=== PATIENT | female | born 1935 | race Caucasian/White ===

== ENCOUNTER → 2017-01-29 | Outpatient (CLI) | payer MEDICARE, OTHER ==
[2016-07-15 11:06] VITALS: BP 132/75
[~2017-01-29] MED LIST: ASPI81TA9 PO; CELE200C PO; CLOP75TA PO; FERR325T72 PO; OXYC1TAB7 PO; PANT40TA5 PO; TOLT4CAP12 PO; TRAM50TA PO; VALS1TAB27 PO; VENL75CA6 PO
--- NOTE | 2017-01-29 16:26 | RAD ---
Indication nonhealing wound. AP oblique and lateral views of the right foot were obtained. There are degenerative changes involving the foot. An acute bony finding is not apparent. There is demineralization of the distal phalanx of the third digit. Osteomyelitis at this level is not excluded. Clinical correlation as to this possibility advised. No additional bony finding is not seen IMPRESSION: Demineralization of the distal phalanx of the third digit. See above discussion
== END | disposition home or self-care (01) ==
LOC: PMGWOUND 14:18
PROVIDERS: ATTEND Emergency Medicine Undersea and Hyperbaric Medicine
DX: I70.235 Atherosclerosis of native arteries of right leg with ulceration of other part of foot (principal); I70.243 Atherosclerosis of native arteries of left leg with ulceration of ankle; E11.621 Type 2 diabetes mellitus with foot ulcer; E11.622 Type 2 diabetes mellitus with other skin ulcer; L97.311 Non-pressure chronic ulcer of right ankle limited to breakdown of skin; L97.511 Non-pressure chronic ulcer of other part of right foot limited to breakdown of skin; I10 Essential (primary) hypertension; E78.5 Hyperlipidemia, unspecified; F32.9 Major depressive disorder, single episode, unspecified; G43.909 Migraine, unspecified, not intractable, without status migrainosus; E66.9 Obesity, unspecified; Z68.30 Body mass index [BMI] 30.0-30.9, adult; M19.011 Primary osteoarthritis, right shoulder; E78.00 Pure hypercholesterolemia, unspecified; E11.51 Type 2 diabetes mellitus with diabetic peripheral angiopathy without gangrene; Z87.891 Personal history of nicotine dependence
CPT/HCPCS: 73630; 99215

== ENCOUNTER → 2017-02-06 | Outpatient (CLI) | payer MEDICARE, OTHER ==
[2016-07-15 11:06] VITALS: BP 132/75
== END | disposition home or self-care (01) ==
LOC: PMGWOUND 12:27
PROVIDERS: ATTEND Emergency Medicine Undersea and Hyperbaric Medicine
DX: I70.235 Atherosclerosis of native arteries of right leg with ulceration of other part of foot (principal); I70.233 Atherosclerosis of native arteries of right leg with ulceration of ankle; L97.514 Non-pressure chronic ulcer of other part of right foot with necrosis of bone; L97.312 Non-pressure chronic ulcer of right ankle with fat layer exposed; I10 Essential (primary) hypertension; E78.5 Hyperlipidemia, unspecified; Z87.891 Personal history of nicotine dependence
CPT/HCPCS: 93922

== ENCOUNTER → 2017-04-03 | Outpatient (CLI) | payer MEDICARE, OTHER ==
--- NOTE | 2017-02-16 02:51 | CONS ---
DATE OF CONSULTATION: THE PATIENT'S ROOM: 410. REQUESTING PHYSICIAN: Nguyễn Palencia M.D. REASON FOR CONSULTATION: Leukocytosis and right ankle wound. HISTORY OF PRESENT ILLNESS: The patient is a very pleasant 81-year-old female who she states about 2 months ago scraped her right ankle on the outside aspect on one of her motorized wheelchair. Over the past couple of months, she has been having complications with ongoing wound, but states that she has been evaluated by the wound center. She underwent an aortogram on 06/16/2016 and it was found that she had a right leg graft that had clotted off and she has been admitted to the hospital. She now needs to undergo bypass grafting of this. Her right wound appears to have some infection, hence I have been consulted. Currently, the patient is lying in bed. She is fairly comfortable. She believes she is on antibiotic, but she cannot remember what it was prior to coming to the hospital. She [facility] She has been having increased pain in her right leg. No fevers or chills or sweats. No shortness of air, chest pain, nausea, vomiting, diarrhea. No constipation. No dysuria, frequency or urgency. PAST MEDICAL HISTORY: Positive for hypertension, hyperlipidemia, peripheral arterial disease, depression, carotid disease, right foot drop, small abdominal aortic aneurysm, overactive bladder, lumbar spinal stenosis, obesity. PAST SURGICAL HISTORY: Positive for right carotid endarterectomy. She has had upper GI gastric angiodysplasias treated with endoclips, has had left superficial femoral artery angioplasty, carpal tunnel release, tonsillectomy, bilateral total hip arthroplasties, angioplasty of the stomach. REVIEW OF SYSTEMS: Otherwise negative except for what is mentioned above. ALLERGIES: Listed as PENICILLIN, however, she has tolerated amoxicillin. The PENICILLIN CAUSED her on to swell after a miscarriage. ALSO LISTED IS AMLODIPINE, IODINE, OLANZAPINE, ZYPREXA, VIOXX. SOCIAL HISTORY: She is . Her is currently with her. No tobacco, no alcohol. She quit tobacco over 20 years ago. FAMILY HISTORY: Noncontributory. CURRENT MEDICATIONS: Include Lipitor, Plavix, Pepcid, Dilaudid, NovoLog insulin. Other meds are available and have been reviewed in the chart. She did receive a dose of Solu-Medrol on the 02/14/2017. PHYSICAL EXAMINATION: VITAL SIGNS: Afebrile. Temperature is 97.9, pulse 77, respirations 18, blood pressure 140/67, satting 90% on room air. CONSTITUTIONAL: She is very pleasant. She is cooperative. She is in no acute distress. She appears comfortable. HEENT: Pupils are status post cataract surgery. Oral cavity, pharynx is clear. She has upper dentures. NECK: Supple. Good range of motion, no JVD. LUNGS: Clear to auscultation bilaterally. HEART: S1, S2. ABDOMEN: Obese, soft, nontender, nondistended, positive bowel sounds. EXTREMITIES: Without clubbing, cyanosis; however, right lower extremity has a chronic appearing ulceration on the lateral aspect of the malleolus. There is some thickened. There is also a tenia onychomycosis associated with it with some decreasing pulses. SKIN: Has a mild erythema associated with it. There is no itching. There is no excessive warmth. NEUROLOGIC: She is nonfocal, pleasant. PSYCHIATRIC: Affect is appropriate and pleasant. LABORATORY VALUES: White count of 14.9, hemoglobin 13.4, platelets are 250 with 84 segs, 3 bands. Sed rate was 5. Creatinine 0.8, glucose 145. Normal liver function study tests. Chest x-ray without acute abnormality. Ankle x-ray ulceration on the lateral malleolus. No convincing evidence of osteomyelitis. Atypical appearance of the medial malleolus. IMPRESSION: 1. Rash, likely from contrast even with the aortogram. 2. Leukocytosis. She did receive Solu-Medrol x1 on the 5th. 3. PENICILLIN ALLERGY, has tolerated oxacillin. 4. Right lateral ankle ulceration and cellulitis and yeast. 5. Occluded right lower extremity arteriograph. RECOMMENDATIONS: For now, we will dose vancomycin, Zosyn and fluconazole. We will follow up on labs and cultures, await surgery. I did discuss with Dr. Palencia as well as Dr. Terry and a questionable finding on the x-ray. This was discussed with . Thank you for allowing me to see and participate in the patient's care. If you have any questions, please do not hesitate to contact me. TAMIKO FREDERICK MD DR: MARYANA/chuy JOB#: [id number] / [id number]
[2017-02-20 11:30] VITALS: BP 124/59
[~2017-04-03] MED LIST changes: +ATOR10TA60 PO; +B12; +DOXY100C2 PO; +HEPARIN SODIUM 5,000 UNIT in IV RINGERS,LACTATED 500ML 500 ML IRR ONE; +MULT-650 PO; +SURGICEL FIBRILLAR 1X2 EACH. ONE; +VITB
== END | disposition home or self-care (01) ==
LOC: PMGWOUND 10:45
PROVIDERS: ATTEND Emergency Medicine Undersea and Hyperbaric Medicine
DX: I70.235 Atherosclerosis of native arteries of right leg with ulceration of other part of foot (principal); L97.514 Non-pressure chronic ulcer of other part of right foot with necrosis of bone; I70.233 Atherosclerosis of native arteries of right leg with ulceration of ankle; L97.314 Non-pressure chronic ulcer of right ankle with necrosis of bone; I10 Essential (primary) hypertension; E78.5 Hyperlipidemia, unspecified; M19.90 Unspecified osteoarthritis, unspecified site; Z87.891 Personal history of nicotine dependence
CPT/HCPCS: 11042; 97597; 97598; J7120

== ENCOUNTER → 2017-04-12 | Outpatient (CLI) | payer MEDICARE, OTHER ==
[2017-02-20 11:30] VITALS: BP 124/59
[~2017-04-12] MED LIST changes: -HEPARIN SODIUM 5,000 UNIT in IV RINGERS,LACTATED 500ML 500 ML IRR ONE; -SURGICEL FIBRILLAR 1X2 EACH. ONE
== END | disposition home or self-care (01) ==
LOC: PMGWOUND 10:44
PROVIDERS: ATTEND Emergency Medicine Undersea and Hyperbaric Medicine
DX: I70.233 Atherosclerosis of native arteries of right leg with ulceration of ankle (principal); L97.314 Non-pressure chronic ulcer of right ankle with necrosis of bone; I10 Essential (primary) hypertension; E78.5 Hyperlipidemia, unspecified; M19.90 Unspecified osteoarthritis, unspecified site; F32.9 Major depressive disorder, single episode, unspecified; E66.9 Obesity, unspecified; Z87.891 Personal history of nicotine dependence
CPT/HCPCS: 87071; 87075; 87205; 97597; 97598

== ENCOUNTER → 2017-04-19 | Outpatient (CLI) | payer MEDICARE, OTHER ==
[2017-02-20 11:30] VITALS: BP 124/59
[~2017-04-19] MED LIST changes: +ASPI-612 PO; -ASPI81TA9 PO
== END | disposition home or self-care (01) ==
LOC: PMGWOUND 12:53
PROVIDERS: ATTEND Emergency Medicine Undersea and Hyperbaric Medicine
DX: I70.243 Atherosclerosis of native arteries of left leg with ulceration of ankle (principal); L97.314 Non-pressure chronic ulcer of right ankle with necrosis of bone; I10 Essential (primary) hypertension; E78.5 Hyperlipidemia, unspecified; F32.9 Major depressive disorder, single episode, unspecified; E66.9 Obesity, unspecified; Z68.29 Body mass index [BMI] 29.0-29.9, adult; M19.90 Unspecified osteoarthritis, unspecified site; Z87.891 Personal history of nicotine dependence
CPT/HCPCS: 97597; 97598

== ENCOUNTER → 2017-04-20 | Outpatient (CLI) | payer MEDICARE, OTHER ==
[2017-02-20 11:30] VITALS: BP 124/59
--- NOTE | 2017-04-20 17:24 | KCIC ---
MR of the right foot HISTORY: Nonhealing wound of the right foot. The specific location of the wound is not indicated, and the patient is unable to provide accurate history. TECHNIQUE: Routine multiplanar sequences are obtained. FINDINGS: Mild soft tissue and muscle edema throughout the foot without area of localized predominance. No organized fluid collection or abscess. No evidence of aggressive bone destruction or osteomyelitis. No evidence of acute fracture. There is some heterogeneous marrow signal within the distal shaft of the first metatarsal. This does demonstrate some central fatty content. This may represent an area of osteonecrosis. Primary osteoarthritis is identified about the visualized foot. No evidence of acute Lisfranc ligament disruption. No evidence of tarsometatarsal joint malalignment. Mild fluid around the visualized peroneal tendons. There appears to be a longitudinal split tear of the peroneus brevis tendon at and just distal to the lateral malleolus. Mild fluid at the posterior tibial and flexor tendons. Mild thickening of the plantar aponeurosis, at and just beyond the origin over a length of about 4.5 cm. This could represent scarring from chronic plantar fasciitis. Plantar fibroma is also possible. This demonstrates mildly increased internal signal. Small subchondral cysts are identified particularly at the tarsometatarsal joints, appear degenerative. No evidence of a large joint effusion IMPRESSION: 1. Mild generalized soft tissue edema, compatible with cellulitis/myositis. No evidence of drainable abscess or acute osteomyelitis. 2. Bone lesion within the distal first metatarsal. This may represent an area of osteonecrosis. Enchondroma could also be considered. No overtly aggressive features are suggested. X-ray correlation could be helpful. 3. Thickening within the plantar aponeurosis with mildly hyperintense signal. Consider scarring from chronic plantar fasciitis or plantar fibroma. 4. Generalized primary osteoarthritis. 5. Limited visualization of the peroneus brevis tendon at the hindfoot does suggest a longitudinal split tear. Electronically signed by: Nguyễn Rhodes MD (04/20/2017 5:21 PM)
== END | disposition home or self-care (01) ==
LOC: KCIC MRI 16:12
PROVIDERS: ATTEND Emergency Medicine Undersea and Hyperbaric Medicine
DX: S91.301A Unspecified open wound, right foot, initial encounter (principal); M15.0 Primary generalized (osteo)arthritis; X58.XXXA Exposure to other specified factors, initial encounter; Y93.89 Activity, other specified; Y92.89 Other specified places as the place of occurrence of the external cause; Y99.8 Other external cause status
CPT/HCPCS: 73718

== ENCOUNTER → 2017-04-26 | Outpatient (CLI) | payer MEDICARE, OTHER ==
[2017-02-20 11:30] VITALS: BP 124/59
== END | disposition home or self-care (01) ==
LOC: PMGWOUND 12:48
PROVIDERS: ATTEND Emergency Medicine Undersea and Hyperbaric Medicine
DX: I70.233 Atherosclerosis of native arteries of right leg with ulceration of ankle (principal); L97.313 Non-pressure chronic ulcer of right ankle with necrosis of muscle; I10 Essential (primary) hypertension; E78.5 Hyperlipidemia, unspecified; F32.9 Major depressive disorder, single episode, unspecified; E66.9 Obesity, unspecified; Z68.29 Body mass index [BMI] 29.0-29.9, adult; M15.0 Primary generalized (osteo)arthritis; Z87.891 Personal history of nicotine dependence
CPT/HCPCS: 97597

== ENCOUNTER → 2017-05-08 | Outpatient (CLI) | payer MEDICARE, OTHER ==
[2017-02-20 11:30] VITALS: BP 124/59
== END | disposition home or self-care (01) ==
LOC: PMGWOUND 13:15
PROVIDERS: ATTEND Emergency Medicine Undersea and Hyperbaric Medicine
DX: I70.233 Atherosclerosis of native arteries of right leg with ulceration of ankle (principal); L97.313 Non-pressure chronic ulcer of right ankle with necrosis of muscle; I70.235 Atherosclerosis of native arteries of right leg with ulceration of other part of foot; L97.413 Non-pressure chronic ulcer of right heel and midfoot with necrosis of muscle; I10 Essential (primary) hypertension; E78.5 Hyperlipidemia, unspecified; F32.9 Major depressive disorder, single episode, unspecified; E66.9 Obesity, unspecified; Z68.29 Body mass index [BMI] 29.0-29.9, adult; M15.0 Primary generalized (osteo)arthritis; Z87.891 Personal history of nicotine dependence
CPT/HCPCS: 99214

== ENCOUNTER → 2017-05-17 | Outpatient (CLI) | payer MEDICARE, OTHER ==
[2017-02-20 11:30] VITALS: BP 124/59
== END | disposition home or self-care (01) ==
LOC: PMGWOUND 13:30
PROVIDERS: ATTEND Emergency Medicine Undersea and Hyperbaric Medicine
DX: I70.243 Atherosclerosis of native arteries of left leg with ulceration of ankle (principal); L97.313 Non-pressure chronic ulcer of right ankle with necrosis of muscle; I70.235 Atherosclerosis of native arteries of right leg with ulceration of other part of foot; L97.413 Non-pressure chronic ulcer of right heel and midfoot with necrosis of muscle; I10 Essential (primary) hypertension; E78.5 Hyperlipidemia, unspecified; I73.9 Peripheral vascular disease, unspecified; F32.9 Major depressive disorder, single episode, unspecified; M19.90 Unspecified osteoarthritis, unspecified site; E66.9 Obesity, unspecified; Z68.29 Body mass index [BMI] 29.0-29.9, adult; Z87.891 Personal history of nicotine dependence
CPT/HCPCS: 15275; 97597; Q4132

== ENCOUNTER → 2017-05-22 | Outpatient (CLI) | payer MEDICARE, OTHER ==
[2017-02-20 11:30] VITALS: BP 124/59
== END | disposition home or self-care (01) ==
LOC: PMGWOUND 13:20
PROVIDERS: ATTEND Emergency Medicine Undersea and Hyperbaric Medicine
DX: I70.233 Atherosclerosis of native arteries of right leg with ulceration of ankle (principal); L97.313 Non-pressure chronic ulcer of right ankle with necrosis of muscle; I70.235 Atherosclerosis of native arteries of right leg with ulceration of other part of foot; L97.413 Non-pressure chronic ulcer of right heel and midfoot with necrosis of muscle; I10 Essential (primary) hypertension; E78.5 Hyperlipidemia, unspecified; I73.9 Peripheral vascular disease, unspecified; M19.90 Unspecified osteoarthritis, unspecified site; F32.9 Major depressive disorder, single episode, unspecified; E66.9 Obesity, unspecified; Z68.29 Body mass index [BMI] 29.0-29.9, adult; Z87.891 Personal history of nicotine dependence
CPT/HCPCS: 97597

== ENCOUNTER → 2017-05-29 | Outpatient (CLI) | payer MEDICARE, OTHER ==
[2017-02-20 11:30] VITALS: BP 124/59
== END | disposition home or self-care (01) ==
LOC: PMGWOUND 12:53
PROVIDERS: ATTEND Emergency Medicine Undersea and Hyperbaric Medicine
DX: I70.235 Atherosclerosis of native arteries of right leg with ulceration of other part of foot (principal); L97.313 Non-pressure chronic ulcer of right ankle with necrosis of muscle; L97.413 Non-pressure chronic ulcer of right heel and midfoot with necrosis of muscle; I10 Essential (primary) hypertension; E78.5 Hyperlipidemia, unspecified; I73.9 Peripheral vascular disease, unspecified; E66.9 Obesity, unspecified; Z68.29 Body mass index [BMI] 29.0-29.9, adult; F32.9 Major depressive disorder, single episode, unspecified; M19.90 Unspecified osteoarthritis, unspecified site; Z87.891 Personal history of nicotine dependence
CPT/HCPCS: 15275; 97597; Q4132

== ENCOUNTER → 2017-06-05 | Outpatient (CLI) | payer MEDICARE, OTHER ==
[2017-02-20 11:30] VITALS: BP 124/59
== END | disposition home or self-care (01) ==
LOC: PMGWOUND 14:04
PROVIDERS: ATTEND Emergency Medicine Undersea and Hyperbaric Medicine
DX: I70.233 Atherosclerosis of native arteries of right leg with ulceration of ankle (principal); L97.313 Non-pressure chronic ulcer of right ankle with necrosis of muscle; I70.235 Atherosclerosis of native arteries of right leg with ulceration of other part of foot; L97.413 Non-pressure chronic ulcer of right heel and midfoot with necrosis of muscle; I10 Essential (primary) hypertension; E78.5 Hyperlipidemia, unspecified; F32.9 Major depressive disorder, single episode, unspecified; E66.9 Obesity, unspecified; M15.0 Primary generalized (osteo)arthritis; Z68.29 Body mass index [BMI] 29.0-29.9, adult; Z87.891 Personal history of nicotine dependence
CPT/HCPCS: 99214

== ENCOUNTER → 2017-06-12 | Outpatient (CLI) | payer MEDICARE, OTHER ==
[2017-02-20 11:30] VITALS: BP 124/59
== END | disposition home or self-care (01) ==
LOC: PMGWOUND 13:14
PROVIDERS: ATTEND Emergency Medicine Undersea and Hyperbaric Medicine
DX: I70.233 Atherosclerosis of native arteries of right leg with ulceration of ankle (principal); L97.313 Non-pressure chronic ulcer of right ankle with necrosis of muscle; I10 Essential (primary) hypertension; E78.5 Hyperlipidemia, unspecified; F32.9 Major depressive disorder, single episode, unspecified; E66.9 Obesity, unspecified; Z68.29 Body mass index [BMI] 29.0-29.9, adult; M15.0 Primary generalized (osteo)arthritis; Z87.891 Personal history of nicotine dependence
CPT/HCPCS: 15275; Q4133

== ENCOUNTER → 2017-06-19 | Outpatient (CLI) | payer MEDICARE, OTHER ==
[2017-02-20 11:30] VITALS: BP 124/59
== END | disposition home or self-care (01) ==
LOC: PMGWOUND 13:37
PROVIDERS: ATTEND Emergency Medicine Undersea and Hyperbaric Medicine
DX: I70.233 Atherosclerosis of native arteries of right leg with ulceration of ankle (principal); L97.313 Non-pressure chronic ulcer of right ankle with necrosis of muscle; I10 Essential (primary) hypertension; E78.5 Hyperlipidemia, unspecified; F32.9 Major depressive disorder, single episode, unspecified; M15.0 Primary generalized (osteo)arthritis; E66.9 Obesity, unspecified; Z68.29 Body mass index [BMI] 29.0-29.9, adult; Z87.891 Personal history of nicotine dependence
CPT/HCPCS: 97597

== ENCOUNTER → 2017-06-26 | Outpatient (CLI) | payer MEDICARE, OTHER ==
[2017-02-20 11:30] VITALS: BP 124/59
== END | disposition home or self-care (01) ==
LOC: PMGWOUND 13:38
PROVIDERS: ATTEND Emergency Medicine Undersea and Hyperbaric Medicine
DX: I70.235 Atherosclerosis of native arteries of right leg with ulceration of other part of foot (principal); I70.243 Atherosclerosis of native arteries of left leg with ulceration of ankle; L97.413 Non-pressure chronic ulcer of right heel and midfoot with necrosis of muscle; I10 Essential (primary) hypertension; E78.5 Hyperlipidemia, unspecified; I73.9 Peripheral vascular disease, unspecified; F32.9 Major depressive disorder, single episode, unspecified; M19.90 Unspecified osteoarthritis, unspecified site; E66.9 Obesity, unspecified; Z68.29 Body mass index [BMI] 29.0-29.9, adult; Z87.891 Personal history of nicotine dependence
CPT/HCPCS: 15275; Q4101

== ENCOUNTER → 2017-07-03 | Outpatient (CLI) | payer MEDICARE, OTHER ==
[2017-02-20 11:30] VITALS: BP 124/59
== END | disposition home or self-care (01) ==
LOC: PMGWOUND 10:54
PROVIDERS: ATTEND Emergency Medicine Undersea and Hyperbaric Medicine
DX: I70.235 Atherosclerosis of native arteries of right leg with ulceration of other part of foot (principal); L97.413 Non-pressure chronic ulcer of right heel and midfoot with necrosis of muscle; I70.243 Atherosclerosis of native arteries of left leg with ulceration of ankle; L97.311 Non-pressure chronic ulcer of right ankle limited to breakdown of skin; E78.5 Hyperlipidemia, unspecified; I10 Essential (primary) hypertension; I73.9 Peripheral vascular disease, unspecified; F32.9 Major depressive disorder, single episode, unspecified; M19.90 Unspecified osteoarthritis, unspecified site; Z87.891 Personal history of nicotine dependence; Z72.89 Other problems related to lifestyle
CPT/HCPCS: 15275; Q4101

== ENCOUNTER → 2017-07-04 | Outpatient (CLI) | payer MEDICARE, OTHER ==
[2017-02-20 11:30] VITALS: BP 124/59
--- NOTE | 2017-07-04 16:12 | RAD ---
CT head without IV contrast Indication: Frequent falls, headaches, hypertension Technique: CT head without IV contrast Comparison: None Findings: No pathologic extra-axial or intra-axial fluid collection. Mild diffuse cerebral atrophy with ex vacuo dilation of the ventricles. No midline shift. No acute intracranial bleed. The basal cisterns are within normal limits. No calvarial lesions. The paranasal sinuses and mastoid air cells are clear. Orbits within normal limits. Impression: No acute intracranial findings on this noncontrast study. PQRS Compliance Statement: One or more of the following individualized dose reduction techniques were utilized for this examination: 1. Automated exposure control 2. Adjustment of the mA and/or kV according to patient size 3. Use of iterative reconstruction technique
== END | disposition home or self-care (01) ==
LOC: CT 12:55
PROVIDERS: ATTEND Internal Medicine
DX: I10 Essential (primary) hypertension (principal); R51 Headache; R29.6 Repeated falls
CPT/HCPCS: 70450

== ENCOUNTER → 2017-07-10 | Outpatient (CLI) | payer MEDICARE, OTHER ==
[2017-02-20 11:30] VITALS: BP 124/59
== END | disposition home or self-care (01) ==
LOC: PMGWOUND 12:43
PROVIDERS: ATTEND Emergency Medicine Undersea and Hyperbaric Medicine
DX: I70.235 Atherosclerosis of native arteries of right leg with ulceration of other part of foot (principal); L97.311 Non-pressure chronic ulcer of right ankle limited to breakdown of skin; I70.243 Atherosclerosis of native arteries of left leg with ulceration of ankle; L97.321 Non-pressure chronic ulcer of left ankle limited to breakdown of skin; L97.413 Non-pressure chronic ulcer of right heel and midfoot with necrosis of muscle; I10 Essential (primary) hypertension; E78.5 Hyperlipidemia, unspecified; I73.9 Peripheral vascular disease, unspecified; E66.9 Obesity, unspecified; Z68.29 Body mass index [BMI] 29.0-29.9, adult; F32.9 Major depressive disorder, single episode, unspecified; M19.90 Unspecified osteoarthritis, unspecified site; Z87.891 Personal history of nicotine dependence
CPT/HCPCS: 15275; Q4101

== ENCOUNTER → 2017-07-17 | Outpatient (CLI) | payer MEDICARE, OTHER ==
[2017-02-20 11:30] VITALS: BP 124/59
== END | disposition home or self-care (01) ==
LOC: PMGWOUND 13:20
PROVIDERS: ATTEND Emergency Medicine Undersea and Hyperbaric Medicine
DX: I70.235 Atherosclerosis of native arteries of right leg with ulceration of other part of foot (principal); L97.311 Non-pressure chronic ulcer of right ankle limited to breakdown of skin; I70.243 Atherosclerosis of native arteries of left leg with ulceration of ankle; L97.413 Non-pressure chronic ulcer of right heel and midfoot with necrosis of muscle; I10 Essential (primary) hypertension; E78.5 Hyperlipidemia, unspecified; I73.9 Peripheral vascular disease, unspecified; Z87.891 Personal history of nicotine dependence; F32.9 Major depressive disorder, single episode, unspecified; E66.9 Obesity, unspecified; Z68.29 Body mass index [BMI] 29.0-29.9, adult; M19.90 Unspecified osteoarthritis, unspecified site; Z72.89 Other problems related to lifestyle
CPT/HCPCS: 97597

== ENCOUNTER → 2017-07-30 | Outpatient (CLI) | payer MEDICARE, OTHER ==
[~2017-07-30] VITALS: Ht 170.2 cm; Wt 78.9 kg
[~2017-07-30] MED LIST changes: +CONTRAST GIVEN MC PRN; +EPINEPHrine SYRINGE 1 MG/10 ML SYRINGE ONE; +HYDR-963 PO; +HYDR25TA9 PO; +IODIXANOL 320 MG/ML 100 ML VIAL. IART ONE; +IODIXANOL 320 MG/ML 100 ML VIAL. ONE; +IODIXANOL 320MG/ML 50ML VIAL. ONE; +IV NORMAL SALINE 1000ML BAG 1,000 ML IV SCH; +LIDOCAINE 1% / SOD BICARB 8.4% 20 ML VIAL. IJ ONE; +LIDOCAINE 2% PF Vial for OR 5 ML VIAL. ONE; +LOSA100T2 PO; +MIDAZOLAM HCL/PF 2 MG/2 ML VIAL. ONE; +PROPOFOL 60 ML IV ONE; +fentaNYL PF VIAL 100 MCG/2 ML VIAL ONE
[2017-07-30 08:20] LABS: BASO % 0 % (0-3); EOS % 0 % (0-3); HEMATOCRIT 41.8 % (36.0-47.0); HEMOGLOBIN 13.9 g/dL (12.0-15.5); LYMPH # 0.6 x10^3/uL (1.0-4.8); LYMPH % 8 % (24-48); MEAN CORPUSCULAR HEMOGLOBIN 31 pg (25-35); MEAN CORPUSCULAR HGB CONC 33 g/dL (31-37); MEAN CORPUSCULAR VOLUME 93 fL (79-100); MONO % 3 % (0-9); NEUT % 88 % (31-73); PLATELET COUNT 238 x10^3/uL (140-400); RED BLOOD COUNT 4.51 x10^6/uL (3.50-5.40); RED CELL DISTRIBUTION WIDTH 15.4 % (11.5-14.5); WHITE BLOOD COUNT 7.2 x10^3/uL (4.0-11.0)
[2017-07-30 08:33] LABS: CALCIUM 9.3 mg/dL (8.5-10.1); CREATININE 1.1 mg/dL (0.6-1.0); GFR 47.6; POTASSIUM 3.9 mmol/L (3.5-5.1)
[2017-07-30 08:50] VITALS: BP 132/75
--- NOTE | 2017-07-30 10:52 | PDOC ---
VASCULAR BRIEF OPERATIVE NOTE Date: Jul 30, 2017 Pre-Op Diagnosis Nonhealing right leg ulcers, focal stenosis right leg distal bypass graft Post-Op Diagnosis Widely patent right femoral to peroneal artery bypass graft. No focal stenosis identified Procedure Performed Right leg arteriogram with runoff Surgeon Juliano Anesthesia Type: MAC, Local Blood Loss None RUDY DONOHUE MD Jul 30, 2017 10:52
--- NOTE | 2017-07-30 12:10 | OP ---
DATE OF SURGERY: 07/30/2017 CATHETERIZATION LABORATORY PROCEDURE REPORT PREOPERATIVE DIAGNOSIS: Ischemic ulcers, right leg, with a suspected failing cadaveric vein bypass graft. POSTOPERATIVE DIAGNOSIS: Widely patent cadaveric vein bypass graft. PROCEDURE PERFORMED: Right leg arteriogram with runoff. A 5-Tuvaluan Mynx closure device, left groin. INDICATIONS: This is an 81-year-old female who had been seen and treated through [facility] with ischemic ulcerations of her right leg. Dr. Terry has performed a right kpyonlc-ur-vummcptu artery cadaveric vein bypass graft. Additionally, the patient's wound is improved and one of the two significant wounds healed completely. She is still left with some slowly healing right leg wounds. A followup duplex examination of the vein bypass graft showed significant flow acceleration at the distal anastomosis and recommendation was for arteriographic evaluation and consideration of percutaneous intervention for what was suspected to be a focal stenosis at the distal anastomosis. FINDINGS: The patient has a widely patent common femoral artery and profunda femoris artery on the right. The vein bypass graft was widely patent at its origin and throughout its course to the lower leg. There was anastomosis of the cadaveric vein graft to the peroneal artery and about the mid calf. This bypass graft anastomosis is widely patent. There are collateral vessels from the peroneal artery eventually visualizing some blood flow into the forefoot. No intervention was performed as there was no focal stenosis visualized on arteriogram. Once the diagnostic study had been completed, an oblique view of the sheath entry site on the left leg was obtained that was appropriate for a closure device and a 5-Tuvaluan Mynx closure device was deployed with excellent hemostasis. DESCRIPTION OF PROCEDURE: After informed consent had been obtained, the patient was brought to the laborer aquatic life. She was prepped and draped in a sterile fashion. She was monitored throughout the course of the operative procedure by [facility]. The area over the groins were prepped and draped in a sterile fashion. Xylocaine 1% was utilized to anesthetize tissue over the common femoral artery on the left. The common femoral artery was then accessed with a micropuncture needle and 0.014 guidewire was advanced. A 4-Tuvaluan transition sheath was placed in the inner cannula and 0.014 wire was removed and replaced with an 0.035 catheter. A 5-Tuvaluan sheath was then passed and then using a glide catheter and a UTILICASEson guidewire, the catheter was advanced up to the aortic bifurcation. It actually never extended up into the aorta, but rather just turned over into the contralateral iliac system. This was felt to be fortuitous and the catheter and wire were advanced. The wire was replacement with an Advantage Guidewire and then using the glide catheter and guidewire, the catheter was advanced into the common femoral artery. The wire was removed and selective arteriography visualizing the right leg was obtained. A 5 mL of contrast were utilized for the common femoral artery injection. Once the common femoral bifurcation and bypass graft origins had been delineated, the wire and catheter were manipulated into the bypass conduit for better visualization of this outflow vessel. A 5 mL of contrast was injected initially in the lower leg and 8 mL of contrast with magnification arteriography was obtained to more clearly delineate the vascular anatomy. There was no significant stenosis. Once distal arteriography had been obtained, the catheter and wires were removed. An oblique view of the sheath entry site with 5 mL of contrast injection was obtained. It was appropriate for closure device and the 5-Tuvaluan Mynx closure device was deployed successfully in the left groin with excellent hemostasis. The patient moved from the operating room to recovery in satisfactory stable condition. A 57 mL of contrast was utilized. The patient tolerated the procedure well. RUDY DONOHUE MD DR: TEODORO/chuy JOB#: [id number] / [id number]
[2017-07-30 12:34] VITALS: BP 151/69
[2017-07-30 14:37] LABS: PLT ESTIMATE ADEQUATE (ADEQUATE)
== END | disposition home or self-care (01) ==
LOC: INTRAD 07:27
DX: L97.819 Non-pressure chronic ulcer of other part of right lower leg with unspecified severity (principal); I73.9 Peripheral vascular disease, unspecified; E78.00 Pure hypercholesterolemia, unspecified; I10 Essential (primary) hypertension; F17.200 Nicotine dependence, unspecified, uncomplicated; Z90.710 Acquired absence of both cervix and uterus; Z96.643 Presence of artificial hip joint, bilateral; Z86.69 Personal history of other diseases of the nervous system and sense organs; Z87.39 Personal history of other diseases of the musculoskeletal system and connective tissue; Z88.6 Allergy status to analgesic agent; Z88.0 Allergy status to penicillin; Z88.8 Allergy status to other drugs, medicaments and biological substances
CPT/HCPCS: 36246; 36415; 75710; 80048; 85025; 85610; C1713; C1760; C1769; C1892; C1894; G0269; J1644; J2250; J2704; J3010; Q9966; 85007; J0171; J2001

== ENCOUNTER → 2017-07-31 | Outpatient (CLI) | payer MEDICARE, OTHER ==
[2017-07-30 12:34] VITALS: BP 151/69
[~2017-07-31] MED LIST changes: -CONTRAST GIVEN MC PRN; -EPINEPHrine SYRINGE 1 MG/10 ML SYRINGE ONE; -IODIXANOL 320 MG/ML 100 ML VIAL. IART ONE; -IODIXANOL 320 MG/ML 100 ML VIAL. ONE; -IODIXANOL 320MG/ML 50ML VIAL. ONE; -IV NORMAL SALINE 1000ML BAG 1,000 ML IV SCH; -LIDOCAINE 1% / SOD BICARB 8.4% 20 ML VIAL. IJ ONE; -LIDOCAINE 2% PF Vial for OR 5 ML VIAL. ONE; -MIDAZOLAM HCL/PF 2 MG/2 ML VIAL. ONE; -PROPOFOL 60 ML IV ONE; -fentaNYL PF VIAL 100 MCG/2 ML VIAL ONE
== END | disposition home or self-care (01) ==
LOC: PMGWOUND 13:29
PROVIDERS: ATTEND Emergency Medicine Undersea and Hyperbaric Medicine
DX: I70.235 Atherosclerosis of native arteries of right leg with ulceration of other part of foot (principal); L97.311 Non-pressure chronic ulcer of right ankle limited to breakdown of skin; L23.3 Allergic contact dermatitis due to drugs in contact with skin; E78.5 Hyperlipidemia, unspecified; I10 Essential (primary) hypertension; Z87.891 Personal history of nicotine dependence
CPT/HCPCS: 99214

== ENCOUNTER → 2017-08-07 | Outpatient (CLI) | payer MEDICARE, OTHER ==
[2017-07-30 12:34] VITALS: BP 151/69
== END | disposition home or self-care (01) ==
LOC: PMGWOUND 13:26
PROVIDERS: ATTEND Emergency Medicine Undersea and Hyperbaric Medicine
DX: I70.233 Atherosclerosis of native arteries of right leg with ulceration of ankle (principal); L97.311 Non-pressure chronic ulcer of right ankle limited to breakdown of skin; L23.3 Allergic contact dermatitis due to drugs in contact with skin; I10 Essential (primary) hypertension; E78.5 Hyperlipidemia, unspecified; F32.9 Major depressive disorder, single episode, unspecified; E66.9 Obesity, unspecified; M19.90 Unspecified osteoarthritis, unspecified site; Z90.710 Acquired absence of both cervix and uterus; Z68.29 Body mass index [BMI] 29.0-29.9, adult; Z87.891 Personal history of nicotine dependence; Z72.89 Other problems related to lifestyle
CPT/HCPCS: 97597

== ENCOUNTER → 2017-08-14 | Outpatient (CLI) | payer MEDICARE, OTHER ==
[2017-07-30 12:34] VITALS: BP 151/69
== END | disposition home or self-care (01) ==
LOC: PMGWOUND 12:17
PROVIDERS: ATTEND Emergency Medicine Undersea and Hyperbaric Medicine
DX: I70.233 Atherosclerosis of native arteries of right leg with ulceration of ankle (principal); L97.311 Non-pressure chronic ulcer of right ankle limited to breakdown of skin; I10 Essential (primary) hypertension; E78.5 Hyperlipidemia, unspecified; F32.9 Major depressive disorder, single episode, unspecified; E66.9 Obesity, unspecified; M15.0 Primary generalized (osteo)arthritis; Z68.29 Body mass index [BMI] 29.0-29.9, adult; Z87.891 Personal history of nicotine dependence; Z90.710 Acquired absence of both cervix and uterus; Z72.89 Other problems related to lifestyle
CPT/HCPCS: 99214

== ENCOUNTER → 2017-09-04 | Outpatient (CLI) | payer MEDICARE, OTHER ==
[2017-07-30 12:34] VITALS: BP 151/69
== END | disposition home or self-care (01) ==
LOC: PMGWOUND 13:30
PROVIDERS: ATTEND Emergency Medicine Undersea and Hyperbaric Medicine
DX: I70.233 Atherosclerosis of native arteries of right leg with ulceration of ankle (principal); L97.311 Non-pressure chronic ulcer of right ankle limited to breakdown of skin; L23.3 Allergic contact dermatitis due to drugs in contact with skin; I25.10 Atherosclerotic heart disease of native coronary artery without angina pectoris; I10 Essential (primary) hypertension; E78.5 Hyperlipidemia, unspecified; F32.9 Major depressive disorder, single episode, unspecified; E66.9 Obesity, unspecified; M15.0 Primary generalized (osteo)arthritis; Z87.891 Personal history of nicotine dependence; Z96.643 Presence of artificial hip joint, bilateral; Z72.89 Other problems related to lifestyle; Z68.29 Body mass index [BMI] 29.0-29.9, adult; Z90.710 Acquired absence of both cervix and uterus
CPT/HCPCS: 15271; Q4101; 15275

== ENCOUNTER → 2017-09-11 | Outpatient (CLI) | payer MEDICARE, OTHER ==
[2017-07-30 12:34] VITALS: BP 151/69
== END | disposition home or self-care (01) ==
LOC: PMGWOUND 12:53
PROVIDERS: ATTEND Emergency Medicine Undersea and Hyperbaric Medicine
DX: I70.235 Atherosclerosis of native arteries of right leg with ulceration of other part of foot (principal); I70.243 Atherosclerosis of native arteries of left leg with ulceration of ankle; L97.413 Non-pressure chronic ulcer of right heel and midfoot with necrosis of muscle; L23.3 Allergic contact dermatitis due to drugs in contact with skin; E78.5 Hyperlipidemia, unspecified; I10 Essential (primary) hypertension; I73.9 Peripheral vascular disease, unspecified; Z87.891 Personal history of nicotine dependence; I25.10 Atherosclerotic heart disease of native coronary artery without angina pectoris; F32.9 Major depressive disorder, single episode, unspecified; E66.9 Obesity, unspecified; Z68.29 Body mass index [BMI] 29.0-29.9, adult; Z72.89 Other problems related to lifestyle; M19.90 Unspecified osteoarthritis, unspecified site
CPT/HCPCS: 99214

== ENCOUNTER → 2017-09-26 | Outpatient (CLI) | payer MEDICARE, OTHER ==
[2017-07-30 12:34] VITALS: BP 151/69
== END | disposition home or self-care (01) ==
LOC: PMGWOUND 10:48
PROVIDERS: ATTEND Preventive Medicine Undersea and Hyperbaric Medicine
DX: I70.235 Atherosclerosis of native arteries of right leg with ulceration of other part of foot (principal); L97.311 Non-pressure chronic ulcer of right ankle limited to breakdown of skin; L23.3 Allergic contact dermatitis due to drugs in contact with skin; I10 Essential (primary) hypertension; E78.5 Hyperlipidemia, unspecified; F32.9 Major depressive disorder, single episode, unspecified; E66.9 Obesity, unspecified; M15.0 Primary generalized (osteo)arthritis; Z68.29 Body mass index [BMI] 29.0-29.9, adult; Z87.891 Personal history of nicotine dependence; Z96.643 Presence of artificial hip joint, bilateral; Z90.710 Acquired absence of both cervix and uterus; Z72.89 Other problems related to lifestyle
CPT/HCPCS: 97597

== ENCOUNTER → 2017-10-03 | Outpatient (CLI) | payer MEDICARE, OTHER ==
[2017-07-30 12:34] VITALS: BP 151/69
== END | disposition home or self-care (01) ==
LOC: PMGWOUND 09:50
PROVIDERS: ATTEND Preventive Medicine Undersea and Hyperbaric Medicine
DX: I70.233 Atherosclerosis of native arteries of right leg with ulceration of ankle (principal); L97.311 Non-pressure chronic ulcer of right ankle limited to breakdown of skin; L23.3 Allergic contact dermatitis due to drugs in contact with skin; I10 Essential (primary) hypertension; E78.5 Hyperlipidemia, unspecified; F32.9 Major depressive disorder, single episode, unspecified; E66.9 Obesity, unspecified; M15.0 Primary generalized (osteo)arthritis; Z68.29 Body mass index [BMI] 29.0-29.9, adult; Z87.891 Personal history of nicotine dependence; Z90.710 Acquired absence of both cervix and uterus; Z96.643 Presence of artificial hip joint, bilateral; Z72.89 Other problems related to lifestyle
CPT/HCPCS: 97597

== ENCOUNTER 2017-10-13 16:21 | Emergency (ER) | payer MEDICARE, OTHER ==
[~2017-10-13] VITALS: Ht 167.6 cm; Wt 78.9 kg
[2017-10-13 16:30] VITALS: BP 126/86
--- NOTE | 2017-10-13 16:43 | PHYS DOC ---
Past Medical History Past Medical History: High Cholesterol, Hypertension Past Surgical History: Other Additional Past Surgical Histo: back surgery,BILAT HIP REPLACEMENT Alcohol Use: None Drug Use: None Adult General Chief Complaint Chief Complaint: HAND PROBLEM HPI HPI Patient is a 81 year old presents to the emergency department with complaints of left hand pain . Patient states that last night she fell striking her hand on the floor and hitting her hand with her head. She states that the incident occurred approximately 14 hours prior to arrival. She is here seeking evaluation of the laceration she sustained to the hand. She has no other complaints. Review of Systems Review of Systems Constitutional: Denies fever or chills [] Eyes: Denies change in visual acuity, redness, or eye pain [] HENT: Denies nasal congestion or sore throat [] Respiratory: Denies cough or shortness of breath [] Cardiovascular: No additional information not addressed in HPI [] GI: Denies abdominal pain, nausea, vomiting, bloody stools or diarrhea [] : Denies dysuria or hematuria [] Musculoskeletal: Hand pain Integument: skin tear Neurologic: Denies headache, focal weakness or sensory changes [] Endocrine: Denies polyuria or polydipsia [] All other systems were reviewed and found to be within normal limits, except as documented in this note. Current Medications Current Medications Current Medications Medications (Trade) Dose Ordered Sig/Milan Start Time Stop Time Status Last Admin Dose Admin Diphtheria/ Tetanus/Acell Pertussis (Boostrix) 0.5 ml ONCE ONCE 10/13/17 16:45 10/13/17 16:46 DC 10/13/17 17:28 0.5 ML Lidocaine/ Prilocaine (Emla) 1 amanda 1X ONCE 10/13/17 17:15 10/13/17 17:16 DC 10/13/17 17:01 1 AMANDA Allergies Allergies Allergies Coded Allergies Type Severity Reaction Last Updated Verified spironolactone Allergy Severe FLUID POURED OUT OF ALL ORIFICES 02/14/17 Yes Penicillins Allergy Intermediate 02/14/17 Yes amlodipine Allergy Intermediate 02/14/17 Yes iodine Allergy Intermediate Rash 02/14/17 Yes olanzapine Allergy Intermediate 02/14/17 Yes rofecoxib Allergy Intermediate 02/14/17 Yes I S O L A T I O N *CONTACT* Allergy Unknown 04/17/17 Yes Physical Exam Physical Exam Constitutional: Well developed, well nourished, no acute distress, non-toxic appearance. [] Neck: Normal range of motion, no midline tenderness, supple, no stridor. [] Cardiovascular:Heart rate regular rhythm, no murmur [] Lungs & Thorax: atraumatic, Bilateral breath sounds clear to auscultation [] Skin: Left hand with a irregular border 6 cm superficial skin tear. Back: No tenderness, no CVA tenderness. [] Extremities: Left hand dorsal aspect with swelling and ecchymosis across the dorsum of the hand extending to the DIP of the second through fifth finger. She has no bony tenderness on exam. Neurovascular intact distally. Neurologic: Alert and oriented X 3, normal motor function, normal sensory function, no focal deficits noted. [] Psychologic: Affect normal, judgement normal, mood normal. [] Current Patient Data Vital Signs Vital Signs Date Time Temp Pulse Resp B/P (MAP) Pulse Ox O2 Delivery O2 Flow Rate FiO2 10/13/17 16:30 97.7 86 18 98 Room Air 97.7 EKG EKG [] Radiology/Procedures Radiology/Procedures [] Course & Med Decision Making Course & Med Decision Making Pertinent Labs and Imaging studies reviewed. (See chart for details) []Procedure note: An anesthetized with Emla cream. Cleansed with normal saline. The skin tear was approximated with Steri-Strips. Tegaderm dressing applied. Patient tolerated well. Tetanus immunization updated. Dragon Disclaimer Dragon Disclaimer This electronic medical record was generated, in whole or in part, using a voice recognition dictation system. Departure Departure Impression: Primary Impression: Skin tear Disposition: 01 HOME, SELF-CARE Condition: STABLE Referrals: CINDI SOUSA MD (PCP) Patient Instructions: Contusion, Skin Tear Care DENVER RAM APRN Oct 13, 2017 16:43
[2017-10-13] MEDS ORDERED: DIPHTH,PERTUSS(ACELL),TET TOX 0.5 ML DISP.SYRIN. VAX IM ONE (16:45)
[2017-10-13] MEDS ORDERED: LIDOCAINE/PRILOCAINE TOPICAL CREAM 5GM TUBE. TP ONE (17:15)
--- NOTE | 2017-10-14 08:46 | RAD ---
HAND LEFT 3V Clinical Indication: Laceration over metacarpals from fall. Comparison: None. Technique: Frontal, oblique and lateral views of the left hand are obtained. Findings: Diffuse demineralization is present. No displaced fracture or dislocation is seen. Prominent degenerative changes are present throughout the wrist and hand, most prominent involving the carpometacarpal joint, carpal bones, and carpometacarpal joints. Degenerative changes also seen involving the interphalangeal joints.. Laceration seen along the dorsum of the hand at the level of the metacarpals. IMPRESSION: No acute osseous injury seen.
== END 2017-10-13 17:40 | disposition home or self-care (01) ==
LOC: ER 16:21
DX: S61.412A Laceration without foreign body of left hand, initial encounter (principal); E78.00 Pure hypercholesterolemia, unspecified; I10 Essential (primary) hypertension; Z88.0 Allergy status to penicillin; Z96.643 Presence of artificial hip joint, bilateral; Z91.041 Radiographic dye allergy status; Z88.8 Allergy status to other drugs, medicaments and biological substances; W01.198A Fall on same level from slipping, tripping and stumbling with subsequent striking against other object, initial encounter; Y93.89 Activity, other specified; Y92.89 Other specified places as the place of occurrence of the external cause; Y99.8 Other external cause status
CPT/HCPCS: 73130; 90471; 90715; 99284-25

== ENCOUNTER → 2017-10-17 | Outpatient (CLI) | payer MEDICARE, OTHER ==
[2017-10-13 16:30] VITALS: BP 126/86
== END | disposition home or self-care (01) ==
LOC: PMGWOUND 11:00
PROVIDERS: ATTEND Preventive Medicine Undersea and Hyperbaric Medicine
DX: S61.412A Laceration without foreign body of left hand, initial encounter (principal); I70.235 Atherosclerosis of native arteries of right leg with ulceration of other part of foot; I70.243 Atherosclerosis of native arteries of left leg with ulceration of ankle; L97.413 Non-pressure chronic ulcer of right heel and midfoot with necrosis of muscle; L97.311 Non-pressure chronic ulcer of right ankle limited to breakdown of skin; L23.3 Allergic contact dermatitis due to drugs in contact with skin; I10 Essential (primary) hypertension; E78.5 Hyperlipidemia, unspecified; I73.9 Peripheral vascular disease, unspecified; F32.9 Major depressive disorder, single episode, unspecified; E66.9 Obesity, unspecified; Z68.29 Body mass index [BMI] 29.0-29.9, adult; M19.91 Primary osteoarthritis, unspecified site; I25.10 Atherosclerotic heart disease of native coronary artery without angina pectoris; Z72.89 Other problems related to lifestyle; Z87.891 Personal history of nicotine dependence; Z90.710 Acquired absence of both cervix and uterus; X58.XXXA Exposure to other specified factors, initial encounter; Y93.89 Activity, other specified; Y92.89 Other specified places as the place of occurrence of the external cause; Y99.8 Other external cause status
CPT/HCPCS: 97597

== ENCOUNTER → 2017-10-24 | Outpatient (CLI) | payer MEDICARE, OTHER ==
[2017-10-13 16:30] VITALS: BP 126/86
== END | disposition home or self-care (01) ==
LOC: PMGWOUND 11:15
PROVIDERS: ATTEND Preventive Medicine Undersea and Hyperbaric Medicine
DX: I70.235 Atherosclerosis of native arteries of right leg with ulceration of other part of foot (principal); L97.311 Non-pressure chronic ulcer of right ankle limited to breakdown of skin; I70.233 Atherosclerosis of native arteries of right leg with ulceration of ankle; L97.413 Non-pressure chronic ulcer of right heel and midfoot with necrosis of muscle; I10 Essential (primary) hypertension; I25.10 Atherosclerotic heart disease of native coronary artery without angina pectoris; F32.9 Major depressive disorder, single episode, unspecified; E78.00 Pure hypercholesterolemia, unspecified; M15.0 Primary generalized (osteo)arthritis; E66.9 Obesity, unspecified; Z68.29 Body mass index [BMI] 29.0-29.9, adult; Z87.891 Personal history of nicotine dependence; Z96.643 Presence of artificial hip joint, bilateral; Z90.710 Acquired absence of both cervix and uterus; Z72.89 Other problems related to lifestyle; Z88.0 Allergy status to penicillin
CPT/HCPCS: 97597

== ENCOUNTER → 2017-11-01 | Outpatient (CLI) | payer MEDICARE, OTHER ==
[2017-10-13 16:30] VITALS: BP 126/86
== END | disposition home or self-care (01) ==
LOC: PMGWOUND 12:34
PROVIDERS: ATTEND Emergency Medicine Undersea and Hyperbaric Medicine
DX: I70.233 Atherosclerosis of native arteries of right leg with ulceration of ankle (principal); L97.311 Non-pressure chronic ulcer of right ankle limited to breakdown of skin; I70.235 Atherosclerosis of native arteries of right leg with ulceration of other part of foot; L97.413 Non-pressure chronic ulcer of right heel and midfoot with necrosis of muscle; I10 Essential (primary) hypertension; I25.10 Atherosclerotic heart disease of native coronary artery without angina pectoris; F32.9 Major depressive disorder, single episode, unspecified; E78.00 Pure hypercholesterolemia, unspecified; M15.0 Primary generalized (osteo)arthritis; E66.9 Obesity, unspecified; Z68.29 Body mass index [BMI] 29.0-29.9, adult; Z87.81 Personal history of (healed) traumatic fracture; Z96.643 Presence of artificial hip joint, bilateral; Z90.710 Acquired absence of both cervix and uterus; Z72.89 Other problems related to lifestyle
CPT/HCPCS: 99214

== ENCOUNTER → 2017-11-06 | Outpatient (CLI) | payer MEDICARE, OTHER ==
[2017-10-13 16:30] VITALS: BP 126/86
--- NOTE | 2017-11-06 16:16 | RAD ---
DUPLEX SONOGRAPHY OF THE ARTERIAL SYSTEM OF THE RIGHT LOWER EXTREMITY Clinical indications: history of arterial disease of the right leg and previous bypass surgery. Right foot pain. Nonhealing right foot wound. Comparison: 07/10/2016 arterial Doppler study. Findings: Duplex sonography of the peripheral arterial system of the right lower extremity including briceno scale evaluation and color flow evaluation and spectral waveform analysis was performed.Triphasic waveform is seen within the right common femoral artery and profunda femoral artery. There is occlusion of the pala mid and distal superficial femoral artery with reconstitution of the right popliteal artery. Collateral vessels are seen around the pala superficial femoral artery. A femoral posterior tibial arterial graft is occluded. This is new since the previous study.There is another vessel with arterial flow seen extending off the lateral side of the distal right common femoral artery. This is followed into the deep thigh and cannot be seen below the mid thigh level. This may represent a collateral vessel or could represent a venous bypass graft if there is a history of such. If this is a graft, the distal anastomosis cannot be visualized. Peak systolic flow velocities are as follows: Right leg: common femoral artery- 138 cm/sec, profunda femoral artery -242 cm/sec, proximal superficial femoral artery -326cm/sec, mid superficial femoral artery -0 cm/sec, distal superficial femoral artery- 0 cm/sec, popliteal artery -56 cm/sec, proximal posterior tibial artery- 11 cm/sec, distal posterior tibial artery- 0 cm/sec, peroneal artery- 26 cm/sec, anterior tibial artery- 36 cm/sec, dorsalis pedis artery -0 cm/sec. 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 Collateral vessels are apparent. The previously seen femoral posterior tibial artery bypass graft is occluded which is a new finding since July 10, 2016 study. There is another vessel with arterial flow seen extending off the lateral side of the distal right common femoral artery. This may represent a collateral vessel or could represent a venous bypass graft if there is a history of such. It is patent down to the mid thigh level. It cannot be visualized below the mid thigh level. Therefore, if this is a graft, the distal anastomosis cannot be visualized. ANKLE BRACHIAL INDEX STUDY: Clinical indications: Same. Ankle/brachial indices were performed on both sides. Right side: Arm: The systolic blood pressure is 172 mmHg Ankle: Noncompressible. Therefore, the ankle brachial index cannot be obtained. Left side: Arm: The systolic blood pressure is 164 mmHg Ankle: The systolic blood pressure is 44 mmHg Therefore, the ankle brachial index on the left side is 0.26. Impression: Severe decrease in the FREDI on the left side. FREDI on the right side could not be obtained..
== END | disposition home or self-care (01) ==
LOC: US 13:35
PROVIDERS: ATTEND Emergency Medicine Undersea and Hyperbaric Medicine
DX: S91.301D Unspecified open wound, right foot, subsequent encounter (principal); I70.298 Other atherosclerosis of native arteries of extremities, other extremity; X58.XXXD Exposure to other specified factors, subsequent encounter
CPT/HCPCS: 93922; 93926

== ENCOUNTER → 2017-11-08 | Outpatient (CLI) | payer MEDICARE, OTHER | END | disposition home or self-care (01) | LOC: PMGWOUND 13:00 | DX: I70.233 Atherosclerosis of native arteries of right leg with ulceration of ankle (principal); L97.311 Non-pressure chronic ulcer of right ankle limited to breakdown of skin; I70.235 Atherosclerosis of native arteries of right leg with ulceration of other part of foot; L97.413 Non-pressure chronic ulcer of right heel and midfoot with necrosis of muscle; I10 Essential (primary) hypertension; I25.10 Atherosclerotic heart disease of native coronary artery without angina pectoris; F32.9 Major depressive disorder, single episode, unspecified; E78.00 Pure hypercholesterolemia, unspecified; M15.0 Primary generalized (osteo)arthritis; E66.9 Obesity, unspecified; Z68.29 Body mass index [BMI] 29.0-29.9, adult; Z87.81 Personal history of (healed) traumatic fracture; Z96.643 Presence of artificial hip joint, bilateral; Z90.710 Acquired absence of both cervix and uterus; Z72.89 Other problems related to lifestyle | CPT/HCPCS: 97597 ==

== ENCOUNTER → 2017-11-15 | Outpatient (CLI) | payer MEDICARE, OTHER | END | disposition home or self-care (01) | LOC: PMGWOUND 12:54 | DX: I70.233 Atherosclerosis of native arteries of right leg with ulceration of ankle (principal); L97.311 Non-pressure chronic ulcer of right ankle limited to breakdown of skin; I70.235 Atherosclerosis of native arteries of right leg with ulceration of other part of foot; L97.413 Non-pressure chronic ulcer of right heel and midfoot with necrosis of muscle; I10 Essential (primary) hypertension; I25.10 Atherosclerotic heart disease of native coronary artery without angina pectoris; F32.9 Major depressive disorder, single episode, unspecified; E78.00 Pure hypercholesterolemia, unspecified; M15.0 Primary generalized (osteo)arthritis; E66.9 Obesity, unspecified; Z68.29 Body mass index [BMI] 29.0-29.9, adult; Z96.643 Presence of artificial hip joint, bilateral; Z90.710 Acquired absence of both cervix and uterus; Z72.89 Other problems related to lifestyle; Z87.891 Personal history of nicotine dependence | CPT/HCPCS: 97597 ==

== ENCOUNTER → 2017-11-29 | Outpatient (CLI) | payer MEDICARE, OTHER | END | disposition home or self-care (01) | LOC: PMGWOUND 11:55 | DX: I70.233 Atherosclerosis of native arteries of right leg with ulceration of ankle (principal); L97.313 Non-pressure chronic ulcer of right ankle with necrosis of muscle; I70.235 Atherosclerosis of native arteries of right leg with ulceration of other part of foot; L97.413 Non-pressure chronic ulcer of right heel and midfoot with necrosis of muscle; I10 Essential (primary) hypertension; I25.10 Atherosclerotic heart disease of native coronary artery without angina pectoris; F32.9 Major depressive disorder, single episode, unspecified; E78.00 Pure hypercholesterolemia, unspecified; M15.0 Primary generalized (osteo)arthritis; E66.9 Obesity, unspecified; Z68.29 Body mass index [BMI] 29.0-29.9, adult; Z96.643 Presence of artificial hip joint, bilateral; Z90.710 Acquired absence of both cervix and uterus; Z72.89 Other problems related to lifestyle; Z87.891 Personal history of nicotine dependence | CPT/HCPCS: 97597; 97598 ==

== ENCOUNTER → 2017-12-13 | Outpatient (CLI) | payer MEDICARE, OTHER | END | disposition home or self-care (01) | LOC: PMGWOUND 12:08 | DX: I70.233 Atherosclerosis of native arteries of right leg with ulceration of ankle (principal); L97.313 Non-pressure chronic ulcer of right ankle with necrosis of muscle; I70.235 Atherosclerosis of native arteries of right leg with ulceration of other part of foot; L97.413 Non-pressure chronic ulcer of right heel and midfoot with necrosis of muscle; I10 Essential (primary) hypertension; I25.10 Atherosclerotic heart disease of native coronary artery without angina pectoris; F32.9 Major depressive disorder, single episode, unspecified; E78.00 Pure hypercholesterolemia, unspecified; M15.0 Primary generalized (osteo)arthritis; E66.9 Obesity, unspecified; Z68.29 Body mass index [BMI] 29.0-29.9, adult; Z96.643 Presence of artificial hip joint, bilateral; Z90.710 Acquired absence of both cervix and uterus; Z72.89 Other problems related to lifestyle; Z87.891 Personal history of nicotine dependence | CPT/HCPCS: 99213 ==

== ENCOUNTER → 2017-12-26 | Outpatient (CLI) | payer MEDICARE, OTHER | END | disposition home or self-care (01) | LOC: PMGWOUND 11:15 | DX: I70.233 Atherosclerosis of native arteries of right leg with ulceration of ankle (principal); L97.314 Non-pressure chronic ulcer of right ankle with necrosis of bone; I70.235 Atherosclerosis of native arteries of right leg with ulceration of other part of foot; L97.413 Non-pressure chronic ulcer of right heel and midfoot with necrosis of muscle; I10 Essential (primary) hypertension; I25.10 Atherosclerotic heart disease of native coronary artery without angina pectoris; F32.9 Major depressive disorder, single episode, unspecified; E78.00 Pure hypercholesterolemia, unspecified; M15.0 Primary generalized (osteo)arthritis; E66.9 Obesity, unspecified; Z68.29 Body mass index [BMI] 29.0-29.9, adult; Z96.643 Presence of artificial hip joint, bilateral; Z90.710 Acquired absence of both cervix and uterus; Z72.89 Other problems related to lifestyle; Z87.891 Personal history of nicotine dependence | CPT/HCPCS: 97597 ==

== ENCOUNTER → 2018-01-02 | Outpatient (CLI) | payer MEDICARE, OTHER | END | disposition home or self-care (01) | LOC: PMGWOUND 11:21 | DX: I70.233 Atherosclerosis of native arteries of right leg with ulceration of ankle (principal); L97.314 Non-pressure chronic ulcer of right ankle with necrosis of bone; I70.235 Atherosclerosis of native arteries of right leg with ulceration of other part of foot; L97.413 Non-pressure chronic ulcer of right heel and midfoot with necrosis of muscle; I10 Essential (primary) hypertension; I25.10 Atherosclerotic heart disease of native coronary artery without angina pectoris; F32.9 Major depressive disorder, single episode, unspecified; E78.00 Pure hypercholesterolemia, unspecified; M15.0 Primary generalized (osteo)arthritis; E66.9 Obesity, unspecified; Z68.29 Body mass index [BMI] 29.0-29.9, adult; Z96.643 Presence of artificial hip joint, bilateral; Z90.710 Acquired absence of both cervix and uterus; Z72.89 Other problems related to lifestyle; Z87.891 Personal history of nicotine dependence | CPT/HCPCS: 97597; 97598 ==

== ENCOUNTER → 2018-01-09 | Outpatient (CLI) | payer MEDICARE, OTHER | END | disposition home or self-care (01) | LOC: PMGWOUND 11:15 | DX: I70.233 Atherosclerosis of native arteries of right leg with ulceration of ankle (principal); L97.314 Non-pressure chronic ulcer of right ankle with necrosis of bone; I70.235 Atherosclerosis of native arteries of right leg with ulceration of other part of foot; L97.413 Non-pressure chronic ulcer of right heel and midfoot with necrosis of muscle; I10 Essential (primary) hypertension; I25.10 Atherosclerotic heart disease of native coronary artery without angina pectoris; F32.9 Major depressive disorder, single episode, unspecified; E78.00 Pure hypercholesterolemia, unspecified; M15.0 Primary generalized (osteo)arthritis; E66.9 Obesity, unspecified; Z68.29 Body mass index [BMI] 29.0-29.9, adult; Z96.643 Presence of artificial hip joint, bilateral; Z90.710 Acquired absence of both cervix and uterus; Z72.89 Other problems related to lifestyle; Z87.891 Personal history of nicotine dependence | CPT/HCPCS: 99214 ==

== ENCOUNTER → 2018-01-23 | Outpatient (CLI) | payer MEDICARE, OTHER | END | disposition home or self-care (01) | LOC: PMGWOUND 11:25 | DX: I70.233 Atherosclerosis of native arteries of right leg with ulceration of ankle (principal); L97.314 Non-pressure chronic ulcer of right ankle with necrosis of bone; I70.235 Atherosclerosis of native arteries of right leg with ulceration of other part of foot; L97.413 Non-pressure chronic ulcer of right heel and midfoot with necrosis of muscle; I10 Essential (primary) hypertension; I25.10 Atherosclerotic heart disease of native coronary artery without angina pectoris; F32.9 Major depressive disorder, single episode, unspecified; E78.00 Pure hypercholesterolemia, unspecified; M15.0 Primary generalized (osteo)arthritis; E66.9 Obesity, unspecified; Z68.29 Body mass index [BMI] 29.0-29.9, adult; Z96.643 Presence of artificial hip joint, bilateral; Z90.710 Acquired absence of both cervix and uterus; Z72.89 Other problems related to lifestyle; Z87.891 Personal history of nicotine dependence | CPT/HCPCS: 97597 ==

== ENCOUNTER → 2018-02-06 | Outpatient (CLI) | payer MEDICARE, OTHER | END | disposition home or self-care (01) | LOC: PMGWOUND 11:11 | DX: I70.233 Atherosclerosis of native arteries of right leg with ulceration of ankle (principal); L97.314 Non-pressure chronic ulcer of right ankle with necrosis of bone; I70.235 Atherosclerosis of native arteries of right leg with ulceration of other part of foot; L97.413 Non-pressure chronic ulcer of right heel and midfoot with necrosis of muscle; I10 Essential (primary) hypertension; I25.10 Atherosclerotic heart disease of native coronary artery without angina pectoris; F32.9 Major depressive disorder, single episode, unspecified; E78.00 Pure hypercholesterolemia, unspecified; M15.0 Primary generalized (osteo)arthritis; E66.9 Obesity, unspecified; Z68.29 Body mass index [BMI] 29.0-29.9, adult; Z96.643 Presence of artificial hip joint, bilateral; Z90.710 Acquired absence of both cervix and uterus; Z87.891 Personal history of nicotine dependence | CPT/HCPCS: 97597 ==

== ENCOUNTER → 2018-02-21 | Outpatient (CLI) | payer MEDICARE, OTHER ==
[2018-02-21 08:50] LABS: ADD MAN DIFF? NO
[2018-02-21 09:05] LABS: BASO % 1 % (0-3); EOS # 0.1 x10^3/uL (0.0-0.7); EOS % 1 % (0-3); HEMATOCRIT 37.7 % (36.0-47.0); HEMOGLOBIN 12.7 g/dL (12.0-15.5); LYMPH # 1.1 x10^3/uL (1.0-4.8); LYMPH % 13 % (24-48); MEAN CORPUSCULAR HEMOGLOBIN 32 pg (25-35); MEAN CORPUSCULAR HGB CONC 34 g/dL (31-37); MEAN CORPUSCULAR VOLUME 93 fL (79-100); MONO # 0.7 x10^3/uL (0.0-1.1); MONO % 8 % (0-9); NEUT # 6.3 x10^3uL (1.8-7.7); NEUT % 77 % (31-73); PLATELET COUNT 342 x10^3/uL (140-400); RED BLOOD COUNT 4.04 x10^6/uL (3.50-5.40); RED CELL DISTRIBUTION WIDTH 15.7 % (11.5-14.5); WHITE BLOOD COUNT 8.2 x10^3/uL (4.0-11.0)
[2018-02-21 09:17] LABS: ANION GAP 8 (6-14); BLOOD UREA NITROGEN 15 mg/dL (7-20); CALCIUM 9.2 mg/dL (8.5-10.1); CARBON DIOXIDE 29 mmol/L (21-32); CHLORIDE 101 mmol/L (98-107); GLUCOSE 138 mg/dL (70-99); POTASSIUM 4.6 mmol/L (3.5-5.1); SODIUM 138 mmol/L (136-145)
== END | disposition home or self-care (01) ==
LOC: PMGWOUND 07:54
DX: I70.233 Atherosclerosis of native arteries of right leg with ulceration of ankle (principal); L97.314 Non-pressure chronic ulcer of right ankle with necrosis of bone; I70.235 Atherosclerosis of native arteries of right leg with ulceration of other part of foot; L97.413 Non-pressure chronic ulcer of right heel and midfoot with necrosis of muscle; I10 Essential (primary) hypertension; I25.10 Atherosclerotic heart disease of native coronary artery without angina pectoris; F32.9 Major depressive disorder, single episode, unspecified; E78.00 Pure hypercholesterolemia, unspecified; M15.0 Primary generalized (osteo)arthritis; E66.9 Obesity, unspecified; Z68.29 Body mass index [BMI] 29.0-29.9, adult; Z96.643 Presence of artificial hip joint, bilateral; Z90.710 Acquired absence of both cervix and uterus; Z87.891 Personal history of nicotine dependence
CPT/HCPCS: 36415; 80048; 85025; 97597; 97598

== ENCOUNTER → 2018-03-06 | Outpatient (CLI) | payer MEDICARE, OTHER | END | disposition home or self-care (01) | LOC: PMGWOUND 11:33 | DX: I70.233 Atherosclerosis of native arteries of right leg with ulceration of ankle (principal); L97.212 Non-pressure chronic ulcer of right calf with fat layer exposed; I70.235 Atherosclerosis of native arteries of right leg with ulceration of other part of foot; L97.413 Non-pressure chronic ulcer of right heel and midfoot with necrosis of muscle; I10 Essential (primary) hypertension; I25.10 Atherosclerotic heart disease of native coronary artery without angina pectoris; F32.9 Major depressive disorder, single episode, unspecified; E78.00 Pure hypercholesterolemia, unspecified; M15.0 Primary generalized (osteo)arthritis; E66.9 Obesity, unspecified; Z68.29 Body mass index [BMI] 29.0-29.9, adult; Z96.643 Presence of artificial hip joint, bilateral; Z90.710 Acquired absence of both cervix and uterus; Z87.891 Personal history of nicotine dependence | CPT/HCPCS: 11042; 11045; 97605 ==

== ENCOUNTER → 2018-03-20 | Outpatient (CLI) | payer MEDICARE, OTHER | END | disposition home or self-care (01) | LOC: PMGWOUND 11:45 | DX: I70.233 Atherosclerosis of native arteries of right leg with ulceration of ankle (principal); L97.311 Non-pressure chronic ulcer of right ankle limited to breakdown of skin; I70.235 Atherosclerosis of native arteries of right leg with ulceration of other part of foot; L97.413 Non-pressure chronic ulcer of right heel and midfoot with necrosis of muscle; I10 Essential (primary) hypertension; I25.10 Atherosclerotic heart disease of native coronary artery without angina pectoris; F32.9 Major depressive disorder, single episode, unspecified; E78.00 Pure hypercholesterolemia, unspecified; M15.0 Primary generalized (osteo)arthritis; E66.9 Obesity, unspecified; Z68.29 Body mass index [BMI] 29.0-29.9, adult; Z96.643 Presence of artificial hip joint, bilateral; Z90.710 Acquired absence of both cervix and uterus; Z87.891 Personal history of nicotine dependence | CPT/HCPCS: 11042; 11045; 97597; 97598; 97605 ==

== ENCOUNTER → 2018-03-27 | Outpatient (CLI) | payer MEDICARE, OTHER | END | disposition home or self-care (01) | LOC: PMGWOUND 11:11 | DX: I70.233 Atherosclerosis of native arteries of right leg with ulceration of ankle (principal); L97.312 Non-pressure chronic ulcer of right ankle with fat layer exposed; M21.10 Varus deformity, not elsewhere classified, unspecified site; E78.00 Pure hypercholesterolemia, unspecified; I10 Essential (primary) hypertension; E66.9 Obesity, unspecified; I25.10 Atherosclerotic heart disease of native coronary artery without angina pectoris; M15.0 Primary generalized (osteo)arthritis; F32.9 Major depressive disorder, single episode, unspecified; Z87.891 Personal history of nicotine dependence; Z96.643 Presence of artificial hip joint, bilateral; Z90.710 Acquired absence of both cervix and uterus; Z68.29 Body mass index [BMI] 29.0-29.9, adult | CPT/HCPCS: 11042; 97605 ==

== ENCOUNTER 2019-01-13 14:41 | Inpatient (IN) | payer MEDICARE, OTHER ==
[2019-01-13] VITALS (9 sets, daily range): BP systolic 81–147; BP diastolic 51–83
[~2019-01-13] VITALS: Ht 165.1 cm; Wt 75.8 kg
[~2019-01-13 14:41] MED LIST changes: +CLOB15CR TP; +HYDR-2145 PO; +HYDR-3135 PO; -HYDR-963 PO; -HYDR25TA9 PO; +MAGN400T3 PO; +SULF1TAB23 PO
[2019-01-13] MEDS ORDERED: PANTOPRAZOLE IV PUSH 40 MG VIAL. IVP ONE (14:45)
[2019-01-13] MEDS ORDERED: IV NORMAL SALINE 1000ML BAG 1,000 ML IV ONE ×2 (14:45→16:00)
[2019-01-13 15:11] LABS: BASO % 0 % (0-3); EOS % 0 % (0-3); HEMATOCRIT 27.7 % (36.0-47.0); HEMOGLOBIN 8.9 g/dL (12.0-15.5); LYMPH # 1.1 x10^3/uL (1.0-4.8); LYMPH % 5 % (24-48); MEAN CORPUSCULAR HEMOGLOBIN 30 pg (25-35); MEAN CORPUSCULAR HGB CONC 32 g/dL (31-37); MEAN CORPUSCULAR VOLUME 93 fL (79-100); MONO # 1.7 x10^3/uL (0.0-1.1); MONO % 7 % (0-9); NEUT # 21.4 x10^3uL (1.8-7.7); NEUT % 88 % (31-73); PLATELET COUNT 282 x10^3/uL (140-400); RED CELL DISTRIBUTION WIDTH 14.2 % (11.5-14.5); WHITE BLOOD COUNT 24.3 x10^3/uL (4.0-11.0)
[2019-01-13 15:20] LABS: PROTHROMBIN TIME PATIENT 15.9 SEC (11.7-14.0)
[2019-01-13 15:21] LABS: BILIRUBIN,URINE MODERATE (NEG); COLOR,URINE AMBER; NITRITE,URINE NEGATIVE (NEG); PROTEIN,URINE 30 mg/dL (NEG-TRACE)
[2019-01-13 15:32] LABS: CALCIUM 8.6 mg/dL (8.5-10.1); CREATININE 2.6 mg/dL (0.6-1.0); GFR 17.5; POTASSIUM 5.2 mmol/L (3.5-5.1)
[2019-01-13 15:38] LABS: CLARITY,URINE HAZY
[2019-01-13 15:40] LABS: ALBUMIN 2.7 g/dL (3.4-5.0); ALBUMIN/GLOBULIN RATIO 0.9 (1.0-1.7); TOTAL BILIRUBIN 0.5 mg/dL (0.2-1.0); TOTAL PROTEIN 5.8 g/dL (6.4-8.2)
[2019-01-13 15:42] LABS: AMORPHOUS SEDIMENT,UR PRESENT /HPF; HYALINE CASTS, URINE FEW /HPF
--- NOTE | 2019-01-13 15:42 | EKG ---
[facility] [address] [place] [id number] Test Date: 2019-01-13 Test Time: 14:46:19 Pat Name: ZACH GALVAN Department: Room: Gender: F Loss Prevention Agent: : [id number] Requested By: FORD ZAMORA Order Number: [id number] Reading MD: Mahin Cheatham MD Measurements Intervals Golva Rate: 91 P: MN: QRS: 28 QRSD: 74 T: 33 QT: 354 QTc: 437 Interpretive Statements SR NON-SPECIFIC ST/T CHANGES Electronically Signed On 01-14-2019 7:05:15 [employer]ITY SUPPORT WORKER by Mahin Cheatham MD
[2019-01-13 15:43] LABS: BACTERIA,URINE FEW /HPF (0-FEW); RBC,URINE 0 /HPF (0-2); WBC,URINE 0 /HPF (0-4)
[2019-01-13] MEDS ORDERED: cefTRIAXone IV Push 1 GM VIAL. IVP ONE (16:00)
--- NOTE | 2019-01-13 16:07 | RAD ---
EXAM: Chest, single view. HISTORY: Leukocytosis. COMPARISON: 04/12/2018 FINDINGS: A frontal view of the chest is obtained. There is mild diffuse increased interstitial opacity with superimposed left lower lobe atelectasis or infiltrate. There may be a trace left pleural effusion. IMPRESSION: Diffuse increased interstitial opacity suggesting interstitial infiltrate. This is superimposed on left lower lobe atelectasis or infiltrate and possible trace left pleural effusion. Electronically signed by: Lissette Salazar MD (01/13/2019 4:04 PM) [place] [id number]
[2019-01-13 16:15] LABS: % BANDS 10 % (0-9); % LYMPHS 1 % (24-48); % MONOS 5 % (0-10); % SEGS 84 % (35-66); PLT ESTIMATE ADEQUATE (ADEQUATE)
[2019-01-13 16:16] LABS: TOXIC GRANULATION SLIGHT
--- NOTE | 2019-01-13 16:18 | PDOC2 ---
GI CONSULT Reason For Consult: Hematemesis, hematochezia/melena HPI: HPI: Called by ER physician. 83 y/o female brought to ER by EMS. She is alone in her ER room and [id number] but is able to provide some meaningful history. Yesterday she suddenly felt feverish, had a headache, and had vomiting and diarrhea. Reports emesis and stools were bloody - "red, black, and brown." Her touched her abdomen and it was very sore. On Plavix, denies ASA and NSAIDs. Thinks she saw Dr. Palencia and had labs about 1 month ago. Denies use of PPIs or any acid-reducers. Was on iron at one point but "I got better so he stopped it." H/o GI bleeding - Dr. Sanderson saw her in 06/2016. EGD showed normal esophagus and duodenum, pyloric deformity, and old blood in proximal stomach and adherent clot in posterior lesser curve in upper body - injected and clipped. Also has h /o duodenal ulcer and diverticulosis according to past documentation. Had a colonoscopy at some point. Prior to yesterday denies n/v, abd pain, diarrhea, constipation, and bleeding. No reflux/heartburn, dysphagia, or weight loss. No bleeding reported by EMS or ER staff. Some hypotension in ER, getting fluids. WBC 24, Hgb 8.9, INR 1.3, BUN 50, Cr 2.6, K 5.2, BNP 1268. Hgb stable compared to 04/2018 (when here for leg surgery) Received IV PPI. 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), duodenal ulcer, diverticulosis, cholelithiasis bilateral hip replacement, laminectomy, cervical surgery, left superficial femoral artery angioplasty, CTR, tonsillectomy, RLE bypass, right ankle debridement, right AKA and evacuation of hematoma FH: Family History: No pertinent hx Social History: Smoke: Quit ALCOHOL: none Drugs: None ROS: GEN: +fever HEENT: Denies blurred vision, sore throat CV: Denies chest pain RESP: Denies shortness of air, cough GI: Per HPI : Denies hematuria, dysuria ENDO: Denies weight changes NEURO: Denies confusion, dizziness MSK: +weakness SKIN: Denies jaundice, pruritus Vitals: Vitals: Vital Signs Date Time Temp Pulse Resp B/P (MAP) Pulse Ox O2 Delivery O2 Flow Rate FiO2 01/13/19 14:49 97.9 90 18 87/53 (64) 97 Room Air 97.9 Labs: Labs: Laboratory Tests Test 01/13/19 14:50 01/13/19 15:12 White Blood Count 24.3 x10^3/uL (4.0-11.0) Red Blood Count 3.00 x10^6/uL (3.50-5.40) Hemoglobin 8.9 g/dL (12.0-15.5) Hematocrit 27.7 % (36.0-47.0) Mean Corpuscular Volume 93 fL (79-100) Mean Corpuscular Hemoglobin 30 pg (25-35) Mean Corpuscular Hemoglobin Concent 32 g/dL (31-37) Red Cell Distribution Width 14.2 % (11.5-14.5) Platelet Count 282 x10^3/uL (140-400) Neutrophils (%) (Auto) 88 % (31-73) Lymphocytes (%) (Auto) 5 % (24-48) Monocytes (%) (Auto) 7 % (0-9) Eosinophils (%) (Auto) 0 % (0-3) Basophils (%) (Auto) 0 % (0-3) Neutrophils # (Auto) 21.4 x10^3uL (1.8-7.7) Lymphocytes # (Auto) 1.1 x10^3/uL (1.0-4.8) Monocytes # (Auto) 1.7 x10^3/uL (0.0-1.1) Eosinophils # (Auto) 0.0 x10^3/uL (0.0-0.7) Basophils # (Auto) 0.0 x10^3/uL (0.0-0.2) Prothrombin Time 15.9 SEC (11.7-14.0) Prothromb Time International Ratio 1.3 (0.8-1.1) Activated Partial Thromboplast Time 32 SEC (24-38) Sodium Level 135 mmol/L (136-145) Potassium Level 5.2 mmol/L (3.5-5.1) Chloride Level 97 mmol/L (98-107) Carbon Dioxide Level 27 mmol/L (21-32) Anion Gap 11 (6-14) Blood Urea Nitrogen 50 mg/dL (7-20) Creatinine 2.6 mg/dL (0.6-1.0) Estimated GFR (Cockcroft-Gault) 17.5 BUN/Creatinine Ratio 19 (6-20) Glucose Level 191 mg/dL (70-99) Calcium Level 8.6 mg/dL (8.5-10.1) Total Bilirubin 0.5 mg/dL (0.2-1.0) Aspartate Amino Transf (AST/SGOT) 29 U/L (15-37) Alanine Aminotransferase (ALT/SGPT) 21 U/L (14-59) Alkaline Phosphatase 86 U/L (46-116) Troponin I Quantitative 0.018 ng/mL (0.000-0.055) MC-Kvh-B-Type Natriuretic Peptide 1268 pg/mL (0-449) Total Protein 5.8 g/dL (6.4-8.2) Albumin 2.7 g/dL (3.4-5.0) Albumin/Globulin Ratio 0.9 (1.0-1.7) Urine Collection Type U cath Urine Color Dariela Urine Clarity Hazy Urine pH 5.0 Urine Specific Tarzan 1.020 Urine Protein 30 mg/dL (NEG-TRACE) Urine Glucose (UA) Negative mg/dL (NEG) Urine Ketones (Stick) Negative mg/dL (NEG) Urine Blood Negative (NEG) Urine Nitrite Negative (NEG) Urine Bilirubin Moderate (NEG) Urine Urobilinogen Dipstick 1.0 mg/dL (0.2 mg/dL) Urine Leukocyte Esterase Trace (NEG) Urine RBC 0 /HPF (0-2) Urine WBC 0 /HPF (0-4) Urine Amorphous Sediment Present /HPF Urine Bacteria Few /HPF (0-FEW) Urine Hyaline Casts Few /HPF Urine Mucus Slight /LPF Allergies: Coded Allergies: spironolactone (Verified Allergy, Severe, FLUID POURED OUT OF ALL ORIFICES , 02/14/17) Penicillins (Verified Allergy, Intermediate, 04/13/18) Tolerates cephalasporins amlodipine (Verified Allergy, Intermediate, 02/14/17) muscle cramps iodine (Verified Allergy, Intermediate, Rash, 02/14/17) swelling olanzapine (Verified Allergy, Intermediate, 02/14/17) rofecoxib (Verified Allergy, Intermediate, 02/14/17) I S O L A T I O N *CONTACT* (Verified Allergy, Unknown, 04/17/17) VRE Medications: Current Medications Medications (Trade) Dose Ordered Sig/Milan Route PRN Reason Start Time Stop Time Status Last Admin Dose Admin Sodium Chloride 1,000 ml @ 1,000 mls/hr 1X ONCE IV 01/13/19 14:45 01/13/19 15:44 DC 01/13/19 15:08 Pantoprazole Sodium (PROTONIX VIAL for IV PUSH) 80 mg 1X ONCE IVP 01/13/19 14:45 01/13/19 14:50 DC 01/13/19 15:08 Imaging: Imaging: CXR 01/13/19 pending PE: GEN: NAD HEENT: Atraumatic, PERRL - [place] LUNGS: diminished anteriorly HEART: RRR ABD: quiet, S/ND/NT EXTREMITY: right AKA SKIN: pale NEURO/PSYCH: A & O 3 A/P: A/P: Hematemesis, hematochezia/melena H/o GI bleeding - 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 Continue PPI. ?give platelets ?EGD/timing - will review w/ Dr. Sanderson. JG VASQUEZ Jan 13, 2019 16:18
[2019-01-13 16:28] LABS: BASE EXCESS ABG -4 mmol/L (-3-3); HCO3 ABG 20 mmol/L (21-28); PCO2 ABG 33 mmHg (35-46); PO2 ABG 82 mmHg (65-108); SAT O2 ABG 94 % (92-99)
[2019-01-13] MEDS ORDERED: METOCLOPRAMIDE HCL 10 MG/2 ML VIAL. IV ONE (16:30)
[2019-01-13 16:32] LABS: FIO2 ABG 32
--- NOTE | 2019-01-13 16:37 | PHYS DOC ---
Past Medical History Past Medical History: High Cholesterol, Hypertension Past Surgical History: Other Additional Past Surgical Histo: back surgery,BILAT HIP REPLACEMENT, RIGHT AKA Alcohol Use: None Drug Use: None Adult General Chief Complaint Chief Complaint: GI bleeding HPI HPI Patient is a 83 year old female who brought in by EMS because of rectal bleeding. Patient complaining of multiple episodes of bloody stools since last night. Patient complaining of subjective fever and not feeling good since yesterday and states she had multiple episodes of red blood and brown and black stools since last night but cannot tell how many episodes of bowel movement she had. Patient complaining of nausea and generalized weakness without chest pain, abdominal pain. Patient had history of previous GI bleed with blood transfusion. Patient is hard of hearing and history is limited. EMS reported that patient had 1 episode of hematemesis on the way to the hospital. Review of Systems Review of Systems Constitutional: Reports generalized weakness Eyes: Denies change in visual acuity, redness, or eye pain [] HENT: Denies nasal congestion or sore throat [] Respiratory: Denies cough or shortness of breath [] Cardiovascular: No additional information not addressed in HPI [] GI: Denies abdominal pain, reports nausea, vomiting,bloody stools and diarrhea [ ] : Denies dysuria or hematuria [] Musculoskeletal: Denies back pain or joint pain [] Integument: Denies rash or skin lesions [] Neurologic: Denies headache, focal weakness or sensory changes [] Endocrine: Denies polyuria or polydipsia [] All other systems were reviewed and found to be within normal limits, except as documented in this note. Current Medications Current Medications Current Medications Medications (Trade) Dose Ordered Sig/Milan Start Time Stop Time Status Last Admin Dose Admin Ceftriaxone Sodium (Rocephin) 1 gm 1X ONCE 01/13/19 16:00 01/13/19 16:01 DC Metoclopramide HCl (Reglan Vial) 10 mg 1X ONCE 01/13/19 16:30 01/13/19 16:31 DC Pantoprazole Sodium (PROTONIX VIAL for IV PUSH) 80 mg 1X ONCE 01/13/19 14:45 01/13/19 14:50 DC 01/13/19 15:08 80 MG Pantoprazole Sodium 80 mg/ Sodium Chloride 100 ml @ 10 mls/hr Q10H 01/13/19 16:30 Sodium Chloride 1,000 ml @ 150 mls/hr [id number] 01/13/19 17:04 01/14/19 17:03 Allergies Allergies Allergies Coded Allergies Type Severity Reaction Last Updated Verified spironolactone Allergy Severe FLUID POURED OUT OF ALL ORIFICES 02/14/17 Yes Penicillins Allergy Intermediate 04/13/18 Yes amlodipine Allergy Intermediate 02/14/17 Yes iodine Allergy Intermediate Rash 02/14/17 Yes olanzapine Allergy Intermediate 02/14/17 Yes rofecoxib Allergy Intermediate 02/14/17 Yes I S O L A T I O N *CONTACT* Allergy Unknown 04/17/17 Yes Physical Exam Physical Exam Constitutional: Well developed, well nourished, moderate distress, non-toxic appearance, afebrile, pale.] HENT: Normocephalic, atraumatic, oropharynx dry, no oral exudates, nose normal. [] Eyes: PERRLA, EOMI, conjunctiva normal, no discharge. [] Neck: Normal range of motion, no tenderness, supple, no stridor. [] Cardiovascular:Heart rate regular rhythm, no murmur [] Lungs & Thorax: Bilateral breath sounds clear to auscultation [] Abdomen: Bowel sounds normal, soft, no tenderness, no masses, no pulsatile masses. [] Skin: Warm, dry, no erythema, no rash. [] Back: No tenderness, no CVA tenderness. [] Extremities: Right above knee amputation,, no cyanosis, no clubbing. Neurologic: Alert and oriented X 3, normal motor function, normal sensory function, no focal deficits noted. [] Current Patient Data Vital Signs Vital Signs Date Time Temp Pulse Resp B/P (MAP) Pulse Ox O2 Delivery O2 Flow Rate FiO2 01/13/19 14:49 97.9 90 18 87/53 (64) 97 Room Air 97.9 Lab Values Laboratory Tests Test 01/13/19 14:50 01/13/19 15:12 01/13/19 16:15 White Blood Count 24.3 x10^3/uL (4.0-11.0) H Red Blood Count 3.00 x10^6/uL (3.50-5.40) L Hemoglobin 8.9 g/dL (12.0-15.5) L Hematocrit 27.7 % (36.0-47.0) L Mean Corpuscular Volume 93 fL (79-100) Mean Corpuscular Hemoglobin 30 pg (25-35) Mean Corpuscular Hemoglobin Concent 32 g/dL (31-37) Red Cell Distribution Width 14.2 % (11.5-14.5) Platelet Count 282 x10^3/uL (140-400) Neutrophils (%) (Auto) 88 % (31-73) H Lymphocytes (%) (Auto) 5 % (24-48) L Monocytes (%) (Auto) 7 % (0-9) Eosinophils (%) (Auto) 0 % (0-3) Basophils (%) (Auto) 0 % (0-3) Neutrophils # (Auto) 21.4 x10^3uL (1.8-7.7) H Lymphocytes # (Auto) 1.1 x10^3/uL (1.0-4.8) Monocytes # (Auto) 1.7 x10^3/uL (0.0-1.1) H Eosinophils # (Auto) 0.0 x10^3/uL (0.0-0.7) Basophils # (Auto) 0.0 x10^3/uL (0.0-0.2) Segmented Neutrophils % 84 % (35-66) H Band Neutrophils % 10 % (0-9) H Lymphocytes % 1 % (24-48) L Monocytes % 5 % (0-10) Toxic Granulation Slight Platelet Estimate Adequate (ADEQUATE) Large Platelets Present Prothrombin Time 15.9 SEC (11.7-14.0) H Prothrombin Time INR 1.3 (0.8-1.1) H PTT 32 SEC (24-38) Sodium Level 135 mmol/L (136-145) L Potassium Level 5.2 mmol/L (3.5-5.1) H Chloride Level 97 mmol/L (98-107) L Carbon Dioxide Level 27 mmol/L (21-32) Anion Gap 11 (6-14) Blood Urea Nitrogen 50 mg/dL (7-20) H Creatinine 2.6 mg/dL (0.6-1.0) H Estimated GFR (Cockcroft-Gault) 17.5 BUN/Creatinine Ratio 19 (6-20) Glucose Level 191 mg/dL (70-99) H Lactic Acid Level 3.1 mmol/L (0.4-2.0) H Calcium Level 8.6 mg/dL (8.5-10.1) Total Bilirubin 0.5 mg/dL (0.2-1.0) Aspartate Amino Transferase (AST) 29 U/L (15-37) Alanine Aminotransferase (ALT) 21 U/L (14-59) Alkaline Phosphatase 86 U/L (46-116) Troponin I Quantitative 0.018 ng/mL (0.000-0.055) PO-Lcz-L-Type Natriuretic Peptide 1268 pg/mL (0-449) H Total Protein 5.8 g/dL (6.4-8.2) L Albumin 2.7 g/dL (3.4-5.0) L Albumin/Globulin Ratio 0.9 (1.0-1.7) L Urine Collection Type U cath Urine Color Dariela Urine Clarity Hazy Urine pH 5.0 Urine Specific Darragh 1.020 Urine Protein 30 mg/dL (NEG-TRACE) Urine Glucose (UA) Negative mg/dL (NEG) Urine Ketones (Stick) Negative mg/dL (NEG) Urine Blood Negative (NEG) Urine Nitrite Negative (NEG) Urine Bilirubin Moderate (NEG) Urine Urobilinogen Dipstick 1.0 mg/dL (0.2 mg/dL) Urine Leukocyte Esterase Trace (NEG) Urine RBC 0 /HPF (0-2) Urine WBC 0 /HPF (0-4) Urine Amorphous Sediment Present /HPF Urine Bacteria Few /HPF (0-FEW) Urine Hyaline Casts Few /HPF Urine Mucus Slight /LPF O2 Saturation 94 % (92-99) Arterial Blood pH 7.41 (7.35-7.45) Arterial Blood pCO2 at Patient Temp 33 mmHg (35-46) L Arterial Blood pO2 at Patient Temp 82 mmHg (65-108) Arterial Blood HCO3 20 mmol/L (21-28) L Arterial Blood Base Excess -4 mmol/L (-3-3) L FiO2 32 Laboratory Tests 01/13/19 14:50 Laboratory Tests 01/13/19 14:50 EKG EKG EKG interpreted by me. EKG at 1446 showed normal sinus rhythm at rate of 91, PVCs, no acute ST and T-wave abnormalities. Radiology/Procedures Radiology/Procedures [facility] [address] [place] [address] IMAGING REPORT Signed PATIENT: ZACH GALVAN ACCOUNT: [id number] : 1935 LOCATION: ER AGE: 83 SEX: F EXAM STATUS: REG ER ORD. PHYSICIAN: FORD ZAMORA MD REASON: leukocytosis PROCEDURE: PORTABLE CHEST 1V EXAM: Chest, single view. HISTORY: Leukocytosis. COMPARISON: 04/12/2018 FINDINGS: A frontal view of the chest is obtained. There is mild diffuse increased interstitial opacity with superimposed left lower lobe atelectasis or infiltrate. There may be a trace left pleural effusion. IMPRESSION: Diffuse increased interstitial opacity suggesting interstitial infiltrate. This is superimposed on left lower lobe atelectasis or infiltrate and possible trace left pleural effusion. Electronically signed by: Lissette Graham MD (01/13/2019 4:04 PM) [facility] DICTATED and SIGNED BY: LISSETTE GRAHAM MD DATE: 01/13/19 160 Course & Med Decision Making Course & Med Decision Making Pertinent Labs and Imaging studies reviewed. (See chart for details) Evaluation of patient in ER showed 83-year-old female patient brought in by EMS because of rectal bleeding. Patient did not have any episodes of rectal bleeding or hematemesis while she was in ER. Patient had drop of blood pressure to and treated with IV fluids with improvement of blood pressure. Patient did not have fever or tachycardia but had white count of 24,000. Patient treated with IV fluid, Rocephin, Protonix bolus and drip and 2 units of blood was cross matched. She was consulted and evaluated patient in ER. Dr. Palencia accepted admission at 1533. Dragon Disclaimer Dragon Disclaimer This electronic medical record was generated, in whole or in part, using a voice recognition dictation system. Departure Departure Impression: Primary Impression: Acute GI bleeding Additional Impressions: Sepsis Chronic anemia Anemia Renal insufficiency Hyperkalemia Hypoalbuminemia CHF (congestive heart failure) Above knee amputation of right lower extremity Disposition: ADMITTED INPATIENT (admitted at 1535) Admitting Physician: Nguyễn Palencia (accepted admission at 1533 ) Condition: GUARDED Referrals: NGUYỄN PALENCIA MD (PCP) Critical Care Time Critical care time was 70 minutes exclusive of procedures. Problem Qualifiers Additional Impressions: Sepsis Sepsis type: sepsis due to unspecified organism Qualified Codes: A41.9 - Sepsis, unspecified organism FORD ZAMORA MD Jan 13, 2019 16:37
[2019-01-13] MEDS ORDERED: ONDANSETRON PF 4 MG/2 ML VIAL. IV PRN (17:15)
[2019-01-13] MEDS ORDERED: IV NORMAL SALINE 1000ML BAG 1,000 ML IV SCH (17:15)
[2019-01-13] MEDS ORDERED: PANTOPRAZOLE SODIUM IV DRIP 80 MG in IV NORMAL SALINE 100ML 100 ML IV SCH (17:15)
[2019-01-13] MEDS ORDERED: ACETAMINOPHEN 650 MG SUPP.RECT. PR PRN (17:15)
[2019-01-13] MEDS: IV NORMAL SALINE 1000ML BAG 1,000 ML IV SCH (17:21)
[2019-01-13] MEDS: PANTOPRAZOLE SODIUM IV DRIP 80 MG in IV NORMAL SALINE 100ML 100 ML IV SCH (17:23)
[2019-01-13] MEDS ORDERED: MEROPENEM 500 MG in IV NORMAL SALINE 50ML 50 ML IV ONE (17:45)
[2019-01-13] MEDS ORDERED: MEROPENEM 500 MG in IV NORMAL SALINE 50ML 50 ML IV SCH (18:00)
--- NOTE | 2019-01-13 18:05 | HP ---
ADMIT DATE: 01/13/2019 HISTORY OF PRESENT ILLNESS: The patient is an 83-year-old white female with a history of hypertension, hyperlipidemia, peripheral arterial disease, right above-knee amputation who had a duodenal ulcer in 1989 and had an upper GI bleed in 06/2016, had a gastric angiodysplasia at that time treated with endoclip, noted the onset of diarrhea and bloody stools and also had some vomiting with brown emesis and also bloody emesis. This started last night, continued today. She sought help at the [facility] Emergency Room. She is on Plavix, but denies taking aspirin or nonsteroidal anti-inflammatory drugs. She was noted to have a leukocytosis in the Emergency Room with a white count of 24.3 and had 88 polys and 5 lymphocytes. Her INR was 1.3 with a PTT of 32. She was noted to be in acute kidney injury with a BUN of 50 and a serum creatinine 2.6, and her lactic acid level was high at 3.1. Her albumin was low at 2.7. Urinalysis showed no pyuria and her chest x-ray showed a possible left lower lobe infiltrate. The patient was quite pale in the Emergency Room where I saw her. She received 80 mg of Protonix IV in the Emergency Room and will be subsequently admitted to the Intensive Care Unit for further evaluation and treatment. She is quite hard of hearing, cannot hear on the left side and wears a hearing aid on the left side. She has had a cough and cannot tell me if can produce any sputum. Denies any dysuria. ALLERGIES AND INTOLERANCES: INCLUDE PENICILLIN, AMLODIPINE, IODINE, OLANZAPINE, ROFECOXIB, AND SPIRONOLACTONE. MEDICATIONS: Prior to admission include Tylenol 325 mg q.i.d. p.r.n., atorvastatin 10 mg every day, carvedilol 6.25 mg b.i.d., Detrol-LA 4 mg every day, Effexor XR 225 mg every day, gabapentin 100 mg t.i.d., hydralazine 25 mg t.i.d., lisinopril 40 mg every day, magnesium oxide 400 mg b.i.d., multiple vitamin once a day, Plavix 75 mg every day. PAST MEDICAL HISTORY: Significant for duodenal ulcer in 1989. She had a laminectomy in 2001, bilateral total hip arthroplasty in 2000, cryosurgery of the cervix in 1999, left superficial femoral artery angioplasty in 1996. She had a carpal tunnel release, tonsillectomy, right femoral artery to peroneal artery bypass in 2016, right above-knee amputation in 04/2018. She has had prediabetes, right carotid endarterectomy in 07/2016 and upper GI bleed in 06/2016 secondary to gastric angiodysplasia treated with an endoclip, osteomyelitis of the right ankle in the past. She has a history of hyperlipidemia, peptic ulcer disease as mentioned with a duodenal ulcer in 1989, lumbar spinal stenosis, peripheral arterial disease. She has small abdominal aortic aneurysm, overactive bladder, diverticulosis, hypertension, hyperlipidemia, obesity. She has a history of osteoarthritis. SOCIAL HISTORY: She does not drink alcohol nor does she smoke cigarettes. She is , confined to a wheelchair. FAMILY HISTORY: Not contributory. REVIEW OF SYSTEMS: GENERAL: There has been no fever or chills. She apparently felt feverish in the last 24 hours. CARDIOVASCULAR: No chest pain. PULMONARY: She has a cough. GASTROINTESTINAL: She had the vomiting and diarrhea and had hematemesis and hematochezia. GENITOURINARY: There is no dysuria. The rest of systems reviewed are negative except as stated in history of present illness. PHYSICAL EXAMINATION: VITAL SIGNS: Temperature 97.9 degrees, apical pulse is 84, blood pressure is 87/53, oxygen saturation 97%. So, when I was in the room examining her, blood pressure was 118/46 and 96/60 was the last one I saw on the monitor, and her heart rate was 83. Other vital signs were actually taken a little before at 3:00 p.m. HEENT: Eyes: Conjunctivae are extremely pale. Gaze is conjugate. She wears a hearing aid on the left side. Mouth: Tongue is midline without yeast. She wears dentures. NECK: There is no cervical lymphadenopathy or thyroid enlargement. HEART: Reveals an S1, S2. There is no S3 or murmur. LUNGS: Clear with decreased breath sounds. ABDOMEN: Bowel sounds are positive. It is obese and soft. She has some tenderness in the right lower quadrant without guarding or rebound. EXTREMITIES: Lower extremities, she has got a right above-knee amputation, stump site looks good. Left lower extremity, the left foot is warm. I could not appreciate any pulses and the color of the foot looks fine. NEUROLOGIC: She follows simple commands, able to dorsi and plantar flex the left foot and raise her left leg up in the air. No facial weakness. SKIN: No rashes. LABORATORY DATA: Her white count was 24.3 and her hemoglobin was 8.9 with a platelet count of 282,000, 88 polys and 5 lymphocytes. Arterial blood gases showed a pH of 7.41, pCO2 of 33 and pO2 of 82. Her INR is 1.3 with a PTT of 32. Sodium 135, potassium 5.2, chloride 97, total CO2 of 27, BUN 50, creatinine 2.6, blood sugar was 191. Lactic acid increased at 3.1. Liver function tests were normal. ProBNP was 1268, albumin 2.7. Urinalysis showed 0 white cells and 0 red blood cells. EKG showed normal sinus rhythm with nonspecific ST-T wave changes. She had a chest x-ray done, which showed diffuse increased interstitial infiltrate and atelectasis or infiltrate in the left lower lobe with a possible trace left pleural effusion. ASSESSMENT: 1. Acute gastrointestinal bleed. It sounds like an upper gastrointestinal bleed as she had some hematemesis and also had some hematochezia. 2. Hypotension secondary to the gastrointestinal bleed. 3. Acute blood loss anemia. 4. Acute kidney injury secondary to the gastrointestinal bleed and intravascular volume depletion. 5. Severe protein calorie malnutrition. 6. Leukocytosis. 7. Elevated lactic acid level. 8. Peripheral arterial disease. 9. History of a right above-knee amputation. 10. Hard of hearing. 11. History of a duodenal ulcer. 12. 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 PLAN: At this time is to consult Dr. Sanderson who has already seen the patient and is planning on doing an EGD tomorrow. We will admit her to the Intensive Care Unit. We will consult Dr. Cristino Glez for Infectious Disease for the leukocytosis and consult Dr. Barber for the acute kidney injury. We will start her on some IV normal saline. We will get hemoglobin and hematocrit every 6 hours and transfuse if the hemoglobin is less than 7, but we will give her 2 units of packed red blood cells now as she is hypotensive due to GI bleed and very-very pale. After that we will transfuse only if the hemoglobin is less than 7. In the past, her hemoglobin was up to 12 I noted. So, it looks like she did lose quite a bit of blood. We will consult Dr. Barber for the acute kidney injury. We will get a CAT scan of the chest to rule out pneumonia and a CAT scan of the abdomen and pelvis as she has tenderness in the right lower quadrant. These will be done without IV contrast. We will repeat a CBC and a CMP tomorrow. We will get hemoglobin every 6 hours, transfuse if hemoglobin is less than 7. We will put her on a Protonix drip and start on some IV Zyvox and IV meropenem, and discussed the case with the pharmacist who adjusted the dose of the meropenem currently at 500 mg IV q.12 hours. We will also obtain blood cultures. We will transfuse 2 units of packed red blood cells now and it was set up with the Emergency Room physician that she will take care of that order. I also wrote a task to the nurse to make sure she does get those 2 units of packed red blood cells as she is quite anemic and hypotensive. In addition, we will order SCDs for left lower extremity for deep vein thrombosis prophylaxis. Order some Zofran 4 mg IV every 6 hours p.r.n. in case she has any nausea or vomiting. CINDI SOUSA MD DR: JEWEL/chuy JOB#: [id number] / [id number]
--- NOTE | 2019-01-13 19:09 | NUR ---
Spoke with Dr. Palencia to clarify transfusion orders from ER, Hemoglobin is 8.4. Order given to hold transfusion until hemoglobin is less than 7.
[2019-01-14] VITALS (33 sets, daily range): BP systolic 91–159; BP diastolic 49–98
[2019-01-14 01:12] LABS: HEMATOCRIT 22.2 % (36.0-47.0); HEMOGLOBIN 7.2 g/dL (12.0-15.5); RED BLOOD COUNT 2.44 x10^6/uL (3.50-5.40); RED CELL DISTRIBUTION WIDTH 14.3 % (11.5-14.5); WHITE BLOOD COUNT 18.7 x10^3/uL (4.0-11.0)
[2019-01-14] MEDS: PANTOPRAZOLE SODIUM IV DRIP 80 MG in IV NORMAL SALINE 100ML 100 ML IV SCH ×2 (01:40→13:33)
[2019-01-14] MEDS: IV NORMAL SALINE 1000ML BAG 1,000 ML IV SCH ×3 (01:42→13:04)
[2019-01-14 05:53] LABS: RED BLOOD COUNT 2.19 x10^6/uL (3.50-5.40); RED CELL DISTRIBUTION WIDTH 14.3 % (11.5-14.5); WHITE BLOOD COUNT 11.2 x10^3/uL (4.0-11.0)
[2019-01-14 06:04] LABS: HEMOGLOBIN 6.6 g/dL (12.0-15.5)
[2019-01-14 06:12] LABS: ALBUMIN 2.3 g/dL (3.4-5.0); ALBUMIN/GLOBULIN RATIO 0.9 (1.0-1.7); CALCIUM 7.8 mg/dL (8.5-10.1); CREATININE 1.2 mg/dL (0.6-1.0); GFR 42.8; POTASSIUM 3.6 mmol/L (3.5-5.1); TOTAL BILIRUBIN 0.3 mg/dL (0.2-1.0)
--- NOTE | 2019-01-14 06:33 | NUR ---
Routine consult called to Dr. Lee's answering service.
--- NOTE | 2019-01-14 08:43 | PDOC ---
Infectious Disease Note Vital Signs: Vital Signs Vital Signs Date Time Temp Pulse Resp B/P (MAP) Pulse Ox O2 Delivery O2 Flow Rate FiO2 01/14/19 08:10 99.0 82 19 125/58 99.0 01/14/19 07:00 93 Room Air Medications: Inpatient Meds: Current Medications Medications (Trade) Dose Ordered Sig/[place] Start Time Stop Time Status Last Admin Dose Admin Acetaminophen (Tylenol Supp) 650 mg PRN Q6HRS PRN 01/13/19 17:15 Ceftriaxone Sodium (Rocephin) 1 gm 1X ONCE 01/13/19 16:00 01/13/19 16:01 DC 01/13/19 17:20 1 GM Linezolid/Dextrose 300 ml @ 300 mls/hr Q12HR 01/14/19 09:00 Meropenem 500 mg/ Sodium Chloride 50 ml @ 100 mls/hr Q12HR 01/14/19 09:00 Metoclopramide HCl (Reglan Vial) 10 mg 1X ONCE 01/13/19 16:30 01/13/19 16:31 DC 01/13/19 17:20 10 MG Ondansetron HCl (Zofran) 4 mg PRN Q6HRS PRN 01/13/19 17:15 Pantoprazole Sodium (PROTONIX VIAL for IV PUSH) 80 mg 1X ONCE 01/13/19 14:45 01/13/19 14:50 DC 01/13/19 15:08 80 MG Pantoprazole Sodium 80 mg/ Sodium Chloride 100 ml @ 10 mls/hr Q10H 01/13/19 17:15 01/13/19 17:36 DC Sodium Chloride 1,000 ml @ 100 mls/hr Q10H 01/13/19 17:15 Labs: Lab Laboratory Tests Test 01/13/19 14:50 01/13/19 15:12 01/13/19 16:15 01/13/19 18:10 White Blood Count 24.3 x10^3/uL (4.0-11.0) Red Blood Count 3.00 x10^6/uL (3.50-5.40) Hemoglobin 8.9 g/dL (12.0-15.5) 8.4 g/dL (12.0-15.5) Hematocrit 27.7 % (36.0-47.0) Mean Corpuscular Volume 93 fL (79-100) Mean Corpuscular Hemoglobin 30 pg (25-35) Mean Corpuscular Hemoglobin Concent 32 g/dL (31-37) Red Cell Distribution Width 14.2 % (11.5-14.5) Platelet Count 282 x10^3/uL (140-400) Neutrophils (%) (Auto) 88 % (31-73) Lymphocytes (%) (Auto) 5 % (24-48) Monocytes (%) (Auto) 7 % (0-9) Eosinophils (%) (Auto) 0 % (0-3) Basophils (%) (Auto) 0 % (0-3) Neutrophils # (Auto) 21.4 x10^3uL (1.8-7.7) Lymphocytes # (Auto) 1.1 x10^3/uL (1.0-4.8) Monocytes # (Auto) 1.7 x10^3/uL (0.0-1.1) Eosinophils # (Auto) 0.0 x10^3/uL (0.0-0.7) Basophils # (Auto) 0.0 x10^3/uL (0.0-0.2) Segmented Neutrophils % 84 % (35-66) Band Neutrophils % 10 % (0-9) Lymphocytes % 1 % (24-48) Monocytes % 5 % (0-10) Toxic Granulation Slight Platelet Estimate Adequate (ADEQUATE) Large Platelets Present Prothrombin Time 15.9 SEC (11.7-14.0) Prothromb Time International Ratio 1.3 (0.8-1.1) Activated Partial Thromboplast Time 32 SEC (24-38) Sodium Level 135 mmol/L (136-145) Potassium Level 5.2 mmol/L (3.5-5.1) Chloride Level 97 mmol/L (98-107) Carbon Dioxide Level 27 mmol/L (21-32) Anion Gap 11 (6-14) Blood Urea Nitrogen 50 mg/dL (7-20) Creatinine 2.6 mg/dL (0.6-1.0) Estimated GFR (Cockcroft-Gault) 17.5 BUN/Creatinine Ratio 19 (6-20) Glucose Level 191 mg/dL (70-99) Lactic Acid Level 3.1 mmol/L (0.4-2.0) Calcium Level 8.6 mg/dL (8.5-10.1) Total Bilirubin 0.5 mg/dL (0.2-1.0) Aspartate Amino Transf (AST/SGOT) 29 U/L (15-37) Alanine Aminotransferase (ALT/SGPT) 21 U/L (14-59) Alkaline Phosphatase 86 U/L (46-116) Troponin I Quantitative 0.018 ng/mL (0.000-0.055) LN-Rrg-[id number]-Type Natriuretic Peptide 1268 pg/mL (0-449) Total Protein 5.8 g/dL (6.4-8.2) Albumin 2.7 g/dL (3.4-5.0) Albumin/Globulin Ratio 0.9 (1.0-1.7) Urine Collection Type U cath Urine Color Dariela Urine Clarity Hazy Urine pH 5.0 Urine Specific [place] 1.020 Urine Protein 30 mg/dL (NEG-TRACE) Urine Glucose (UA) Negative mg/dL (NEG) Urine Ketones (Stick) Negative mg/dL (NEG) Urine Blood Negative (NEG) Urine Nitrite Negative (NEG) Urine Bilirubin Moderate (NEG) Urine Urobilinogen Dipstick 1.0 mg/dL (0.2 mg/dL) Urine Leukocyte Esterase Trace (NEG) Urine RBC 0 /HPF (0-2) Urine WBC 0 /HPF (0-4) Urine Amorphous Sediment Present /HPF Urine Bacteria Few /HPF (0-FEW) Urine Hyaline Casts Few /HPF Urine Mucus Slight /LPF O2 Saturation 94 % (92-99) Arterial Blood pH 7.41 (7.35-7.45) Arterial Blood pCO2 at Patient Temp 33 mmHg (35-46) Arterial Blood pO2 at Patient Temp 82 mmHg (65-108) Arterial Blood HCO3 20 mmol/L (21-28) Arterial Blood Base Excess -4 mmol/L (-3-3) FiO2 32 Test 01/13/19 20:55 01/14/19 00:35 01/14/19 05:00 01/14/19 05:45 Lactic Acid Level 1.3 mmol/L (0.4-2.0) White Blood Count 18.7 x10^3/uL (4.0-11.0) 11.2 x10^3/uL (4.0-11.0) Red Blood Count 2.44 x10^6/uL (3.50-5.40) 2.19 x10^6/uL (3.50-5.40) Hemoglobin 7.2 g/dL (12.0-15.5) 6.6 g/dL (12.0-15.5) Hematocrit 22.2 % (36.0-47.0) 20.0 % (36.0-47.0) Mean Corpuscular Volume 91 fL (79-100) 91 fL (79-100) Mean Corpuscular Hemoglobin 30 pg (25-35) 30 pg (25-35) Mean Corpuscular Hemoglobin Concent 32 g/dL (31-37) 33 g/dL (31-37) Red Cell Distribution Width 14.3 % (11.5-14.5) 14.3 % (11.5-14.5) Platelet Count 302 x10^3/uL (140-400) 233 x10^3/uL (140-400) Sodium Level 144 mmol/L (136-145) Potassium Level 3.6 mmol/L (3.5-5.1) Chloride Level 108 mmol/L (98-107) Carbon Dioxide Level 25 mmol/L (21-32) Anion Gap 11 (6-14) Blood Urea Nitrogen 41 mg/dL (7-20) Creatinine 1.2 mg/dL (0.6-1.0) Estimated GFR (Cockcroft-Gault) 42.8 BUN/Creatinine Ratio 34 (6-20) Glucose Level 128 mg/dL (70-99) Calcium Level 7.8 mg/dL (8.5-10.1) Total Bilirubin 0.3 mg/dL (0.2-1.0) Aspartate Amino Transf (AST/SGOT) 32 U/L (15-37) Alanine Aminotransferase (ALT/SGPT) 18 U/L (14-59) Alkaline Phosphatase 57 U/L (46-116) Total Protein 5.0 g/dL (6.4-8.2) Albumin 2.3 g/dL (3.4-5.0) Albumin/Globulin Ratio 0.9 (1.0-1.7) Objective: Assessment: Pt seen and examined Leucocytosis lactic acidosis acute gi bleed nausea and vomiting febrile illness pad pasha Plan: Plan of Care cont linezolid and merrem for now f/u CT Chest/abdo and pelvis awaiting egd today f/u labs and cults Thank you [id number] MAY CHAVIS MD Jan 14, 2019 08:43
[2019-01-14] MEDS ORDERED: MEROPENEM 500 MG in IV NORMAL SALINE 50ML 50 ML IV SCH (09:00)
--- NOTE | 2019-01-14 10:16 | PDOC ---
PROGRESS NOTES Subjective Subjective feels the same. alert. had a large red stool this morning. bp 114/60/ receiving 1 st of 2 units prbc this morning for a hgb 6.6. wbc lower 11.3 . lactic acid 1.3. bun 41 and creatinine 1.2 improved with iv hydration. T max 99.7 yesterday. Objective Objective Vital Signs Date Time Temp Pulse Resp B/P (MAP) Pulse Ox O2 Delivery O2 Flow Rate FiO2 01/14/19 10:07 97.9 75 18 114/60 97.9 01/14/19 09:00 100 Room Air Intake and Output 01/14/19 07:00 Intake Total 3468 ml Output Total 0 ml Balance 3468 ml Intake Oral 0 ml IV Total 3468 ml Output Urine Total 0 ml # Voids 2 # Bowel Movements 1 Physical Exam Abdomen: Normal bowel sounds, Soft, No tenderness, Other (obese) Heart: Regular rate, Normal S1, Normal S2 Extremities: No edema, Other (right AKA) General: Alert Lungs: Clear to auscultation Neuro: Normal speech Psych/Mental Status: Mood NL Skin: No rashes Assessment Assessment Problems1. Acute gastrointestinal bleed. It sounds like an upper gastrointestinal bleed as she had some hematemesis and also had some hematochezia. 2. Hypotension secondary to the gastrointestinal bleed. improved with iv fluids and transfusion prbc 3. Acute blood loss anemia. 4. Acute kidney injury secondary to the gastrointestinal bleed and intravascular volume depletion. improved with iv hydration 5. Severe protein calorie malnutrition. 6. Leukocytosis.better 7. Elevated lactic acid level. normal 01/14 8. Peripheral arterial disease. 9. History of a right above-knee amputation. 10. Hard of hearing. 11. History of a duodenal ulcer. 12. 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 Medical Problems: (1) Acute GI bleeding Status: Acute (2) Anemia Status: Acute (3) CHF (congestive heart failure) Status: Acute (4) Chronic anemia Status: Acute (5) Hyperkalemia Status: Acute (6) Hypoalbuminemia Status: Acute (7) Renal insufficiency Status: Acute (8) Sepsis Status: Acute Plan Plan of Care EGD today ct scan of abdomen and pelvis and chest continue iv fluids transfusion of 2 units prbc this morning. transfuse if hgb leses than 7 continue iv zyvox and meropenem scd for dvt prophylaxis continue iv protonix drip await blood cultures npo Comment Review of Relevant I have reviewed the following items rudy (where applicable) has been applied. Labs Laboratory Tests Test 01/13/19 14:50 01/13/19 15:12 01/13/19 16:15 01/13/19 18:10 White Blood Count 24.3 x10^3/uL (4.0-11.0) Red Blood Count 3.00 x10^6/uL (3.50-5.40) Hemoglobin 8.9 g/dL (12.0-15.5) 8.4 g/dL (12.0-15.5) Hematocrit 27.7 % (36.0-47.0) Mean Corpuscular Volume 93 fL (79-100) Mean Corpuscular Hemoglobin 30 pg (25-35) Mean Corpuscular Hemoglobin Concent 32 g/dL (31-37) Red Cell Distribution Width 14.2 % (11.5-14.5) Platelet Count 282 x10^3/uL (140-400) Neutrophils (%) (Auto) 88 % (31-73) Lymphocytes (%) (Auto) 5 % (24-48) Monocytes (%) (Auto) 7 % (0-9) Eosinophils (%) (Auto) 0 % (0-3) Basophils (%) (Auto) 0 % (0-3) Neutrophils # (Auto) 21.4 x10^3uL (1.8-7.7) Lymphocytes # (Auto) 1.1 x10^3/uL (1.0-4.8) Monocytes # (Auto) 1.7 x10^3/uL (0.0-1.1) Eosinophils # (Auto) 0.0 x10^3/uL (0.0-0.7) Basophils # (Auto) 0.0 x10^3/uL (0.0-0.2) Segmented Neutrophils % 84 % (35-66) Band Neutrophils % 10 % (0-9) Lymphocytes % 1 % (24-48) Monocytes % 5 % (0-10) Toxic Granulation Slight Platelet Estimate Adequate (ADEQUATE) Large Platelets Present Prothrombin Time 15.9 SEC (11.7-14.0) Prothromb Time International Ratio 1.3 (0.8-1.1) Activated Partial Thromboplast Time 32 SEC (24-38) Sodium Level 135 mmol/L (136-145) Potassium Level 5.2 mmol/L (3.5-5.1) Chloride Level 97 mmol/L (98-107) Carbon Dioxide Level 27 mmol/L (21-32) Anion Gap 11 (6-14) Blood Urea Nitrogen 50 mg/dL (7-20) Creatinine 2.6 mg/dL (0.6-1.0) Estimated GFR (Cockcroft-Gault) 17.5 BUN/Creatinine Ratio 19 (6-20) Glucose Level 191 mg/dL (70-99) Lactic Acid Level 3.1 mmol/L (0.4-2.0) Calcium Level 8.6 mg/dL (8.5-10.1) Total Bilirubin 0.5 mg/dL (0.2-1.0) Aspartate Amino Transf (AST/SGOT) 29 U/L (15-37) Alanine Aminotransferase (ALT/SGPT) 21 U/L (14-59) Alkaline Phosphatase 86 U/L (46-116) Troponin I Quantitative 0.018 ng/mL (0.000-0.055) BI-Xkn-Z-Type Natriuretic Peptide 1268 pg/mL (0-449) Total Protein 5.8 g/dL (6.4-8.2) Albumin 2.7 g/dL (3.4-5.0) Albumin/Globulin Ratio 0.9 (1.0-1.7) Urine Collection Type U cath Urine Color Dariela Urine Clarity Hazy Urine pH 5.0 Urine Specific [place] 1.020 Urine Protein 30 mg/dL (NEG-TRACE) Urine Glucose (UA) Negative mg/dL (NEG) Urine Ketones (Stick) Negative mg/dL (NEG) Urine Blood Negative (NEG) Urine Nitrite Negative (NEG) Urine Bilirubin Moderate (NEG) Urine Urobilinogen Dipstick 1.0 mg/dL (0.2 mg/dL) Urine Leukocyte Esterase Trace (NEG) Urine RBC 0 /HPF (0-2) Urine WBC 0 /HPF (0-4) Urine Amorphous Sediment Present /HPF Urine Bacteria Few /HPF (0-FEW) Urine Hyaline Casts Few /HPF Urine Mucus Slight /LPF O2 Saturation 94 % (92-99) Arterial Blood pH 7.41 (7.35-7.45) Arterial Blood pCO2 at Patient Temp 33 mmHg (35-46) Arterial Blood pO2 at Patient Temp 82 mmHg (65-108) Arterial Blood HCO3 20 mmol/L (21-28) Arterial Blood Base Excess -4 mmol/L (-3-3) FiO2 32 Test 01/13/19 20:55 01/14/19 00:35 01/14/19 05:00 01/14/19 05:45 Lactic Acid Level 1.3 mmol/L (0.4-2.0) White Blood Count 18.7 x10^3/uL (4.0-11.0) 11.2 x10^3/uL (4.0-11.0) Red Blood Count 2.44 x10^6/uL (3.50-5.40) 2.19 x10^6/uL (3.50-5.40) Hemoglobin 7.2 g/dL (12.0-15.5) 6.6 g/dL (12.0-15.5) Hematocrit 22.2 % (36.0-47.0) 20.0 % (36.0-47.0) Mean Corpuscular Volume 91 fL (79-100) 91 fL (79-100) Mean Corpuscular Hemoglobin 30 pg (25-35) 30 pg (25-35) Mean Corpuscular Hemoglobin Concent 32 g/dL (31-37) 33 g/dL (31-37) Red Cell Distribution Width 14.3 % (11.5-14.5) 14.3 % (11.5-14.5) Platelet Count 302 x10^3/uL (140-400) 233 x10^3/uL (140-400) Sodium Level 144 mmol/L (136-145) Potassium Level 3.6 mmol/L (3.5-5.1) Chloride Level 108 mmol/L (98-107) Carbon Dioxide Level 25 mmol/L (21-32) Anion Gap 11 (6-14) Blood Urea Nitrogen 41 mg/dL (7-20) Creatinine 1.2 mg/dL (0.6-1.0) Estimated GFR (Cockcroft-Gault) 42.8 BUN/Creatinine Ratio 34 (6-20) Glucose Level 128 mg/dL (70-99) Calcium Level 7.8 mg/dL (8.5-10.1) Total Bilirubin 0.3 mg/dL (0.2-1.0) Aspartate Amino Transf (AST/SGOT) 32 U/L (15-37) Alanine Aminotransferase (ALT/SGPT) 18 U/L (14-59) Alkaline Phosphatase 57 U/L (46-116) Total Protein 5.0 g/dL (6.4-8.2) Albumin 2.3 g/dL (3.4-5.0) Albumin/Globulin Ratio 0.9 (1.0-1.7) Laboratory Tests Test 01/13/19 14:50 01/13/19 15:12 01/13/19 16:15 01/13/19 18:10 White Blood Count 24.3 x10^3/uL (4.0-11.0) Red Blood Count 3.00 x10^6/uL (3.50-5.40) Hemoglobin 8.9 g/dL (12.0-15.5) 8.4 g/dL (12.0-15.5) Hematocrit 27.7 % (36.0-47.0) Mean Corpuscular Volume 93 fL (79-100) Mean Corpuscular Hemoglobin 30 pg (25-35) Mean Corpuscular Hemoglobin Concent 32 g/dL (31-37) Red Cell Distribution Width 14.2 % (11.5-14.5) Platelet Count 282 x10^3/uL (140-400) Neutrophils (%) (Auto) 88 % (31-73) Lymphocytes (%) (Auto) 5 % (24-48) Monocytes (%) (Auto) 7 % (0-9) Eosinophils (%) (Auto) 0 % (0-3) Basophils (%) (Auto) 0 % (0-3) Neutrophils # (Auto) 21.4 x10^3uL (1.8-7.7) Lymphocytes # (Auto) 1.1 x10^3/uL (1.0-4.8) Monocytes # (Auto) 1.7 x10^3/uL (0.0-1.1) Eosinophils # (Auto) 0.0 x10^3/uL (0.0-0.7) Basophils # (Auto) 0.0 x10^3/uL (0.0-0.2) Segmented Neutrophils % 84 % (35-66) Band Neutrophils % 10 % (0-9) Lymphocytes % 1 % (24-48) Monocytes % 5 % (0-10) Toxic Granulation Slight Platelet Estimate Adequate (ADEQUATE) Large Platelets Present Prothrombin Time 15.9 SEC (11.7-14.0) Prothromb Time International Ratio 1.3 (0.8-1.1) Activated Partial Thromboplast Time 32 SEC (24-38) Sodium Level 135 mmol/L (136-145) Potassium Level 5.2 mmol/L (3.5-5.1) Chloride Level 97 mmol/L (98-107) Carbon Dioxide Level 27 mmol/L (21-32) Anion Gap 11 (6-14) Blood Urea Nitrogen 50 mg/dL (7-20) Creatinine 2.6 mg/dL (0.6-1.0) Estimated GFR (Cockcroft-Gault) 17.5 BUN/Creatinine Ratio 19 (6-20) Glucose Level 191 mg/dL (70-99) Lactic Acid Level 3.1 mmol/L (0.4-2.0) Calcium Level 8.6 mg/dL (8.5-10.1) Total Bilirubin 0.5 mg/dL (0.2-1.0) Aspartate Amino Transf (AST/SGOT) 29 U/L (15-37) Alanine Aminotransferase (ALT/SGPT) 21 U/L (14-59) Alkaline Phosphatase 86 U/L (46-116) Troponin I Quantitative 0.018 ng/mL (0.000-0.055) GN-Yej-O-Type Natriuretic Peptide 1268 pg/mL (0-449) Total Protein 5.8 g/dL (6.4-8.2) Albumin 2.7 g/dL (3.4-5.0) Albumin/Globulin Ratio 0.9 (1.0-1.7) Urine Collection Type U cath Urine Color Dariela Urine Clarity Hazy Urine pH 5.0 Urine Specific [place] 1.020 Urine Protein 30 mg/dL (NEG-TRACE) Urine Glucose (UA) Negative mg/dL (NEG) Urine Ketones (Stick) Negative mg/dL (NEG) Urine Blood Negative (NEG) Urine Nitrite Negative (NEG) Urine Bilirubin Moderate (NEG) Urine Urobilinogen Dipstick 1.0 mg/dL (0.2 mg/dL) Urine Leukocyte Esterase Trace (NEG) Urine RBC 0 /HPF (0-2) Urine WBC 0 /HPF (0-4) Urine Amorphous Sediment Present /HPF Urine Bacteria Few /HPF (0-FEW) Urine Hyaline Casts Few /HPF Urine Mucus Slight /LPF O2 Saturation 94 % (92-99) Arterial Blood pH 7.41 (7.35-7.45) Arterial Blood pCO2 at Patient Temp 33 mmHg (35-46) Arterial Blood pO2 at Patient Temp 82 mmHg (65-108) Arterial Blood HCO3 20 mmol/L (21-28) Arterial Blood Base Excess -4 mmol/L (-3-3) FiO2 32 Test 01/13/19 20:55 01/14/19 00:35 01/14/19 05:00 01/14/19 05:45 Lactic Acid Level 1.3 mmol/L (0.4-2.0) White Blood Count 18.7 x10^3/uL (4.0-11.0) 11.2 x10^3/uL (4.0-11.0) Red Blood Count 2.44 x10^6/uL (3.50-5.40) 2.19 x10^6/uL (3.50-5.40) Hemoglobin 7.2 g/dL (12.0-15.5) 6.6 g/dL (12.0-15.5) Hematocrit 22.2 % (36.0-47.0) 20.0 % (36.0-47.0) Mean Corpuscular Volume 91 fL (79-100) 91 fL (79-100) Mean Corpuscular Hemoglobin 30 pg (25-35) 30 pg (25-35) Mean Corpuscular Hemoglobin Concent 32 g/dL (31-37) 33 g/dL (31-37) Red Cell Distribution Width 14.3 % (11.5-14.5) 14.3 % (11.5-14.5) Platelet Count 302 x10^3/uL (140-400) 233 x10^3/uL (140-400) Sodium Level 144 mmol/L (136-145) Potassium Level 3.6 mmol/L (3.5-5.1) Chloride Level 108 mmol/L (98-107) Carbon Dioxide Level 25 mmol/L (21-32) Anion Gap 11 (6-14) Blood Urea Nitrogen 41 mg/dL (7-20) Creatinine 1.2 mg/dL (0.6-1.0) Estimated GFR (Cockcroft-Gault) 42.8 BUN/Creatinine Ratio 34 (6-20) Glucose Level 128 mg/dL (70-99) Calcium Level 7.8 mg/dL (8.5-10.1) Total Bilirubin 0.3 mg/dL (0.2-1.0) Aspartate Amino Transf (AST/SGOT) 32 U/L (15-37) Alanine Aminotransferase (ALT/SGPT) 18 U/L (14-59) Alkaline Phosphatase 57 U/L (46-116) Total Protein 5.0 g/dL (6.4-8.2) Albumin 2.3 g/dL (3.4-5.0) Albumin/Globulin Ratio 0.9 (1.0-1.7) Medications Current Medications Sodium Chloride 1,000 ml @ 1,000 mls/hr 1X ONCE IV Last administered on 15:08; Start 01/13/19 at 14:45; Stop 01/13/19 at 15:44; Status DC Pantoprazole Sodium (PROTONIX VIAL for IV PUSH) 80 mg 1X ONCE IVP Last administered on 01/13/19at 15:08; Start 01/13/19 at 14:45; Stop 01/13/19 at 14:50; Status DC Sodium Chloride 1,000 ml @ 1,000 mls/hr 1X ONCE IV Last administered on at 15:50; Start 01/13/19 at 16:00; Stop 01/13/19 at 16:59; Status DC Ceftriaxone Sodium (Rocephin) 1 gm 1X ONCE IVP Last administered on 01/13/19 17:20; Start 01/13/19 at 16:00; Stop 01/13/19 at 16:01; Status DC Pantoprazole Sodium 80 mg/ Sodium Chloride 100 ml @ 10 mls/hr Q10H IV Last administered on 01/14/19at 01:40; Start 01/13/19 at 16:30 Metoclopramide HCl (Reglan Vial) 10 mg 1X ONCE IV Last administered on at 17:20; Start 01/13/19 at 16:30; Stop 01/13/19 at 16:31; Status DC Sodium Chloride 1,000 ml @ 150 mls/hr Q6H40M IV Last administered on 01/14/19at 01:42; Start 01/13/19 at 17:04; Stop 01/14/19 at 17:03 Pantoprazole Sodium 80 mg/ Sodium Chloride 100 ml @ 10 mls/hr Q10H IV ; Start 01/13/19 at 17:15; Stop 01/13/19 at 17:36; Status DC Sodium Chloride 1,000 ml @ 100 mls/hr Q10H IV ; Start 01/13/19 at 17:15 Linezolid/Dextrose 300 ml @ 300 mls/hr Q12HR IV ; Start 01/13/19 at 18:00; Stop 01/13/19 at 18:03; Status DC Meropenem 500 mg/ Sodium Chloride 50 ml @ 100 mls/hr Q12HR IV ; Start 01/13/19 at 18:00; Stop 01/13/19 at 18:03; Status DC Ondansetron HCl (Zofran) 4 mg PRN Q6HRS PRN IV NAUSEA/VOMITING; Start 01/13/19 at 17:15 Acetaminophen (Tylenol Supp) 650 mg PRN Q6HRS PRN ND HEADACHE / TEMP; Start 01/13/19 at 17:15 Linezolid/Dextrose 300 ml @ 300 mls/hr ONCE ONCE IV Last administered on at 20:23; Start 01/13/19 at 19:00; Stop 01/13/19 at 19:59; Status DC Meropenem 500 mg/ Sodium Chloride 50 ml @ 100 mls/hr ONCE ONCE IV Last administered on 01/13/19at 20:23; Start 01/13/19 at 17:45; Stop 01/13/19 at 18:14; Status DC Linezolid/Dextrose 300 ml @ 300 mls/hr Q12HR IV ; Start 01/14/19 at 09:00 Meropenem 500 mg/ Sodium Chloride 50 ml @ 100 mls/hr Q12HR IV ; Start 01/14/19 at 09:00 Active Scripts Active Pantoprazole Sodium 40 Mg Tablet.dr 40 Mg PO DAILYAC Feosol (Ferrous Sulfate) 325 Mg Tablet 325 Mg PO BIDWMEALS Reported Bactrim 400-80 Mg Tablet (Sulfamethoxazole/Trimethoprim) 1 Each Tablet 2 Tab PO BID Magnesium Oxide 400 Mg Tablet 1 Tab PO BID Clobetasol Propionate 15 Gm Cream..g. 1 Sherri TP BID Cozaar (Losartan Potassium) 100 Mg Tablet 100 Mg PO DAILY [place] 10-325 Tablet (Acetaminophen/Hydrocodone Bitart) 1 Each Tablet 1 Tab PO PRN Q6HRS PRN Hydrochlorothiazide Tablet (Hydrochlorothiazide) 25 Mg Tablet 25 Mg PO DAILY [B12] DAILY [vitB6] DAILY Doxycycline Hyclate 100 Mg Capsule 1 Cap PO BID Centrum Silver Women Tablet (Multivits-Min/Iron/FA/Lutein) 1 Each Tablet 1 Each PO Atorvastatin Calcium 10 Mg Tablet 1 Tab PO DAILY Clopidogrel (Clopidogrel Bisulfate) 75 Mg Tablet 1 Tab PO DAILY Venlafaxine Hcl Er (Venlafaxine Hcl) 75 Mg Cap.er.24h 3 Cap PO DAILY Vitals/I & O Vital Sign - Last 24 Hours 01/13/19 01/13/19 01/13/19 01/13/19 14:49 15:15 15:45 16:15 Temp 97.9 97.9 Pulse 90 84 74 72 Resp 18 18 18 18 B/P (MAP) 87/53 (64) 93/49 (64) 102/54 (70) 96/40 (58) Pulse Ox 97 96 95 96 O2 Delivery Room Air Room Air Room Air Room Air 01/13/19 01/13/19 01/13/19 01/13/19 16:45 17:15 18:00 18:16 Temp 98.1 98.1 Pulse 78 78 84 Resp 18 18 20 B/P (MAP) 118/48 (71) 96/65 (75) 147/54 (85) Pulse Ox 98 98 93 O2 Delivery Room Air Room Air Room Air 01/13/19 01/13/19 01/13/19 01/13/19 18:32 19:00 19:15 19:53 Temp 98.5 98.5 Pulse 80 92 Resp 20 16 B/P (MAP) 81/55 (64) 108/83 (91) Pulse Ox 94 96 O2 Delivery Room Air Room Air Room Air Room Air 01/13/19 01/13/19 01/13/19 01/13/19 20:00 21:00 21:53 22:00 Temp 99.7 99.7 Pulse 82 90 87 90 Resp 21 26 24 23 B/P (MAP) 122/54 (76) 124/58 (80) 124/58 133/52 (79) Pulse Ox 94 95 95 O2 Delivery Room Air Room Air Room Air 01/13/19 01/13/19 01/13/19 01/14/19 22:15 23:00 23:59 00:00 Temp 98.3 99.7 98.3 99.7 Pulse 88 94 89 Resp 18 17 11 B/P (MAP) 133/51 111/57 (75) 92/49 (63) Pulse Ox 91 93 O2 Delivery Room Air Room Air Room Air 01/14/19 01/14/19 01/14/19 01/14/19 01:00 02:00 03:00 04:00 Pulse 87 88 90 Resp 12 B/P (MAP) 112/58 (76) 115/53 (73) 129/64 (85) Pulse Ox 92 93 91 O2 Delivery Room Air Room Air Room Air Room Air 01/14/19 01/14/19 01/14/19 01/14/19 04:00 05:00 06:00 07:00 Temp 98.7 98.6 98.7 98.6 Pulse 87 86 86 83 Resp 20 17 17 B/P (MAP) 108/50 (69) 106/54 (71) 104/52 (69) 116/57 (76) Pulse Ox 92 94 95 93 O2 Delivery Room Air Room Air Room Air Room Air 01/14/19 01/14/19 01/14/19 01/14/19 07:30 07:52 08:00 08:10 Temp 98.6 99.0 98.6 99.0 Pulse 80 84 82 Resp 18 19 B/P (MAP) 116/57 116/53 (74) 125/58 Pulse Ox 93 O2 Delivery Room Air Room Air 01/14/19 01/14/19 01/14/19 09:00 09:00 10:07 Temp 97.9 97.9 Pulse 80 80 75 Resp 23 23 18 B/P (MAP) 91/55 (67) 91/55 114/60 Pulse Ox 100 O2 Delivery Room Air Intake and Output 01/13/19 01/13/19 01/14/19 15:00 23:00 07:00 Intake Total 2000 ml 1468 ml Output Total 0 ml Balance 2000 ml 1468 ml CINDI SOUSA MD Jan 14, 2019 10:16
[2019-01-14] MEDS: POTASSIUM CL 20MEQ D5-0.45NACL 1,000 ML IV SCH (11:16)
--- NOTE | 2019-01-14 11:34 | NUR ---
Pt to Outpatient for EGD via bed, monitor and nurse.
--- NOTE | 2019-01-14 12:13 | PDOC2 ---
CONSULT Date of Consult Date of Consult DATE: 01/14/19 TIME: 12:04 Reason for Consult Reason for Consult: CHARLENE Source Source: Chart review, Patient History of Present Illness Reason for Visit: Pt is an 83-year-old white female with a history of hypertension, peripheral arterial disease, right above-knee amputation who had a duodenal ulcer in 1989 and had an upper GI bleed in 06/2016, had a gastric angiodysplasia at that time treated with endoclip, noted the onset of diarrhea and bloody stools and also had some vomiting with bloody emesis. This started last night, continued today, She is on Plavix, but denies taking aspirin or NSAID's In the ED noted to have a leukocytosis 24.3 ,BUN of 50 and a serum creatinine 2.6, chest x-ray showed a possible left lower lobe infiltrate. She is quite hard of hearing Social History Quit ALCOHOL: none Drugs: None Current Problem List Problem List Problems Medical Problems: (1) Acute GI bleeding Status: Acute (2) Anemia Status: Acute (3) CHF (congestive heart failure) Status: Acute (4) Chronic anemia Status: Acute (5) Hyperkalemia Status: Acute (6) Hypoalbuminemia Status: Acute (7) Renal insufficiency Status: Acute (8) Sepsis Status: Acute Current Medications Current Medications Current Medications Sodium Chloride 1,000 ml @ 1,000 mls/hr 1X ONCE IV Last administered on at 15:08; Start 01/13/19 at 14:45; Stop 01/13/19 at 15:44; Status DC Pantoprazole Sodium (PROTONIX VIAL for IV PUSH) 80 mg 1X ONCE IVP Last administered on 01/13/19at 15:08; Start 01/13/19 at 14:45; Stop 01/13/19 at 14:50; Status DC Sodium Chloride 1,000 ml @ 1,000 mls/hr 1X ONCE IV Last administered on at 15:50; Start 01/13/19 at 16:00; Stop 01/13/19 at 16:59; Status DC Ceftriaxone Sodium (Rocephin) 1 gm 1X ONCE IVP Last administered on 01/13/19at 17:20; Start 01/13/19 at 16:00; Stop 01/13/19 at 16:01; Status DC Pantoprazole Sodium 80 mg/ Sodium Chloride 100 ml @ 10 mls/hr Q10H IV Last administered on 01/14/19at 01:40; Start 01/13/19 at 16:30 Metoclopramide HCl (Reglan Vial) 10 mg 1X ONCE IV Last administered on at 17:20; Start 01/13/19 at 16:30; Stop 01/13/19 at 16:31; Status DC Sodium Chloride 1,000 ml @ 150 mls/hr [id number] IV Last administered on 01/14/19at 01:42; Start 01/13/19 at 17:04; Stop 01/14/19 at 17:03 Pantoprazole Sodium 80 mg/ Sodium Chloride 100 ml @ 10 mls/hr Q10H IV ; Start 01/13/19 at 17:15; Stop 01/13/19 at 17:36; Status DC Sodium Chloride 1,000 ml @ 100 mls/hr Q10H IV ; Start 01/13/19 at 17:15; Stop at 10:18; Status DC Linezolid/Dextrose 300 ml @ 300 mls/hr Q12HR IV ; Start 01/13/19 at 18:00; Stop 01/13/19 at 18:03; Status DC Meropenem 500 mg/ Sodium Chloride 50 ml @ 100 mls/hr Q12HR IV ; Start 01/13/19 at 18:00; Stop 01/13/19 at 18:03; Status DC Ondansetron HCl (Zofran) 4 mg PRN Q6HRS PRN IV NAUSEA/VOMITING; Start 01/13/19 at 17:15 Acetaminophen (Tylenol Supp) 650 mg PRN Q6HRS PRN VA HEADACHE / TEMP; Start 01/13/19 at 17:15 Linezolid/Dextrose 300 ml @ 300 mls/hr ONCE ONCE IV Last administered on at 20:23; Start 01/13/19 at 19:00; Stop 01/13/19 at 19:59; Status DC Meropenem 500 mg/ Sodium Chloride 50 ml @ 100 mls/hr ONCE ONCE IV Last administered on 01/13/19at 20:23; Start 01/13/19 at 17:45; Stop 01/13/19 at 18:14; Status DC Linezolid/Dextrose 300 ml @ 300 mls/hr Q12HR IV ; Start 01/14/19 at 09:00 Meropenem 500 mg/ Sodium Chloride 50 ml @ 100 mls/hr Q12HR IV ; Start 01/14/19 at 09:00; Stop 01/14/19 at 10:18; Status DC Meropenem 500 mg/ Sodium Chloride 50 ml @ 100 mls/hr Q8HRS IV ; Start 01/14/19 at 14:00 Potassium Chloride/Dextrose/ Sod Cl 1,000 ml @ 80 mls/hr [id number] IV Last administered on 01/14/19at 11:16; Start 01/14/19 at 10:30 Active Scripts Active Pantoprazole Sodium 40 Mg Tablet.dr 40 Mg PO DAILYAC Feosol (Ferrous Sulfate) 325 Mg Tablet 325 Mg PO BIDWMEALS Reported Bactrim 400-80 Mg Tablet (Sulfamethoxazole/Trimethoprim) 1 Each Tablet 2 Tab PO BID Magnesium Oxide 400 Mg Tablet 1 Tab PO BID Clobetasol Propionate 15 Gm Cream..g. 1 Sherri TP BID Cozaar (Losartan Potassium) 100 Mg Tablet 100 Mg PO DAILY Jackson 10-325 Tablet (Acetaminophen/Hydrocodone Bitart) 1 Each Tablet 1 Tab PO PRN Q6HRS PRN Hydrochlorothiazide Tablet (Hydrochlorothiazide) 25 Mg Tablet 25 Mg PO DAILY [B12] DAILY [vitB6] DAILY Doxycycline Hyclate 100 Mg Capsule 1 Cap PO BID Centrum Silver Women Tablet (Multivits-Min/Iron/FA/Lutein) 1 Each Tablet 1 Each PO Atorvastatin Calcium 10 Mg Tablet 1 Tab PO DAILY Clopidogrel (Clopidogrel Bisulfate) 75 Mg Tablet 1 Tab PO DAILY Venlafaxine Hcl Er (Venlafaxine Hcl) 75 Mg Cap.er.24h 3 Cap PO DAILY Allergies Allergies: Coded Allergies: spironolactone (Verified Allergy, Severe, FLUID POURED OUT OF ALL ORIFICES , 02/14/17) Penicillins (Verified Allergy, Intermediate, 04/13/18) Tolerates cephalasporins amlodipine (Verified Allergy, Intermediate, 02/14/17) muscle cramps iodine (Verified Allergy, Intermediate, Rash, 02/14/17) swelling olanzapine (Verified Allergy, Intermediate, 02/14/17) rofecoxib (Verified Allergy, Intermediate, 02/14/17) ROS Review of System As per HPI Physical Exam Physical Exam Abdomen: Normal bowel sounds, Soft, No tenderness, Other (obese) Heart: Regular rate, Normal S1, Normal S2 Extremities: No edema, Other (right AKA) General: Alert Lungs: Clear to auscultation Neuro: Normal speech Psych/Mental Status: Mood NL Skin: No rashes No colon Vital Signs Vital Signs Date Time Temp Pulse Resp B/P (MAP) Pulse Ox O2 Delivery O2 Flow Rate FiO2 01/14/19 11:43 68 20 94 Room Air 01/14/19 11:00 134/66 (88) 01/14/19 10:35 97.9 97.9 Assessment & Plan CHARLENE- Pre-renal / dehydration /GI bleed Renal function improving , UA unremarkable E-Lytes and acid base stable Hyperkalemia- Mild, Resolved Acute gastrointestinal bleed- had some hematemesis and also had some hematochezia EGD today Hypotension secondary to the gastrointestinal bleed. Acute blood loss anemia- Hgb < 7 Leukocytosis/ Elevated lactic acid level Id consulted History of a duodenal ulcer/ History of an upper gastrointestinal bleed due to a gastric arteriovenous malformation requiring an endoclip in 06/2016. Labs Labs Laboratory Tests Test 01/13/19 14:50 01/13/19 15:12 01/13/19 16:15 01/13/19 18:10 White Blood Count 24.3 x10^3/uL (4.0-11.0) Red Blood Count 3.00 x10^6/uL (3.50-5.40) Hemoglobin 8.9 g/dL (12.0-15.5) 8.4 g/dL (12.0-15.5) Hematocrit 27.7 % (36.0-47.0) Mean Corpuscular Volume 93 fL (79-100) Mean Corpuscular Hemoglobin 30 pg (25-35) Mean Corpuscular Hemoglobin Concent 32 g/dL (31-37) Red Cell Distribution Width 14.2 % (11.5-14.5) Platelet Count 282 x10^3/uL (140-400) Neutrophils (%) (Auto) 88 % (31-73) Lymphocytes (%) (Auto) 5 % (24-48) Monocytes (%) (Auto) 7 % (0-9) Eosinophils (%) (Auto) 0 % (0-3) Basophils (%) (Auto) 0 % (0-3) Neutrophils # (Auto) 21.4 x10^3uL (1.8-7.7) Lymphocytes # (Auto) 1.1 x10^3/uL (1.0-4.8) Monocytes # (Auto) 1.7 x10^3/uL (0.0-1.1) Eosinophils # (Auto) 0.0 x10^3/uL (0.0-0.7) Basophils # (Auto) 0.0 x10^3/uL (0.0-0.2) Segmented Neutrophils % 84 % (35-66) Band Neutrophils % 10 % (0-9) Lymphocytes % 1 % (24-48) Monocytes % 5 % (0-10) Toxic Granulation Slight Platelet Estimate Adequate (ADEQUATE) Large Platelets Present Prothrombin Time 15.9 SEC (11.7-14.0) Prothromb Time International Ratio 1.3 (0.8-1.1) Activated Partial Thromboplast Time 32 SEC (24-38) Sodium Level 135 mmol/L (136-145) Potassium Level 5.2 mmol/L (3.5-5.1) Chloride Level 97 mmol/L (98-107) Carbon Dioxide Level 27 mmol/L (21-32) Anion Gap 11 (6-14) Blood Urea Nitrogen 50 mg/dL (7-20) Creatinine 2.6 mg/dL (0.6-1.0) Estimated GFR (Cockcroft-Gault) 17.5 BUN/Creatinine Ratio 19 (6-20) Glucose Level 191 mg/dL (70-99) Lactic Acid Level 3.1 mmol/L (0.4-2.0) Calcium Level 8.6 mg/dL (8.5-10.1) Total Bilirubin 0.5 mg/dL (0.2-1.0) Aspartate Amino Transf (AST/SGOT) 29 U/L (15-37) Alanine Aminotransferase (ALT/SGPT) 21 U/L (14-59) Alkaline Phosphatase 86 U/L (46-116) Troponin I Quantitative 0.018 ng/mL (0.000-0.055) OH-Yib-N-Type Natriuretic Peptide 1268 pg/mL (0-449) Total Protein 5.8 g/dL (6.4-8.2) Albumin 2.7 g/dL (3.4-5.0) Albumin/Globulin Ratio 0.9 (1.0-1.7) Urine Collection Type U cath Urine Color Dariela Urine Clarity Hazy Urine pH 5.0 Urine Specific [place] 1.020 Urine Protein 30 mg/dL (NEG-TRACE) Urine Glucose (UA) Negative mg/dL (NEG) Urine Ketones (Stick) Negative mg/dL (NEG) Urine Blood Negative (NEG) Urine Nitrite Negative (NEG) Urine Bilirubin Moderate (NEG) Urine Urobilinogen Dipstick 1.0 mg/dL (0.2 mg/dL) Urine Leukocyte Esterase Trace (NEG) Urine RBC 0 /HPF (0-2) Urine WBC 0 /HPF (0-4) Urine Amorphous Sediment Present /HPF Urine Bacteria Few /HPF (0-FEW) Urine Hyaline Casts Few /HPF Urine Mucus Slight /LPF O2 Saturation 94 % (92-99) Arterial Blood pH 7.41 (7.35-7.45) Arterial Blood pCO2 at Patient Temp 33 mmHg (35-46) Arterial Blood pO2 at Patient Temp 82 mmHg (65-108) Arterial Blood HCO3 20 mmol/L (21-28) Arterial Blood Base Excess -4 mmol/L (-3-3) FiO2 32 Test 01/13/19 20:55 01/14/19 00:35 01/14/19 05:00 01/14/19 05:45 Lactic Acid Level 1.3 mmol/L (0.4-2.0) White Blood Count 18.7 x10^3/uL (4.0-11.0) 11.2 x10^3/uL (4.0-11.0) Red Blood Count 2.44 x10^6/uL (3.50-5.40) 2.19 x10^6/uL (3.50-5.40) Hemoglobin 7.2 g/dL (12.0-15.5) 6.6 g/dL (12.0-15.5) Hematocrit 22.2 % (36.0-47.0) 20.0 % (36.0-47.0) Mean Corpuscular Volume 91 fL (79-100) 91 fL (79-100) Mean Corpuscular Hemoglobin 30 pg (25-35) 30 pg (25-35) Mean Corpuscular Hemoglobin Concent 32 g/dL (31-37) 33 g/dL (31-37) Red Cell Distribution Width 14.3 % (11.5-14.5) 14.3 % (11.5-14.5) Platelet Count 302 x10^3/uL (140-400) 233 x10^3/uL (140-400) Sodium Level 144 mmol/L (136-145) Potassium Level 3.6 mmol/L (3.5-5.1) Chloride Level 108 mmol/L (98-107) Carbon Dioxide Level 25 mmol/L (21-32) Anion Gap 11 (6-14) Blood Urea Nitrogen 41 mg/dL (7-20) Creatinine 1.2 mg/dL (0.6-1.0) Estimated GFR (Cockcroft-Gault) 42.8 BUN/Creatinine Ratio 34 (6-20) Glucose Level 128 mg/dL (70-99) Calcium Level 7.8 mg/dL (8.5-10.1) Total Bilirubin 0.3 mg/dL (0.2-1.0) Aspartate Amino Transf (AST/SGOT) 32 U/L (15-37) Alanine Aminotransferase (ALT/SGPT) 18 U/L (14-59) Alkaline Phosphatase 57 U/L (46-116) Total Protein 5.0 g/dL (6.4-8.2) Albumin 2.3 g/dL (3.4-5.0) Albumin/Globulin Ratio 0.9 (1.0-1.7) Laboratory Tests Test 01/13/19 14:50 01/13/19 15:12 01/13/19 16:15 01/13/19 18:10 White Blood Count 24.3 x10^3/uL (4.0-11.0) Red Blood Count 3.00 x10^6/uL (3.50-5.40) Hemoglobin 8.9 g/dL (12.0-15.5) 8.4 g/dL (12.0-15.5) Hematocrit 27.7 % (36.0-47.0) Mean Corpuscular Volume 93 fL (79-100) Mean Corpuscular Hemoglobin 30 pg (25-35) Mean Corpuscular Hemoglobin Concent 32 g/dL (31-37) Red Cell Distribution Width 14.2 % (11.5-14.5) Platelet Count 282 x10^3/uL (140-400) Neutrophils (%) (Auto) 88 % (31-73) Lymphocytes (%) (Auto) 5 % (24-48) Monocytes (%) (Auto) 7 % (0-9) Eosinophils (%) (Auto) 0 % (0-3) Basophils (%) (Auto) 0 % (0-3) Neutrophils # (Auto) 21.4 x10^3uL (1.8-7.7) Lymphocytes # (Auto) 1.1 x10^3/uL (1.0-4.8) Monocytes # (Auto) 1.7 x10^3/uL (0.0-1.1) Eosinophils # (Auto) 0.0 x10^3/uL (0.0-0.7) Basophils # (Auto) 0.0 x10^3/uL (0.0-0.2) Segmented Neutrophils % 84 % (35-66) Band Neutrophils % 10 % (0-9) Lymphocytes % 1 % (24-48) Monocytes % 5 % (0-10) Toxic Granulation Slight Platelet Estimate Adequate (ADEQUATE) Large Platelets Present Prothrombin Time 15.9 SEC (11.7-14.0) Prothromb Time International Ratio 1.3 (0.8-1.1) Activated Partial Thromboplast Time 32 SEC (24-38) Sodium Level 135 mmol/L (136-145) Potassium Level 5.2 mmol/L (3.5-5.1) Chloride Level 97 mmol/L (98-107) Carbon Dioxide Level 27 mmol/L (21-32) Anion Gap 11 (6-14) Blood Urea Nitrogen 50 mg/dL (7-20) Creatinine 2.6 mg/dL (0.6-1.0) Estimated GFR (Cockcroft-Gault) 17.5 BUN/Creatinine Ratio 19 (6-20) Glucose Level 191 mg/dL (70-99) Lactic Acid Level 3.1 mmol/L (0.4-2.0) Calcium Level 8.6 mg/dL (8.5-10.1) Total Bilirubin 0.5 mg/dL (0.2-1.0) Aspartate Amino Transf (AST/SGOT) 29 U/L (15-37) Alanine Aminotransferase (ALT/SGPT) 21 U/L (14-59) Alkaline Phosphatase 86 U/L (46-116) Troponin I Quantitative 0.018 ng/mL (0.000-0.055) RS-Qqo-L-Type Natriuretic Peptide 1268 pg/mL (0-449) Total Protein 5.8 g/dL (6.4-8.2) Albumin 2.7 g/dL (3.4-5.0) Albumin/Globulin Ratio 0.9 (1.0-1.7) Urine Collection Type U cath Urine Color Dariela Urine Clarity Hazy Urine pH 5.0 Urine Specific [place] 1.020 Urine Protein 30 mg/dL (NEG-TRACE) Urine Glucose (UA) Negative mg/dL (NEG) Urine Ketones (Stick) Negative mg/dL (NEG) Urine Blood Negative (NEG) Urine Nitrite Negative (NEG) Urine Bilirubin Moderate (NEG) Urine Urobilinogen Dipstick 1.0 mg/dL (0.2 mg/dL) Urine Leukocyte Esterase Trace (NEG) Urine RBC 0 /HPF (0-2) Urine WBC 0 /HPF (0-4) Urine Amorphous Sediment Present /HPF Urine Bacteria Few /HPF (0-FEW) Urine Hyaline Casts Few /HPF Urine Mucus Slight /LPF O2 Saturation 94 % (92-99) Arterial Blood pH 7.41 (7.35-7.45) Arterial Blood pCO2 at Patient Temp 33 mmHg (35-46) Arterial Blood pO2 at Patient Temp 82 mmHg (65-108) Arterial Blood HCO3 20 mmol/L (21-28) Arterial Blood Base Excess -4 mmol/L (-3-3) FiO2 32 Test 01/13/19 20:55 01/14/19 00:35 01/14/19 05:00 01/14/19 05:45 Lactic Acid Level 1.3 mmol/L (0.4-2.0) White Blood Count 18.7 x10^3/uL (4.0-11.0) 11.2 x10^3/uL (4.0-11.0) Red Blood Count 2.44 x10^6/uL (3.50-5.40) 2.19 x10^6/uL (3.50-5.40) Hemoglobin 7.2 g/dL (12.0-15.5) 6.6 g/dL (12.0-15.5) Hematocrit 22.2 % (36.0-47.0) 20.0 % (36.0-47.0) Mean Corpuscular Volume 91 fL (79-100) 91 fL (79-100) Mean Corpuscular Hemoglobin 30 pg (25-35) 30 pg (25-35) Mean Corpuscular Hemoglobin Concent 32 g/dL (31-37) 33 g/dL (31-37) Red Cell Distribution Width 14.3 % (11.5-14.5) 14.3 % (11.5-14.5) Platelet Count 302 x10^3/uL (140-400) 233 x10^3/uL (140-400) Sodium Level 144 mmol/L (136-145) Potassium Level 3.6 mmol/L (3.5-5.1) Chloride Level 108 mmol/L (98-107) Carbon Dioxide Level 25 mmol/L (21-32) Anion Gap 11 (6-14) Blood Urea Nitrogen 41 mg/dL (7-20) Creatinine 1.2 mg/dL (0.6-1.0) Estimated GFR (Cockcroft-Gault) 42.8 BUN/Creatinine Ratio 34 (6-20) Glucose Level 128 mg/dL (70-99) Calcium Level 7.8 mg/dL (8.5-10.1) Total Bilirubin 0.3 mg/dL (0.2-1.0) Aspartate Amino Transf (AST/SGOT) 32 U/L (15-37) Alanine Aminotransferase (ALT/SGPT) 18 U/L (14-59) Alkaline Phosphatase 57 U/L (46-116) Total Protein 5.0 g/dL (6.4-8.2) Albumin 2.3 g/dL (3.4-5.0) Albumin/Globulin Ratio 0.9 (1.0-1.7) Review All relevant outside records, renal labs, imaging studies, telemetry/EKG's were reviewed. Images Images CxR-- IMPRESSION: Diffuse increased interstitial opacity suggesting interstitial infiltrate. This is superimposed on left lower lobe atelectasis or infiltrate and possible trace left pleural effusion. ERIC ROCK MD Jan 14, 2019 12:13
[2019-01-14] MEDS ORDERED: PROPOFOL 20 ML IV ONE (12:22)
--- NOTE | 2019-01-14 12:23 | PDOC4 ---
PROCEDURE Procedure EGD/biopsies Indication: recent GIB, clinically UGI Meds: per anesthesia Findings: E--Normal G--4-5mm ulcer anterior wall, fundus with rim nodularity and some hematin; no clot, active bleed. Biopsied x 2. 8-10mm ulcer anterior wall, body with large area of nodularity surrounding and on rim, concerning for malignancy. No hematin staining, etc. Biopsies of rim. D--Normal to second portion. Bhakti. well. IMP: Gastric ulcers, one at least concerning for malignancy, but no active bleeding or signs of high risk to re-bleed. REC: Continue PPI gtt. Await path. Clears OK; if tolerates, po PPI and advance diet. Out of ICU OK with me later today. Thanks. CINDI MARTINEZ MD Jan 14, 2019 12:23
--- NOTE | 2019-01-14 13:49 | NUR ---
SS following for discharge planning. SS reviewed pt chart. Pt is from home with spouse and is currently on room air. No discharge needs noted at this time. SS will continue to follow for pending discharge needs.
[2019-01-14] MEDS ORDERED: HEPARIN for NUC MED 500 UNIT/5 ML DISP.SYRIN. IV ONE (15:00)
[2019-01-14] MEDS: MEROPENEM 500 MG in IV NORMAL SALINE 50ML 50 ML IV SCH ×2 (16:57→22:14)
--- NOTE | 2019-01-14 17:19 | RAD ---
Examination: GI BLEED History: gi bleed. bloody stools x 2 days. Comparison/Correlation: None Findings: 27 mCi technetium 99m was utilized with UltraTag for purposes of GI bleed examination. Imaging was performed up to 53 minutes. Distribution of radiotracer is normal with no abnormal accumulation to suggest GI bleed. Impression: No GI bleed. Electronically signed by: Venkatesh Gilbert MD (01/14/2019 5:15 PM) [id number]
[2019-01-14] MEDS: LACTOBACILLUS RHAMNOSUS GG 1 CAPSULE. PO SCH (20:49)
[2019-01-14] MEDS: ACETAMINOPHEN 325 MG TABLET. PO PRN (23:06)
[2019-01-15] VITALS (15 sets, daily range): BP systolic 105–158; BP diastolic 45–86
--- NOTE | 2019-01-15 00:34 | CONS ---
DATE OF CONSULTATION: 01/14/2019 REFERRING PHYSICIAN: Dr. Palencia. REASON FOR CONSULTATION: Leukocytosis. HISTORY OF PRESENT ILLNESS: An 83-year-old female who was brought in by EMS because of rectal bleeding. The patient had abdominal pain, subjective fevers, did not feel well prior to admission and had multiple episodes of bloody stool. The patient also has nausea, vomiting, generalized weakness. The patient is hard of hearing. History is limited, obtained from medical chart and staff. The patient's white count was elevated at 24,000, hemoglobin was 8.9, but dropped to 6.6. Currently, she is on blood transfusion. Also, had CHARLENE. Chest x-ray revealed left lower lobe atelectasis versus infiltrate. UA was negative. The patient was started on empiric meropenem and linezolid. CT of the abdomen, pelvis, and chest is pending at this time. The patient has undergone AVM clipping in 06/2016. GI is planning for EGD. ID consult has been requested for antibiotic management. This morning, the patient states continues to have abdominal pain, some nausea, no vomiting. She has some cough, unable to bring up any sputum. Denies any chest pain. Fever pattern has improved. PAST MEDICAL HISTORY: Duodenal ulcer in 1989, laminectomy, total hip arthroplasty bilaterally, cryosurgery of cervix, left superficial femoral artery angioplasty, right AKA, carpal tunnel release, tonsillectomy, right femoral artery to peroneal artery bypass in 2016, prediabetes, right carotid endarterectomy, upper GI bleed, gastric angiodysplasia treated with endoclip in 06/2016, osteomyelitis of the right ankle in the past, history of hyperlipidemia, peptic ulcer disease, lumbar spinal stenosis, small abdominal aortic aneurysm, overactive bladder, diverticulosis, hypertension, hyperlipidemia, obesity, osteoarthritis, hard of hearing. SOCIAL HISTORY: Does not drink alcohol. No smoking. . Confined to wheelchair. FAMILY HISTORY: Nothing contributory. ALLERGIES: PENICILLIN, BUT TOLERATES CEPHALOSPORINS, AMLODIPINE, IODINE, OLANZAPINE, ROFECOXIB, AND SPIRONOLACTONE. CURRENT MEDICATION: Linezolid, meropenem. Other medications reviewed in medication list. REVIEW OF SYSTEMS: Limited. [place] feverish. No chest pain. Some cough, nausea, vomiting, bloody stool, hematemesis. No dysuria. No rash. PHYSICAL EXAMINATION: VITAL SIGNS: Temperature 99.7, current temperature 99, pulse 82, respiratory rate 19, blood pressure 125/58, oxygen saturation 92% on room air. GENERAL: Tired-looking female, lying in bed comfortably, in no acute distress. HEENT: Oral mucosa pale, atraumatic. Pupils equal. No conjunctival petechia, no icterus. LUNGS: Decreased breath sounds bilaterally in the base. HEART: S1, S2, no murmurs. ABDOMEN: Bowel sounds present, obese, soft, mild tenderness diffuse. No guarding, no rigidity. EXTREMITIES: Right AKA looks okay. Left lower extremity warm and dry. NEUROLOGIC: Follow simple commands. DERMATOLOGIC: Warm, dry, no generalized rash. LABORATORY DATA: WBC 11.2, hemoglobin 6.6, hematocrit 20, platelets 233. Sodium 144, potassium 3.6, chloride 108, bicarbonate 25, BUN 41, creatinine 1.2, glucose 128. Lactate 3.1, repeat is 1.3. ProBNP 1268. Protein 5, albumin 2.3. LFTs within normal limits. UA shows trace leukocyte esterase, wbc's 0. Micro: None. IMAGING: Chest x-ray: Left lower lobe atelectasis versus infiltrate. CT abdomen and pelvis, chest pending at this time. IMPRESSION: 1. Leukocytosis. 2. Lactic acidosis. 3. Gastrointestinal bleed. 4. Acute blood loss anemia. 5. Hypertension secondary gastrointestinal bleed. 6. Acute kidney injury, multifactorial. 7. Severe protein-calorie malnutrition. 8. Peripheral arterial disease, status post right above-knee amputation. 9. Hard of hearing. 10. History of duodenal ulcer and AVM requiring endoclip in 06/2016. 11. High proBNP. 12. History of penicillin allergy, but has tolerated cephalosporins. RECOMMENDATIONS: 1. Continue empiric linezolid and meropenem at this time. 2. We will deescalate soon. 3. Follow up labs in a.m. and cultures. 4. Followup CT chest, abdomen and pelvis report. 5. Continue supportive care. 6. GI plans for EGD noted Discussed with RN. Thank you, Dr. Palencia, for consulting Infectious Disease to participate in this patient's care. If you have any questions, do not hesitate to contact me. MAY CHAVIS MD DR: ELIANA/chuy JOB#: [id number] / [id number] SHALA
[2019-01-15] MEDS: PANTOPRAZOLE SODIUM IV DRIP 80 MG in IV NORMAL SALINE 100ML 100 ML IV SCH ×2 (03:19→08:30)
[2019-01-15 04:28] LABS: BASO % 1 % (0-3); EOS # 0.1 x10^3/uL (0.0-0.7); EOS % 1 % (0-3); HEMATOCRIT 25.4 % (36.0-47.0); HEMOGLOBIN 8.4 g/dL (12.0-15.5); LYMPH # 0.8 x10^3/uL (1.0-4.8); LYMPH % 11 % (24-48); MEAN CORPUSCULAR HEMOGLOBIN 29 pg (25-35); MEAN CORPUSCULAR HGB CONC 33 g/dL (31-37); MEAN CORPUSCULAR VOLUME 89 fL (79-100); MONO # 0.7 x10^3/uL (0.0-1.1); MONO % 9 % (0-9); NEUT % 79 % (31-73); PLATELET COUNT 193 x10^3/uL (140-400); RED BLOOD COUNT 2.88 x10^6/uL (3.50-5.40); RED CELL DISTRIBUTION WIDTH 16.5 % (11.5-14.5); WHITE BLOOD COUNT 7.6 x10^3/uL (4.0-11.0)
[2019-01-15] MEDS: POTASSIUM CL 20MEQ D5-0.45NACL 1,000 ML IV SCH ×2 (04:44→12:13)
[2019-01-15 05:17] LABS: CREATININE 0.8 mg/dL (0.6-1.0); GFR 68.3; MAGNESIUM 1.7 mg/dL (1.8-2.4); POTASSIUM 3.6 mmol/L (3.5-5.1)
[2019-01-15] MEDS: MEROPENEM 500 MG in IV NORMAL SALINE 50ML 50 ML IV SCH ×3 (05:47→21:06)
--- NOTE | 2019-01-15 08:25 | RAD ---
CT of the chest, abdomen and pelvis without contrast, 01/14/2019: HISTORY: Hypotension, GI tract bleeding, leukocytosis Noncontrast scans were obtained in this patient with known renal insufficiency. Comparison is made to a CT abdomen and pelvis study from 07/10/2016. There is moderate calcific plaquing of the thoracic aorta and its branches, without evidence of aneurysm. Extensive coronary artery calcifications are present. No mediastinal adenopathy is seen. Mild atelectasis/infiltrate has developed posteriorly in the left base. There are additional mild scattered groundglass and interstitial opacities in both lungs. No significant pleural fluid is evident. The unopacified liver is unremarkable. Multiple dense gallstones are again noted in the gallbladder. There is no pericholecystic edema. The pancreatic head and body are unremarkable. There is a new small density in the splenic hilar region which cannot be from the tip of the pancreatic tail. A bowel loop extending into this region on these noncontrast scans is less likely. The spleen has increased in size since the previous study, currently measuring 12 cm in craniocaudad extent. The kidneys show no evidence of obstruction. A moderate sized cyst is again noted arising from the lower pole of the right kidney. There is unchanged low-density left adrenal enlargement probably due to a benign adenoma. There is moderate calcific plaquing of the abdominal aorta and its branches. There is a mild unchanged bulging in the anterior aspect of the infrarenal abdominal aorta aorta measures 3 cm in AP dimension at this level. Artifacts arising from bilateral hip prostheses degrade image quality in the lower pelvis. No abdominal or pelvic adenopathy is seen. The bowel loops are not dilated. No free air or significant free fluid is evident in the abdomen or pelvis. There is a small fat-containing umbilical hernia. No bowel herniation is evident. There has been a previous lower lumbar laminectomy and spinal fusion with instrumentation. There is moderate chronic spondylolisthesis at L5-S1. Extensive multilevel degenerative changes are present in the spine. IMPRESSION: 1. Mild left basilar atelectasis/infiltrate. 2. Mild patchy groundglass and interstitial opacities in both lungs may be inflammatory. A component of scarring cannot be excluded. 3. Extensive calcific plaquing of the aorta and its branches including the coronary arteries. 4. Cholelithiasis. 5. Stable small infrarenal abdominal aortic aneurysm. 6. The spleen has increased in size with a new small density evident at the splenic hilum, inseparable from the tip of the pancreatic tail. A pancreatic mass cannot be excluded. CT follow-up to include GI tract opacification is suggested. PQRS Compliance Statement: One or more of the following individualized dose reduction techniques were utilized for this examination: 1. Automated exposure control 2. Adjustment of the mA and/or kV according to patient size 3. Use of iterative reconstruction technique Electronically signed by: Pro Shaw MD (01/15/2019 8:21 AM) [facility]
--- NOTE | 2019-01-15 08:32 | PDOC ---
Infectious Disease Note Subjective: Subjective Pt had one bm with dark blood last night some abdominal pain still feels tired some nausea ROS: ROS limited but otherwise neg Vital Signs: Vital Signs Vital Signs Date Time Temp Pulse Resp B/P (MAP) Pulse Ox O2 Delivery O2 Flow Rate FiO2 01/15/19 08:00 Nasal Cannula 2.0 01/15/19 07:00 97.8 61 16 156/74 (101) 99 97.8 Physical Exam: PHYSICAL EXAM GENERAL: Tired-looking female, lying in bed comfortably, in no acute distress. HEENT: Oral mucosa pale, atraumatic. Pupils equal. No conjunctival petechia, no icterus. LUNGS: Decreased breath sounds bilaterally in the base. HEART: S1, S2, no murmurs. ABDOMEN: Bowel sounds present, obese, soft, mild tenderness diffuse. No guarding, no rigidity. EXTREMITIES: Right AKA looks okay. Left lower extremity warm and dry. NEUROLOGIC: Follow simple commands. DERMATOLOGIC: Warm, dry, no generalized rash. Medications: Inpatient Meds: Current Medications Medications (Trade) Dose Ordered Sig/[place] Start Time Stop Time Status Last Admin Dose Admin Acetaminophen (Tylenol Supp) 650 mg PRN Q6HRS PRN 01/13/19 17:15 Acetaminophen (Tylenol) 650 mg PRN Q6HRS PRN 01/14/19 23:00 01/14/19 23:06 650 MG Ceftriaxone Sodium (Rocephin) 1 gm 1X ONCE 01/13/19 16:00 01/13/19 16:01 DC 01/13/19 17:20 1 GM Heparin Sodium (Porcine) (HEPARIN for NUC MED) 100 unit 1X ONCE 01/14/19 15:00 01/14/19 15:01 DC Lactobacillus Rhamnosus (Culturelle) 1 cap BID 01/14/19 21:00 01/14/19 20:49 1 CAP Linezolid/Dextrose 300 ml @ 300 mls/hr Q12HR 01/14/19 09:00 01/14/19 20:49 300 MLS/HR Meropenem 500 mg/ Sodium Chloride 50 ml @ 100 mls/hr Q8HRS 01/14/19 14:00 01/15/19 05:47 100 MLS/HR Metoclopramide HCl (Reglan Vial) 10 mg 1X ONCE 01/13/19 16:30 01/13/19 16:31 DC 01/13/19 17:20 10 MG Ondansetron HCl (Zofran) 4 mg PRN Q6HRS PRN 01/13/19 17:15 Pantoprazole Sodium (PROTONIX VIAL for IV PUSH) 80 mg 1X ONCE 01/13/19 14:45 01/13/19 14:50 DC 01/13/19 15:08 80 MG Pantoprazole Sodium 80 mg/ Sodium Chloride 100 ml @ 10 mls/hr Q10H 01/13/19 17:15 01/13/19 17:36 DC Potassium Chloride/Dextrose/ Sod Cl 1,000 ml @ 80 mls/hr [id number] 01/14/19 10:30 01/15/19 04:44 80 MLS/HR Propofol 20 ml @ As Directed STK-MED ONCE 01/14/19 12:22 01/14/19 12:23 DC Sodium Chloride 1,000 ml @ 100 mls/hr Q10H 01/13/19 17:15 01/14/19 10:18 DC Labs: Lab Laboratory Tests Test 01/15/19 03:35 01/15/19 03:50 White Blood Count 7.6 x10^3/uL (4.0-11.0) Red Blood Count 2.88 x10^6/uL (3.50-5.40) Hemoglobin 8.4 g/dL (12.0-15.5) Hematocrit 25.4 % (36.0-47.0) Mean Corpuscular Volume 89 fL (79-100) Mean Corpuscular Hemoglobin 29 pg (25-35) Mean Corpuscular Hemoglobin Concent 33 g/dL (31-37) Red Cell Distribution Width 16.5 % (11.5-14.5) Platelet Count 193 x10^3/uL (140-400) Neutrophils (%) (Auto) 79 % (31-73) Lymphocytes (%) (Auto) 11 % (24-48) Monocytes (%) (Auto) 9 % (0-9) Eosinophils (%) (Auto) 1 % (0-3) Basophils (%) (Auto) 1 % (0-3) Neutrophils # (Auto) 6.0 x10^3uL (1.8-7.7) Lymphocytes # (Auto) 0.8 x10^3/uL (1.0-4.8) Monocytes # (Auto) 0.7 x10^3/uL (0.0-1.1) Eosinophils # (Auto) 0.1 x10^3/uL (0.0-0.7) Basophils # (Auto) 0.0 x10^3/uL (0.0-0.2) Sodium Level 143 mmol/L (136-145) Potassium Level 3.6 mmol/L (3.5-5.1) Chloride Level 108 mmol/L (98-107) Carbon Dioxide Level 27 mmol/L (21-32) Anion Gap 8 (6-14) Blood Urea Nitrogen 18 mg/dL (7-20) Creatinine 0.8 mg/dL (0.6-1.0) Estimated GFR (Cockcroft-Gault) 68.3 Glucose Level 125 mg/dL (70-99) Calcium Level 8.0 mg/dL (8.5-10.1) Magnesium Level 1.7 mg/dL (1.8-2.4) Micro BC neg CT C/A/P IMPRESSION: 1. Mild left basilar atelectasis/infiltrate. 2. Mild patchy groundglass and interstitial opacities in both lungs may be inflammatory. A component of scarring cannot be excluded. 3. Extensive calcific plaquing of the aorta and its branches including the coronary arteries. 4. Cholelithiasis. 5. Stable small infrarenal abdominal aortic aneurysm. 6. The spleen has increased in size with a new small density evident at the splenic hilum, inseparable from the tip of the pancreatic tail. A pancreatic mass cannot be excluded. CT follow-up to include GI tract opacification is suggested. Objective: Assessment: 1. Leukocytosis.likely reactive,resolving 2. Lactic acidosis. 3. Gastrointestinal bleed. NM scan neg for gi bleed, ? pancreatic mass on CT Abdomen 4. Acute blood loss anemia.s/p PRBCs 5. Hypertension secondary gastrointestinal bleed. 6. Acute kidney injury, multifactorial. 7. Severe protein-calorie malnutrition. 8. Peripheral arterial disease, status post right above-knee amputation. 9. Hard of hearing. 10. History of duodenal ulcer and AVM requiring endoclip in 06/2016. 11. High proBNP. 12. History of penicillin allergy, but has tolerated cephalosporins. 13. Bilateral GGO on CT likely inflammatory vs mild chf Plan: Plan of Care DC linezolid cont meropenem Follow up labs in a.m. and cultures. Continue supportive care. Discussed with KYRIE. MAY CHAVIS MD Jan 15, 2019 08:31
--- NOTE | 2019-01-15 09:38 | PDOC ---
Subjective: Subjective: Says she thinks she's doing okay. Denies bleeding. Objective: Objective: RN received report of dark stool overnight, wants to know if can transfer out of ICU. Vital Signs: Vital Signs Date Time Temp Pulse Resp B/P (MAP) Pulse Ox O2 Delivery O2 Flow Rate FiO2 01/15/19 09:00 60 18 141/60 (87) 98 Nasal Cannula 2.0 01/15/19 07:00 97.8 97.8 Labs: Laboratory Tests Test 01/15/19 03:35 01/15/19 03:50 White Blood Count 7.6 x10^3/uL Red Blood Count 2.88 x10^6/uL Hemoglobin 8.4 g/dL Hematocrit 25.4 % Mean Corpuscular Volume 89 fL Mean Corpuscular Hemoglobin 29 pg Mean Corpuscular Hemoglobin Concent 33 g/dL Red Cell Distribution Width 16.5 % Platelet Count 193 x10^3/uL Neutrophils (%) (Auto) 79 % Lymphocytes (%) (Auto) 11 % Monocytes (%) (Auto) 9 % Eosinophils (%) (Auto) 1 % Basophils (%) (Auto) 1 % Neutrophils # (Auto) 6.0 x10^3uL Lymphocytes # (Auto) 0.8 x10^3/uL Monocytes # (Auto) 0.7 x10^3/uL Eosinophils # (Auto) 0.1 x10^3/uL Basophils # (Auto) 0.0 x10^3/uL Sodium Level 143 mmol/L Potassium Level 3.6 mmol/L Chloride Level 108 mmol/L Carbon Dioxide Level 27 mmol/L Anion Gap 8 Blood Urea Nitrogen 18 mg/dL Creatinine 0.8 mg/dL Estimated GFR (Cockcroft-Gault) 68.3 Glucose Level 125 mg/dL Calcium Level 8.0 mg/dL Magnesium Level 1.7 mg/dL BLOOD CULTURE Preliminary NO GROWTH AFTER 1 DAY Imaging: GI Bleed Scan Impression: No GI bleed. C/A/P CT IMPRESSION: 1. Mild left basilar atelectasis/infiltrate. 2. Mild patchy groundglass and interstitial opacities in both lungs may be inflammatory. A component of scarring cannot be excluded. 3. Extensive calcific plaquing of the aorta and its branches including the coronary arteries. 4. Cholelithiasis. 5. Stable small infrarenal abdominal aortic aneurysm. 6. The spleen has increased in size with a new small density evident at the splenic hilum, inseparable from the tip of the pancreatic tail. A pancreatic mass cannot be excluded. CT follow-up to include GI tract opacification is suggested. EGD E--Normal G--4-5mm ulcer anterior wall, fundus with rim nodularity and some hematin; no clot, active bleed. Biopsied x 2. 8-10mm ulcer anterior wall, body with large area of nodularity surrounding and on rim, concerning for malignancy. No hematin staining, etc. Biopsies of rim. D--Normal to second portion. IMP: Gastric ulcers, one at least concerning for malignancy, but no active bleeding or signs of high risk to re-bleed. PE: GEN: NAD, was asleep LUNGS: room air HEART: RRR ABD: NABS, S/ND/NT NEURO/PSYCH: A & O 3 A/P: Hematochezia/melena - ?still passing old blood Anemia - stable s/p transfusions Gastric ulcers as above - biopsies pending -- CT results available after I saw - will review w/ Dr. Sanderson. Will review diet and PPI as well. JG VASQUEZ Jan 15, 2019 09:38
--- NOTE | 2019-01-15 10:46 | PDOC ---
PROGRESS NOTES Subjective Subjective EGD showed 2 gastric ulcers path pending. no active bleeding at time of egd. had a dark stool today. hgb stable. no new complaints. lab reviewed. Objective Objective Vital Signs Date Time Temp Pulse Resp B/P (MAP) Pulse Ox O2 Delivery O2 Flow Rate FiO2 01/15/19 10:00 59 26 150/71 (97) 100 Nasal Cannula 2.0 01/15/19 07:00 97.8 97.8 Intake and Output 01/15/19 07:00 Intake Total 3908 ml Output Total 1 ml Balance 3907 ml Intake Oral 680 ml IV Total 1898 ml Blood Product 575 ml Blood Product IV Normal Saline Flush 755 ml Output Urine Total 1 ml # Voids 3 # Bowel Movements 5 Physical Exam Abdomen: Soft Heart: Regular rate, Normal S1, Normal S2 Extremities: No edema, Other (right AKA) General: Alert HEENT: Atraumatic Lungs: Clear to auscultation Neuro: Normal speech Psych/Mental Status: Mood NL Skin: No rashes Assessment Assessment Problems1. Acute gastrointestinal bleed resolved. 2 gastric ulcers by EGD 2. Hypotension secondary due gi bleed resolved 3. Acute blood loss anemia. 4. Acute kidney injury resolved secondary to the gastrointestinal bleed and intravascular volume depletion 5. Severe protein calorie malnutrition. 6. Leukocytosis.better 7. Elevated lactic acid level. normal 01/14 8. Peripheral arterial disease. 9. History of a right above-knee amputation. 10. Hard of hearing. 11. History of a duodenal ulcer. 12. 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 Medical Problems: (1) Acute GI bleeding Status: Acute (2) Anemia Status: Acute (3) CHF (congestive heart failure) Status: Acute (4) Chronic anemia Status: Acute (5) Hyperkalemia Status: Acute (6) Hypoalbuminemia Status: Acute (7) Renal insufficiency Status: Acute (8) Sepsis Status: Acute Plan Plan of Care start clear liquids decrease iv fluids transfer to medical floor continue PPI await gastric biopsies PT lab tomorrow continue iv meropenem. off zyvox per ID start ferrous sulfate Comment Review of Relevant I have reviewed the following items rudy (where applicable) has been applied. Labs Laboratory Tests Test 01/13/19 14:50 01/13/19 15:12 01/13/19 16:15 01/13/19 18:00 White Blood Count 24.3 x10^3/uL (4.0-11.0) Red Blood Count 3.00 x10^6/uL (3.50-5.40) Hemoglobin 8.9 g/dL (12.0-15.5) Hematocrit 27.7 % (36.0-47.0) Mean Corpuscular Volume 93 fL (79-100) Mean Corpuscular Hemoglobin 30 pg (25-35) Mean Corpuscular Hemoglobin Concent 32 g/dL (31-37) Red Cell Distribution Width 14.2 % (11.5-14.5) Platelet Count 282 x10^3/uL (140-400) Neutrophils (%) (Auto) 88 % (31-73) Lymphocytes (%) (Auto) 5 % (24-48) Monocytes (%) (Auto) 7 % (0-9) Eosinophils (%) (Auto) 0 % (0-3) Basophils (%) (Auto) 0 % (0-3) Neutrophils # (Auto) 21.4 x10^3uL (1.8-7.7) Lymphocytes # (Auto) 1.1 x10^3/uL (1.0-4.8) Monocytes # (Auto) 1.7 x10^3/uL (0.0-1.1) Eosinophils # (Auto) 0.0 x10^3/uL (0.0-0.7) Basophils # (Auto) 0.0 x10^3/uL (0.0-0.2) Segmented Neutrophils % 84 % (35-66) Band Neutrophils % 10 % (0-9) Lymphocytes % 1 % (24-48) Monocytes % 5 % (0-10) Toxic Granulation Slight Platelet Estimate Adequate (ADEQUATE) Large Platelets Present Prothrombin Time 15.9 SEC (11.7-14.0) Prothromb Time International Ratio 1.3 (0.8-1.1) Activated Partial Thromboplast Time 32 SEC (24-38) Sodium Level 135 mmol/L (136-145) Potassium Level 5.2 mmol/L (3.5-5.1) Chloride Level 97 mmol/L (98-107) Carbon Dioxide Level 27 mmol/L (21-32) Anion Gap 11 (6-14) Blood Urea Nitrogen 50 mg/dL (7-20) Creatinine 2.6 mg/dL (0.6-1.0) Estimated GFR (Cockcroft-Gault) 17.5 BUN/Creatinine Ratio 19 (6-20) Glucose Level 191 mg/dL (70-99) Lactic Acid Level 3.1 mmol/L (0.4-2.0) Calcium Level 8.6 mg/dL (8.5-10.1) Total Bilirubin 0.5 mg/dL (0.2-1.0) Aspartate Amino Transf (AST/SGOT) 29 U/L (15-37) Alanine Aminotransferase (ALT/SGPT) 21 U/L (14-59) Alkaline Phosphatase 86 U/L (46-116) Troponin I Quantitative 0.018 ng/mL (0.000-0.055) RE-Plv-W-Type Natriuretic Peptide 1268 pg/mL (0-449) Total Protein 5.8 g/dL (6.4-8.2) Albumin 2.7 g/dL (3.4-5.0) Albumin/Globulin Ratio 0.9 (1.0-1.7) Urine Collection Type U cath Urine Color Dariela Urine Clarity Hazy Urine pH 5.0 Urine Specific West 1.020 Urine Protein 30 mg/dL (NEG-TRACE) Urine Glucose (UA) Negative mg/dL (NEG) Urine Ketones (Stick) Negative mg/dL (NEG) Urine Blood Negative (NEG) Urine Nitrite Negative (NEG) Urine Bilirubin Moderate (NEG) Urine Urobilinogen Dipstick 1.0 mg/dL (0.2 mg/dL) Urine Leukocyte Esterase Trace (NEG) Urine RBC 0 /HPF (0-2) Urine WBC 0 /HPF (0-4) Urine Amorphous Sediment Present /HPF Urine Bacteria Few /HPF (0-FEW) Urine Hyaline Casts Few /HPF Urine Mucus Slight /LPF O2 Saturation 94 % (92-99) Arterial Blood pH 7.41 (7.35-7.45) Arterial Blood pCO2 at Patient Temp 33 mmHg (35-46) Arterial Blood pO2 at Patient Temp 82 mmHg (65-108) Arterial Blood HCO3 20 mmol/L (21-28) Arterial Blood Base Excess -4 mmol/L (-3-3) FiO2 32 Nasal Screen MRSA (PCR) Negative (Negative) Test 01/13/19 18:10 01/13/19 20:55 01/14/19 00:35 01/14/19 05:00 Hemoglobin 8.4 g/dL (12.0-15.5) 7.2 g/dL (12.0-15.5) Lactic Acid Level 1.3 mmol/L (0.4-2.0) White Blood Count 18.7 x10^3/uL (4.0-11.0) Red Blood Count 2.44 x10^6/uL (3.50-5.40) Hematocrit 22.2 % (36.0-47.0) Mean Corpuscular Volume 91 fL (79-100) Mean Corpuscular Hemoglobin 30 pg (25-35) Mean Corpuscular Hemoglobin Concent 32 g/dL (31-37) Red Cell Distribution Width 14.3 % (11.5-14.5) Platelet Count 302 x10^3/uL (140-400) Sodium Level 144 mmol/L (136-145) Potassium Level 3.6 mmol/L (3.5-5.1) Chloride Level 108 mmol/L (98-107) Carbon Dioxide Level 25 mmol/L (21-32) Anion Gap 11 (6-14) Blood Urea Nitrogen 41 mg/dL (7-20) Creatinine 1.2 mg/dL (0.6-1.0) Estimated GFR (Cockcroft-Gault) 42.8 BUN/Creatinine Ratio 34 (6-20) Glucose Level 128 mg/dL (70-99) Calcium Level 7.8 mg/dL (8.5-10.1) Total Bilirubin 0.3 mg/dL (0.2-1.0) Aspartate Amino Transf (AST/SGOT) 32 U/L (15-37) Alanine Aminotransferase (ALT/SGPT) 18 U/L (14-59) Alkaline Phosphatase 57 U/L (46-116) Total Protein 5.0 g/dL (6.4-8.2) Albumin 2.3 g/dL (3.4-5.0) Albumin/Globulin Ratio 0.9 (1.0-1.7) Test 01/14/19 05:45 01/15/19 03:35 01/15/19 03:50 White Blood Count 11.2 x10^3/uL (4.0-11.0) 7.6 x10^3/uL (4.0-11.0) Red Blood Count 2.19 x10^6/uL (3.50-5.40) 2.88 x10^6/uL (3.50-5.40) Hemoglobin 6.6 g/dL (12.0-15.5) 8.4 g/dL (12.0-15.5) Hematocrit 20.0 % (36.0-47.0) 25.4 % (36.0-47.0) Mean Corpuscular Volume 91 fL (79-100) 89 fL (79-100) Mean Corpuscular Hemoglobin 30 pg (25-35) 29 pg (25-35) Mean Corpuscular Hemoglobin Concent 33 g/dL (31-37) 33 g/dL (31-37) Red Cell Distribution Width 14.3 % (11.5-14.5) 16.5 % (11.5-14.5) Platelet Count 233 x10^3/uL (140-400) 193 x10^3/uL (140-400) Neutrophils (%) (Auto) 79 % (31-73) Lymphocytes (%) (Auto) 11 % (24-48) Monocytes (%) (Auto) 9 % (0-9) Eosinophils (%) (Auto) 1 % (0-3) Basophils (%) (Auto) 1 % (0-3) Neutrophils # (Auto) 6.0 x10^3uL (1.8-7.7) Lymphocytes # (Auto) 0.8 x10^3/uL (1.0-4.8) Monocytes # (Auto) 0.7 x10^3/uL (0.0-1.1) Eosinophils # (Auto) 0.1 x10^3/uL (0.0-0.7) Basophils # (Auto) 0.0 x10^3/uL (0.0-0.2) Sodium Level 143 mmol/L (136-145) Potassium Level 3.6 mmol/L (3.5-5.1) Chloride Level 108 mmol/L (98-107) Carbon Dioxide Level 27 mmol/L (21-32) Anion Gap 8 (6-14) Blood Urea Nitrogen 18 mg/dL (7-20) Creatinine 0.8 mg/dL (0.6-1.0) Estimated GFR (Cockcroft-Gault) 68.3 Glucose Level 125 mg/dL (70-99) Calcium Level 8.0 mg/dL (8.5-10.1) Magnesium Level 1.7 mg/dL (1.8-2.4) Laboratory Tests Test 01/15/19 03:35 01/15/19 03:50 White Blood Count 7.6 x10^3/uL (4.0-11.0) Red Blood Count 2.88 x10^6/uL (3.50-5.40) Hemoglobin 8.4 g/dL (12.0-15.5) Hematocrit 25.4 % (36.0-47.0) Mean Corpuscular Volume 89 fL (79-100) Mean Corpuscular Hemoglobin 29 pg (25-35) Mean Corpuscular Hemoglobin Concent 33 g/dL (31-37) Red Cell Distribution Width 16.5 % (11.5-14.5) Platelet Count 193 x10^3/uL (140-400) Neutrophils (%) (Auto) 79 % (31-73) Lymphocytes (%) (Auto) 11 % (24-48) Monocytes (%) (Auto) 9 % (0-9) Eosinophils (%) (Auto) 1 % (0-3) Basophils (%) (Auto) 1 % (0-3) Neutrophils # (Auto) 6.0 x10^3uL (1.8-7.7) Lymphocytes # (Auto) 0.8 x10^3/uL (1.0-4.8) Monocytes # (Auto) 0.7 x10^3/uL (0.0-1.1) Eosinophils # (Auto) 0.1 x10^3/uL (0.0-0.7) Basophils # (Auto) 0.0 x10^3/uL (0.0-0.2) Sodium Level 143 mmol/L (136-145) Potassium Level 3.6 mmol/L (3.5-5.1) Chloride Level 108 mmol/L (98-107) Carbon Dioxide Level 27 mmol/L (21-32) Anion Gap 8 (6-14) Blood Urea Nitrogen 18 mg/dL (7-20) Creatinine 0.8 mg/dL (0.6-1.0) Estimated GFR (Cockcroft-Gault) 68.3 Glucose Level 125 mg/dL (70-99) Calcium Level 8.0 mg/dL (8.5-10.1) Magnesium Level 1.7 mg/dL (1.8-2.4) Microbiology 01/13/19 Blood Culture - Preliminary, Resulted NO GROWTH AFTER 1 DAY 01/13/19 Urine Culture - Final, Complete 01/13/19 Urine Culture Result 1 (ABNER) - Final, Complete Medications Current Medications Sodium Chloride 1,000 ml @ 1,000 mls/hr 1X ONCE IV Last administered on at 15:08; Start 01/13/19 at 14:45; Stop 01/13/19 at 15:44; Status DC Pantoprazole Sodium (PROTONIX VIAL for IV PUSH) 80 mg 1X ONCE IVP Last administered on 01/13/19at 15:08; Start 01/13/19 at 14:45; Stop 01/13/19 at 14:50; Status DC Sodium Chloride 1,000 ml @ 1,000 mls/hr 1X ONCE IV Last administered on at 15:50; Start 01/13/19 at 16:00; Stop 01/13/19 at 16:59; Status DC Ceftriaxone Sodium (Rocephin) 1 gm 1X ONCE IVP Last administered on 01/13/19at 17:20; Start 01/13/19 at 16:00; Stop 01/13/19 at 16:01; Status DC Pantoprazole Sodium 80 mg/ Sodium Chloride 100 ml @ 10 mls/hr Q10H IV Last administered on 01/15/19at 03:19; Start 01/13/19 at 16:30 Metoclopramide HCl (Reglan Vial) 10 mg 1X ONCE IV Last administered on at 17:20; Start 01/13/19 at 16:30; Stop 01/13/19 at 16:31; Status DC Sodium Chloride 1,000 ml @ 150 mls/hr Q6H40M IV Last administered on 01/14/19at 01:42; Start 01/13/19 at 17:04; Stop 01/14/19 at 17:03; Status DC Pantoprazole Sodium 80 mg/ Sodium Chloride 100 ml @ 10 mls/hr Q10H IV ; Start 01/13/19 at 17:15; Stop 01/13/19 at 17:36; Status DC Sodium Chloride 1,000 ml @ 100 mls/hr Q10H IV ; Start 01/13/19 at 17:15; Stop at 10:18; Status DC Linezolid/Dextrose 300 ml @ 300 mls/hr Q12HR IV ; Start 01/13/19 at 18:00; Stop 01/13/19 at 18:03; Status DC Meropenem 500 mg/ Sodium Chloride 50 ml @ 100 mls/hr Q12HR IV ; Start 01/13/19 at 18:00; Stop 01/13/19 at 18:03; Status DC Ondansetron HCl (Zofran) 4 mg PRN Q6HRS PRN IV NAUSEA/VOMITING; Start 01/13/19 at 17:15 Acetaminophen (Tylenol Supp) 650 mg PRN Q6HRS PRN VA HEADACHE / TEMP; Start 01/13/19 at 17:15 Linezolid/Dextrose 300 ml @ 300 mls/hr ONCE ONCE IV Last administered on at 20:23; Start 01/13/19 at 19:00; Stop 01/13/19 at 19:59; Status DC Meropenem 500 mg/ Sodium Chloride 50 ml @ 100 mls/hr ONCE ONCE IV Last administered on 01/13/19at 20:23; Start 01/13/19 at 17:45; Stop 01/13/19 at 18:14; Status DC Linezolid/Dextrose 300 ml @ 300 mls/hr Q12HR IV Last administered on 01/15/19at 08:46; Start 01/14/19 at 09:00; Stop 01/15/19 at 10:29; Status DC Meropenem 500 mg/ Sodium Chloride 50 ml @ 100 mls/hr Q12HR IV ; Start 01/14/19 at 09:00; Stop 01/14/19 at 10:18; Status DC Meropenem 500 mg/ Sodium Chloride 50 ml @ 100 mls/hr Q8HRS IV Last administered on 01/15/19at 05:47; Start 01/14/19 at 14:00 Potassium Chloride/Dextrose/ Sod Cl 1,000 ml @ 80 mls/hr [id number] IV Last administered on 01/15/19at 04:44; Start 01/14/19 at 10:30 Propofol 20 ml @ As Directed STK-MED ONCE IV ; Start 01/14/19 at 12:22; Stop 01/14 at 12:23; Status DC Lactobacillus Rhamnosus (Culturelle) 1 cap BID PO Last administered on at 20:49; Start 01/14/19 at 21:00 Heparin Sodium (Porcine) (HEPARIN for NUC MED) 100 unit 1X ONCE IV ; Start 01/14 at 15:00; Stop 01/14/19 at 15:01; Status DC Acetaminophen (Tylenol) 650 mg PRN Q6HRS PRN PO MILD PAIN / TEMP Last administered on 01/14/19at 23:06; Start 01/14/19 at 23:00 Active Scripts Active Pantoprazole Sodium 40 Mg Tablet.dr 40 Mg PO DAILYAC Feosol (Ferrous Sulfate) 325 Mg Tablet 325 Mg PO BIDWMEALS Reported Bactrim 400-80 Mg Tablet (Sulfamethoxazole/Trimethoprim) 1 Each Tablet 2 Tab PO BID Magnesium Oxide 400 Mg Tablet 1 Tab PO BID Clobetasol Propionate 15 Gm Cream..g. 1 Sherri TP BID Cozaar (Losartan Potassium) 100 Mg Tablet 100 Mg PO DAILY [place] 10-325 Tablet (Acetaminophen/Hydrocodone Bitart) 1 Each Tablet 1 Tab PO PRN Q6HRS PRN Hydrochlorothiazide Tablet (Hydrochlorothiazide) 25 Mg Tablet 25 Mg PO DAILY [B12] DAILY [vitB6] DAILY Doxycycline Hyclate 100 Mg Capsule 1 Cap PO BID Centrum Silver Women Tablet (Multivits-Min/Iron/FA/Lutein) 1 Each Tablet 1 Each PO Atorvastatin Calcium 10 Mg Tablet 1 Tab PO DAILY Clopidogrel (Clopidogrel Bisulfate) 75 Mg Tablet 1 Tab PO DAILY Venlafaxine Hcl Er (Venlafaxine Hcl) 75 Mg Cap.er.24h 3 Cap PO DAILY Vitals/I & O Vital Sign - Last 24 Hours 01/14/19 01/14/19 01/14/19 01/14/19 11:00 11:43 12:00 12:12 Temp 98.0 98.0 Pulse 70 68 74 Resp 32 20 20 B/P (MAP) 134/66 (88) 138/72 Pulse Ox 95 94 O2 Delivery Room Air Room Air Room Air 01/14/19 01/14/19 01/14/19 3/5/19 12:16 12:25 12:32 12:45 Temp 98.0 98.1 98.1 98.2 98.0 98.1 98.1 98.2 Pulse 76 78 79 66 Resp 20 20 20 16 B/P (MAP) 104/50 119/78 149/77 138/65 (89) Pulse Ox 100 100 99 97 O2 Delivery Nasal Cannula Nasal Cannula Room Air Room Air O2 Flow Rate 3 01/14/19 01/14/19 01/14/19 01/14/19 13:00 13:15 13:30 14:00 Pulse 66 68 66 68 Resp 23 19 19 23 B/P (MAP) 140/59 (86) 155/69 (97) 155/70 (98) 155/68 (97) Pulse Ox 98 96 98 96 O2 Delivery Room Air Room Air Room Air Room Air 01/14/19 01/14/19 01/14/19 01/14/19 14:30 15:00 16:00 16:00 Pulse 66 68 68 Resp 22 19 20 B/P (MAP) 102/66 (78) 159/76 (103) 126/59 (81) Pulse Ox 96 95 96 O2 Delivery Room Air Room Air Room Air Room Air 01/14/19 01/14/19 01/14/19 01/14/19 17:00 18:00 19:00 20:00 Temp 98.2 98.2 Pulse 68 71 74 66 Resp 15 30 24 22 B/P (MAP) 154/79 (104) 150/67 (94) 147/98 (114) 141/73 (95) Pulse Ox 98 96 98 97 O2 Delivery Room Air Room Air Room Air Room Air 01/14/19 01/14/19 01/14/19 01/14/19 20:00 21:00 22:00 23:00 Pulse 64 65 64 Resp 19 14 19 B/P (MAP) 138/54 (82) 138/64 (88) 118/57 (77) Pulse Ox 96 98 97 O2 Delivery Room Air Room Air Room Air Room Air 01/14/19 01/15/19 01/15/19 01/15/19 23:59 00:00 01:00 02:00 Temp 98.4 98.4 Pulse 63 63 62 Resp 20 18 19 B/P (MAP) 114/51 (72) 122/45 (70) 105/61 (76) Pulse Ox 94 95 97 O2 Delivery Room Air Room Air Room Air Room Air 01/15/19 01/15/19 01/15/19 01/15/19 03:00 04:00 04:00 05:00 Temp 98.1 98.1 Pulse 63 59 62 Resp 25 19 16 B/P (MAP) 158/80 (106) 123/61 (81) 122/86 (98) Pulse Ox 99 99 99 O2 Delivery Nasal Cannula Nasal Cannula Nasal Cannula Nasal Cannula O2 Flow Rate 2.0 2.0 2.0 2.0 01/15/19 01/15/19 01/15/19 01/15/19 06:00 07:00 08:00 08:00 Temp 97.8 97.8 Pulse 56 61 65 Resp 19 16 16 B/P (MAP) 145/69 (94) 156/74 (101) 118/59 (78) Pulse Ox 99 99 95 O2 Delivery Nasal Cannula Nasal Cannula Nasal Cannula Nasal Cannula O2 Flow Rate 2.0 2.0 2.0 2.0 01/15/19 01/15/19 09:00 10:00 Pulse 60 59 Resp 18 26 B/P (MAP) 141/60 (87) 150/71 (97) Pulse Ox 98 100 O2 Delivery Nasal Cannula Nasal Cannula O2 Flow Rate 2.0 2.0 Intake and Output 01/14/19 01/14/19 01/15/19 15:00 23:00 07:00 Intake Total 755 ml 2058 ml 1095 ml Output Total 1 ml Balance 754 ml 2058 ml 1095 ml CINDI SOUSA MD Jan 15, 2019 10:46
--- NOTE | 2019-01-15 10:55 | PDOC ---
SUBJECTIVE ROS Very hard of hearing As per RN, doing much better OBJECTIVE Vital Signs Vital Signs Date Time Temp Pulse Resp B/P (MAP) Pulse Ox O2 Delivery O2 Flow Rate FiO2 01/15/19 10:00 59 26 150/71 (97) 100 Nasal Cannula 2.0 01/15/19 07:00 97.8 97.8 I & 0 Intake and Output 01/15/19 07:00 Intake Total 3908 ml Output Total 1 ml Balance 3907 ml Intake Oral 680 ml IV Total 1898 ml Blood Product 575 ml Blood Product IV Normal Saline Flush 755 ml Output Urine Total 1 ml # Voids 3 # Bowel Movements 5 PHYSICAL EXAM Physical Exam Abdomen: Normal bowel sounds, Soft, No tenderness, Other (obese) Heart: Regular rate, Normal S1, Normal S2 Extremities: No edema, Other (right AKA) General: Alert Lungs: Clear to auscultation Neuro: Normal speech Psych/Mental Status: Mood NL Skin: No rashes No colon DIAGNOSIS/ASSESSMENT Assessment & Plan CHARLENE- Pre-renal / dehydration /GI bleed Renal function at baseline E-Lytes and acid base stable Hyperkalemia- Mild, Resolved Acute gastrointestinal bleed- had some hematemesis and also had some hematochezia S/P EGD - gastric Ulcers +, Bx pending Hypotension secondary to the gastrointestinal bleed. 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 Will sign off, chris RN COMMENT/RELEVANT DATA Meds Current Medications Medications (Trade) Dose Ordered Sig/Milan Start Time Stop Time Status Last Admin Dose Admin Acetaminophen (Tylenol Supp) 650 mg PRN Q6HRS PRN 01/13/19 17:15 Acetaminophen (Tylenol) 650 mg PRN Q6HRS PRN 01/14/19 23:00 01/14/19 23:06 650 MG Ceftriaxone Sodium (Rocephin) 1 gm 1X ONCE 01/13/19 16:00 01/13/19 16:01 DC 01/13/19 17:20 1 GM Heparin Sodium (Porcine) (HEPARIN for NUC MED) 100 unit 1X ONCE 01/14/19 15:00 01/14/19 15:01 DC Lactobacillus Rhamnosus (Culturelle) 1 cap BID 01/14/19 21:00 01/14/19 20:49 1 CAP Linezolid/Dextrose 300 ml @ 300 mls/hr Q12HR 01/14/19 09:00 01/15/19 10:29 DC 01/15/19 08:46 300 MLS/HR Meropenem 500 mg/ Sodium Chloride 50 ml @ 100 mls/hr Q8HRS 01/14/19 14:00 01/15/19 05:47 100 MLS/HR Metoclopramide HCl (Reglan Vial) 10 mg 1X ONCE 01/13/19 16:30 01/13/19 16:31 DC 01/13/19 17:20 10 MG Ondansetron HCl (Zofran) 4 mg PRN Q6HRS PRN 01/13/19 17:15 Pantoprazole Sodium (PROTONIX VIAL for IV PUSH) 80 mg 1X ONCE 01/13/19 14:45 01/13/19 14:50 DC 01/13/19 15:08 80 MG Pantoprazole Sodium 80 mg/ Sodium Chloride 100 ml @ 10 mls/hr Q10H 01/13/19 17:15 01/13/19 17:36 DC Potassium Chloride/Dextrose/ Sod Cl 1,000 ml @ 40 mls/hr Q24H 01/14/19 10:30 01/15/19 04:44 80 MLS/HR Propofol 20 ml @ As Directed STK-MED ONCE 01/14/19 12:22 01/14/19 12:23 DC Sodium Chloride 1,000 ml @ 100 mls/hr Q10H 01/13/19 17:15 01/14/19 10:18 DC Lab Laboratory Tests Test 01/15/19 03:35 01/15/19 03:50 White Blood Count 7.6 x10^3/uL (4.0-11.0) Red Blood Count 2.88 x10^6/uL (3.50-5.40) Hemoglobin 8.4 g/dL (12.0-15.5) Hematocrit 25.4 % (36.0-47.0) Mean Corpuscular Volume 89 fL (79-100) Mean Corpuscular Hemoglobin 29 pg (25-35) Mean Corpuscular Hemoglobin Concent 33 g/dL (31-37) Red Cell Distribution Width 16.5 % (11.5-14.5) Platelet Count 193 x10^3/uL (140-400) Neutrophils (%) (Auto) 79 % (31-73) Lymphocytes (%) (Auto) 11 % (24-48) Monocytes (%) (Auto) 9 % (0-9) Eosinophils (%) (Auto) 1 % (0-3) Basophils (%) (Auto) 1 % (0-3) Neutrophils # (Auto) 6.0 x10^3uL (1.8-7.7) Lymphocytes # (Auto) 0.8 x10^3/uL (1.0-4.8) Monocytes # (Auto) 0.7 x10^3/uL (0.0-1.1) Eosinophils # (Auto) 0.1 x10^3/uL (0.0-0.7) Basophils # (Auto) 0.0 x10^3/uL (0.0-0.2) Sodium Level 143 mmol/L (136-145) Potassium Level 3.6 mmol/L (3.5-5.1) Chloride Level 108 mmol/L (98-107) Carbon Dioxide Level 27 mmol/L (21-32) Anion Gap 8 (6-14) Blood Urea Nitrogen 18 mg/dL (7-20) Creatinine 0.8 mg/dL (0.6-1.0) Estimated GFR (Cockcroft-Gault) 68.3 Glucose Level 125 mg/dL (70-99) Calcium Level 8.0 mg/dL (8.5-10.1) Magnesium Level 1.7 mg/dL (1.8-2.4) Results All relevant outside records, renal labs, imaging studies, telemetry/EKG's were reviewed. ERIC ROCK MD Jan 15, 2019 10:55
[2019-01-15] MEDS ORDERED: ACETAMINOPHEN 325 MG TABLET. PO PRN (11:00)
[2019-01-15] MEDS: FERROUS SULFATE 325 MG TABLET. PO SCH ×2 (11:30→20:53)
[2019-01-15] MEDS: LACTOBACILLUS RHAMNOSUS GG 1 CAPSULE. PO SCH ×2 (12:06→20:50)
[2019-01-16 03:07] VITALS: BP 162/72
[2019-01-16] MEDS: MEROPENEM 500 MG in IV NORMAL SALINE 50ML 50 ML IV SCH ×3 (06:05→22:44)
[2019-01-16] MEDS: POTASSIUM CL 20MEQ D5-0.45NACL 1,000 ML IV SCH (06:05)
[2019-01-16 07:21] VITALS: BP 179/73
[2019-01-16] MEDS: PANTOPRAZOLE 40 MG TABLET.DR. PO SCH (08:37)
[2019-01-16] MEDS: FERROUS SULFATE 325 MG TABLET. PO SCH ×3 (08:37→21:00)
[2019-01-16] MEDS: LACTOBACILLUS RHAMNOSUS GG 1 CAPSULE. PO SCH ×2 (08:37→21:52)
[2019-01-16 08:38] LABS: BASO % 1 % (0-3); EOS # 0.1 x10^3/uL (0.0-0.7); EOS % 1 % (0-3); HEMOGLOBIN 8.5 g/dL (12.0-15.5); LYMPH # 0.7 x10^3/uL (1.0-4.8); LYMPH % 14 % (24-48); MEAN CORPUSCULAR HEMOGLOBIN 29 pg (25-35); MEAN CORPUSCULAR HGB CONC 33 g/dL (31-37); MEAN CORPUSCULAR VOLUME 89 fL (79-100); MONO # 0.6 x10^3/uL (0.0-1.1); MONO % 11 % (0-9); NEUT # 3.8 x10^3uL (1.8-7.7); NEUT % 73 % (31-73); PLATELET COUNT 199 x10^3/uL (140-400); RED BLOOD COUNT 2.92 x10^6/uL (3.50-5.40); RED CELL DISTRIBUTION WIDTH 15.9 % (11.5-14.5); WHITE BLOOD COUNT 5.3 x10^3/uL (4.0-11.0)
--- NOTE | 2019-01-16 08:41 | NUR ---
SW following pt. PT recommends home health. SW will arrange HH upon dc if ordered by Physician.
[2019-01-16 08:54] LABS: CALCIUM 8.2 mg/dL (8.5-10.1); CREATININE 0.7 mg/dL (0.6-1.0); GFR 79.7; POTASSIUM 3.5 mmol/L (3.5-5.1)
--- NOTE | 2019-01-16 09:37 | PDOC ---
Infectious Disease Note Subjective: Subjective Pt does not verbalize much arousable had one bm with dark blood last night had low grade temp 100*f ROS: ROS Negative except for above. Vital Signs: Vital Signs Vital Signs Date Time Temp Pulse Resp B/P (MAP) Pulse Ox O2 Delivery O2 Flow Rate FiO2 01/16/19 07:21 98.7 66 16 179/73 (108) 94 Room Air 98.7 01/15/19 10:00 2.0 Physical Exam: PHYSICAL EXAM GENERAL: Tired-looking female, lying in bed comfortably, in no acute distress. HEENT: Oral mucosa pale, atraumatic. Pupils equal. No conjunctival petechia, no icterus. LUNGS: Decreased breath sounds bilaterally in the base. HEART: S1, S2, no murmurs. ABDOMEN: Bowel sounds present, obese, soft, mild tenderness diffuse. No guarding, no rigidity. EXTREMITIES: Right AKA looks okay. Left lower extremity warm and dry. NEUROLOGIC: Follow simple commands. DERMATOLOGIC: Warm, dry, no generalized rash. Medications: Inpatient Meds: Current Medications Medications (Trade) Dose Ordered Sig/Milan Start Time Stop Time Status Last Admin Dose Admin Acetaminophen (Tylenol Supp) 650 mg PRN Q6HRS PRN 01/13/19 17:15 01/15/19 10:50 DC Acetaminophen (Tylenol) 650 mg PRN Q6HRS PRN 01/15/19 11:00 01/15/19 11:00 DC Ceftriaxone Sodium (Rocephin) 1 gm 1X ONCE 01/13/19 16:00 01/13/19 16:01 DC 01/13/19 17:20 1 GM Ferrous Sulfate (Feosol) 325 mg BID 01/15/19 11:30 Heparin Sodium (Porcine) (HEPARIN for NUC MED) 100 unit 1X ONCE 01/14/19 15:00 01/14/19 15:01 DC Lactobacillus Rhamnosus (Culturelle) 1 cap BID 01/14/19 21:00 01/16/19 08:37 1 CAP Linezolid/Dextrose 300 ml @ 300 mls/hr Q12HR 01/14/19 09:00 01/15/19 10:29 DC 01/15/19 08:46 300 MLS/HR Meropenem 500 mg/ Sodium Chloride 50 ml @ 100 mls/hr Q8HRS 01/14/19 14:00 3/7/19 06:05 100 MLS/HR Metoclopramide HCl (Reglan Vial) 10 mg 1X ONCE 01/13/19 16:30 01/13/19 16:31 DC 01/13/19 17:20 10 MG Ondansetron HCl (Zofran) 4 mg PRN Q6HRS PRN 01/13/19 17:15 01/15/19 21:06 4 MG Pantoprazole Sodium (PROTONIX VIAL for IV PUSH) 80 mg 1X ONCE 01/13/19 14:45 01/13/19 14:50 DC 01/13/19 15:08 80 MG Pantoprazole Sodium (Protonix) 40 mg DAILYAC 01/16/19 07:30 01/16/19 08:37 40 MG Pantoprazole Sodium 80 mg/ Sodium Chloride 100 ml @ 10 mls/hr Q10H 01/13/19 17:15 01/13/19 17:36 DC Potassium Chloride/Dextrose/ Sod Cl 1,000 ml @ 40 mls/hr Q24H 01/14/19 10:30 01/16/19 06:05 40 MLS/HR Propofol 20 ml @ As Directed STK-MED ONCE 01/14/19 12:22 01/14/19 12:23 DC Sodium Chloride 1,000 ml @ 100 mls/hr Q10H 01/13/19 17:15 01/14/19 10:18 DC Labs: Lab Laboratory Tests Test 01/16/19 07:20 White Blood Count 5.3 x10^3/uL (4.0-11.0) Red Blood Count 2.92 x10^6/uL (3.50-5.40) Hemoglobin 8.5 g/dL (12.0-15.5) Hematocrit 26.0 % (36.0-47.0) Mean Corpuscular Volume 89 fL (79-100) Mean Corpuscular Hemoglobin 29 pg (25-35) Mean Corpuscular Hemoglobin Concent 33 g/dL (31-37) Red Cell Distribution Width 15.9 % (11.5-14.5) Platelet Count 199 x10^3/uL (140-400) Neutrophils (%) (Auto) 73 % (31-73) Lymphocytes (%) (Auto) 14 % (24-48) Monocytes (%) (Auto) 11 % (0-9) Eosinophils (%) (Auto) 1 % (0-3) Basophils (%) (Auto) 1 % (0-3) Neutrophils # (Auto) 3.8 x10^3uL (1.8-7.7) Lymphocytes # (Auto) 0.7 x10^3/uL (1.0-4.8) Monocytes # (Auto) 0.6 x10^3/uL (0.0-1.1) Eosinophils # (Auto) 0.1 x10^3/uL (0.0-0.7) Basophils # (Auto) 0.0 x10^3/uL (0.0-0.2) Sodium Level 144 mmol/L (136-145) Potassium Level 3.5 mmol/L (3.5-5.1) Chloride Level 108 mmol/L (98-107) Carbon Dioxide Level 27 mmol/L (21-32) Anion Gap 9 (6-14) Blood Urea Nitrogen 6 mg/dL (7-20) Creatinine 0.7 mg/dL (0.6-1.0) Estimated GFR (Cockcroft-Gault) 79.7 Glucose Level 112 mg/dL (70-99) Calcium Level 8.2 mg/dL (8.5-10.1) Micro BC neg CT C/A/P IMPRESSION: 1. Mild left basilar atelectasis/infiltrate. 2. Mild patchy groundglass and interstitial opacities in both lungs may be inflammatory. A component of scarring cannot be excluded. 3. Extensive calcific plaquing of the aorta and its branches including the coronary arteries. 4. Cholelithiasis. 5. Stable small infrarenal abdominal aortic aneurysm. 6. The spleen has increased in size with a new small density evident at the splenic hilum, inseparable from the tip of the pancreatic tail. A pancreatic mass cannot be excluded. CT follow-up to include GI tract opacification is suggested. Objective: Assessment: 1. Leukocytosis.likely reactive,resolving 2. Lactic acidosis. 3. Gastrointestinal bleed. NM scan neg for gi bleed, ? pancreatic mass on CT Abdomen 4. Acute blood loss anemia.s/p PRBCs 5. Hypertension secondary gastrointestinal bleed. 6. Acute kidney injury, multifactorial. 7. Severe protein-calorie malnutrition. 8. Peripheral arterial disease, status post right above-knee amputation. 9. Hard of hearing. 10. History of duodenal ulcer and AVM requiring endoclip in 06/2016. 11. High proBNP. 12. History of penicillin allergy, but has tolerated cephalosporins. 13. Bilateral GGO on CT likely inflammatory vs mild chf Plan: Plan of Care cont meropenem monitor fever trend, could have been from prbc Follow up labs in a.m. and cultures. Continue supportive care. Discussed with RN. MAY CHAVIS MD Jan 16, 2019 09:37
[2019-01-16 11:00] VITALS: BP 155/69
--- NOTE | 2019-01-16 11:27 | PDOC ---
Subjective: Subjective: Feeling okay. Her fito itches. Doesn't know about bleeding. Doing okay with jebrisao, would like "a little" more to eat. Objective: Objective: Per RN - received report of "dark" stool. Looks like refused iron. Vital Signs: Vital Signs Date Time Temp Pulse Resp B/P (MAP) Pulse Ox O2 Delivery O2 Flow Rate FiO2 01/16/19 08:00 Room Air 2.0 01/16/19 07:21 98.7 66 16 179/73 (108) 94 98.7 Labs: Laboratory Tests Test 01/16/19 07:20 White Blood Count 5.3 x10^3/uL Red Blood Count 2.92 x10^6/uL Hemoglobin 8.5 g/dL Hematocrit 26.0 % Mean Corpuscular Volume 89 fL Mean Corpuscular Hemoglobin 29 pg Mean Corpuscular Hemoglobin Concent 33 g/dL Red Cell Distribution Width 15.9 % Platelet Count 199 x10^3/uL Neutrophils (%) (Auto) 73 % Lymphocytes (%) (Auto) 14 % Monocytes (%) (Auto) 11 % Eosinophils (%) (Auto) 1 % Basophils (%) (Auto) 1 % Neutrophils # (Auto) 3.8 x10^3uL Lymphocytes # (Auto) 0.7 x10^3/uL Monocytes # (Auto) 0.6 x10^3/uL Eosinophils # (Auto) 0.1 x10^3/uL Basophils # (Auto) 0.0 x10^3/uL Sodium Level 144 mmol/L Potassium Level 3.5 mmol/L Chloride Level 108 mmol/L Carbon Dioxide Level 27 mmol/L Anion Gap 9 Blood Urea Nitrogen 6 mg/dL Creatinine 0.7 mg/dL Estimated GFR (Cockcroft-Gault) 79.7 Glucose Level 112 mg/dL Calcium Level 8.2 mg/dL BLOOD CULTURE Preliminary NO GROWTH AFTER 2 DAYS PE: GEN: NAD LUNGS: CTAB HEART: RRR ABD: S/ND/NT NEURO/PSYCH: A & O 3 A/P: Hematochezia/melena - resolving Anemia - stable Gastric ulcers - biopsies pending -- Continue PO PPI. Try full liquids. JG VASQUEZ Jan 16, 2019 11:27
--- NOTE | 2019-01-16 12:44 | PDOC ---
PROGRESS NOTES Subjective Subjective no further GI bleeding. hgb stable. does not like oral iron but discussed importance of it. bp high. will start carvedilol. blood cultures neg so far. low grade fever yesterday. afebrile now Objective Objective Vital Signs Date Time Temp Pulse Resp B/P (MAP) Pulse Ox O2 Delivery O2 Flow Rate FiO2 01/16/19 11:00 98.9 62 14 155/69 (97) 94 Room Air 98.9 01/16/19 08:00 2.0 Intake and Output 01/16/19 07:00 Intake Total 320 ml Output Total 550 ml Balance -230 ml Intake Oral 320 ml Output Urine Total 550 ml # Voids 3 # Bowel Movements 1 Physical Exam Abdomen: Soft Heart: Regular rate, Normal S1, Normal S2 Extremities: No edema, Other (right AKA) General: Alert HEENT: Atraumatic Lungs: Other (few rhonchi) Neuro: Normal speech Psych/Mental Status: Mental status NL Skin: No rashes Assessment Assessment Problems1. Acute gastrointestinal bleed resolved. 2 gastric ulcers by EGD 2. Hypertension. bp high 3. Acute blood loss anemia. 4. Acute kidney injury resolved secondary to the gastrointestinal bleed and intravascular volume depletion 5. Severe protein calorie malnutrition. 6. Leukocytosis.better 7. Elevated lactic acid level. normal 01/14 8. Peripheral arterial disease. 9. History of a right above-knee amputation. 10. Hard of hearing. 11. History of a duodenal ulcer. 12. 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 Medical Problems: (1) Acute GI bleeding Status: Acute (2) Anemia Status: Acute (3) CHF (congestive heart failure) Status: Acute (4) Chronic anemia Status: Acute (5) Hyperkalemia Status: Acute (6) Hypoalbuminemia Status: Acute (7) Renal insufficiency Status: Acute (8) Sepsis Status: Acute Plan Plan of Care full liquids continue iv fluids iv meropenem labs tomorrow continue oral iron resume carvedilol resume magnesium oxide resume effexor at a lower dose Comment Review of Relevant I have reviewed the following items rudy (where applicable) has been applied. Labs Laboratory Tests Test 01/15/19 03:35 01/15/19 03:50 01/16/19 07:20 White Blood Count 7.6 x10^3/uL (4.0-11.0) 5.3 x10^3/uL (4.0-11.0) Red Blood Count 2.88 x10^6/uL (3.50-5.40) 2.92 x10^6/uL (3.50-5.40) Hemoglobin 8.4 g/dL (12.0-15.5) 8.5 g/dL (12.0-15.5) Hematocrit 25.4 % (36.0-47.0) 26.0 % (36.0-47.0) Mean Corpuscular Volume 89 fL (79-100) 89 fL (79-100) Mean Corpuscular Hemoglobin 29 pg (25-35) 29 pg (25-35) Mean Corpuscular Hemoglobin Concent 33 g/dL (31-37) 33 g/dL (31-37) Red Cell Distribution Width 16.5 % (11.5-14.5) 15.9 % (11.5-14.5) Platelet Count 193 x10^3/uL (140-400) 199 x10^3/uL (140-400) Neutrophils (%) (Auto) 79 % (31-73) 73 % (31-73) Lymphocytes (%) (Auto) 11 % (24-48) 14 % (24-48) Monocytes (%) (Auto) 9 % (0-9) 11 % (0-9) Eosinophils (%) (Auto) 1 % (0-3) 1 % (0-3) Basophils (%) (Auto) 1 % (0-3) 1 % (0-3) Neutrophils # (Auto) 6.0 x10^3uL (1.8-7.7) 3.8 x10^3uL (1.8-7.7) Lymphocytes # (Auto) 0.8 x10^3/uL (1.0-4.8) 0.7 x10^3/uL (1.0-4.8) Monocytes # (Auto) 0.7 x10^3/uL (0.0-1.1) 0.6 x10^3/uL (0.0-1.1) Eosinophils # (Auto) 0.1 x10^3/uL (0.0-0.7) 0.1 x10^3/uL (0.0-0.7) Basophils # (Auto) 0.0 x10^3/uL (0.0-0.2) 0.0 x10^3/uL (0.0-0.2) Sodium Level 143 mmol/L (136-145) 144 mmol/L (136-145) Potassium Level 3.6 mmol/L (3.5-5.1) 3.5 mmol/L (3.5-5.1) Chloride Level 108 mmol/L (98-107) 108 mmol/L (98-107) Carbon Dioxide Level 27 mmol/L (21-32) 27 mmol/L (21-32) Anion Gap 8 (6-14) 9 (6-14) Blood Urea Nitrogen 18 mg/dL (7-20) 6 mg/dL (7-20) Creatinine 0.8 mg/dL (0.6-1.0) 0.7 mg/dL (0.6-1.0) Estimated GFR (Cockcroft-Gault) 68.3 79.7 Glucose Level 125 mg/dL (70-99) 112 mg/dL (70-99) Calcium Level 8.0 mg/dL (8.5-10.1) 8.2 mg/dL (8.5-10.1) Magnesium Level 1.7 mg/dL (1.8-2.4) Laboratory Tests Test 01/16/19 07:20 White Blood Count 5.3 x10^3/uL (4.0-11.0) Red Blood Count 2.92 x10^6/uL (3.50-5.40) Hemoglobin 8.5 g/dL (12.0-15.5) Hematocrit 26.0 % (36.0-47.0) Mean Corpuscular Volume 89 fL (79-100) Mean Corpuscular Hemoglobin 29 pg (25-35) Mean Corpuscular Hemoglobin Concent 33 g/dL (31-37) Red Cell Distribution Width 15.9 % (11.5-14.5) Platelet Count 199 x10^3/uL (140-400) Neutrophils (%) (Auto) 73 % (31-73) Lymphocytes (%) (Auto) 14 % (24-48) Monocytes (%) (Auto) 11 % (0-9) Eosinophils (%) (Auto) 1 % (0-3) Basophils (%) (Auto) 1 % (0-3) Neutrophils # (Auto) 3.8 x10^3uL (1.8-7.7) Lymphocytes # (Auto) 0.7 x10^3/uL (1.0-4.8) Monocytes # (Auto) 0.6 x10^3/uL (0.0-1.1) Eosinophils # (Auto) 0.1 x10^3/uL (0.0-0.7) Basophils # (Auto) 0.0 x10^3/uL (0.0-0.2) Sodium Level 144 mmol/L (136-145) Potassium Level 3.5 mmol/L (3.5-5.1) Chloride Level 108 mmol/L (98-107) Carbon Dioxide Level 27 mmol/L (21-32) Anion Gap 9 (6-14) Blood Urea Nitrogen 6 mg/dL (7-20) Creatinine 0.7 mg/dL (0.6-1.0) Estimated GFR (Cockcroft-Gault) 79.7 Glucose Level 112 mg/dL (70-99) Calcium Level 8.2 mg/dL (8.5-10.1) Microbiology 01/13/19 Blood Culture - Preliminary, Resulted NO GROWTH AFTER 2 DAYS 01/13/19 Urine Culture - Final, Complete 01/13/19 Urine Culture Result 1 (ABNER) - Final, Complete Medications Current Medications Sodium Chloride 1,000 ml @ 1,000 mls/hr 1X ONCE IV Last administered on at 15:08; Start 01/13/19 at 14:45; Stop 01/13/19 at 15:44; Status DC Pantoprazole Sodium (PROTONIX VIAL for IV PUSH) 80 mg 1X ONCE IVP Last administered on 01/13/19at 15:08; Start 01/13/19 at 14:45; Stop 01/13/19 at 14:50; Status DC Sodium Chloride 1,000 ml @ 1,000 mls/hr 1X ONCE IV Last administered on at 15:50; Start 01/13/19 at 16:00; Stop 01/13/19 at 16:59; Status DC Ceftriaxone Sodium (Rocephin) 1 gm 1X ONCE IVP Last administered on 01/13/19at 17:20; Start 01/13/19 at 16:00; Stop 01/13/19 at 16:01; Status DC Pantoprazole Sodium 80 mg/ Sodium Chloride 100 ml @ 10 mls/hr Q10H IV Last administered on 01/15/19at 03:19; Start 01/13/19 at 16:30; Stop 01/15/19 at 15:23; Status DC Metoclopramide HCl (Reglan Vial) 10 mg 1X ONCE IV Last administered on at 17:20; Start 01/13/19 at 16:30; Stop 01/13/19 at 16:31; Status DC Sodium Chloride 1,000 ml @ 150 mls/hr Q6H40M IV Last administered on 01/14/19at 01:42; Start 01/13/19 at 17:04; Stop 01/14/19 at 17:03; Status DC Pantoprazole Sodium 80 mg/ Sodium Chloride 100 ml @ 10 mls/hr Q10H IV ; Start 01/13/19 at 17:15; Stop 01/13/19 at 17:36; Status DC Sodium Chloride 1,000 ml @ 100 mls/hr Q10H IV ; Start 01/13/19 at 17:15; Stop at 10:18; Status DC Linezolid/Dextrose 300 ml @ 300 mls/hr Q12HR IV ; Start 01/13/19 at 18:00; Stop 01/13/19 at 18:03; Status DC Meropenem 500 mg/ Sodium Chloride 50 ml @ 100 mls/hr Q12HR IV ; Start 01/13/19 at 18:00; Stop 01/13/19 at 18:03; Status DC Ondansetron HCl (Zofran) 4 mg PRN Q6HRS PRN IV NAUSEA/VOMITING Last administered on 01/15/19at 21:06; Start 01/13/19 at 17:15 Acetaminophen (Tylenol Supp) 650 mg PRN Q6HRS PRN AR HEADACHE / TEMP; Start 01/13/19 at 17:15; Stop 01/15/19 at 10:50; Status DC Linezolid/Dextrose 300 ml @ 300 mls/hr ONCE ONCE IV Last administered on at 20:23; Start 01/13/19 at 19:00; Stop 01/13/19 at 19:59; Status DC Meropenem 500 mg/ Sodium Chloride 50 ml @ 100 mls/hr ONCE ONCE IV Last administered on 01/13/19at 20:23; Start 01/13/19 at 17:45; Stop 01/13/19 at 18:14; Status DC Linezolid/Dextrose 300 ml @ 300 mls/hr Q12HR IV Last administered on 01/15/19at 08:46; Start 01/14/19 at 09:00; Stop 01/15/19 at 10:29; Status DC Meropenem 500 mg/ Sodium Chloride 50 ml @ 100 mls/hr Q12HR IV ; Start 01/14/19 at 09:00; Stop 01/14/19 at 10:18; Status DC Meropenem 500 mg/ Sodium Chloride 50 ml @ 100 mls/hr Q8HRS IV Last administered on 01/16/19at 06:05; Start 01/14/19 at 14:00 Potassium Chloride/Dextrose/ Sod Cl 1,000 ml @ 40 mls/hr Q24H IV Last administered on 01/16/19at 06:05; Start 01/14/19 at 10:30 Propofol 20 ml @ As Directed STK-MED ONCE IV ; Start 01/14/19 at 12:22; Stop 01/14 at 12:23; Status DC Lactobacillus Rhamnosus (Culturelle) 1 cap BID PO Last administered on at 08:37; Start 01/14/19 at 21:00 Heparin Sodium (Porcine) (HEPARIN for NUC MED) 100 unit 1X ONCE IV ; Start 01/14 at 15:00; Stop 01/14/19 at 15:01; Status DC Acetaminophen (Tylenol) 650 mg PRN Q6HRS PRN PO MILD PAIN / TEMP Last administered on 01/14/19at 23:06; Start 01/14/19 at 23:00 Ferrous Sulfate (Feosol) 325 mg BID PO ; Start 01/15/19 at 11:30 Acetaminophen (Tylenol) 650 mg PRN Q6HRS PRN PO MILD PAIN / TEMP; Start at 11:00; Stop 01/15/19 at 11:00; Status DC Pantoprazole Sodium (Protonix) 40 mg DAILYAC PO Last administered on 01/16/19at 08:37; Start 01/16/19 at 07:30 Active Scripts Active Pantoprazole Sodium 40 Mg Tablet.dr 40 Mg PO DAILYAC Feosol (Ferrous Sulfate) 325 Mg Tablet 325 Mg PO BIDWMEALS Reported Bactrim 400-80 Mg Tablet (Sulfamethoxazole/Trimethoprim) 1 Each Tablet 2 Tab PO BID Magnesium Oxide 400 Mg Tablet 1 Tab PO BID Clobetasol Propionate 15 Gm Cream..g. 1 Sherri TP BID Cozaar (Losartan Potassium) 100 Mg Tablet 100 Mg PO DAILY [place] 10-325 Tablet (Acetaminophen/Hydrocodone Bitart) 1 Each Tablet 1 Tab PO PRN Q6HRS PRN Hydrochlorothiazide Tablet (Hydrochlorothiazide) 25 Mg Tablet 25 Mg PO DAILY [B12] DAILY [vitB6] DAILY Doxycycline Hyclate 100 Mg Capsule 1 Cap PO BID Centrum Silver Women Tablet (Multivits-Min/Iron/FA/Lutein) 1 Each Tablet 1 Each PO Atorvastatin Calcium 10 Mg Tablet 1 Tab PO DAILY Clopidogrel (Clopidogrel Bisulfate) 75 Mg Tablet 1 Tab PO DAILY Venlafaxine Hcl Er (Venlafaxine Hcl) 75 Mg Cap.er.24h 3 Cap PO DAILY Vitals/I & O Vital Sign - Last 24 Hours 01/15/19 01/15/19 01/15/19 01/15/19 15:00 19:37 20:00 23:13 Temp 97.9 100.0 97.2 97.9 100.0 97.2 Pulse 72 70 66 Resp 18 18 16 B/P (MAP) 144/60 (88) 158/62 (94) 135/48 (77) Pulse Ox 98 96 94 O2 Delivery Room Air Room Air Room Air Room Air 01/16/19 01/16/19 01/16/19 01/16/19 03:07 07:21 08:00 11:00 Temp 99.7 98.7 98.9 99.7 98.7 98.9 Pulse 70 66 62 Resp 16 16 14 B/P (MAP) 162/72 (102) 179/73 (108) 155/69 (97) Pulse Ox 92 94 94 O2 Delivery Room Air Room Air Room Air Room Air O2 Flow Rate 2.0 Intake and Output 01/15/19 01/15/19 01/16/19 15:00 23:00 07:00 Intake Total 125 ml 175 ml 20 ml Output Total 300 ml 250 ml Balance -175 ml 175 ml -230 ml CINDI SOUSA MD Jan 16, 2019 12:44
[2019-01-16] MEDS: VENLAFAXINE 50 MG TABLET. PO SCH ×2 (13:47→21:52)
[2019-01-16 15:18] VITALS: BP 149/63
[2019-01-16] MEDS: CARVEDILOL 6.25 MG TABLET. PO SCH (17:33)
--- NOTE | 2019-01-16 18:06 | PATHOLOGY ---
[facility] Accession Number: [id number] . 01 Material submitted: . PART A: ULCER, BODY OF STOMACH PART B: ULCER, FUNDUS ANTERIOR WALL . 01 Clinical history: . GI bleed, leukocytosis . 02 Diagnosis: A. 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 . B. 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 (JPM:[facility] 01/16/2019) QTP/01/16/2019 . 02 Comment: Sections of the body of stomach ulcer biopsy reveal segments of gastric mucosa showing a focal dense atypical lymphoid infiltrate within the lamina propria. The lymphoid infiltrate is comprised of small lymphocytes having rounded to slightly irregular nuclei and showing focal crush artifactual changes. There is focal ulceration and acute inflammation. Sections of the fundus ulcer biopsy focally demonstrate a modest atypical lymphoid infiltrate within the lamina propria which is again comprised of small lymphocytes having rounded to slightly irregular nuclei. There are plasma cells present within the superficial lamina propria. A panel of immunoperoxidase stains is obtained and yields the following results: . H. pylori (A1): Negative for Helicobacter organisms. CD20 (A1): Atypical lymphoid infiltrate positive. CD3 (A1): Atypical lymphoid infiltrate negative; small population of admixed small lymphocytes positive. CD5 (A1): Atypical lymphoid infiltrate negative; small population of admixed small lymphocytes positive, similar to CD3. CD10 (A1): Atypical lymphoid infiltrate negative. BCL2 (A1): Atypical lymphoid infiltrate positive. BCL6 (A1): Atypical lymphoid infiltrate negative. CD43 (A1): Atypical lymphoid infiltrate negative; small population of admixed small lymphocytes positive. Cyclin D1 (A1): Atypical lymphoid infiltrate negative. . H. pylori (B): Negative for Helicobacter organisms. CD20 (B1): Atypical lymphoid infiltrate positive. CD3 (B1): Atypical lymphoid infiltrate negative; small population of admixed small lymphocytes positive. . 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 The case is also examined by Dr. Sabillon, hematopathologist, who concurs with the diagnosis. . (JPM:[facility] 01/16/2019) . 02 Electronically signed: . Eliot Castillo MD, Pathologist NPI- [id number] . 01 Gross description: . A. Received in formalin labeled "Keke, Lashae, ulcer body of stomach," are multiple segments of lynne soft tissue measuring 0.9 x 0.3 x 0.1 cm in aggregate dimensions. The specimen is filtered and entirely submitted in cassette A1. . B. Received in formalin labeled "Keke, Lashae, ulcer-fundus anterior wall," is a single segment of lynne soft tissue measuring 0.5 cm in maximum dimension. The specimen is entirely submitted in cassette B1. (TSD; 01/14/2019) TOB/TOB . 02 Pathologist provided ICD-10: C88.4, K92.2, D72.829 . 02 CPT . 116457, 154921, P69867, [id number] Specimen Comment: A courtesy copy of this report has been sent to Specimen Comment: [phone], , . Specimen Comment: Report sent to ,DR SOUSA / DR ZAMORA Specimen Comment: A duplicate report has been generated due to demographic updates. Performed at: 01 [facility] [address] [id number] MD Warren Chow MD Phone: [phone] Performed at: 02 [facility] [address] [place], [place] [id number] MD Eliot Castillo MD Phone: [phone]
[2019-01-16 19:53] VITALS: BP 176/82
[2019-01-16] MEDS: MAGNESIUM OXIDE 400 MG TABLET PO SCH (21:53)
[2019-01-16] MEDS: ATORVASTATIN CALCIUM 10 MG TABLET. PO SCH (21:53)
[2019-01-16 23:17] VITALS: BP 118/70
[2019-01-17 03:30] VITALS: BP 126/80
[2019-01-17] MEDS: MEROPENEM 500 MG in IV NORMAL SALINE 50ML 50 ML IV SCH ×3 (05:37→21:12)
[2019-01-17 07:00] VITALS: BP 142/68
[2019-01-17] MEDS: PANTOPRAZOLE 40 MG TABLET.DR. PO SCH (07:56)
[2019-01-17] MEDS: FERROUS SULFATE 325 MG TABLET. PO SCH ×2 (07:56→21:11)
[2019-01-17] MEDS: LACTOBACILLUS RHAMNOSUS GG 1 CAPSULE. PO SCH ×2 (07:56→21:11)
[2019-01-17] MEDS: VENLAFAXINE 50 MG TABLET. PO SCH ×3 (07:56→21:11)
[2019-01-17] MEDS: MAGNESIUM OXIDE 400 MG TABLET PO SCH ×2 (07:56→21:11)
[2019-01-17] MEDS: CARVEDILOL 6.25 MG TABLET. PO SCH ×2 (07:58→17:04)
[2019-01-17 08:33] LABS: CALCIUM 8.1 mg/dL (8.5-10.1); CREATININE 0.6 mg/dL (0.6-1.0); GFR 95.2; MAGNESIUM 1.6 mg/dL (1.8-2.4); POTASSIUM 3.6 mmol/L (3.5-5.1)
[2019-01-17 08:34] LABS: BASO % 1 % (0-3); EOS # 0.1 x10^3/uL (0.0-0.7); EOS % 1 % (0-3); HEMOGLOBIN 8.6 g/dL (12.0-15.5); LYMPH # 0.8 x10^3/uL (1.0-4.8); LYMPH % 14 % (24-48); MEAN CORPUSCULAR HEMOGLOBIN 29 pg (25-35); MEAN CORPUSCULAR HGB CONC 33 g/dL (31-37); MEAN CORPUSCULAR VOLUME 89 fL (79-100); MONO # 0.5 x10^3/uL (0.0-1.1); MONO % 10 % (0-9); NEUT # 4.2 x10^3uL (1.8-7.7); NEUT % 74 % (31-73); PLATELET COUNT 208 x10^3/uL (140-400); RED BLOOD COUNT 2.92 x10^6/uL (3.50-5.40); RED CELL DISTRIBUTION WIDTH 15.8 % (11.5-14.5); WHITE BLOOD COUNT 5.7 x10^3/uL (4.0-11.0)
--- NOTE | 2019-01-17 09:21 | PDOC ---
Infectious Disease Note Subjective: Subjective Pt does not verbalize much arousable had one bm with dark blood last night had low grade temp 100*f ROS: ROS Negative except for above. Vital Signs: Vital Signs Vital Signs Date Time Temp Pulse Resp B/P (MAP) Pulse Ox O2 Delivery O2 Flow Rate FiO2 01/17/19 07:58 66 142/68 01/17/19 07:36 Room Air 01/17/19 07:00 98.3 16 94 98.3 01/16/19 20:00 2.0 Physical Exam: PHYSICAL EXAM GENERAL: Tired-looking female, lying in bed comfortably, in no acute distress. HEENT: Oral mucosa pale, atraumatic. Pupils equal. No conjunctival petechia, no icterus. LUNGS: Decreased breath sounds bilaterally in the base. HEART: S1, S2, no murmurs. ABDOMEN: Bowel sounds present, obese, soft, mild tenderness diffuse. No guarding, no rigidity. EXTREMITIES: Right AKA looks okay. Left lower extremity warm and dry. NEUROLOGIC: Follow simple commands. DERMATOLOGIC: Warm, dry, no generalized rash. Medications: Inpatient Meds: Current Medications Medications (Trade) Dose Ordered Sig/Milan Start Time Stop Time Status Last Admin Dose Admin Acetaminophen (Tylenol Supp) 650 mg PRN Q6HRS PRN 01/13/19 17:15 01/15/19 10:50 DC Acetaminophen (Tylenol) 650 mg PRN Q6HRS PRN 01/15/19 11:00 01/15/19 11:00 DC Atorvastatin Calcium (Lipitor) 10 mg QHS 01/16/19 21:00 01/16/19 21:53 10 MG Carvedilol (Coreg) 6.25 mg BIDWMEALS 01/16/19 17:00 01/17/19 07:58 6.25 MG Ceftriaxone Sodium (Rocephin) 1 gm 1X ONCE 01/13/19 16:00 01/13/19 16:01 DC 01/13/19 17:20 1 GM Ferrous Sulfate (Feosol) 325 mg BID 01/15/19 11:30 01/17/19 07:56 325 MG Heparin Sodium (Porcine) (HEPARIN for NUC MED) 100 unit 1X ONCE 01/14/19 15:00 01/14/19 15:01 DC Lactobacillus Rhamnosus (Culturelle) 1 cap BID 01/14/19 21:00 01/17/19 07:56 1 CAP Linezolid/Dextrose 300 ml @ 300 mls/hr Q12HR 01/14/19 09:00 01/15/19 10:29 DC 01/15/19 08:46 300 MLS/HR Magnesium Oxide (Magnesium Oxide) 400 mg BID 01/16/19 21:00 01/17/19 07:56 400 MG Meropenem 500 mg/ Sodium Chloride 50 ml @ 100 mls/hr Q8HRS 01/14/19 14:00 01/17/19 05:37 100 MLS/HR Metoclopramide HCl (Reglan Vial) 10 mg 1X ONCE 01/13/19 16:30 01/13/19 16:31 DC 01/13/19 17:20 10 MG Ondansetron HCl (Zofran) 4 mg PRN Q6HRS PRN 01/13/19 17:15 01/15/19 21:06 4 MG Pantoprazole Sodium (PROTONIX VIAL for IV PUSH) 80 mg 1X ONCE 01/13/19 14:45 01/13/19 14:50 DC 01/13/19 15:08 80 MG Pantoprazole Sodium (Protonix) 40 mg DAILYAC 01/16/19 07:30 01/17/19 07:56 40 MG Pantoprazole Sodium 80 mg/ Sodium Chloride 100 ml @ 10 mls/hr Q10H 01/13/19 17:15 01/13/19 17:36 DC Potassium Chloride/Dextrose/ Sod Cl 1,000 ml @ 40 mls/hr Q24H 01/14/19 10:30 01/16/19 06:05 40 MLS/HR Propofol 20 ml @ As Directed STK-MED ONCE 01/14/19 12:22 01/14/19 12:23 DC Sodium Chloride 1,000 ml @ 100 mls/hr Q10H 01/13/19 17:15 01/14/19 10:18 DC Venlafaxine HCl (Effexor) 50 mg TID 01/16/19 14:00 01/17/19 07:56 50 MG Labs: Lab Laboratory Tests Test 01/17/19 07:53 White Blood Count 5.7 x10^3/uL (4.0-11.0) Red Blood Count 2.92 x10^6/uL (3.50-5.40) Hemoglobin 8.6 g/dL (12.0-15.5) Hematocrit 26.0 % (36.0-47.0) Mean Corpuscular Volume 89 fL (79-100) Mean Corpuscular Hemoglobin 29 pg (25-35) Mean Corpuscular Hemoglobin Concent 33 g/dL (31-37) Red Cell Distribution Width 15.8 % (11.5-14.5) Platelet Count 208 x10^3/uL (140-400) Neutrophils (%) (Auto) 74 % (31-73) Lymphocytes (%) (Auto) 14 % (24-48) Monocytes (%) (Auto) 10 % (0-9) Eosinophils (%) (Auto) 1 % (0-3) Basophils (%) (Auto) 1 % (0-3) Neutrophils # (Auto) 4.2 x10^3uL (1.8-7.7) Lymphocytes # (Auto) 0.8 x10^3/uL (1.0-4.8) Monocytes # (Auto) 0.5 x10^3/uL (0.0-1.1) Eosinophils # (Auto) 0.1 x10^3/uL (0.0-0.7) Basophils # (Auto) 0.0 x10^3/uL (0.0-0.2) Sodium Level 141 mmol/L (136-145) Potassium Level 3.6 mmol/L (3.5-5.1) Chloride Level 107 mmol/L (98-107) Carbon Dioxide Level 28 mmol/L (21-32) Anion Gap 6 (6-14) Blood Urea Nitrogen 6 mg/dL (7-20) Creatinine 0.6 mg/dL (0.6-1.0) Estimated GFR (Cockcroft-Gault) 95.2 Glucose Level 101 mg/dL (70-99) Calcium Level 8.1 mg/dL (8.5-10.1) Magnesium Level 1.6 mg/dL (1.8-2.4) Micro BC neg CT C/A/P IMPRESSION: 1. Mild left basilar atelectasis/infiltrate. 2. Mild patchy groundglass and interstitial opacities in both lungs may be inflammatory. A component of scarring cannot be excluded. 3. Extensive calcific plaquing of the aorta and its branches including the coronary arteries. 4. Cholelithiasis. 5. Stable small infrarenal abdominal aortic aneurysm. 6. The spleen has increased in size with a new small density evident at the splenic hilum, inseparable from the tip of the pancreatic tail. A pancreatic mass cannot be excluded. CT follow-up to include GI tract opacification is suggested. Objective: Assessment: 1. Leukocytosis.likely reactive,resolving 2. Lactic acidosis. 3. Gastrointestinal bleed. NM scan neg for gi bleed, ? pancreatic mass on CT Abdomen 4. Acute blood loss anemia.s/p PRBCs 5. Hypertension secondary gastrointestinal bleed. 6. Acute kidney injury, multifactorial. 7. Severe protein-calorie malnutrition. 8. Peripheral arterial disease, status post right above-knee amputation. 9. Hard of hearing. 10. History of duodenal ulcer and AVM requiring endoclip in 06/2016. 11. High proBNP. 12. History of penicillin allergy, but has tolerated cephalosporins. 13. Bilateral GGO on CT likely inflammatory vs mild chf Plan: Plan of Care cont meropenem Follow up labs in a.m. and cultures. Continue supportive care. Discussed with KYRIE. MAY CHAVIS MD Jan 17, 2019 09:21
--- NOTE | 2019-01-17 09:58 | PDOC ---
Subjective: Subjective: Would like me to plug in her cell phone to charge and show her how to use the other phone in her room. Does not want more to eat. Objective: Vital Signs: Vital Signs Date Time Temp Pulse Resp B/P (MAP) Pulse Ox O2 Delivery O2 Flow Rate FiO2 01/17/19 07:58 66 142/68 01/17/19 07:36 Room Air 01/17/19 07:00 98.3 16 94 98.3 01/16/19 20:00 2.0 Labs: Laboratory Tests Test 01/17/19 07:53 White Blood Count 5.7 x10^3/uL Red Blood Count 2.92 x10^6/uL Hemoglobin 8.6 g/dL Hematocrit 26.0 % Mean Corpuscular Volume 89 fL Mean Corpuscular Hemoglobin 29 pg Mean Corpuscular Hemoglobin Concent 33 g/dL Red Cell Distribution Width 15.8 % Platelet Count 208 x10^3/uL Neutrophils (%) (Auto) 74 % Lymphocytes (%) (Auto) 14 % Monocytes (%) (Auto) 10 % Eosinophils (%) (Auto) 1 % Basophils (%) (Auto) 1 % Neutrophils # (Auto) 4.2 x10^3uL Lymphocytes # (Auto) 0.8 x10^3/uL Monocytes # (Auto) 0.5 x10^3/uL Eosinophils # (Auto) 0.1 x10^3/uL Basophils # (Auto) 0.0 x10^3/uL Sodium Level 141 mmol/L Potassium Level 3.6 mmol/L Chloride Level 107 mmol/L Carbon Dioxide Level 28 mmol/L Anion Gap 6 Blood Urea Nitrogen 6 mg/dL Creatinine 0.6 mg/dL Estimated GFR (Cockcroft-Gault) 95.2 Glucose Level 101 mg/dL Calcium Level 8.1 mg/dL Magnesium Level 1.6 mg/dL Material submitted: . PART A: ULCER, BODY OF STOMACH PART B: ULCER, FUNDUS ANTERIOR WALL Diagnosis: A. 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 B. 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 Comment: Sections of the body of stomach ulcer biopsy reveal segments of gastric mucosa showing a focal dense atypical lymphoid infiltrate within the lamina propria. The lymphoid infiltrate is comprised of small lymphocytes having rounded to slightly irregular nuclei and showing focal crushartifactual changes. There is focal ulceration and acute inflammation. Sections of the fundus ulcer biopsy focally demonstrate a modest atypical lymphoid infiltrate within the lamina propria which is again comprised of small lymphocytes having rounded to slightly irregular nuclei. There are plasma cells present within the superficial lamina propria. A panel of immunoperoxidase stains is obtained and yields the following results: H. pylori (A1): Negative for Helicobacter organisms. CD20 (A1): Atypical lymphoid infiltrate positive. CD3 (A1): Atypical lymphoid infiltrate negative; small population of admixed small lymphocytes positive. CD5 (A1): Atypical lymphoid infiltrate negative; small population of admixed small lymphocytes positive, similar to CD3. CD10 (A1): Atypical lymphoid infiltrate negative. BCL2 (A1): Atypical lymphoid infiltrate positive. BCL6 (A1): Atypical lymphoid infiltrate negative. CD43 (A1): Atypical lymphoid infiltrate negative; small population of admixed small lymphocytes positive. Cyclin D1 (A1): Atypical lymphoid infiltrate negative. H. pylori (B): Negative for Helicobacter organisms. CD20 (B1): Atypical lymphoid infiltrate positive. CD3 (B1): Atypical lymphoid infiltrate negative; small population of admixed small lymphocytes positive. The morphologic and immunophenotypic findings of the body of stomach ulcer biopsy are compatible with involvement B-cell marginal zone lymphoma of mucosal- associated lymphoid tissue (MALT lymphoma). 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 BLOOD CULTURE Preliminary NO GROWTH AFTER 3 DAYS PE: GEN: NAD LUNGS: CTAB HEART: RRR ABD: S/ND/NT NEURO/PSYCH: A & O 3 A/P: Hematochezia/melena - resolved Anemia - stable Gastric ulcers - path as above w/ MALT lymphoma -- Path noted, will d/w Dr. Palencia re: oncology opinion. JG VASQUEZ Jan 17, 2019 09:58
--- NOTE | 2019-01-17 10:38 | PDOC ---
PROGRESS NOTES Subjective Subjective feels weak. does not like oral iron but discussed importance. lab reviewed. magnesium low. 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 will consult dr. anthony Objective Objective Vital Signs Date Time Temp Pulse Resp B/P (MAP) Pulse Ox O2 Delivery O2 Flow Rate FiO2 01/17/19 07:58 66 142/68 01/17/19 07:36 Room Air 01/17/19 07:00 98.3 16 94 98.3 01/16/19 20:00 2.0 Intake and Output 01/17/19 06:59 Intake Total 1374 ml Balance 1374 ml Intake Oral 170 ml Other 1204 ml # Voids 5 Physical Exam Abdomen: Soft Heart: Regular rate, Normal S1, Normal S2 Extremities: No edema, Other (right AKA) General: Alert HEENT: Atraumatic Lungs: Clear to auscultation, Other Neuro: Normal speech Psych/Mental Status: Mood NL Skin: No rashes Assessment Assessment Problems. Acute gastrointestinal bleed resolved. 2 gastric ulcers by EGD. BX shows MALT lymphoma 2. Hypertension. bp high 3. Acute blood loss anemia. 4. Acute kidney injury resolved secondary to the gastrointestinal bleed and intravascular volume depletion 5. Severe protein calorie malnutrition. 6. Leukocytosis.better 7. Elevated lactic acid level. normal 01/14 8. Peripheral arterial disease. 9. History of a right above-knee amputation. 10. Hard of hearing. 11. History of a duodenal ulcer. 12. 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 hypomagnesemia Medical Problems: (1) Acute GI bleeding Status: Acute (2) Anemia Status: Acute (3) CHF (congestive heart failure) Status: Acute (4) Chronic anemia Status: Acute (5) Hyperkalemia Status: Acute (6) Hypoalbuminemia Status: Acute (7) Renal insufficiency Status: Acute (8) Sepsis Status: Acute Plan Plan of Care consult dr. anthony. I did not discuss bx results iv magnesium advance diet to soft solids d/c iv fluids if oral fluid intake is adequate lab tomorrow she is declining PT continue ferrous sulfate continue iv meropenem per ID Comment Review of Relevant I have reviewed the following items rudy (where applicable) has been applied. Labs Laboratory Tests Test 01/16/19 07:20 01/17/19 07:53 White Blood Count 5.3 x10^3/uL (4.0-11.0) 5.7 x10^3/uL (4.0-11.0) Red Blood Count 2.92 x10^6/uL (3.50-5.40) 2.92 x10^6/uL (3.50-5.40) Hemoglobin 8.5 g/dL (12.0-15.5) 8.6 g/dL (12.0-15.5) Hematocrit 26.0 % (36.0-47.0) 26.0 % (36.0-47.0) Mean Corpuscular Volume 89 fL (79-100) 89 fL (79-100) Mean Corpuscular Hemoglobin 29 pg (25-35) 29 pg (25-35) Mean Corpuscular Hemoglobin Concent 33 g/dL (31-37) 33 g/dL (31-37) Red Cell Distribution Width 15.9 % (11.5-14.5) 15.8 % (11.5-14.5) Platelet Count 199 x10^3/uL (140-400) 208 x10^3/uL (140-400) Neutrophils (%) (Auto) 73 % (31-73) 74 % (31-73) Lymphocytes (%) (Auto) 14 % (24-48) 14 % (24-48) Monocytes (%) (Auto) 11 % (0-9) 10 % (0-9) Eosinophils (%) (Auto) 1 % (0-3) 1 % (0-3) Basophils (%) (Auto) 1 % (0-3) 1 % (0-3) Neutrophils # (Auto) 3.8 x10^3uL (1.8-7.7) 4.2 x10^3uL (1.8-7.7) Lymphocytes # (Auto) 0.7 x10^3/uL (1.0-4.8) 0.8 x10^3/uL (1.0-4.8) Monocytes # (Auto) 0.6 x10^3/uL (0.0-1.1) 0.5 x10^3/uL (0.0-1.1) Eosinophils # (Auto) 0.1 x10^3/uL (0.0-0.7) 0.1 x10^3/uL (0.0-0.7) Basophils # (Auto) 0.0 x10^3/uL (0.0-0.2) 0.0 x10^3/uL (0.0-0.2) Sodium Level 144 mmol/L (136-145) 141 mmol/L (136-145) Potassium Level 3.5 mmol/L (3.5-5.1) 3.6 mmol/L (3.5-5.1) Chloride Level 108 mmol/L (98-107) 107 mmol/L (98-107) Carbon Dioxide Level 27 mmol/L (21-32) 28 mmol/L (21-32) Anion Gap 9 (6-14) 6 (6-14) Blood Urea Nitrogen 6 mg/dL (7-20) 6 mg/dL (7-20) Creatinine 0.7 mg/dL (0.6-1.0) 0.6 mg/dL (0.6-1.0) Estimated GFR (Cockcroft-Gault) 79.7 95.2 Glucose Level 112 mg/dL (70-99) 101 mg/dL (70-99) Calcium Level 8.2 mg/dL (8.5-10.1) 8.1 mg/dL (8.5-10.1) Magnesium Level 1.6 mg/dL (1.8-2.4) Laboratory Tests Test 01/17/19 07:53 White Blood Count 5.7 x10^3/uL (4.0-11.0) Red Blood Count 2.92 x10^6/uL (3.50-5.40) Hemoglobin 8.6 g/dL (12.0-15.5) Hematocrit 26.0 % (36.0-47.0) Mean Corpuscular Volume 89 fL (79-100) Mean Corpuscular Hemoglobin 29 pg (25-35) Mean Corpuscular Hemoglobin Concent 33 g/dL (31-37) Red Cell Distribution Width 15.8 % (11.5-14.5) Platelet Count 208 x10^3/uL (140-400) Neutrophils (%) (Auto) 74 % (31-73) Lymphocytes (%) (Auto) 14 % (24-48) Monocytes (%) (Auto) 10 % (0-9) Eosinophils (%) (Auto) 1 % (0-3) Basophils (%) (Auto) 1 % (0-3) Neutrophils # (Auto) 4.2 x10^3uL (1.8-7.7) Lymphocytes # (Auto) 0.8 x10^3/uL (1.0-4.8) Monocytes # (Auto) 0.5 x10^3/uL (0.0-1.1) Eosinophils # (Auto) 0.1 x10^3/uL (0.0-0.7) Basophils # (Auto) 0.0 x10^3/uL (0.0-0.2) Sodium Level 141 mmol/L (136-145) Potassium Level 3.6 mmol/L (3.5-5.1) Chloride Level 107 mmol/L (98-107) Carbon Dioxide Level 28 mmol/L (21-32) Anion Gap 6 (6-14) Blood Urea Nitrogen 6 mg/dL (7-20) Creatinine 0.6 mg/dL (0.6-1.0) Estimated GFR (Cockcroft-Gault) 95.2 Glucose Level 101 mg/dL (70-99) Calcium Level 8.1 mg/dL (8.5-10.1) Magnesium Level 1.6 mg/dL (1.8-2.4) Microbiology 01/13/19 Blood Culture - Preliminary, Resulted NO GROWTH AFTER 3 DAYS 01/13/19 Urine Culture - Final, Complete 01/13/19 Urine Culture Result 1 (ABNER) - Final, Complete Medications Current Medications Sodium Chloride 1,000 ml @ 1,000 mls/hr 1X ONCE IV Last administered on at 15:08; Start 01/13/19 at 14:45; Stop 01/13/19 at 15:44; Status DC Pantoprazole Sodium (PROTONIX VIAL for IV PUSH) 80 mg 1X ONCE IVP Last administered on 01/13/19at 15:08; Start 01/13/19 at 14:45; Stop 01/13/19 at 14:50; Status DC Sodium Chloride 1,000 ml @ 1,000 mls/hr 1X ONCE IV Last administered on at 15:50; Start 01/13/19 at 16:00; Stop 01/13/19 at 16:59; Status DC Ceftriaxone Sodium (Rocephin) 1 gm 1X ONCE IVP Last administered on 01/13/19at 17:20; Start 01/13/19 at 16:00; Stop 01/13/19 at 16:01; Status DC Pantoprazole Sodium 80 mg/ Sodium Chloride 100 ml @ 10 mls/hr Q10H IV Last administered on 01/15/19at 03:19; Start 01/13/19 at 16:30; Stop 01/15/19 at 15:23; Status DC Metoclopramide HCl (Reglan Vial) 10 mg 1X ONCE IV Last administered on at 17:20; Start 01/13/19 at 16:30; Stop 01/13/19 at 16:31; Status DC Sodium Chloride 1,000 ml @ 150 mls/hr Q6H40M IV Last administered on 01/14/19at 01:42; Start 01/13/19 at 17:04; Stop 01/14/19 at 17:03; Status DC Pantoprazole Sodium 80 mg/ Sodium Chloride 100 ml @ 10 mls/hr Q10H IV ; Start 01/13/19 at 17:15; Stop 01/13/19 at 17:36; Status DC Sodium Chloride 1,000 ml @ 100 mls/hr Q10H IV ; Start 01/13/19 at 17:15; Stop at 10:18; Status DC Linezolid/Dextrose 300 ml @ 300 mls/hr Q12HR IV ; Start 01/13/19 at 18:00; Stop 01/13/19 at 18:03; Status DC Meropenem 500 mg/ Sodium Chloride 50 ml @ 100 mls/hr Q12HR IV ; Start 01/13/19 at 18:00; Stop 01/13/19 at 18:03; Status DC Ondansetron HCl (Zofran) 4 mg PRN Q6HRS PRN IV NAUSEA/VOMITING Last administered on 01/15/19at 21:06; Start 01/13/19 at 17:15 Acetaminophen (Tylenol Supp) 650 mg PRN Q6HRS PRN MT HEADACHE / TEMP; Start 01/13/19 at 17:15; Stop 01/15/19 at 10:50; Status DC Linezolid/Dextrose 300 ml @ 300 mls/hr ONCE ONCE IV Last administered on 20:23; Start 01/13/19 at 19:00; Stop 01/13/19 at 19:59; Status DC Meropenem 500 mg/ Sodium Chloride 50 ml @ 100 mls/hr ONCE ONCE IV Last administered on 01/13/19at 20:23; Start 01/13/19 at 17:45; Stop 01/13/19 at 18:14; Status DC Linezolid/Dextrose 300 ml @ 300 mls/hr Q12HR IV Last administered on 01/15/19at 08:46; Start 01/14/19 at 09:00; Stop 01/15/19 at 10:29; Status DC Meropenem 500 mg/ Sodium Chloride 50 ml @ 100 mls/hr Q12HR IV ; Start 01/14/19 at 09:00; Stop 01/14/19 at 10:18; Status DC Meropenem 500 mg/ Sodium Chloride 50 ml @ 100 mls/hr Q8HRS IV Last administered on 01/17/19at 05:37; Start 01/14/19 at 14:00 Potassium Chloride/Dextrose/ Sod Cl 1,000 ml @ 40 mls/hr Q24H IV Last administered on 01/16/19at 06:05; Start 01/14/19 at 10:30 Propofol 20 ml @ As Directed STK-MED ONCE IV ; Start 01/14/19 at 12:22; Stop 01/14 at 12:23; Status DC Lactobacillus Rhamnosus (Culturelle) 1 cap BID PO Last administered on at 07:56; Start 01/14/19 at 21:00 Heparin Sodium (Porcine) (HEPARIN for NUC MED) 100 unit 1X ONCE IV ; Start 01/14 at 15:00; Stop 01/14/19 at 15:01; Status DC Acetaminophen (Tylenol) 650 mg PRN Q6HRS PRN PO MILD PAIN / TEMP Last administered on 01/14/19at 23:06; Start 01/14/19 at 23:00 Ferrous Sulfate (Feosol) 325 mg BID PO Last administered on 01/17/19at 07:56; Start 01/15/19 at 11:30 Acetaminophen (Tylenol) 650 mg PRN Q6HRS PRN PO MILD PAIN / TEMP; Start at 11:00; Stop 01/15/19 at 11:00; Status DC Pantoprazole Sodium (Protonix) 40 mg DAILYAC PO Last administered on 01/17/19 07:56; Start 01/16/19 at 07:30 Atorvastatin Calcium (Lipitor) 10 mg QHS PO Last administered on 01/16/19 21:53 ; Start 01/16/19 at 21:00 Carvedilol (Coreg) 6.25 mg BIDWMEALS PO Last administered on 01/17/19 07:58; Start 01/16/19 at 17:00 Venlafaxine HCl (Effexor) 50 mg TID PO Last administered on 01/17/19 07:56; Start 01/16/19 at 14:00 Magnesium Oxide (Magnesium Oxide) 400 mg BID PO Last administered on 01/17/19 07:56; Start 01/16/19 at 21:00 Active Scripts Active Pantoprazole Sodium 40 Mg Tablet.dr 40 Mg PO DAILYAC Feosol (Ferrous Sulfate) 325 Mg Tablet 325 Mg PO BIDWMEALS Reported Bactrim 400-80 Mg Tablet (Sulfamethoxazole/Trimethoprim) 1 Each Tablet 2 Tab PO BID Magnesium Oxide 400 Mg Tablet 1 Tab PO BID Clobetasol Propionate 15 Gm Cream..g. 1 Sherri TP BID Cozaar (Losartan Potassium) 100 Mg Tablet 100 Mg PO DAILY Romance 10-325 Tablet (Acetaminophen/Hydrocodone Bitart) 1 Each Tablet 1 Tab PO PRN Q6HRS PRN Hydrochlorothiazide Tablet (Hydrochlorothiazide) 25 Mg Tablet 25 Mg PO DAILY [B12] DAILY [vitB6] DAILY Doxycycline Hyclate 100 Mg Capsule 1 Cap PO BID Centrum Silver Women Tablet (Multivits-Min/Iron/FA/Lutein) 1 Each Tablet 1 Each PO Atorvastatin Calcium 10 Mg Tablet 1 Tab PO DAILY Clopidogrel (Clopidogrel Bisulfate) 75 Mg Tablet 1 Tab PO DAILY Venlafaxine Hcl Er (Venlafaxine Hcl) 75 Mg Cap.er.24h 3 Cap PO DAILY Vitals/I & O Vital Sign - Last 24 Hours 01/16/19 01/16/19 01/16/19 01/16/19 11:00 15:18 17:33 19:53 Temp 98.9 99.0 98.8 98.9 99.0 98.8 Pulse 62 64 64 62 Resp 14 14 18 B/P (MAP) 155/69 (97) 149/63 (91) 149/63 176/82 (113) Pulse Ox 94 94 93 O2 Delivery Room Air Room Air Room Air 01/16/19 01/16/19 01/17/19 01/17/19 20:00 23:17 03:30 07:00 Temp 99.5 98.9 98.3 99.5 98.9 98.3 Pulse 60 64 66 Resp 18 18 16 B/P (MAP) 118/70 (86) 126/80 (95) 142/68 (92) Pulse Ox 93 92 94 O2 Delivery Room Air Room Air Room Air Room Air O2 Flow Rate 2.0 01/17/19 01/17/19 07:36 07:58 Pulse 66 B/P (MAP) 142/68 O2 Delivery Room Air Intake and Output 01/16/19 01/16/19 01/17/19 14:59 22:59 06:59 Intake Total 120 ml 1254 ml 0 ml Balance 120 ml 1254 ml 0 ml CINDI SOUSA MD Jan 17, 2019 10:38
[2019-01-17 11:00] VITALS: BP 149/64
[2019-01-17] MEDS ORDERED: MAGNESIUM SULFATE 2GM 50 ML IV ONE (11:00)
--- NOTE | 2019-01-17 11:22 | PDOC ---
Infectious Disease Note Subjective: Subjective Pt more alert today says feels better had one bm,dark,no blood no fevers in last 24 hrs ROS: ROS Negative except for above. Vital Signs: Vital Signs Vital Signs Date Time Temp Pulse Resp B/P (MAP) Pulse Ox O2 Delivery O2 Flow Rate FiO2 01/17/19 11:00 98.2 51 16 149/64 (92) 93 Room Air 98.2 01/16/19 20:00 2.0 Physical Exam: PHYSICAL EXAM GENERAL: Tired-looking female, lying in bed comfortably, in no acute distress. HEENT: Oral mucosa pale, atraumatic. Pupils equal. No conjunctival petechia, no icterus. LUNGS: Decreased breath sounds bilaterally in the base. HEART: S1, S2, no murmurs. ABDOMEN: Bowel sounds present, obese, soft, mild tenderness diffuse. No guarding, no rigidity. EXTREMITIES: Right AKA looks okay. Left lower extremity warm and dry. NEUROLOGIC: Follow simple commands. DERMATOLOGIC: Warm, dry, no generalized rash. Medications: Inpatient Meds: Current Medications Medications (Trade) Dose Ordered Sig/Milan Start Time Stop Time Status Last Admin Dose Admin Acetaminophen (Tylenol Supp) 650 mg PRN Q6HRS PRN 01/13/19 17:15 01/15/19 10:50 DC Acetaminophen (Tylenol) 650 mg PRN Q6HRS PRN 01/15/19 11:00 01/15/19 11:00 DC Atorvastatin Calcium (Lipitor) 10 mg QHS 01/16/19 21:00 01/16/19 21:53 10 MG Carvedilol (Coreg) 6.25 mg BIDWMEALS 01/16/19 17:00 01/17/19 07:58 6.25 MG Ceftriaxone Sodium (Rocephin) 1 gm 1X ONCE 01/13/19 16:00 01/13/19 16:01 DC 01/13/19 17:20 1 GM Ferrous Sulfate (Feosol) 325 mg BID 01/15/19 11:30 01/17/19 07:56 325 MG Heparin Sodium (Porcine) (HEPARIN for NUC MED) 100 unit 1X ONCE 01/14/19 15:00 01/14/19 15:01 DC Lactobacillus Rhamnosus (Culturelle) 1 cap BID 01/14/19 21:00 01/17/19 07:56 1 CAP Linezolid/Dextrose 300 ml @ 300 mls/hr Q12HR 01/14/19 09:00 01/15/19 10:29 DC 01/15/19 08:46 300 MLS/HR Magnesium Oxide (Magnesium Oxide) 400 mg BID 01/16/19 21:00 01/17/19 07:56 400 MG Magnesium Sulfate 50 ml @ 25 mls/hr 1X ONCE 01/17/19 11:00 01/17/19 12:59 01/17/19 11:07 25 MLS/HR Meropenem 500 mg/ Sodium Chloride 50 ml @ 100 mls/hr Q8HRS 01/14/19 14:00 01/17/19 05:37 100 MLS/HR Metoclopramide HCl (Reglan Vial) 10 mg 1X ONCE 01/13/19 16:30 01/13/19 16:31 DC 01/13/19 17:20 10 MG Ondansetron HCl (Zofran) 4 mg PRN Q6HRS PRN 01/13/19 17:15 01/15/19 21:06 4 MG Pantoprazole Sodium (PROTONIX VIAL for IV PUSH) 80 mg 1X ONCE 01/13/19 14:45 01/13/19 14:50 DC 01/13/19 15:08 80 MG Pantoprazole Sodium (Protonix) 40 mg DAILYAC 01/16/19 07:30 01/17/19 07:56 40 MG Pantoprazole Sodium 80 mg/ Sodium Chloride 100 ml @ 10 mls/hr Q10H 01/13/19 17:15 01/13/19 17:36 DC Potassium Chloride/Dextrose/ Sod Cl 1,000 ml @ 40 mls/hr Q24H 01/14/19 10:30 01/17/19 10:49 DC 01/16/19 06:05 40 MLS/HR Propofol 20 ml @ As Directed STK-MED ONCE 01/14/19 12:22 01/14/19 12:23 DC Sodium Chloride 1,000 ml @ 100 mls/hr Q10H 01/13/19 17:15 01/14/19 10:18 DC Venlafaxine HCl (Effexor) 50 mg TID 01/16/19 14:00 01/17/19 07:56 50 MG Labs: Lab Laboratory Tests Test 01/17/19 07:53 White Blood Count 5.7 x10^3/uL (4.0-11.0) Red Blood Count 2.92 x10^6/uL (3.50-5.40) Hemoglobin 8.6 g/dL (12.0-15.5) Hematocrit 26.0 % (36.0-47.0) Mean Corpuscular Volume 89 fL (79-100) Mean Corpuscular Hemoglobin 29 pg (25-35) Mean Corpuscular Hemoglobin Concent 33 g/dL (31-37) Red Cell Distribution Width 15.8 % (11.5-14.5) Platelet Count 208 x10^3/uL (140-400) Neutrophils (%) (Auto) 74 % (31-73) Lymphocytes (%) (Auto) 14 % (24-48) Monocytes (%) (Auto) 10 % (0-9) Eosinophils (%) (Auto) 1 % (0-3) Basophils (%) (Auto) 1 % (0-3) Neutrophils # (Auto) 4.2 x10^3uL (1.8-7.7) Lymphocytes # (Auto) 0.8 x10^3/uL (1.0-4.8) Monocytes # (Auto) 0.5 x10^3/uL (0.0-1.1) Eosinophils # (Auto) 0.1 x10^3/uL (0.0-0.7) Basophils # (Auto) 0.0 x10^3/uL (0.0-0.2) Sodium Level 141 mmol/L (136-145) Potassium Level 3.6 mmol/L (3.5-5.1) Chloride Level 107 mmol/L (98-107) Carbon Dioxide Level 28 mmol/L (21-32) Anion Gap 6 (6-14) Blood Urea Nitrogen 6 mg/dL (7-20) Creatinine 0.6 mg/dL (0.6-1.0) Estimated GFR (Cockcroft-Gault) 95.2 Glucose Level 101 mg/dL (70-99) Calcium Level 8.1 mg/dL (8.5-10.1) Magnesium Level 1.6 mg/dL (1.8-2.4) Micro BC neg CT C/A/P IMPRESSION: 1. Mild left basilar atelectasis/infiltrate. 2. Mild patchy groundglass and interstitial opacities in both lungs may be inflammatory. A component of scarring cannot be excluded. 3. Extensive calcific plaquing of the aorta and its branches including the coronary arteries. 4. Cholelithiasis. 5. Stable small infrarenal abdominal aortic aneurysm. 6. The spleen has increased in size with a new small density evident at the splenic hilum, inseparable from the tip of the pancreatic tail. A pancreatic mass cannot be excluded. CT follow-up to include GI tract opacification is suggested. Objective: Assessment: 1. Leukocytosis.likely reactive,resolving 2. Lactic acidosis. 3. Gastrointestinal bleed. NM scan neg for gi bleed, ? pancreatic mass on CT Abdomen 4. Acute blood loss anemia.s/p PRBCs 5. Hypertension secondary gastrointestinal bleed. 6. Acute kidney injury, multifactorial. 7. Severe protein-calorie malnutrition. 8. Peripheral arterial disease, status post right above-knee amputation. 9. Hard of hearing. 10. History of duodenal ulcer and AVM requiring endoclip in 06/2016. 11. High proBNP. 12. History of penicillin allergy, but has tolerated cephalosporins. 13. Bilateral GGO on CT likely inflammatory vs mild chf Plan: Plan of Care cont meropenem Follow up labs in a.m. and cultures. Continue supportive care. Discussed with KYRIE. MAY CHAVIS MD Jan 17, 2019 11:22
--- NOTE | 2019-01-17 13:43 | PDOC ---
Provider Note Provider Note 82 yo woman with new dx of Stage I gastric MALTOMA s/p EGD and bx on on 2018. Presented with acute N and hematemesis and hematochezia. EGD Ulcer on anterior wall with nodularity. 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 Helicobacter negative Sxs better with PPI. Now eating. No N or V. weight stable. PE no adenopathy, abd benign. CT C/A/P No adenopathy, no liver lesion, no ascites. thick gastric wall sparing only distal stomach, Possible mass at splenic hilum cannot exclude mass in tail of pancreas. Impression: Stage I gastric MALTOMA. Doing well after acute GI bleed. Need staging PET/CT after DC to fully ascertain extent of disease. If confined to stomach alone, then RT as primary treatment. Await Dr Resendez's eval. Discussed with patient. DHARA CORDOVA MD Jan 17, 2019 13:43
[2019-01-17 15:00] VITALS: BP 130/64
[2019-01-17 19:58] VITALS: BP 185/77
[2019-01-17] MEDS: ATORVASTATIN CALCIUM 10 MG TABLET. PO SCH (21:11)
[2019-01-17 23:18] VITALS: BP 122/74
--- NOTE | 2019-01-18 03:14 | CONS ---
DATE OF CONSULTATION: 01/17/2019 REFERRING PHYSICIAN: Nguyễn Palencia M.D. 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 She presented with acute gastrointestinal bleed, now improved with proton pump inhibitor therapy. She underwent upper endoscopy and biopsy here on 01/13/2019. CT scan reveals no suggestion for extensive disease beyond the stomach. We were asked to see her regarding radiation treatment in her care. ICD 10 C85.99 HISTORY OF PRESENT ILLNESS: The patient is an 83-year-old woman who on 01/12/2019 had a sudden onset of vomiting associated with gertrude blood in her vomit and black stools. CBC on the morning of 01/14/2019 revealed a hemoglobin of 6.6; white count 11,200 and platelet count of 233,000. Chemistry panel at that time was remarkable for potassium 5.2, creatinine of 2.6 and glucose of 191. She was transfused and stabilized on proton pump inhibitor therapy and IV fluids. She underwent upper endoscopy by Dr. Nguyễn Sanderson on 01/13/2019. Esophagus was normal. Stomach revealed a 4-5 mm ulcer in the anterior wall. Fundus had rim of nodularity with some hematin. No clot and no active bleeding. There was an 8-10 mm ulcer in the anterior wall, body with large area of nodularity surrounding it and on rim concerning for malignancy. Biopsy revealed atypical lymphoid infiltrate compatible with B-cell marginal zone lymphoma, mucosa associated lymphoid tissue consistent with a MALToma. It was negative for Helicobacter organisms on the H. pylori immunohistochemical stain. CT scan of the chest, abdomen and pelvis revealed no mediastinal, retroperitoneal or pelvic adenopathy. No liver lesions and no ascites. There was thickening of the gastric wall sparing only the distal stomach in the pyloric region. Spleen had increased in size with a small density evident the splenic hilum, inseparable from the tip of the pancreatic tail. Pancreatic mass could not be excluded. Imaging was obviously done without contrast in light of her creatinine. Following transfusion and stabilization, CBC on 01/17/2019: Hemoglobin 8.6; white count 5700 and platelet count 208,000. Chemistry panel on 01/15/2019: Sodium 143, potassium 3.6, creatinine 0.8 and calcium 8.0. PAST MEDICAL HISTORY: Remarkable for history of duodenal ulcer in 1989, previous upper GI bleed in 2015. At that time, she was noted to have gastric angiodysplasia at that time treated with endoclip. She has had peripheral vascular disease, status post femoral artery angioplasty in 1996, right above knee amputation in 2017, right femoral artery to peroneal artery bypass in 2016; right carotid endarterectomy in 2015; bilateral total hip arthroplasties in 2000; osteomyelitis, right ankle in the past prior to amputation; hyperlipidemia and osteoarthritis. ALLERGIES: PENICILLIN, AMLODIPINE, IODINE, OLANZAPINE, and SPIRONOLACTONE. MEDICATIONS: See hospital list. FAMILY HISTORY: Not obtained. SOCIAL HISTORY: Lives with her independently. Has an electric scooter and wheelchair is at home. Does not use a prosthetic although she has one at home. Quit smoking in 2010. Minimal drinker. 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 PHYSICAL EXAMINATION: GENERAL: Revealed a conversant, alert, appropriate, elderly woman in no acute distress. VITAL SIGNS: Weight 169 pounds, blood pressure 149/64 and pulse oximetry on room air 93%. HEENT: Revealed dentures in place. LYMPH NODES: She had no palpable cervical or supraclavicular adenopathy. CHEST: Clear. HEART: Regular. ABDOMEN: Obesity without hepatomegaly, masses or tenderness felt. EXTREMITIES: Right leg absent below the knee. Left leg revealed no pedal edema. ASSESSMENT AND PLAN: In summary, my impression is that of probable stage 1 gastric maltoma confined to the stomach, no CT evidence for extensive disease. She has an indeterminate nodular area at the hilus of the spleen and mass in the tail of the pancreas could not be excluded. At this time, I recommend convalescence from her acute GI bleed. Following this, I recommend outpatient PET CT scan to complete her staging. Anticipating her disease is confined to the stomach. I recommend primary radiation as a treatment of choice as she is H. pylori negative and therefore not treatable with antibiotics alone. I did a general discussion with the patient. I await Dr. Resendez's evaluation and input as well. Thank you again for allowing us to participate in her evaluation. Sincerely yours, DHARA CORDOVA MD DR: ARMANDO/chuy JOB#: [id number] / [id number] EDY Fenton MD, MICHAEL MD MTDD
[2019-01-18 03:18] VITALS: BP 178/73
--- NOTE | 2019-01-18 03:31 | CONS ---
DATE OF CONSULTATION: 01/17/2019 TYPE OF REPORT: Medical oncology consultation. CONSULTATION REQUESTING PHYSICIAN: Nguyễn Palencia M.D. REASON FOR CONSULTATION: Non-Hodgkin's lymphoma/MALT lymphoma involving the stomach, diagnosed by gastric biopsy on 01/14/2019. HISTORY OF PRESENT ILLNESS: The patient is an 83-year-old female with a history of hypertension, hyperlipidemia, peripheral arterial disease and right above-knee amputation; who has a history of duodenal ulcer in 1989 and has history of upper GI bleed in June of 2016 and she was noted to have a gastric angiodysplasia at that time treated with endoclip. She was admitted to [facility] on 01/13/2019 with acute onset of nausea, vomiting, diarrhea, bloody stools and hematemesis of 1 day duration. She was taking Plavix but no history of aspirin or nonsteroidal anti-inflammatory drugs. She was noted to have leukocytosis at the time of admission with a WBC of 24.3. She was also noted to have acute kidney injury with a BUN of 50 and a creatinine of 2.6. She was noted to have a hemoglobin of 8.9 on 01/13/2019, which dropped to 6.6 on 01/14/2019. She received 2 units of blood transfusion on 01/14/2019 and platelet transfusion on 01/13/2019. A GI consultation was obtained and she underwent endoscopy on 01/14/[address] Nguyễn Sanderson, which revealed gastric ulcer at least one of them concerning for malignancy. There was a 4-5 mm ulcer in the anterior wall, fundus and another 8-10 mm ulcer in the anterior wall body with large area of nodularity surrounding concerning for malignancy. 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 Biopsy of the gastric fundus ulcer revealed same diagnosis too. She denies any history of loss of weight or loss of appetite. No fevers, chills or night sweats. She underwent CT chest, abdomen and pelvis on 01/14/2019 without contrast, which revealed mild increase in size of the spleen with a new small density at the splenic hilum, inseparable from the tip of the pancreatic tail and a pancreatic mass cannot be excluded. PAST MEDICAL HISTORY: Duodenal ulcer in 1989, laminectomy, hip arthroplasty bilaterally, cryosurgery of the cervix in 1999, left femoral artery angioplasty in 1996, right above knee amputation in April of 2018, GI bleed in 2016 due to gastric angiodysplasia, hypertension, hyperlipidemia, diverticulosis and osteoarthritis. SOCIAL HISTORY: No smoking or alcohol abuse. FAMILY HISTORY: Negative for lymphoma. REVIEW OF SYSTEMS: A 12-point review of system was performed. Pertinent positives are mentioned in the history of present illness. Rest of the system review is negative. PHYSICAL EXAMINATION: GENERAL APPEARANCE: The patient is an 83-year-old female who is in no acute cardiorespiratory distress. VITAL SIGNS: Blood pressure 149/64 and temperature 98.2. HEENT: Atraumatic and normocephalic. Eyes: No icterus. NECK: Supple. CHEST: Bilaterally symmetrical. HEART: S1 and S2 normal. ABDOMEN: Soft and nontender. CENTRAL NERVOUS SYSTEM: No focal deficits. LYMPHATICS: No lymphadenopathy. SKIN: No rashes. PSYCHOLOGIC: Mood and affect are appropriate. MUSCULOSKELETAL: No joint effusions. LABORATORY DATA: From 01/17/2019, WBC 5.8, hemoglobin 8.6, MCV 89, platelet count 208 and reticulocyte count 3.3. Iron 17, TIBC 201, iron saturation 8% and ferritin 129. B12 701, BUN is 6 and creatinine 0.6. IMPRESSION AND PLAN: 1. 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 CT chest, abdomen and pelvis does not reveal any evidence of metastatic disease. Since she has localized malignancy, I would pursue with consulting Radiation Oncology for definitive radiation treatment. If radiation is contraindicated, then single agent rituximab would be an option. She has a lesion probably at the tail of the pancreas, which needs further evaluation and I agree to proceed with a PET scan as outpatient. No role for chemotherapy at this point unless she has more extensive disease noted on the PET scan. I discussed in detail with the patient and she understands and agrees with the plan. She will follow up with Dr. Pond and myself upon discharge. 2. Anemia secondary to malignancy and gastric ulcers. Iron studies are suggestive of anemia due to chronic disease. She has received blood transfusion and hemoglobin is now at 8.6. Continue to monitor. EDY RAMIREZ MD DR: Sydnee JOB#: [id number] / [id number] SHALA
[2019-01-18] MEDS: MEROPENEM 500 MG in IV NORMAL SALINE 50ML 50 ML IV SCH ×2 (05:24→14:11)
[2019-01-18 06:03] LABS: BASO % 0 % (0-3); EOS # 0.1 x10^3/uL (0.0-0.7); EOS % 2 % (0-3); HEMATOCRIT 27.1 % (36.0-47.0); HEMOGLOBIN 9.1 g/dL (12.0-15.5); LYMPH # 0.7 x10^3/uL (1.0-4.8); LYMPH % 9 % (24-48); MEAN CORPUSCULAR HEMOGLOBIN 30 pg (25-35); MEAN CORPUSCULAR HGB CONC 34 g/dL (31-37); MEAN CORPUSCULAR VOLUME 89 fL (79-100); MONO # 0.7 x10^3/uL (0.0-1.1); MONO % 10 % (0-9); NEUT # 5.5 x10^3uL (1.8-7.7); NEUT % 79 % (31-73); PLATELET COUNT 215 x10^3/uL (140-400); RED BLOOD COUNT 3.04 x10^6/uL (3.50-5.40); RED CELL DISTRIBUTION WIDTH 15.9 % (11.5-14.5); WHITE BLOOD COUNT 7.1 x10^3/uL (4.0-11.0)
[2019-01-18 06:04] LABS: CREATININE 0.6 mg/dL (0.6-1.0); GFR 95.2; MAGNESIUM 1.6 mg/dL (1.8-2.4); POTASSIUM 3.6 mmol/L (3.5-5.1)
[2019-01-18 07:00] VITALS: BP 177/84
--- NOTE | 2019-01-18 09:10 | PDOC ---
Infectious Disease Note Subjective Subjective Feeling pretty well this morning, Eating breakfast No F/C/N/V/D/SOA/pain ROS ROS per HPI Vital Sign Vital Signs Vital Signs Date Time Temp Pulse Resp B/P (MAP) Pulse Ox O2 Delivery O2 Flow Rate FiO2 01/18/19 07:00 98.3 61 16 177/84 (115) 92 Room Air 98.3 Physical Exam PHYSICAL EXAM GENERAL: Propped up in bed, alert, smiling HEENT: Oral cavity clear LUNGS: Decreased breath sounds bilaterally in the base. HEART: S1, S2, no murmurs. ABDOMEN: Bowel sounds present, obese, soft, mild tenderness diffuse. No guarding, no rigidity. EXTREMITIES: Right AKA looks okay. Left lower extremity warm and dry. NEUROLOGIC: Alert, responds appropriately SKIN: No rash PIV ok Labs Lab Laboratory Tests Test 01/18/19 04:55 White Blood Count 7.1 x10^3/uL (4.0-11.0) Red Blood Count 3.04 x10^6/uL (3.50-5.40) Hemoglobin 9.1 g/dL (12.0-15.5) Hematocrit 27.1 % (36.0-47.0) Mean Corpuscular Volume 89 fL (79-100) Mean Corpuscular Hemoglobin 30 pg (25-35) Mean Corpuscular Hemoglobin Concent 34 g/dL (31-37) Red Cell Distribution Width 15.9 % (11.5-14.5) Platelet Count 215 x10^3/uL (140-400) Neutrophils (%) (Auto) 79 % (31-73) Lymphocytes (%) (Auto) 9 % (24-48) Monocytes (%) (Auto) 10 % (0-9) Eosinophils (%) (Auto) 2 % (0-3) Basophils (%) (Auto) 0 % (0-3) Neutrophils # (Auto) 5.5 x10^3uL (1.8-7.7) Lymphocytes # (Auto) 0.7 x10^3/uL (1.0-4.8) Monocytes # (Auto) 0.7 x10^3/uL (0.0-1.1) Eosinophils # (Auto) 0.1 x10^3/uL (0.0-0.7) Basophils # (Auto) 0.0 x10^3/uL (0.0-0.2) Sodium Level 140 mmol/L (136-145) Potassium Level 3.6 mmol/L (3.5-5.1) Chloride Level 103 mmol/L (98-107) Carbon Dioxide Level 30 mmol/L (21-32) Anion Gap 7 (6-14) Blood Urea Nitrogen 9 mg/dL (7-20) Creatinine 0.6 mg/dL (0.6-1.0) Estimated GFR (Cockcroft-Gault) 95.2 Glucose Level 104 mg/dL (70-99) Calcium Level 8.0 mg/dL (8.5-10.1) Magnesium Level 1.6 mg/dL (1.8-2.4) Micro BLOOD CULTURE Preliminary NO GROWTH AFTER 4 DAYS URINE CULTURE RES 1 Final No growth Objective Assessment Stage I gastric MALTOMA s/p EGD and bx on on 01/13/2019. Leukocytosis.likely reactive,resolving Lactic acidosis. Gastrointestinal bleed. NM scan neg for gi bleed, ? pancreatic mass on CT Abdomen Acute blood loss anemia.s/p PRBCs Hypertension secondary gastrointestinal bleed. Acute kidney injury, multifactorial. Severe protein-calorie malnutrition. Peripheral arterial disease, status post right above-knee amputation. Hard of hearing. History of duodenal ulcer and AVM requiring endoclip in 06/2016. High proBNP. History of penicillin allergy, but has tolerated cephalosporins. 13. Bilateral GGO on CT likely inflammatory vs mild chf Plan Plan of Care DC meropenem f/u BC and labs Continue supportive care. Patient seen, examined, I agree with above. Assessment and plan was coformulated with HOME DEMONSTRATION AGENT. SARA BILLS APRN Jan 18, 2019 09:10 MAY CHAVIS MD Jan 18, 2019 15:38
[2019-01-18] MEDS: MAGNESIUM OXIDE 400 MG TABLET PO SCH ×2 (09:39→21:44)
[2019-01-18] MEDS: PANTOPRAZOLE 40 MG TABLET.DR. PO SCH (09:39)
[2019-01-18] MEDS: VENLAFAXINE 50 MG TABLET. PO SCH ×3 (09:39→21:44)
[2019-01-18] MEDS: FERROUS SULFATE 325 MG TABLET. PO SCH ×2 (09:39→21:44)
[2019-01-18] MEDS: LACTOBACILLUS RHAMNOSUS GG 1 CAPSULE. PO SCH ×2 (09:39→21:44)
[2019-01-18] MEDS: CARVEDILOL 6.25 MG TABLET. PO SCH ×2 (09:40→17:30)
[2019-01-18] MEDS ORDERED: MAGNESIUM SULFATE 2GM 50 ML IV ONE (10:15)
--- NOTE | 2019-01-18 10:17 | PDOC ---
PROGRESS NOTES Subjective Subjective nurse notes that she needs max assistance for transfers to wheelchair. she concurs with [facility] or SNF. bp high and will start losartan. magnesium low and will order iv magnesium today. hgb stable. discussed MALT dx with further testing and radiation rx with her. Objective Objective Vital Signs Date Time Temp Pulse Resp B/P (MAP) Pulse Ox O2 Delivery O2 Flow Rate FiO2 01/18/19 09:40 61 177/84 01/18/19 07:00 98.3 16 92 Room Air 98.3 01/16/19 20:00 2.0 Intake and Output 01/18/19 07:00 Intake Total 460 ml Balance 460 ml Intake Oral 460 ml # Voids 5 # Bowel Movements 3 Physical Exam Abdomen: Soft Heart: Regular rate, Normal S1, Normal S2 Extremities: No edema, Other (right AKA) General: Alert HEENT: Atraumatic Lungs: Clear to auscultation Neuro: Normal speech Psych/Mental Status: Mood NL Skin: No rashes Assessment Assessment Problems Acute gastrointestinal bleed resolved. 2 gastric ulcers by EGD. BX shows MALT lymphoma 2. Hypertension. bp high 3. Acute blood loss anemia. 4. Acute kidney injury resolved secondary to the gastrointestinal bleed and intravascular volume depletion 5. Severe protein calorie malnutrition. 6. Leukocytosis.better 7. Elevated lactic acid level. normal 01/14 8. Peripheral arterial disease. 9. History of a right above-knee amputation. 10. Hard of hearing. 11. History of a duodenal ulcer. 12. 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 hypomagnesemia critical illness myopathy Medical Problems: (1) Acute GI bleeding Status: Acute (2) Anemia Status: Acute (3) CHF (congestive heart failure) Status: Acute (4) Chronic anemia Status: Acute (5) Hyperkalemia Status: Acute (6) Hypoalbuminemia Status: Acute (7) Renal insufficiency Status: Acute (8) Sepsis Status: Acute Plan Plan of Care iv magnesium oral kcl today start losartan and continue oral kcl out patient PET/CT with radiation therapy per dr. Pond PT Comment Review of Relevant I have reviewed the following items rudy (where applicable) has been applied. Labs Laboratory Tests Test 01/17/19 07:53 01/18/19 04:55 White Blood Count 5.7 x10^3/uL (4.0-11.0) 7.1 x10^3/uL (4.0-11.0) Red Blood Count 2.92 x10^6/uL (3.50-5.40) 3.04 x10^6/uL (3.50-5.40) Hemoglobin 8.6 g/dL (12.0-15.5) 9.1 g/dL (12.0-15.5) Hematocrit 26.0 % (36.0-47.0) 27.1 % (36.0-47.0) Mean Corpuscular Volume 89 fL (79-100) 89 fL (79-100) Mean Corpuscular Hemoglobin 29 pg (25-35) 30 pg (25-35) Mean Corpuscular Hemoglobin Concent 33 g/dL (31-37) 34 g/dL (31-37) Red Cell Distribution Width 15.8 % (11.5-14.5) 15.9 % (11.5-14.5) Platelet Count 208 x10^3/uL (140-400) 215 x10^3/uL (140-400) Neutrophils (%) (Auto) 74 % (31-73) 79 % (31-73) Lymphocytes (%) (Auto) 14 % (24-48) 9 % (24-48) Monocytes (%) (Auto) 10 % (0-9) 10 % (0-9) Eosinophils (%) (Auto) 1 % (0-3) 2 % (0-3) Basophils (%) (Auto) 1 % (0-3) 0 % (0-3) Neutrophils # (Auto) 4.2 x10^3uL (1.8-7.7) 5.5 x10^3uL (1.8-7.7) Lymphocytes # (Auto) 0.8 x10^3/uL (1.0-4.8) 0.7 x10^3/uL (1.0-4.8) Monocytes # (Auto) 0.5 x10^3/uL (0.0-1.1) 0.7 x10^3/uL (0.0-1.1) Eosinophils # (Auto) 0.1 x10^3/uL (0.0-0.7) 0.1 x10^3/uL (0.0-0.7) Basophils # (Auto) 0.0 x10^3/uL (0.0-0.2) 0.0 x10^3/uL (0.0-0.2) Reticulocyte Count (auto) 3.3 % (0.5-2.5) Sodium Level 141 mmol/L (136-145) 140 mmol/L (136-145) Potassium Level 3.6 mmol/L (3.5-5.1) 3.6 mmol/L (3.5-5.1) Chloride Level 107 mmol/L (98-107) 103 mmol/L (98-107) Carbon Dioxide Level 28 mmol/L (21-32) 30 mmol/L (21-32) Anion Gap 6 (6-14) 7 (6-14) Blood Urea Nitrogen 6 mg/dL (7-20) 9 mg/dL (7-20) Creatinine 0.6 mg/dL (0.6-1.0) 0.6 mg/dL (0.6-1.0) Estimated GFR (Cockcroft-Gault) 95.2 95.2 Glucose Level 101 mg/dL (70-99) 104 mg/dL (70-99) Calcium Level 8.1 mg/dL (8.5-10.1) 8.0 mg/dL (8.5-10.1) Magnesium Level 1.6 mg/dL (1.8-2.4) 1.6 mg/dL (1.8-2.4) Iron Level 17 ug/dL (50-170) Total Iron Binding Capacity 201 ug/dL (250-450) Iron Saturation 8 % (15-34) Ferritin 129 ng/mL (8-252) Vitamin B12 Level 701 pg/mL (247-911) Laboratory Tests Test 01/18/19 04:55 White Blood Count 7.1 x10^3/uL (4.0-11.0) Red Blood Count 3.04 x10^6/uL (3.50-5.40) Hemoglobin 9.1 g/dL (12.0-15.5) Hematocrit 27.1 % (36.0-47.0) Mean Corpuscular Volume 89 fL (79-100) Mean Corpuscular Hemoglobin 30 pg (25-35) Mean Corpuscular Hemoglobin Concent 34 g/dL (31-37) Red Cell Distribution Width 15.9 % (11.5-14.5) Platelet Count 215 x10^3/uL (140-400) Neutrophils (%) (Auto) 79 % (31-73) Lymphocytes (%) (Auto) 9 % (24-48) Monocytes (%) (Auto) 10 % (0-9) Eosinophils (%) (Auto) 2 % (0-3) Basophils (%) (Auto) 0 % (0-3) Neutrophils # (Auto) 5.5 x10^3uL (1.8-7.7) Lymphocytes # (Auto) 0.7 x10^3/uL (1.0-4.8) Monocytes # (Auto) 0.7 x10^3/uL (0.0-1.1) Eosinophils # (Auto) 0.1 x10^3/uL (0.0-0.7) Basophils # (Auto) 0.0 x10^3/uL (0.0-0.2) Sodium Level 140 mmol/L (136-145) Potassium Level 3.6 mmol/L (3.5-5.1) Chloride Level 103 mmol/L (98-107) Carbon Dioxide Level 30 mmol/L (21-32) Anion Gap 7 (6-14) Blood Urea Nitrogen 9 mg/dL (7-20) Creatinine 0.6 mg/dL (0.6-1.0) Estimated GFR (Cockcroft-Gault) 95.2 Glucose Level 104 mg/dL (70-99) Calcium Level 8.0 mg/dL (8.5-10.1) Magnesium Level 1.6 mg/dL (1.8-2.4) Microbiology 01/13/19 Blood Culture - Preliminary, Resulted NO GROWTH AFTER 4 DAYS 01/13/19 Urine Culture - Final, Complete 01/13/19 Urine Culture Result 1 (ABNER) - Final, Complete Medications Current Medications Sodium Chloride 1,000 ml @ 1,000 mls/hr 1X ONCE IV Last administered on at 15:08; Start 01/13/19 at 14:45; Stop 01/13/19 at 15:44; Status DC Pantoprazole Sodium (PROTONIX VIAL for IV PUSH) 80 mg 1X ONCE IVP Last administered on 01/13/19at 15:08; Start 01/13/19 at 14:45; Stop 01/13/19 at 14:50; Status DC Sodium Chloride 1,000 ml @ 1,000 mls/hr 1X ONCE IV Last administered on at 15:50; Start 01/13/19 at 16:00; Stop 01/13/19 at 16:59; Status DC Ceftriaxone Sodium (Rocephin) 1 gm 1X ONCE IVP Last administered on 01/13/19at 17:20; Start 01/13/19 at 16:00; Stop 01/13/19 at 16:01; Status DC Pantoprazole Sodium 80 mg/ Sodium Chloride 100 ml @ 10 mls/hr Q10H IV Last administered on 01/15/19at 03:19; Start 01/13/19 at 16:30; Stop 01/15/19 at 15:23; Status DC Metoclopramide HCl (Reglan Vial) 10 mg 1X ONCE IV Last administered on at 17:20; Start 01/13/19 at 16:30; Stop 01/13/19 at 16:31; Status DC Sodium Chloride 1,000 ml @ 150 mls/hr Q6H40M IV Last administered on 01/14/19at 01:42; Start 01/13/19 at 17:04; Stop 01/14/19 at 17:03; Status DC Pantoprazole Sodium 80 mg/ Sodium Chloride 100 ml @ 10 mls/hr Q10H IV ; Start 01/13/19 at 17:15; Stop 01/13/19 at 17:36; Status DC Sodium Chloride 1,000 ml @ 100 mls/hr Q10H IV ; Start 01/13/19 at 17:15; Stop at 10:18; Status DC Linezolid/Dextrose 300 ml @ 300 mls/hr Q12HR IV ; Start 01/13/19 at 18:00; Stop 01/13/19 at 18:03; Status DC Meropenem 500 mg/ Sodium Chloride 50 ml @ 100 mls/hr Q12HR IV ; Start 01/13/19 at 18:00; Stop 01/13/19 at 18:03; Status DC Ondansetron HCl (Zofran) 4 mg PRN Q6HRS PRN IV NAUSEA/VOMITING Last administered on 01/15/19at 21:06; Start 01/13/19 at 17:15 Acetaminophen (Tylenol Supp) 650 mg PRN Q6HRS PRN VA HEADACHE / TEMP; Start 01/13/19 at 17:15; Stop 01/15/19 at 10:50; Status DC Linezolid/Dextrose 300 ml @ 300 mls/hr ONCE ONCE IV Last administered on at 20:23; Start 01/13/19 at 19:00; Stop 01/13/19 at 19:59; Status DC Meropenem 500 mg/ Sodium Chloride 50 ml @ 100 mls/hr ONCE ONCE IV Last administered on 01/13/19at 20:23; Start 01/13/19 at 17:45; Stop 01/13/19 at 18:14; Status DC Linezolid/Dextrose 300 ml @ 300 mls/hr Q12HR IV Last administered on 01/15/19at 08:46; Start 01/14/19 at 09:00; Stop 01/15/19 at 10:29; Status DC Meropenem 500 mg/ Sodium Chloride 50 ml @ 100 mls/hr Q12HR IV ; Start 01/14/19 at 09:00; Stop 01/14/19 at 10:18; Status DC Meropenem 500 mg/ Sodium Chloride 50 ml @ 100 mls/hr Q8HRS IV Last administered on 01/18/19at 05:24; Start 01/14/19 at 14:00 Potassium Chloride/Dextrose/ Sod Cl 1,000 ml @ 40 mls/hr Q24H IV Last administered on 01/16/19at 06:05; Start 01/14/19 at 10:30; Stop 01/17/19 at 10:49; Status DC Propofol 20 ml @ As Directed STK-MED ONCE IV ; Start 01/14/19 at 12:22; Stop 01/14 at 12:23; Status DC Lactobacillus Rhamnosus (Culturelle) 1 cap BID PO Last administered on at 09:39; Start 01/14/19 at 21:00 Heparin Sodium (Porcine) (HEPARIN for NUC MED) 100 unit 1X ONCE IV ; Start 01/14 at 15:00; Stop 01/14/19 at 15:01; Status DC Acetaminophen (Tylenol) 650 mg PRN Q6HRS PRN PO MILD PAIN / TEMP Last administered on 01/14/19 23:06; Start 01/14/19 at 23:00 Ferrous Sulfate (Feosol) 325 mg BID PO Last administered on 01/18/19 09:39; Start 01/15/19 at 11:30 Acetaminophen (Tylenol) 650 mg PRN Q6HRS PRN PO MILD PAIN / TEMP; Start at 11:00; Stop 01/15/19 at 11:00; Status DC Pantoprazole Sodium (Protonix) 40 mg DAILYAC PO Last administered on 01/18/19 09:39; Start 01/16/19 at 07:30 Atorvastatin Calcium (Lipitor) 10 mg QHS PO Last administered on 01/17/19 21:11 ; Start 01/16/19 at 21:00 Carvedilol (Coreg) 6.25 mg BIDWMEALS PO Last administered on 01/18/19 09:40; Start 01/16/19 at 17:00 Venlafaxine HCl (Effexor) 50 mg TID PO Last administered on 01/18/19 09:39; Start 01/16/19 at 14:00 Magnesium Oxide (Magnesium Oxide) 400 mg BID PO Last administered on 01/18/19 09:39; Start 01/16/19 at 21:00 Magnesium Sulfate 50 ml @ 25 mls/hr 1X ONCE IV Last administered on 01/17/19 11:07; Start 01/17/19 at 11:00; Stop 01/17/19 at 12:59; Status DC Active Scripts Active Pantoprazole Sodium 40 Mg Tablet.dr 40 Mg PO DAILYAC Feosol (Ferrous Sulfate) 325 Mg Tablet 325 Mg PO BIDWMEALS Reported Bactrim 400-80 Mg Tablet (Sulfamethoxazole/Trimethoprim) 1 Each Tablet 2 Tab PO BID Magnesium Oxide 400 Mg Tablet 1 Tab PO BID Clobetasol Propionate 15 Gm Cream..g. 1 Sherri TP BID Cozaar (Losartan Potassium) 100 Mg Tablet 100 Mg PO DAILY Selma 10-325 Tablet (Acetaminophen/Hydrocodone Bitart) 1 Each Tablet 1 Tab PO PRN Q6HRS PRN Hydrochlorothiazide Tablet (Hydrochlorothiazide) 25 Mg Tablet 25 Mg PO DAILY [B12] DAILY [vitB6] DAILY Doxycycline Hyclate 100 Mg Capsule 1 Cap PO BID Centrum Silver Women Tablet (Multivits-Min/Iron/FA/Lutein) 1 Each Tablet 1 Each PO Atorvastatin Calcium 10 Mg Tablet 1 Tab PO DAILY Clopidogrel (Clopidogrel Bisulfate) 75 Mg Tablet 1 Tab PO DAILY Venlafaxine Hcl Er (Venlafaxine Hcl) 75 Mg Cap.er.24h 3 Cap PO DAILY Vitals/I & O Vital Sign - Last 24 Hours 01/17/19 01/17/19 01/17/19 01/17/19 11:00 15:00 17:04 19:58 Temp 98.2 97.8 98.5 98.2 97.8 98.5 Pulse 51 59 59 60 Resp 16 16 16 B/P (MAP) 149/64 (92) 130/64 (86) 130/64 185/77 (113) Pulse Ox 93 96 92 O2 Delivery Room Air Room Air Room Air 01/17/19 01/17/19 01/18/19 01/18/19 20:05 23:18 03:18 07:00 Temp 98.6 99.4 98.3 98.6 99.4 98.3 Pulse 63 64 61 Resp 16 16 16 B/P (MAP) 122/74 (90) 178/73 (108) 177/84 (115) Pulse Ox 93 92 92 O2 Delivery Room Air Room Air Room Air Room Air 01/18/19 09:40 Pulse 61 B/P (MAP) 177/84 Intake and Output 01/17/19 01/17/19 01/18/19 15:00 23:00 07:00 Intake Total 360 ml 100 ml Balance 360 ml 100 ml CINDI SOUSA MD Jan 18, 2019 10:16
[2019-01-18] MEDS ORDERED: POTASSIUM CHLORIDE 20 MEQ TABLET.ER. PO ONE (10:30)
[2019-01-18 11:00] VITALS: BP 161/76
[2019-01-18] MEDS: LOSARTAN POTASSIUM 50 MG TABLET. PO SCH (11:29)
--- NOTE | 2019-01-18 12:54 | NUR ---
SW responding to a referral regarding [facility] or SNF screen. Pt has been declining to participate with PT. Discussed with RN and RN will order OT Eval and Tx order. SW will await for PT/OT assessment to evaluate rehab vs SNU. Will continue to follow.
[2019-01-18 15:00] VITALS: BP 157/63
[2019-01-18 19:39] VITALS: BP 168/75
[2019-01-18] MEDS: ATORVASTATIN CALCIUM 10 MG TABLET. PO SCH (21:44)
[2019-01-18] MEDS: ACETAMINOPHEN 325 MG TABLET. PO PRN (22:53)
[2019-01-18 23:17] VITALS: BP 178/69
[2019-01-19 03:44] VITALS: BP 171/77
[2019-01-19 05:57] LABS: HEMATOCRIT 27.4 % (36.0-47.0); HEMOGLOBIN 9.1 g/dL (12.0-15.5); RED BLOOD COUNT 3.08 x10^6/uL (3.50-5.40); RED CELL DISTRIBUTION WIDTH 15.9 % (11.5-14.5); WHITE BLOOD COUNT 7.4 x10^3/uL (4.0-11.0)
[2019-01-19 07:00] VITALS: BP 162/76
[2019-01-19] MEDS: FERROUS SULFATE 325 MG TABLET. PO SCH (08:31)
[2019-01-19] MEDS: PANTOPRAZOLE 40 MG TABLET.DR. PO SCH (08:31)
[2019-01-19] MEDS: LACTOBACILLUS RHAMNOSUS GG 1 CAPSULE. PO SCH (08:31)
[2019-01-19] MEDS: MAGNESIUM OXIDE 400 MG TABLET PO SCH (08:32)
[2019-01-19] MEDS: LOSARTAN POTASSIUM 50 MG TABLET. PO SCH (08:32)
[2019-01-19] MEDS: CARVEDILOL 6.25 MG TABLET. PO SCH (08:32)
[2019-01-19] MEDS: VENLAFAXINE 50 MG TABLET. PO SCH ×2 (08:32→13:45)
--- NOTE | 2019-01-19 09:45 | PDOC ---
PROGRESS NOTES Subjective Subjective she wants to go home. seen by OT yesterday who notes that she is maximum assist for transfer from bed to commode. bp is high and will increase losartan. ate breakfast. off of iv fluids Objective Objective Vital Signs Date Time Temp Pulse Resp B/P (MAP) Pulse Ox O2 Delivery O2 Flow Rate FiO2 01/19/19 08:32 58 162/76 01/19/19 07:00 98.9 16 94 Room Air 98.9 01/18/19 20:00 2.0 Intake and Output 01/19/19 07:00 Intake Total 470 ml Balance 470 ml Intake Oral 470 ml # Voids 7 # Bowel Movements 1 Physical Exam Abdomen: Soft Heart: Regular rate, Normal S1, Normal S2 Extremities: No edema, Other (right AKA) General: Alert HEENT: Atraumatic Lungs: Clear to auscultation Neuro: Normal speech Psych/Mental Status: Mental status NL Skin: No rashes Assessment Assessment Problems Acute gastrointestinal bleed resolved. 2 gastric ulcers by EGD. BX shows MALT lymphoma 2. Hypertension. bp high 3. Acute blood loss anemia. 4. Acute kidney injury resolved secondary to the gastrointestinal bleed and intravascular volume depletion 5. Severe protein calorie malnutrition. 6. Leukocytosis.better 7. Elevated lactic acid level. normal 01/14 8. Peripheral arterial disease. 9. History of a right above-knee amputation. 10. Hard of hearing. 11. History of a duodenal ulcer. 12. 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 hypomagnesemia critical illness myopathy Medical Problems: (1) Acute GI bleeding Status: Acute (2) Anemia Status: Acute (3) CHF (congestive heart failure) Status: Acute (4) Chronic anemia Status: Acute (5) Hyperkalemia Status: Acute (6) Hypoalbuminemia Status: Acute (7) Renal insufficiency Status: Acute (8) Sepsis Status: Acute Plan Plan of Care PT and OT increase losartan [facility] vs SNF screen. discussed that she is max assistance on transfers and has lost strength for her acute illness and needs more PT and OT before transitioning to home. discussed [facility] and if not accepted a SNF lab tomorrow continue ferrous sulfate continue protonix Comment Review of Relevant I have reviewed the following items rudy (where applicable) has been applied. Labs Laboratory Tests Test 01/18/19 04:55 01/19/19 05:15 White Blood Count 7.1 x10^3/uL (4.0-11.0) 7.4 x10^3/uL (4.0-11.0) Red Blood Count 3.04 x10^6/uL (3.50-5.40) 3.08 x10^6/uL (3.50-5.40) Hemoglobin 9.1 g/dL (12.0-15.5) 9.1 g/dL (12.0-15.5) Hematocrit 27.1 % (36.0-47.0) 27.4 % (36.0-47.0) Mean Corpuscular Volume 89 fL (79-100) 89 fL (79-100) Mean Corpuscular Hemoglobin 30 pg (25-35) 30 pg (25-35) Mean Corpuscular Hemoglobin Concent 34 g/dL (31-37) 33 g/dL (31-37) Red Cell Distribution Width 15.9 % (11.5-14.5) 15.9 % (11.5-14.5) Platelet Count 215 x10^3/uL (140-400) 228 x10^3/uL (140-400) Neutrophils (%) (Auto) 79 % (31-73) Lymphocytes (%) (Auto) 9 % (24-48) Monocytes (%) (Auto) 10 % (0-9) Eosinophils (%) (Auto) 2 % (0-3) Basophils (%) (Auto) 0 % (0-3) Neutrophils # (Auto) 5.5 x10^3uL (1.8-7.7) Lymphocytes # (Auto) 0.7 x10^3/uL (1.0-4.8) Monocytes # (Auto) 0.7 x10^3/uL (0.0-1.1) Eosinophils # (Auto) 0.1 x10^3/uL (0.0-0.7) Basophils # (Auto) 0.0 x10^3/uL (0.0-0.2) Sodium Level 140 mmol/L (136-145) Potassium Level 3.6 mmol/L (3.5-5.1) Chloride Level 103 mmol/L (98-107) Carbon Dioxide Level 30 mmol/L (21-32) Anion Gap 7 (6-14) Blood Urea Nitrogen 9 mg/dL (7-20) Creatinine 0.6 mg/dL (0.6-1.0) Estimated GFR (Cockcroft-Gault) 95.2 Glucose Level 104 mg/dL (70-99) Calcium Level 8.0 mg/dL (8.5-10.1) Magnesium Level 1.6 mg/dL (1.8-2.4) Laboratory Tests Test 01/19/19 05:15 White Blood Count 7.4 x10^3/uL (4.0-11.0) Red Blood Count 3.08 x10^6/uL (3.50-5.40) Hemoglobin 9.1 g/dL (12.0-15.5) Hematocrit 27.4 % (36.0-47.0) Mean Corpuscular Volume 89 fL (79-100) Mean Corpuscular Hemoglobin 30 pg (25-35) Mean Corpuscular Hemoglobin Concent 33 g/dL (31-37) Red Cell Distribution Width 15.9 % (11.5-14.5) Platelet Count 228 x10^3/uL (140-400) Microbiology 01/13/19 Blood Culture - Final, Complete NO GROWTH AFTER 5 DAYS 01/13/19 Urine Culture - Final, Complete 01/13/19 Urine Culture Result 1 (ABNER) - Final, Complete Medications Current Medications Sodium Chloride 1,000 ml @ 1,000 mls/hr 1X ONCE IV Last administered on at 15:08; Start 01/13/19 at 14:45; Stop 01/13/19 at 15:44; Status DC Pantoprazole Sodium (PROTONIX VIAL for IV PUSH) 80 mg 1X ONCE IVP Last administered on 01/13/19at 15:08; Start 01/13/19 at 14:45; Stop 01/13/19 at 14:50; Status DC Sodium Chloride 1,000 ml @ 1,000 mls/hr 1X ONCE IV Last administered on at 15:50; Start 01/13/19 at 16:00; Stop 01/13/19 at 16:59; Status DC Ceftriaxone Sodium (Rocephin) 1 gm 1X ONCE IVP Last administered on 01/13/19at 17:20; Start 01/13/19 at 16:00; Stop 01/13/19 at 16:01; Status DC Pantoprazole Sodium 80 mg/ Sodium Chloride 100 ml @ 10 mls/hr Q10H IV Last administered on 01/15/19at 03:19; Start 01/13/19 at 16:30; Stop 01/15/19 at 15:23; Status DC Metoclopramide HCl (Reglan Vial) 10 mg 1X ONCE IV Last administered on at 17:20; Start 01/13/19 at 16:30; Stop 01/13/19 at 16:31; Status DC Sodium Chloride 1,000 ml @ 150 mls/hr Q6H40M IV Last administered on 01/14/19at 01:42; Start 01/13/19 at 17:04; Stop 01/14/19 at 17:03; Status DC Pantoprazole Sodium 80 mg/ Sodium Chloride 100 ml @ 10 mls/hr Q10H IV ; Start 01/13/19 at 17:15; Stop 01/13/19 at 17:36; Status DC Sodium Chloride 1,000 ml @ 100 mls/hr Q10H IV ; Start 01/13/19 at 17:15; Stop at 10:18; Status DC Linezolid/Dextrose 300 ml @ 300 mls/hr Q12HR IV ; Start 01/13/19 at 18:00; Stop 01/13/19 at 18:03; Status DC Meropenem 500 mg/ Sodium Chloride 50 ml @ 100 mls/hr Q12HR IV ; Start 01/13/19 at 18:00; Stop 01/13/19 at 18:03; Status DC Ondansetron HCl (Zofran) 4 mg PRN Q6HRS PRN IV NAUSEA/VOMITING Last administered on 01/15/19at 21:06; Start 01/13/19 at 17:15 Acetaminophen (Tylenol Supp) 650 mg PRN Q6HRS PRN ID HEADACHE / TEMP; Start 01/13/19 at 17:15; Stop 01/15/19 at 10:50; Status DC Linezolid/Dextrose 300 ml @ 300 mls/hr ONCE ONCE IV Last administered on at 20:23; Start 01/13/19 at 19:00; Stop 01/13/19 at 19:59; Status DC Meropenem 500 mg/ Sodium Chloride 50 ml @ 100 mls/hr ONCE ONCE IV Last administered on 01/13/19at 20:23; Start 01/13/19 at 17:45; Stop 01/13/19 at 18:14; Status DC Linezolid/Dextrose 300 ml @ 300 mls/hr Q12HR IV Last administered on 01/15/19at 08:46; Start 01/14/19 at 09:00; Stop 01/15/19 at 10:29; Status DC Meropenem 500 mg/ Sodium Chloride 50 ml @ 100 mls/hr Q12HR IV ; Start 01/14/19 at 09:00; Stop 01/14/19 at 10:18; Status DC Meropenem 500 mg/ Sodium Chloride 50 ml @ 100 mls/hr Q8HRS IV Last administered on 01/18/19at 14:11; Start 01/14/19 at 14:00; Stop 01/18/19 at 15:39; Status DC Potassium Chloride/Dextrose/ Sod Cl 1,000 ml @ 40 mls/hr Q24H IV Last administered on 01/16/19at 06:05; Start 01/14/19 at 10:30; Stop 01/17/19 at 10:49; Status DC Propofol 20 ml @ As Directed STK-MED ONCE IV ; Start 01/14/19 at 12:22; Stop 01/14 at 12:23; Status DC Lactobacillus Rhamnosus (Culturelle) 1 cap BID PO Last administered on 08:31; Start 01/14/19 at 21:00 Heparin Sodium (Porcine) (HEPARIN for NUC MED) 100 unit 1X ONCE IV ; Start 01/14 at 15:00; Stop 01/14/19 at 15:01; Status DC Acetaminophen (Tylenol) 650 mg PRN Q6HRS PRN PO MILD PAIN / TEMP Last administered on 01/18/19at 22:53; Start 01/14/19 at 23:00 Ferrous Sulfate (Feosol) 325 mg BID PO Last administered on 01/19/19at 08:31; Start 01/15/19 at 11:30 Acetaminophen (Tylenol) 650 mg PRN Q6HRS PRN PO MILD PAIN / TEMP; Start at 11:00; Stop 01/15/19 at 11:00; Status DC Pantoprazole Sodium (Protonix) 40 mg DAILYAC PO Last administered on 01/19/19 08:31; Start 01/16/19 at 07:30 Atorvastatin Calcium (Lipitor) 10 mg QHS PO Last administered on 01/18/19at 21:44 ; Start 01/16/19 at 21:00 Carvedilol (Coreg) 6.25 mg BIDWMEALS PO Last administered on 01/19/19 08:32; Start 01/16/19 at 17:00 Venlafaxine HCl (Effexor) 50 mg TID PO Last administered on 01/19/19 08:32; Start 01/16/19 at 14:00 Magnesium Oxide (Magnesium Oxide) 400 mg BID PO Last administered on 01/19/19 08:32; Start 01/16/19 at 21:00 Magnesium Sulfate 50 ml @ 25 mls/hr 1X ONCE IV Last administered on 01/17/19 11:07; Start 01/17/19 at 11:00; Stop 01/17/19 at 12:59; Status DC Magnesium Sulfate 50 ml @ 25 mls/hr 1X ONCE IV Last administered on 01/18/19 11:28; Start 01/18/19 at 10:15; Stop 01/18/19 at 12:14; Status DC Losartan Potassium (Cozaar) 50 mg DAILY PO Last administered on 01/19/19 08:32 ; Start 01/18/19 at 11:00 Potassium Chloride (Klor-Con) 20 meq 1X ONCE PO Last administered on 01/18/19 11:28; Start 01/18/19 at 10:30; Stop 01/18/19 at 10:31; Status DC Active Scripts Active Pantoprazole Sodium 40 Mg Tablet.dr 40 Mg PO DAILYAC Feosol (Ferrous Sulfate) 325 Mg Tablet 325 Mg PO BIDWMEALS Reported Bactrim 400-80 Mg Tablet (Sulfamethoxazole/Trimethoprim) 1 Each Tablet 2 Tab PO BID Magnesium Oxide 400 Mg Tablet 1 Tab PO BID Clobetasol Propionate 15 Gm Cream..g. 1 Sherri TP BID Cozaar (Losartan Potassium) 100 Mg Tablet 100 Mg PO DAILY [place] 10-325 Tablet (Acetaminophen/Hydrocodone Bitart) 1 Each Tablet 1 Tab PO PRN Q6HRS PRN Hydrochlorothiazide Tablet (Hydrochlorothiazide) 25 Mg Tablet 25 Mg PO DAILY [B12] DAILY [vitB6] DAILY Doxycycline Hyclate 100 Mg Capsule 1 Cap PO BID Centrum Silver Women Tablet (Multivits-Min/Iron/FA/Lutein) 1 Each Tablet 1 Each PO Atorvastatin Calcium 10 Mg Tablet 1 Tab PO DAILY Clopidogrel (Clopidogrel Bisulfate) 75 Mg Tablet 1 Tab PO DAILY Venlafaxine Hcl Er (Venlafaxine Hcl) 75 Mg Cap.er.24h 3 Cap PO DAILY Vitals/I & O Vital Sign - Last 24 Hours 01/18/19 01/18/19 01/18/19 01/18/19 11:00 11:29 15:00 17:30 Temp 98.0 97.9 98.0 97.9 Pulse 58 58 53 53 Resp 16 18 B/P (MAP) 161/76 (104) 161/76 157/63 (94) 157/63 Pulse Ox 93 93 O2 Delivery Room Air Room Air 01/18/19 01/18/19 01/18/19 01/19/19 19:39 20:00 23:17 03:44 Temp 98.2 99.5 97.7 98.2 99.5 97.7 Pulse 59 65 61 Resp 18 18 18 B/P (MAP) 168/75 (106) 178/69 (105) 171/77 (108) Pulse Ox 95 92 91 O2 Delivery Room Air Room Air Room Air Room Air O2 Flow Rate 2.0 01/19/19 01/19/19 01/19/19 07:00 08:32 08:32 Temp 98.9 98.9 Pulse 58 58 58 Resp 16 B/P (MAP) 162/76 (104) 162/76 162/76 Pulse Ox 94 O2 Delivery Room Air Intake and Output 01/18/19 01/18/19 01/19/19 15:00 23:00 07:00 Intake Total 250 ml 170 ml 50 ml Balance 250 ml 170 ml 50 ml CINDI SOUSA MD Jan 19, 2019 09:45
--- NOTE | 2019-01-19 09:47 | PDOC ---
Infectious Disease Note Subjective Subjective Wishing she could go home today Feeling alright No complaints or concerns voiced at this time Remains afebrile ROS ROS per HPI otherwise neg Vital Sign Vital Signs Vital Signs Date Time Temp Pulse Resp B/P (MAP) Pulse Ox O2 Delivery O2 Flow Rate FiO2 01/19/19 08:32 58 162/76 01/19/19 07:00 98.9 16 94 Room Air 98.9 01/18/19 20:00 2.0 Physical Exam PHYSICAL EXAM GENERAL: Propped up in bed, alert, smiling HEENT: Oral cavity clear LUNGS: Clear anteriorly HEART: S1, S2, no murmurs. ABDOMEN: Bowel sounds present, obese, soft, nontender EXTREMITIES: Right AKA looks okay. Left lower extremity warm and dry. NEUROLOGIC: Alert, responds appropriately SKIN: No rash PIV ok Labs Lab Laboratory Tests Test 01/19/19 05:15 White Blood Count 7.4 x10^3/uL (4.0-11.0) Red Blood Count 3.08 x10^6/uL (3.50-5.40) Hemoglobin 9.1 g/dL (12.0-15.5) Hematocrit 27.4 % (36.0-47.0) Mean Corpuscular Volume 89 fL (79-100) Mean Corpuscular Hemoglobin 30 pg (25-35) Mean Corpuscular Hemoglobin Concent 33 g/dL (31-37) Red Cell Distribution Width 15.9 % (11.5-14.5) Platelet Count 228 x10^3/uL (140-400) Micro BLOOD CULTURE Preliminary NO GROWTH AFTER 4 DAYS URINE CULTURE RES 1 Final No growth Objective Assessment Stage I gastric MALTOMA s/p EGD and bx on on 01/13/2019. Leukocytosis.likely reactive,resolving Lactic acidosis. Gastrointestinal bleed. NM scan neg for gi bleed, ? pancreatic mass on CT Abdomen Acute blood loss anemia.s/p PRBCs Hypertension secondary gastrointestinal bleed. Acute kidney injury, multifactorial. Severe protein-calorie malnutrition. Peripheral arterial disease, status post right above-knee amputation. Hard of hearing. History of duodenal ulcer and AVM requiring endoclip in 06/2016. High proBNP. History of penicillin allergy, but has tolerated cephalosporins. 13. Bilateral GGO on CT likely inflammatory vs mild chf Plan Plan of Care Continue to observe off antibiotics Call with questions Patient seen, examined, I agree with above. Assessment and plan was coformulated with [employer] PROFESSIONAL. SARA BILLS APRN Jan 19, 2019 09:47 MAY CHAVIS MD Jan 19, 2019 14:47
[2019-01-19 11:00] VITALS: BP 152/70
[2019-01-19 15:00] VITALS: BP 169/77
--- NOTE | 2019-01-19 15:34 | PDOC ---
Provider Note Provider Note discharge summary dictated # [id number] CINDI SOUSA MD Jan 19, 2019 15:34
[2019-01-19] MEDS ORDERED: CARV6.2511 PO (15:38)
[2019-01-19] MEDS ORDERED: VENL150C PO (15:38)
--- NOTE | 2019-01-19 15:38 | DISCH ---
DISCHARGE INSTRUCTIONS Condition on Discharge Condition on Discharge: Stable Activity After Discharge Activity Instructions for Disc: Activity as tolerated Exercise Instruction after Dis: Progress as tolerated Driving Instructions after Dis: Do not drive Weight Bearing Status after Di: As tolerated Diet after Discharge Diet after Discharge: Diabetic No Calorie Level Additional Diet Restrictions: avoid concentrated sweets Wound Incision Care Wound/Incision Care: Change dressing Wound Care Equipment: Dressings, Sutures/israel Checks after Discharge Checks after discharge: Check blood press - daily, Check blood sugar, ac/hs, Check your Temp as needed Contacting the DROfelia after DC Call your doctor for: If your condition worsens Follow-Up Follow up with: dr. sousa in 1 week Follow Up With: dr. stewart and dr. anthony in 2 weeks Treatment/Equipment after DC Adaptive Equipment Issued: None CINDI SOUSA MD Jan 19, 2019 15:38
--- NOTE | 2019-01-19 16:47 | NUR ---
pt was discharged home with self care, Daughter Malina is taking care of pt at home and is arranging home health herself. Wheeled down to main entrance by Agustin LEE, with a long list of meds to get filled. see chart for copy. Trey James RN
--- NOTE | 2019-01-19 23:53 | DS ---
DATE OF DISCHARGE: 01/19/2019 PROCEDURE: EGD. CONSULTANTS: Include Dr. Sanderson, Dr. Resendez, Dr. Pond, Dr. Lee, Dr. Ester Glez. FINAL DIAGNOSES: 1. Upper gastrointestinal bleed secondary to gastric ulcers. 2. Acute blood loss anemia. 3. Mucosal associated lymphoid tissue involving the gastric ulcer, which is consistent with MALT lymphoma. 4. Hypertension. 5. Acute kidney injury due to the gastrointestinal bleed and intravascular volume depletion, which resolved. 6. Severe protein-calorie malnutrition. 7. Leukocytosis (resolved). 8. Peripheral arterial disease. 9. History of a right above-knee amputation. 10. Hard of hearing. 11. Previous history of duodenal ulcer. 12. Previous history of an upper gastrointestinal bleed due to gastric arteriovenous malformation requiring an endoclip in 06/2016. 13. Hypomagnesemia. 14. Critical illness myopathy. HOSPITAL COURSE: The patient is an 83-year-old white female with history of hypertension, hyperlipidemia, peripheral arterial disease, right above-knee amputation who had a duodenal ulcer in 1989 and upper GI bleed in 06/2016 secondary to gastric angiodysplasia treated with an endoclip who noted the onset of bloody diarrhea and vomiting and hematemesis. She sought help at the [facility] Room. She had been on Plavix, which was discontinued. She denies taking aspirin or nonsteroidal anti-inflammatory drugs. She was noted to have leukocytosis with a white count of 24.3 with 88 polys and 5 lymphocytes. INR of 1.3 and also was noted to have acute kidney injury with a BUN of 50 and a serum creatinine of 2.6. Lactic acid was elevated at 3.1. Albumin was low at 2.7. Chest x-ray showed a possible left lower lobe infiltrate. Urinalysis showed pyuria. Her hemoglobin was also low. She was started on IV Protonix. Her hemoglobin dropped to about 6.6, on 01/14/2019 she received 2 units of packed red blood cells and then also started on ferrous sulfate. She underwent an EGD and had two gastric ulcers seen and the biopsy of the rim of the gastric ulcers is consistent with mucosal associated lymphoid tissue consistent with MALT lymphoma. The patient was seen by Dr. Resendez in consultation and Dr. Pond in consultation. The patient had already had a CAT scan of the abdomen and pelvis and chest done and it showed mild left basilar atelectasis. She had extensive plaquing of the aorta, cholelithiasis, a small infrarenal abdominal aortic aneurysm and a spleen that was increased in size, inseparable from the tip of the pancreas and a pancreatic mass could not be excluded. A CAT scan followup was recommended and the patient was again seen by Dr. Resendez in consultation who is aware of that. The patient will be followed by Dr. Resendez and Dr. Pond also as an outpatient, in addition by Dr. Palencia. She also was seen in consultation by Dr. Ester Glez for Infectious Disease and was started on IV antibiotics, which were discontinued and it was felt that the leukocytosis was reactive and not due to infection. The white count normalized. Hemoglobin was also stable as the GI bleeding stopped. She had a GI bleeding scan, which showed no active bleeding at the time that was done. She did receive physical and occupational therapy and was maximal assistance for assistance. I was going to have her evaluated for [facility] or [facility]; however, I got a call from the patient's daughter who says she is going to be with the patient 04/06, will be able to assist her and has already assisted her today with transferring to the commode without any problems, and she says that she can do it herself and once the patient be dismissed to home today where she will be taking care of her without home health. Her blood pressure was elevated during the latter part of her admission and she was started on carvedilol and losartan. Her IV Protonix was switched to oral Protonix. So, she therefore will be dismissed to home on atorvastatin 10 mg at bedtime, carvedilol 6.25 mg b.i.d., losartan 100 mg every day, Protonix 40 mg every day, Effexor XR 150 mg every day, ferrous sulfate 325 mg b.i.d., and was told to make an appointment to see Dr. Palencia in 1 week, appointment to see Dr. Resendez and Dr. Pond in 2 weeks. She was told to avoid aspirin, to stay off the Plavix and avoid nonsteroidal anti-inflammatory drugs. Again, she was told to see Dr. Palencia in the office in 1 week. She will be dismissed today. CINDI PALENCIA MD DR: Marlon JOB#: [id number] / [id number]
[2019-01-20] MEDS ORDERED: LOSARTAN POTASSIUM 50 MG TABLET. PO SCH (09:00)
[2019-01-29] MEDS ORDERED: GABA-585 PO (17:52)
[2019-01-29] MEDS ORDERED: HYDR-2868 PO (17:52)
[2019-01-29] MEDS ORDERED: LISI-130 PO (17:52)
[2019-01-29] MEDS ORDERED: TOLT4CAP PO (17:52)
== END 2019-01-19 16:25 | disposition home or self-care (01) | DRG 840 ==
LOC: ER 14:41 → 1 WEST ICU 17:01 → ER 18:03 → 6 SOUTH 01-15 11:37
PROVIDERS: ADMIT Internal Medicine; ATTEND Internal Medicine
PROC: 30233R1 Transfusion of Nonautologous Platelets into Peripheral Vein, Percutaneous Approach (ICD-10-PCS; 2019-01-14)
PROC: 30233N1 Transfusion of Nonautologous Red Blood Cells into Peripheral Vein, Percutaneous Approach (ICD-10-PCS; 2019-01-14)
PROC: 0DB68ZX Excision of Stomach, Via Natural or Artificial Opening Endoscopic, Diagnostic (ICD-10-PCS; principal; 2019-01-14 12:00)
DX: C88.4 Extranodal marginal zone B-cell lymphoma of mucosa-associated lymphoid tissue [MALT-lymphoma] (principal); K25.4 Chronic or unspecified gastric ulcer with hemorrhage; E43 Unspecified severe protein-calorie malnutrition; N17.9 Acute kidney failure, unspecified; D62 Acute posthemorrhagic anemia; G72.81 Critical illness myopathy; N39.0 Urinary tract infection, site not specified; M86.9 Osteomyelitis, unspecified; J98.11 Atelectasis; E87.2 Acidosis; C85.90 Non-Hodgkin lymphoma, unspecified, unspecified site; E87.5 Hyperkalemia; K80.20 Calculus of gallbladder without cholecystitis without obstruction; I11.0 Hypertensive heart disease with heart failure; Z96.643 Presence of artificial hip joint, bilateral; I50.9 Heart failure, unspecified; E78.00 Pure hypercholesterolemia, unspecified; E11.51 Type 2 diabetes mellitus with diabetic peripheral angiopathy without gangrene; E78.5 Hyperlipidemia, unspecified; M48.061 Spinal stenosis, lumbar region without neurogenic claudication; M19.90 Unspecified osteoarthritis, unspecified site; N32.81 Overactive bladder; K57.90 Diverticulosis of intestine, part unspecified, without perforation or abscess without bleeding; I71.4 Abdominal aortic aneurysm, without rupture; E66.9 Obesity, unspecified; I95.9 Hypotension, unspecified; E86.9 Volume depletion, unspecified; H91.90 Unspecified hearing loss, unspecified ear; D63.0 Anemia in neoplastic disease; K86.9 Disease of pancreas, unspecified; E83.42 Hypomagnesemia; M48.00 Spinal stenosis, site unspecified; Z89.611 Acquired absence of right leg above knee; Z99.3 Dependence on wheelchair; Z88.0 Allergy status to penicillin; Z79.899 Other long term (current) drug therapy; Z79.02 Long term (current) use of antithrombotics/antiplatelets; Z87.891 Personal history of nicotine dependence
CPT/HCPCS: 36415; 43239; 71045; 71250; 74176; 78278; 80048; 80053; 81001; 82607; 82728; 82805; 83540; 83550; 83605; 83735; 83880; 84484; 85007; 85018; 85025; 85027; 85045; 85610; 85730; 86850; 86900; 86901; 86920; 87040; 87086; 87641; 88305; 88341; 88342; 93005; 96374; 96375; A9560; C9113; J0696; J2020; J2185; J2405; J2704; J2765; J3475; J7030; P9016; P9035; 97530; 99291-25

== ENCOUNTER → 2019-01-23 | Outpatient (CLI) | payer MEDICARE, OTHER ==
[2019-01-19 15:00] VITALS: BP 169/77
[~2019-01-23] MED LIST changes: +CARV6.2511 PO; +GABA-585 PO; +HYDR-2868 PO; +LISI-130 PO; +TOLT4CAP PO; +VENL150C PO
--- NOTE | 2019-01-23 15:16 | RAD ---
FDG tumor localization scan, PET/CT, 01/23/2019: History: Gastric lymphoma Following IV injection of 15.2 mCi of 18 F-FDG, imaging was performed from the skull base to the proximal thighs. The noncontrast CT component was performed for attenuation correction and anatomic localization purposes rather than for primary diagnosis. The patient's blood glucose level at the time of injection was 120 MG/DL. There is hypermetabolic mural thickening involving the proximal aspect of the stomach compatible with patient's known gastric lymphoma. There are several perigastric foci of increased activity compatible with adenopathy in the gastrohepatic and celiac regions. The maximum SUV within this node cluster is approximately 25. The spleen is mildly enlarged and hypermetabolic. The small density seen at the splenic hilum on the prior CT study is hypermetabolic, compatible with adenopathy. No hypermetabolic pelvic lesion is seen. There is increased activity along the margins of the patient's bilateral hip prostheses compatible with chronic inflammation as well as attenuation correction artifacts. Physiologic activity is evident in the neck. No hypermetabolic neck lesion is seen. Increased periarticular activity at both shoulders is presumably arthritic. There is a 15 mm groundglass opacity in the right upper lobe which demonstrates low level FDG uptake. The maximum SUV is 2.4. This may be an inflammatory process, although low-grade adenocarcinoma can give this appearance. There is similar low level FDG uptake related to a streaky groundglass opacity in the left upper lobe, most likely inflammatory in nature. The CT component demonstrates a few other scattered groundglass opacities in the lungs. Mildly increased activity at the right hilum is noted with a maximum SUV of 4.8. No underlying adenopathy is seen on these noncontrast scans. No hypermetabolic mediastinal adenopathy is detected. IMPRESSION: 1. Hypermetabolic gastric mural thickening compatible with the patient's known gastric lymphoma. 2. Upper abdominal hypermetabolic foci compatible with noel involvement by lymphoma. 3. Mildly enlarged hypermetabolic spleen compatible with lymphomatous involvement. 4. Low level FDG uptake in several groundglass pulmonary opacities, most likely inflammatory. Low-grade malignancy cannot be excluded. 5. Mildly increased FDG uptake at the right hilum may be reactive or neoplastic.
== END | disposition home or self-care (01) ==
LOC: PETSC 13:27
PROVIDERS: ATTEND Radiology Radiation Oncology
DX: C85.83 Other specified types of non-Hodgkin lymphoma, intra-abdominal lymph nodes (principal); R16.1 Splenomegaly, not elsewhere classified
CPT/HCPCS: 78815; A9552

== ENCOUNTER → 2019-04-10 | Outpatient (CLI) | payer MEDICARE, OTHER ==
--- NOTE | 2019-04-10 10:15 | RAD ---
FDG tumor localization scan, PET/CT, 04/10/2019: History: Restaging lymphoma Following IV injection of 15 mCi of 18 F-FDG, imaging was performed from the skull base to the proximal thighs. The noncontrast CT component was performed for attenuation correction and anatomic localization purposes rather than for primary diagnosis. The patient's blood glucose level at the time of injection was 130 MG/DL. Comparison is made to a study from 01/23/2019. No hypermetabolic neck lesion is seen. No hypermetabolic mediastinal or hilar adenopathy is evident. Mildly increased activity seen at the right hilum on the previous study has resolved. The CT component again demonstrates several scattered groundglass type opacities in the lungs. These include a 16 mm groundglass opacity in the posteromedial aspect of the right upper lobe which demonstrates low level FDG uptake with a maximum SUV of 1.8. This process is of similar size compared to the previous study and demonstrated a maximum SUV of 2.4 at that time. The degree of FDG uptake is less than that of the mediastinal background. There is low level FDG uptake in a streaky lingular opacity on the left along the left cardiac margin. This was also evident in retrospect on the previous study. No new pulmonary abnormality is seen. Hypermetabolic adenopathy seen in the perigastric, gastrohepatic and celiac regions on the previous study is no longer evident. No enlarged nodes or increased FDG uptake is currently seen in those regions. The gastric activity is unremarkable. There is a small residual hypermetabolic nodule at the level of the splenic hilum. It measures 1.8 cm with a maximum SUV of 5.8. The spleen has decreased in size and no longer demonstrates generalized increased FDG uptake. No new hypermetabolic abdominal or pelvic process is seen. There is increased FDG uptake about both shoulders and hips compatible with arthritis in the presence of hip joint prostheses. Incidental CT findings again include the presence of gallstones. There is colonic diverticulosis. A fat-containing periumbilical hernia is present. There is aortic atherosclerosis with a small infrarenal abdominal aortic aneurysm. Moderate coronary artery calcifications are present. Postsurgical changes are noted in the lumbar spine. IMPRESSION: 1. Resolution of the abnormal gastric FDG uptake. 2. Resolution of the hypermetabolic upper abdominal adenopathy, with the exception of a single hypermetabolic focus at the splenic hilum. 3. The spleen has decrease in size and no longer demonstrates generalized increased FDG uptake. 4. Residual low level FDG uptake in right upper lobe and lingular pulmonary opacities may be inflammatory, although low-grade malignancy cannot be excluded.
== END | disposition home or self-care (01) ==
LOC: PETSC 07:21
PROVIDERS: ATTEND Internal Medicine Hematology & Oncology
DX: C88.4 Extranodal marginal zone B-cell lymphoma of mucosa-associated lymphoid tissue [MALT-lymphoma] (principal)
CPT/HCPCS: 78815; A9552

== ENCOUNTER → 2019-08-07 | Outpatient (CLI) | payer MEDICARE, OTHER ==
[~2019-08-07] MED LIST changes: -PANT40TA5 PO; +PANT40TA77 PO
--- NOTE | 2019-08-07 14:00 | RAD ---
Examination: PET W CT SKULL TO MIDTHIGH History: Restaging of MALT Comparison/Correlation: Pet CT exam 04/10/2019 FINDINGS: Net dose 15.1 mCi F-18 FDG was administered intravenously for purposes of PET/CT exam. Blood glucose level at the time of radiotracer administration was 149 mg/dL. Imaging was performed from the skull base to the proximal thighs. Hepatic reference uptake is SUV max of 3.2 . Uptake of radiotracer involving the partially visualized head and neck is unremarkable. There is subtle uptake involving posterior right apical ground glass infiltrate. This is similar to the cell blood pool uptake. Groundglass infiltrate at this site measures up to 1.6 cm diameter and has an SUV max of 1.7. Lingular infiltrate is noted in the interval. There is a small focus of uptake with SUV max of 2 involving the lingular region which probably corresponds with this infiltrate. This focus of uptake is new in the interval. Note is made of significant coronary arterial calcification. There is intense uptake involving the splenic hilum with a corresponding mass at this site measuring up to 3.2 cm x 2.3 cm. SUV max of 18.8 is noted. This is notably increased since the prior exam where previous measurement is noted to be 1.9 cm. Extent of uptake is also significantly increase at this site. Numerous calculi present within the gallbladder. Liver is unremarkable. Pancreas is unremarkable. Left renal adenoma is again seen. No radiopaque collecting system calculi. Right renal cyst is present. Umbilical hernia containing omental fat. Diverticulosis of colon is present. No abnormal uptake involving the pelvis. Bilateral hip joint prostheses are present. Associated streak artifact limits evaluation of the pelvis. IMPRESSION: Notable increase in size of the splenic hilar enlarged lymph node or mass with intense uptake compatible with active neoplastic involvement. Interval development of lingular infiltrate with intense uptake. Infectious process likely accounts for this finding. Interval follow-up to resolution is recommended. Neoplastic etiology is not necessarily excluded. Groundglass infiltrate at the posterior right apical level is similar to previous exam with slight uptake. This ground glass infiltrate has been stable upon comparison to previous PET CT exam of 01/23/2019. Continued follow-up to assess stability by CT is recommended in 6 months to assess stability. Cholelithiasis. Electronically signed by: Venkatesh Gilbert MD (08/07/2019 1:57 PM) [facility]
== END | disposition home or self-care (01) ==
LOC: PETSC 08:48
PROVIDERS: ATTEND Internal Medicine Hematology & Oncology
DX: C88.4 Extranodal marginal zone B-cell lymphoma of mucosa-associated lymphoid tissue [MALT-lymphoma] (principal); K80.70 Calculus of gallbladder and bile duct without cholecystitis without obstruction; K57.30 Diverticulosis of large intestine without perforation or abscess without bleeding; K42.9 Umbilical hernia without obstruction or gangrene; D30.02 Benign neoplasm of left kidney; R59.9 Enlarged lymph nodes, unspecified
CPT/HCPCS: 78815; A9552

== ENCOUNTER → 2019-08-15 | Outpatient (CLI) | payer MEDICARE, OTHER ==
[~2019-08-15] MED LIST changes: +ALLO100T PO; +CARV6.25 PO; +IBRU140T PO; -MAGN400T3 PO; +MAGN400T5 PO; +MIRA25TA PO
--- NOTE | 2019-08-15 13:02 | EKG ---
[facility] [address] [place] [address] Test Date: 2019-08-15 Test Time: 12:57:58 Pat Name: ZACH GALVAN Department: Room: Gender: F Admissions Director: : 1935 Requested By: CHUN LOOMIS Order Number: [id number] Reading MD: Jairo Stone Measurements Intervals [place] Rate: 60 P: MI: QRS: 41 QRSD: 76 T: 36 QT: 414 QTc: 418 Interpretive Statements SINUS RHYTHM NONSPECIFIC ST-T WAVE CHANGES. Electronically Signed On 08-22-2019 15:36:43 CDT by Jairo Stone
== END | disposition home or self-care (01) ==
LOC: EKG 12:11
PROVIDERS: ATTEND Nurse Practitioner Adult Health
DX: C88.4 Extranodal marginal zone B-cell lymphoma of mucosa-associated lymphoid tissue [MALT-lymphoma] (principal); I21.9 Acute myocardial infarction, unspecified
CPT/HCPCS: 93005

== ENCOUNTER 2019-09-05 13:58 | Inpatient (IN) | payer MEDICARE, OTHER ==
[~2019-09-05] VITALS: Ht 162.6 cm; Wt 67.6 kg
[~2019-09-05 13:58] MED LIST changes: -ALLO100T PO; -CARV6.25 PO; -IBRU140T PO; -MIRA25TA PO
--- NOTE | 2019-09-05 14:15 | PHYS DOC ---
Past Medical History Past Medical History: High Cholesterol, Hypertension Past Surgical History: Other Additional Past Surgical Histo: back surgery,BILAT HIP REPLACEMENT, RIGHT AKA Alcohol Use: None Drug Use: None Adult General HPI HPI 83-year-old female presents to the emergency department with complaints of not feeling well. Apparently patient's not been feeling well since Sunday worsened on Sunday when family was there to see the patient. She has not been taking any medications all week. Limited history from patient given her current mental status. Very generalized with her complains, very non specific Review of Systems Review of Systems Constitutional: weakness Respiratory: Denies cough or shortness of breath [] Cardiovascular: No additional information not addressed in HPI [] GI: Denies abdominal pain, nausea, vomiting, bloody stools or diarrhea [] Musculoskeletal: Denies back pain or joint pain [] All other systems were reviewed and found to be within normal limits, except as documented in this note. Current Medications Current Medications Current Medications Medications (Trade) Dose Ordered Sig/Milan Start Time Stop Time Status Last Admin Dose Admin Acetaminophen (Tylenol) 1,000 mg 1X ONCE 09/05/19 15:45 09/05/19 15:46 DC 09/05/19 15:45 1,000 MG Ceftriaxone Sodium (Rocephin) 1 gm 1X ONCE 09/05/19 16:30 09/05/19 16:31 DC Allergies Allergies Allergies Coded Allergies Type Severity Reaction Last Updated Verified spironolactone Allergy Severe FLUID POURED OUT OF ALL ORIFICES 02/14/17 Yes Penicillins Allergy Intermediate 04/13/18 Yes amlodipine Allergy Intermediate 02/14/17 Yes iodine Allergy Intermediate Rash 02/14/17 Yes olanzapine Allergy Intermediate 02/14/17 Yes rofecoxib Allergy Intermediate 02/14/17 Yes Physical Exam Physical Exam Constitutional: ill appearing HENT: Normocephalic, atraumatic, bilateral external ears normal, oropharynx moist, no oral exudates, nose normal. [] Eyes: PERRLA, EOMI, conjunctiva normal, no discharge. [] Neck: Normal range of motion, no tenderness, supple, no stridor. [] Cardiovascular:Heart rate regular rhythm, no murmur [] Lungs & Thorax: Bilateral breath sounds clear to auscultation [] Abdomen: Bowel sounds normal, soft, no tenderness, no masses, no pulsatile masses. [] Skin: Warm, dry, no erythema, no rash. [] Back: No tenderness, no CVA tenderness. [] Extremities: No tenderness, no edema. [] Neurologic: Alert and oriented X 2, no focal deficits noted. [] Psychologic: Affect normal, judgement normal, mood normal. [] Current Patient Data Vital Signs Vital Signs Date Time Temp Pulse Resp B/P (MAP) Pulse Ox O2 Delivery O2 Flow Rate FiO2 09/05/19 15:58 70 15 211/100 (137) 93 Room Air 09/05/19 14:06 97.8 97.8 Lab Values Laboratory Tests Test 09/05/19 14:21 09/05/19 14:30 09/05/19 15:00 Glucose (Fingerstick) 133 mg/dL (70-99) H White Blood Count 9.6 x10^3/uL (4.0-11.0) Red Blood Count 5.20 x10^6/uL (3.50-5.40) Hemoglobin 16.0 g/dL (12.0-15.5) H Hematocrit 47.7 % (36.0-47.0) H Mean Corpuscular Volume 92 fL (79-100) Mean Corpuscular Hemoglobin 31 pg (25-35) Mean Corpuscular Hemoglobin Concent 34 g/dL (31-37) Red Cell Distribution Width 13.4 % (11.5-14.5) Platelet Count 216 x10^3/uL (140-400) Neutrophils (%) (Auto) 80 % (31-73) H Lymphocytes (%) (Auto) 13 % (24-48) L Monocytes (%) (Auto) 6 % (0-9) Eosinophils (%) (Auto) 0 % (0-3) Basophils (%) (Auto) 1 % (0-3) Neutrophils # (Auto) 7.7 x10^3/uL (1.8-7.7) Lymphocytes # (Auto) 1.3 x10^3/uL (1.0-4.8) Monocytes # (Auto) 0.6 x10^3/uL (0.0-1.1) Eosinophils # (Auto) 0.0 x10^3/uL (0.0-0.7) Basophils # (Auto) 0.0 x10^3/uL (0.0-0.2) Sodium Level 147 mmol/L (136-145) H Potassium Level 3.4 mmol/L (3.5-5.1) L Chloride Level 102 mmol/L (98-107) Carbon Dioxide Level 35 mmol/L (21-32) H Anion Gap 10 (6-14) Blood Urea Nitrogen 13 mg/dL (7-20) Creatinine 0.8 mg/dL (0.6-1.0) Estimated GFR (Cockcroft-Gault) 68.3 BUN/Creatinine Ratio 16 (6-20) Glucose Level 138 mg/dL (70-99) H Lactic Acid Level 1.7 mmol/L (0.4-2.0) Calcium Level 9.6 mg/dL (8.5-10.1) Total Bilirubin 0.7 mg/dL (0.2-1.0) Aspartate Amino Transferase (AST) 20 U/L (15-37) Alanine Aminotransferase (ALT) 16 U/L (14-59) Alkaline Phosphatase 87 U/L (46-116) Troponin I Quantitative < 0.017 ng/mL (0.000-0.055) C-Reactive Protein, Quantitative 8.9 mg/L (0-3.3) H Total Protein 7.6 g/dL (6.4-8.2) Albumin 3.9 g/dL (3.4-5.0) Albumin/Globulin Ratio 1.1 (1.0-1.7) Procalcitonin < 0.10 ng/mL (0.00-0.10) Urine Collection Type U cath Urine Color Dariela Urine Clarity Clear Urine pH 6.0 Urine Specific [place] 1.025 Urine Protein >=300 mg/dL (NEG-TRACE) Urine Glucose (UA) Negative mg/dL (NEG) Urine Ketones (Stick) Negative mg/dL (NEG) Urine Blood Large (NEG) Urine Nitrite Positive (NEG) Urine Bilirubin Negative (NEG) Urine Urobilinogen Dipstick 1.0 mg/dL (0.2 mg/dL) Urine Leukocyte Esterase Negative (NEG) Urine RBC 6-10 /HPF (0-2) Urine WBC 5-10 /HPF (0-4) Urine Bacteria Many /HPF (0-FEW) Urine Mucus Mod /LPF Laboratory Tests 09/05/19 14:30 Laboratory Tests 09/05/19 14:30 EKG EKG EKG reviewed, heart rate 69, left axis deviation, no evidence of acute ST elevation [place], nonurgent EKG[] Interpretation Time: Interpretation time 1412 Radiology/Procedures Radiology/Procedures [address] [id number] IMAGING REPORT Signed PATIENT: ZACH GALVANUNT: [id number] : 1935 LOCATION: ER AGE: 83 SEX: F EXAM STATUS: REG ER ORD. PHYSICIAN: LISET ARREDONDO MD REASON: cough PROCEDURE: CHEST AP ONLY CHEST AP ONLY History: Cough Comparison: January 13, 2019 Findings: No consolidation or pleural effusion. Normal heart size. Advanced bilateral glenohumeral DJD. Mild bilateral acromioclavicular DJD. No pneumothorax. Impression: 1. No acute cardiopulmonary process. Electronically signed by: Eh Diggs DO (09/05/2019 2:39 PM) [facility] DICTATED and SIGNED BY: EH DIGSG DO DATE: 09/05/19 1439 [] [address] [id number] IMAGING REPORT Signed PATIENT: ZACH GALVANCOUNT: [id number] : 1935 LOCATION: ER AGE: 83 SEX: F EXAM STATUS: REG ER ORD. PHYSICIAN: LISET ARREDONDO MD REASON: AMS PROCEDURE: CT HEAD WO CONTRAST EXAM: Head CT without contrast. HISTORY: Altered mental status. TECHNIQUE: Computed tomographic images of the head were obtained without contrast.. *One or more of the following individualized dose reduction techniques were utilized for this examination: 1. Automated exposure control. 2. Adjustment of the mA and/or kV according to patient size. 3. Use of iterative reconstruction technique. COMPARISON: None. FINDINGS: There is no acute or subacute extra-axial or intraparenchymal hemorrhage. There is no mass effect or midline shift. There is no hydrocephalus. There are areas of decreased attenuation within the cerebral white matter, nonspecific and likely related to chronic small vessel disease. There is cerebral volume loss. The visualized portions of the orbits, paranasal sinuses and mastoid air cells are unremarkable. No suspicious calvarial lesion is seen. IMPRESSION: 1. No acute intracranial finding. Note is made that MRI is more sensitive for acute infarction. 2. Nonspecific decreased attenuation within the cerebral white matter, likely due to chronic small vessel disease. 3. Cerebral volume loss. Electronically signed by: Bina Graham MD (09/05/2019 3:05 PM) [facility] DICTATED and SIGNED BY: BINA GRAHAM MD DATE: 09/05/19 5608 Course & Med Decision Making Course & Med Decision Making Pertinent Labs and Imaging studies reviewed. (See chart for details) []83-year-old female presents to the emergency department with complaints of not feeling well. Apparently patient's not been feeling well since Sunday worsened on Sunday when family was there to see the patient. She has not been taking any medications all week. Limited history from patient given her current mental status. Very generalized with her complains, very non specific Labs reviewed - UAD negative, lactic 1.7, CRP 8.9 CT head without acute process Discussed findings with PCP (Jay Jay) Cultures obtained - Rocephin IVP x 1 Plan for admit and observation with IVF Dragon Disclaimer Misha Disclaimer This electronic medical record was generated, in whole or in part, using a voice recognition dictation system. Departure Departure Impression: Primary Impression: Hypertensive urgency Additional Impressions: Weakness Hypernatremia Disposition: ADMITTED INPATIENT Admitting Physician: Nguyễn Sousa Condition: STABLE Referrals: NGUYỄN SOUSA MD (PCP) Problem Qualifiers LISET ARREDONDO MD Sep 05, 2019 14:15
--- NOTE | 2019-09-05 14:18 | EKG ---
[facility] [address] [place] [address] Test Date: 2019-09-05 Test Time: 14:08:42 Pat Name: ZACH GALVAN Department: Room: Gender: F Welding Engineer: : 1935 Requested By: LISET ARREDONDO Order Number: [id number] Reading MD: Mahin Cheatham MD Measurements Intervals [place] Rate: 69 P: -90 UT: 110 QRS: -15 QRSD: 82 T: 42 QT: 400 QTc: 430 Interpretive Statements SR NON-SPECIFIC ST/T CHANGES Electronically Signed On 09-22-2019 8:29:45 [employer]ECUTIVE STEWARD by Mahin Cheatham MD
--- NOTE | 2019-09-05 14:42 | RAD ---
CHEST AP ONLY History: Cough Comparison: January 13, 2019 Findings: No consolidation or pleural effusion. Normal heart size. Advanced bilateral glenohumeral DJD. Mild bilateral acromioclavicular DJD. No pneumothorax. Impression: 1. No acute cardiopulmonary process. Electronically signed by: Eh Diggs DO (09/05/2019 2:39 PM) [facility]
[2019-09-05 14:43] LABS: BASO % 1 % (0-3); EOS % 0 % (0-3); HEMATOCRIT 47.7 % (36.0-47.0); LYMPH # 1.3 x10^3/uL (1.0-4.8); LYMPH % 13 % (24-48); MEAN CORPUSCULAR HEMOGLOBIN 31 pg (25-35); MEAN CORPUSCULAR HGB CONC 34 g/dL (31-37); MEAN CORPUSCULAR VOLUME 92 fL (79-100); MONO # 0.6 x10^3/uL (0.0-1.1); MONO % 6 % (0-9); NEUT # 7.7 x10^3/uL (1.8-7.7); NEUT % 80 % (31-73); PLATELET COUNT 216 x10^3/uL (140-400); RED CELL DISTRIBUTION WIDTH 13.4 % (11.5-14.5); WHITE BLOOD COUNT 9.6 x10^3/uL (4.0-11.0)
[2019-09-05 14:53] LABS: CALCIUM 9.6 mg/dL (8.5-10.1); CREATININE 0.8 mg/dL (0.6-1.0); GFR 68.3; POTASSIUM 3.4 mmol/L (3.5-5.1)
[2019-09-05 14:59] LABS: ALBUMIN 3.9 g/dL (3.4-5.0); ALBUMIN/GLOBULIN RATIO 1.1 (1.0-1.7); TOTAL BILIRUBIN 0.7 mg/dL (0.2-1.0); TOTAL PROTEIN 7.6 g/dL (6.4-8.2)
--- NOTE | 2019-09-05 15:08 | RAD ---
EXAM: Head CT without contrast. HISTORY: Altered mental status. TECHNIQUE: Computed tomographic images of the head were obtained without contrast.. *One or more of the following individualized dose reduction techniques were utilized for this examination: 1. Automated exposure control. 2. Adjustment of the mA and/or kV according to patient size. 3. Use of iterative reconstruction technique. COMPARISON: None. FINDINGS: There is no acute or subacute extra-axial or intraparenchymal hemorrhage. There is no mass effect or midline shift. There is no hydrocephalus. There are areas of decreased attenuation within the cerebral white matter, nonspecific and likely related to chronic small vessel disease. There is cerebral volume loss. The visualized portions of the orbits, paranasal sinuses and mastoid air cells are unremarkable. No suspicious calvarial lesion is seen. IMPRESSION: 1. No acute intracranial finding. Note is made that MRI is more sensitive for acute infarction. 2. Nonspecific decreased attenuation within the cerebral white matter, likely due to chronic small vessel disease. 3. Cerebral volume loss. Electronically signed by: Lissette Salazar MD (09/05/2019 3:05 PM) [facility]
[2019-09-05 15:22] LABS: BILIRUBIN,URINE NEGATIVE (NEG); CLARITY,URINE CLEAR; COLOR,URINE AMBER; NITRITE,URINE POSITIVE (NEG); PROTEIN,URINE >=300 mg/dL (NEG-TRACE)
[2019-09-05 15:28] LABS: BACTERIA,URINE MANY /HPF (0-FEW)
[2019-09-05] MEDS ORDERED: ACETAMINOPHEN 500 MG TABLET PO ONE (15:45)
[2019-09-05] MEDS ORDERED: cefTRIAXone IV Push 1 GM VIAL. IVP ONE (16:30)
[2019-09-05] MEDS ORDERED: IV DEXTROSE 5 %-0.45 % NACL 1,000 ML IV ONE (16:45)
[2019-09-05] MEDS ORDERED: ONDANSETRON PF 4 MG/2 ML VIAL. IV PRN (16:45)
[2019-09-05] MEDS ORDERED: ACETAMINOPHEN 325 MG TABLET. PO PRN (16:45)
[2019-09-05] MEDS ORDERED: hydrALAZINE 20 MG/ML VIAL. IVP ONE (16:45)
[2019-09-05 17:15] VITALS: BP 204/95
[2019-09-05 19:42] VITALS: BP 183/92
[2019-09-05] MEDS ORDERED: MIRA25TA PO (20:33)
[2019-09-05] MEDS ORDERED: IBRU140T PO (20:33)
[2019-09-05] MEDS ORDERED: ALLO100T PO (20:33)
[2019-09-05] MEDS ORDERED: CARV6.25 PO (22:35)
[2019-09-05] MEDS ORDERED: CARV6.2511 PO (22:35)
[2019-09-05 23:00] VITALS: BP 175/82
[2019-09-05] MEDS ORDERED: CARVEDILOL 6.25 MG TABLET. PO ONE (23:00)
[2019-09-06 03:11] VITALS: BP 132/74
[2019-09-06 04:38] LABS: BASO # 0.1 x10^3/uL (0.0-0.2); BASO % 1 % (0-3); EOS % 0 % (0-3); HEMATOCRIT 43.5 % (36.0-47.0); HEMOGLOBIN 14.5 g/dL (12.0-15.5); LYMPH # 1.7 x10^3/uL (1.0-4.8); LYMPH % 19 % (24-48); MEAN CORPUSCULAR HEMOGLOBIN 31 pg (25-35); MEAN CORPUSCULAR HGB CONC 33 g/dL (31-37); MEAN CORPUSCULAR VOLUME 93 fL (79-100); MONO # 0.8 x10^3/uL (0.0-1.1); MONO % 8 % (0-9); NEUT # 6.6 x10^3/uL (1.8-7.7); NEUT % 72 % (31-73); PLATELET COUNT 203 x10^3/uL (140-400); RED BLOOD COUNT 4.69 x10^6/uL (3.50-5.40); RED CELL DISTRIBUTION WIDTH 13.8 % (11.5-14.5); WHITE BLOOD COUNT 9.2 x10^3/uL (4.0-11.0)
[2019-09-06 05:03] LABS: ALBUMIN 3.2 g/dL (3.4-5.0); ALBUMIN/GLOBULIN RATIO 1.1 (1.0-1.7); CALCIUM 9.3 mg/dL (8.5-10.1); CREATININE 0.7 mg/dL (0.6-1.0); GFR 79.7; TOTAL BILIRUBIN 0.4 mg/dL (0.2-1.0); TOTAL PROTEIN 6.2 g/dL (6.4-8.2)
[2019-09-06 05:10] LABS: POTASSIUM 2.6 mmol/L (3.5-5.1)
[2019-09-06] MEDS ORDERED: POTASSIUM CHLORIDE 20 MEQ TABLET.ER. PO ONE ×2 (06:00→11:00)
[2019-09-06 07:00] VITALS: BP 176/90
[2019-09-06] MEDS: IBRUTINIB 140 MG PO SCH (09:00)
[2019-09-06] MEDS ORDERED: VENLAFAXINE 50 MG TABLET. PO SCH (09:00)
[2019-09-06] MEDS: NON FORMULARY ITEM (Mirabegron (Myrbetriq) 25 MG) PO SCH (09:00)
[2019-09-06] MEDS: LOSARTAN POTASSIUM 50 MG TABLET. PO SCH (09:18)
[2019-09-06] MEDS: ATORVASTATIN CALCIUM 10 MG TABLET. PO SCH (09:18)
[2019-09-06] MEDS: ALLOPURINOL 100 MG TABLET. PO SCH (09:19)
[2019-09-06] MEDS: CARVEDILOL 6.25 MG TABLET. PO SCH ×2 (09:19→16:28)
[2019-09-06] MEDS: GABAPENTIN 100 MG CAPSULE. PO SCH ×3 (09:19→21:04)
[2019-09-06] MEDS: PANTOPRAZOLE 40 MG TABLET.DR. PO SCH (09:19)
[2019-09-06] MEDS ORDERED: ACETAMINOPHEN 325 MG TABLET. PO PRN (10:00)
[2019-09-06] MEDS ORDERED: hydrALAZINE 20 MG/ML VIAL. IVP PRN (10:00)
[2019-09-06] MEDS ORDERED: MAGNESIUM HYDROXIDE 2,400 MG/30 ML ORAL.SUSP. PO PRN (10:00)
--- NOTE | 2019-09-06 10:13 | PDOC ---
Provider Note Provider Note history and physical dictated # [id number] CINDI SOUSA MD Sep 06, 2019 10:13
--- NOTE | 2019-09-06 10:29 | HP ---
ADMIT DATE: 09/05/2019 LOCATION: She is in room 556. HISTORY OF PRESENT ILLNESS: The patient is an 83-year-old white female with history of hypertension, hyperlipidemia, peripheral arterial disease, right above-knee amputation who has non-Hodgkin's lymphoma of the stomach (MALT) who is followed by Dr. Resendez for that and was admitted to [facility] Emergency Room on 09/05/2019 due to generalized weakness, noncompliance with her medications and altered mental status. Blood pressure was noted to be quite high in the Emergency Room, but she had not been taking her blood pressure medicines apparently in the last week. She was admitted to the hospital and started on some IV fluids and her potassium was low today at 2.6. She does not want to be in the hospital, but she is confused and angry. She is therefore admitted for further evaluation of her hypertensive urgency, failure to thrive, and debility. Also noncompliance with her medications. ALLERGIES AND INTOLERANCES: INCLUDE PENICILLIN, AMLODIPINE, IODINE, OLANZAPINE, CELEBREX AND SPIRONOLACTONE. MEDICATIONS PRIOR TO ADMISSION: She is on atorvastatin 10 mg every day, carvedilol 6.25 mg b.i.d., Effexor XR 150 mg every day, gabapentin 300 mg t.i.d., losartan 100 mg a day, magnesium oxide 400 mg b.i.d., multiple vitamin every day, Myrbetriq 25 mg every day, Protonix 40 mg every day and she was recently started on a medication by Dr. Resendez for her non-Hodgkin's lymphoma that is Imbruvica 140 mg p.o. daily. PAST MEDICAL HISTORY: Significant for hypertension, hyperlipidemia, MALT which is non-Hodgkin's lymphoma of the stomach, peripheral arterial disease, nonhealing left pretibial leg wound which seems to be improving and I believe she is at the [facility] for that, small abdominal aortic aneurysm, osteoarthritis, overactive bladder, peptic ulcer disease, lumbar spinal stenosis, bilateral total hip arthroplasty, right above-knee amputation, cryosurgery for her cervix, right femoral to peroneal bypass in 2016, right above-knee amputation in 04/2018, angioplasty of the stomach treated with an endoclip in 06/2016. At that time, she had an upper GI bleed due to the stomach angioplasty. She also had a right carotid endarterectomy in 2016, carpal tunnel release, tonsillectomy, upper gastrointestinal bleed secondary to gastric ulcer in of 01/2019, left superficial femoral artery angioplasty in 1996. SOCIAL HISTORY: She does not currently drink alcohol nor does she smoke cigarettes. She is . FAMILY HISTORY: Noncontributory. REVIEW OF SYSTEMS: Unobtainable as the patient is quite angry. PHYSICAL EXAMINATION: VITAL SIGNS: Temperature is 97.6 degrees, apical pulse regular at 60, respiratory rate 20, blood pressure 176/90, oxygen saturation 97% on room air. HEENT: Eyes: Gaze is conjugate. Mouth is symmetrical. NECK: There is no cervical lymphadenopathy or thyroid enlargement. HEART: Reveals an S1, S2. There is no S3 or murmur. LUNGS: Clear. ABDOMEN: Soft, nontender. EXTREMITIES: Lower extremities without edema. She has got a right above-knee amputation. Left foot is warm. I do not feel any pulses. SKIN: She has got a superficial pink left pretibial area wound. NEUROLOGIC: She moves her arms and legs. She is somewhat agitated and she is angry. LABORATORY DATA: White count is 9.2, hemoglobin is 14.5, platelet count 203,000, 73 polys, 19 lymphocytes. Yesterday, the serum sodium was 147, potassium 3.4, chloride 102, total CO2 was 35, BUN 13, creatinine 0.8, fingerstick blood sugar was 133. Liver function tests normal. Albumin 3.9. Urinalysis had 6-10 red cells and 5-10 white cells. She had an EKG, which showed sinus rhythm. CAT scan of the head showed no acute abnormality and showed some cerebral atrophy. She had a chest x-ray, which showed no acute abnormality. ASSESSMENT: 1. Failure to thrive. 2. Debility. 3. Hypertensive urgency. 4. Severe hypokalemia. 5. Hypertension. 6. Hypertensive urgency. 7. Hyperlipidemia. 8. Peripheral arterial disease. 9. History of right above-knee amputation. 10. Non-Hodgkin's lymphoma of the stomach. PLAN: At this time is to replete her potassium. She was given potassium chloride 40 mEq around 6:00 this morning, another 40 mEq at 11:00 a.m. We will get a basic metabolic profile. We will get her potassium, magnesium level checked stat at 3:00 this afternoon. Repeat the CBC, BMP and magnesium level tomorrow. Start her on magnesium oxide 400 mg b.i.d. She has been noncompliant with her medications. Her blood pressure was quite high and we will resume her home blood pressure medicines and also order p.r.n. hydralazine. Resume her other home medications also. We will consult the wound care nurse for her left leg pretibial wound. Also consult Physical and Occupational Therapy. Also, check thyroid function test. CINDI SOUSA MD DR: JEWEL/chuy JOB#: [id number] / [id number]
[2019-09-06] MEDS: MAGNESIUM OXIDE 400 MG TABLET PO SCH ×2 (10:44→21:04)
[2019-09-06 11:00] VITALS: BP 167/71
[2019-09-06 15:00] VITALS: BP 144/71
[2019-09-06 15:37] LABS: MAGNESIUM 1.7 mg/dL (1.8-2.4); POTASSIUM 4.3 mmol/L (3.5-5.1)
[2019-09-06] MEDS ORDERED: MAGNESIUM SULFATE 2GM 50 ML IV ONE (16:30)
[2019-09-06 19:00] VITALS: BP 165/71
[2019-09-06 23:00] VITALS: BP 135/85
[2019-09-07 03:00] VITALS: BP 126/60
[2019-09-07 04:42] LABS: BASO # 0.1 x10^3/uL (0.0-0.2); BASO % 1 % (0-3); EOS % 0 % (0-3); HEMATOCRIT 44.2 % (36.0-47.0); HEMOGLOBIN 14.5 g/dL (12.0-15.5); LYMPH # 1.9 x10^3/uL (1.0-4.8); LYMPH % 20 % (24-48); MEAN CORPUSCULAR HEMOGLOBIN 31 pg (25-35); MEAN CORPUSCULAR HGB CONC 33 g/dL (31-37); MEAN CORPUSCULAR VOLUME 93 fL (79-100); MONO # 0.9 x10^3/uL (0.0-1.1); MONO % 10 % (0-9); NEUT # 6.5 x10^3/uL (1.8-7.7); NEUT % 69 % (31-73); PLATELET COUNT 222 x10^3/uL (140-400); RED BLOOD COUNT 4.74 x10^6/uL (3.50-5.40); RED CELL DISTRIBUTION WIDTH 14.1 % (11.5-14.5); WHITE BLOOD COUNT 9.4 x10^3/uL (4.0-11.0)
[2019-09-07 04:57] LABS: CALCIUM 9.1 mg/dL (8.5-10.1); CREATININE 0.8 mg/dL (0.6-1.0); GFR 68.3; MAGNESIUM 2.3 mg/dL (1.8-2.4); POTASSIUM 3.3 mmol/L (3.5-5.1)
[2019-09-07 07:59] VITALS: BP 173/73
[2019-09-07] MEDS: PANTOPRAZOLE 40 MG TABLET.DR. PO SCH (08:33)
[2019-09-07] MEDS: CARVEDILOL 6.25 MG TABLET. PO SCH ×2 (08:33→17:18)
[2019-09-07] MEDS: LOSARTAN POTASSIUM 50 MG TABLET. PO SCH (08:33)
[2019-09-07] MEDS: VENLAFAXINE XR 37.5 MG CAP.ER.24H. PO SCH (08:34)
[2019-09-07] MEDS: MAGNESIUM OXIDE 400 MG TABLET PO SCH ×2 (08:34→20:44)
[2019-09-07] MEDS: GABAPENTIN 100 MG CAPSULE. PO SCH ×3 (08:34→20:44)
[2019-09-07] MEDS: ALLOPURINOL 100 MG TABLET. PO SCH (08:34)
[2019-09-07] MEDS: ATORVASTATIN CALCIUM 10 MG TABLET. PO SCH (08:34)
[2019-09-07] MEDS: NON FORMULARY ITEM (Mirabegron (Myrbetriq) 25 MG) PO SCH (09:00)
[2019-09-07] MEDS: IBRUTINIB 140 MG PO SCH (09:00)
--- NOTE | 2019-09-07 10:01 | PDOC ---
PROGRESS NOTES Subjective Subjective wants to go home tomorrow. potassium low 3.3. bp high but has been off of bp meds for 1 week. feels better. more alert. Objective Objective Vital Signs Date Time Temp Pulse Resp B/P (MAP) Pulse Ox O2 Delivery O2 Flow Rate FiO2 09/07/19 08:33 67 173/73 09/07/19 07:59 98.4 18 92 Room Air 98.4 Intake and Output 09/07/19 07:00 Output Total 0 ml Balance 0 ml Output Urine Total 0 ml # Voids 2 Physical Exam Abdomen: Soft Heart: Regular rate, Normal S1, Normal S2 Extremities: No edema, Other (right AKA) General: Alert HEENT: Atraumatic Lungs: Clear to auscultation Neuro: Normal speech Psych/Mental Status: Mood NL Skin: No rashes Assessment Assessment Problems1. Failure to thrive. 2. Debility. 3. Hypertensive urgency. 4. hypokalemia. 5. Hypertension. 6. Hypertensive urgency. 7. Hyperlipidemia. 8. Peripheral arterial disease. 9. History of right above-knee amputation. 10. Non-Hodgkin's lymphoma of the stomach. Medical Problems: (1) Hypernatremia Status: Acute (2) Hypertensive urgency Status: Acute (3) Weakness Status: Acute Plan Plan of Care replete kcl PT and OT Comment Review of Relevant I have reviewed the following items rudy (where applicable) has been applied. Labs Laboratory Tests Test 09/05/19 14:21 09/05/19 14:30 09/05/19 15:00 09/06/19 03:00 Glucose (Fingerstick) 133 mg/dL (70-99) White Blood Count 9.6 x10^3/uL (4.0-11.0) 9.2 x10^3/uL (4.0-11.0) Red Blood Count 5.20 x10^6/uL (3.50-5.40) 4.69 x10^6/uL (3.50-5.40) Hemoglobin 16.0 g/dL (12.0-15.5) 14.5 g/dL (12.0-15.5) Hematocrit 47.7 % (36.0-47.0) 43.5 % (36.0-47.0) Mean Corpuscular Volume 92 fL (79-100) 93 fL (79-100) Mean Corpuscular Hemoglobin 31 pg (25-35) 31 pg (25-35) Mean Corpuscular Hemoglobin Concent 34 g/dL (31-37) 33 g/dL (31-37) Red Cell Distribution Width 13.4 % (11.5-14.5) 13.8 % (11.5-14.5) Platelet Count 216 x10^3/uL (140-400) 203 x10^3/uL (140-400) Neutrophils (%) (Auto) 80 % (31-73) 72 % (31-73) Lymphocytes (%) (Auto) 13 % (24-48) 19 % (24-48) Monocytes (%) (Auto) 6 % (0-9) 8 % (0-9) Eosinophils (%) (Auto) 0 % (0-3) 0 % (0-3) Basophils (%) (Auto) 1 % (0-3) 1 % (0-3) Neutrophils # (Auto) 7.7 x10^3/uL (1.8-7.7) 6.6 x10^3/uL (1.8-7.7) Lymphocytes # (Auto) 1.3 x10^3/uL (1.0-4.8) 1.7 x10^3/uL (1.0-4.8) Monocytes # (Auto) 0.6 x10^3/uL (0.0-1.1) 0.8 x10^3/uL (0.0-1.1) Eosinophils # (Auto) 0.0 x10^3/uL (0.0-0.7) 0.0 x10^3/uL (0.0-0.7) Basophils # (Auto) 0.0 x10^3/uL (0.0-0.2) 0.1 x10^3/uL (0.0-0.2) Sodium Level 147 mmol/L (136-145) 146 mmol/L (136-145) Potassium Level 3.4 mmol/L (3.5-5.1) 2.6 mmol/L (3.5-5.1) Chloride Level 102 mmol/L (98-107) 106 mmol/L (98-107) Carbon Dioxide Level 35 mmol/L (21-32) 31 mmol/L (21-32) Anion Gap 10 (6-14) 9 (6-14) Blood Urea Nitrogen 13 mg/dL (7-20) 15 mg/dL (7-20) Creatinine 0.8 mg/dL (0.6-1.0) 0.7 mg/dL (0.6-1.0) Estimated GFR (Cockcroft-Gault) 68.3 79.7 BUN/Creatinine Ratio 16 (6-20) 21 (6-20) Glucose Level 138 mg/dL (70-99) 143 mg/dL (70-99) Lactic Acid Level 1.7 mmol/L (0.4-2.0) Calcium Level 9.6 mg/dL (8.5-10.1) 9.3 mg/dL (8.5-10.1) Total Bilirubin 0.7 mg/dL (0.2-1.0) 0.4 mg/dL (0.2-1.0) Aspartate Amino Transf (AST/SGOT) 20 U/L (15-37) 19 U/L (15-37) Alanine Aminotransferase (ALT/SGPT) 16 U/L (14-59) 16 U/L (14-59) Alkaline Phosphatase 87 U/L (46-116) 68 U/L (46-116) Troponin I Quantitative < 0.017 ng/mL (0.000-0.055) C-Reactive Protein, Quantitative 8.9 mg/L (0-3.3) Total Protein 7.6 g/dL (6.4-8.2) 6.2 g/dL (6.4-8.2) Albumin 3.9 g/dL (3.4-5.0) 3.2 g/dL (3.4-5.0) Albumin/Globulin Ratio 1.1 (1.0-1.7) 1.1 (1.0-1.7) Procalcitonin < 0.10 ng/mL (0.00-0.10) Urine Collection Type U cath Urine Color Dariela Urine Clarity Clear Urine pH 6.0 Urine Specific [place] 1.025 Urine Protein >=300 mg/dL (NEG-TRACE) Urine Glucose (UA) Negative mg/dL (NEG) Urine Ketones (Stick) Negative mg/dL (NEG) Urine Blood Large (NEG) Urine Nitrite Positive (NEG) Urine Bilirubin Negative (NEG) Urine Urobilinogen Dipstick 1.0 mg/dL (0.2 mg/dL) Urine Leukocyte Esterase Negative (NEG) Urine RBC 6-10 /HPF (0-2) Urine WBC 5-10 /HPF (0-4) Urine Bacteria Many /HPF (0-FEW) Urine Mucus Mod /LPF Test 09/06/19 15:15 09/07/19 03:40 Potassium Level 4.3 mmol/L (3.5-5.1) 3.3 mmol/L (3.5-5.1) Magnesium Level 1.7 mg/dL (1.8-2.4) 2.3 mg/dL (1.8-2.4) White Blood Count 9.4 x10^3/uL (4.0-11.0) Red Blood Count 4.74 x10^6/uL (3.50-5.40) Hemoglobin 14.5 g/dL (12.0-15.5) Hematocrit 44.2 % (36.0-47.0) Mean Corpuscular Volume 93 fL (79-100) Mean Corpuscular Hemoglobin 31 pg (25-35) Mean Corpuscular Hemoglobin Concent 33 g/dL (31-37) Red Cell Distribution Width 14.1 % (11.5-14.5) Platelet Count 222 x10^3/uL (140-400) Neutrophils (%) (Auto) 69 % (31-73) Lymphocytes (%) (Auto) 20 % (24-48) Monocytes (%) (Auto) 10 % (0-9) Eosinophils (%) (Auto) 0 % (0-3) Basophils (%) (Auto) 1 % (0-3) Neutrophils # (Auto) 6.5 x10^3/uL (1.8-7.7) Lymphocytes # (Auto) 1.9 x10^3/uL (1.0-4.8) Monocytes # (Auto) 0.9 x10^3/uL (0.0-1.1) Eosinophils # (Auto) 0.0 x10^3/uL (0.0-0.7) Basophils # (Auto) 0.1 x10^3/uL (0.0-0.2) Sodium Level 141 mmol/L (136-145) Chloride Level 105 mmol/L (98-107) Carbon Dioxide Level 29 mmol/L (21-32) Anion Gap 7 (6-14) Blood Urea Nitrogen 13 mg/dL (7-20) Creatinine 0.8 mg/dL (0.6-1.0) Estimated GFR (Cockcroft-Gault) 68.3 Glucose Level 99 mg/dL (70-99) Calcium Level 9.1 mg/dL (8.5-10.1) Thyroid Stimulating Hormone (TSH) 1.993 uIU/mL (0.358-3.74) Laboratory Tests Test 09/06/19 15:15 09/07/19 03:40 Potassium Level 4.3 mmol/L (3.5-5.1) 3.3 mmol/L (3.5-5.1) Magnesium Level 1.7 mg/dL (1.8-2.4) 2.3 mg/dL (1.8-2.4) White Blood Count 9.4 x10^3/uL (4.0-11.0) Red Blood Count 4.74 x10^6/uL (3.50-5.40) Hemoglobin 14.5 g/dL (12.0-15.5) Hematocrit 44.2 % (36.0-47.0) Mean Corpuscular Volume 93 fL (79-100) Mean Corpuscular Hemoglobin 31 pg (25-35) Mean Corpuscular Hemoglobin Concent 33 g/dL (31-37) Red Cell Distribution Width 14.1 % (11.5-14.5) Platelet Count 222 x10^3/uL (140-400) Neutrophils (%) (Auto) 69 % (31-73) Lymphocytes (%) (Auto) 20 % (24-48) Monocytes (%) (Auto) 10 % (0-9) Eosinophils (%) (Auto) 0 % (0-3) Basophils (%) (Auto) 1 % (0-3) Neutrophils # (Auto) 6.5 x10^3/uL (1.8-7.7) Lymphocytes # (Auto) 1.9 x10^3/uL (1.0-4.8) Monocytes # (Auto) 0.9 x10^3/uL (0.0-1.1) Eosinophils # (Auto) 0.0 x10^3/uL (0.0-0.7) Basophils # (Auto) 0.1 x10^3/uL (0.0-0.2) Sodium Level 141 mmol/L (136-145) Chloride Level 105 mmol/L (98-107) Carbon Dioxide Level 29 mmol/L (21-32) Anion Gap 7 (6-14) Blood Urea Nitrogen 13 mg/dL (7-20) Creatinine 0.8 mg/dL (0.6-1.0) Estimated GFR (Cockcroft-Gault) 68.3 Glucose Level 99 mg/dL (70-99) Calcium Level 9.1 mg/dL (8.5-10.1) Thyroid Stimulating Hormone (TSH) 1.993 uIU/mL (0.358-3.74) Microbiology 09/05/19 Blood Culture - Preliminary, Resulted NO GROWTH AFTER 1 DAY Medications Current Medications Acetaminophen (Tylenol) 1,000 mg 1X ONCE PO Last administered on 09/05/19at 15:45; Start 09/05/19 at 15:45; Stop 09/05/19 at 15:46; Status DC Ceftriaxone Sodium (Rocephin) 1 gm 1X ONCE IVP Last administered on 09/05/19at 16:48; Start 09/05/19 at 16:30; Stop 09/05/19 at 16:31; Status DC Hydralazine HCl (Apresoline Inj) 10 mg 1X ONCE IVP Last administered on 09/05/19at 19:44; Start 09/05/19 at 16:45; Stop 09/05/19 at 16:46; Status DC Ondansetron HCl (Zofran) 4 mg PRN Q8HRS PRN IV NAUSEA/VOMITING; Start 09/05/19 at 16:45; Stop 09/06/19 at 16:44; Status DC Acetaminophen (Tylenol) 650 mg PRN Q4HRS PRN PO FEVER Last administered on 09/05/19at 21:04; Start 09/05/19 at 16:45; Stop 09/06/19 at 16:44; Status DC Dextrose/Sodium Chloride 1,000 ml @ 100 mls/hr 1X ONCE IV Last administered on 09/06/19at 01:21; Start 09/05/19 at 16:45; Stop 09/06/19 at 02:44; Status DC Allopurinol (Zyloprim) 100 mg DAILY PO Last administered on 09/07/19 08:34; Start 09/06/19 at 09:00 Atorvastatin Calcium (Lipitor) 10 mg DAILY PO Last administered on 09/07/19at 08:34; Start 09/06/19 at 09:00 Carvedilol (Coreg) 6.25 mg BIDWMEALS PO Last administered on 09/07/19 08:33; Start 09/06/19 at 08:00 Gabapentin (Neurontin) 100 mg TID PO Last administered on 09/07/19 08:34; Start 09/06/19 at 09:00 Pantoprazole Sodium (Protonix) 40 mg DAILYAC PO Last administered on 09/07/19 08:33; Start 09/06/19 at 07:30 Non-Formulary Medication (Ibrutinib (Imbruvica)) 140 mg DAILY PO ; Start 09/06/19 at 09:00; Status UNV Losartan Potassium (Cozaar) 100 mg DAILY PO Last administered on 09/07/19at 08:33; Start 09/06/19 at 09:00 Non-Formulary Medication (Mirabegron (Myrbetriq)) 25 mg DAILY PO ; Start at 09:00; Status UNV Venlafaxine HCl (Effexor) 50 mg TID PO Last administered on 09/06/19at 09:18; Start 09/06/19 at 09:00; Stop 09/06/19 at 10:05; Status DC Carvedilol (Coreg) 6.25 mg 1X ONCE PO Last administered on 09/05/19at 23:04; Start 09/05/19 at 23:00; Stop 09/05/19 at 23:01; Status DC Potassium Chloride (Klor-Con) 40 meq 1X ONCE PO Last administered on at 05:57; Start 09/06/19 at 06:00; Stop 09/06/19 at 06:01; Status DC Potassium Chloride (Klor-Con) 40 meq 1X ONCE PO Last administered on 09/06/19at 10:44; Start 09/06/19 at 11:00; Stop 09/06/19 at 11:01; Status DC Hydralazine HCl (Apresoline Inj) 10 mg PRN Q6HRS PRN IVP ELEVATED BP, SEE COMMENTS Last administered on 09/06/19at 21:11; Start 09/06/19 at 10:00 Acetaminophen (Tylenol) 650 mg PRN Q6HRS PRN PO MILD PAIN / TEMP; Start 09/06/19 at 10:00 Magnesium Hydroxide (Milk Of Magnesia) 2,400 mg PRN DAILY PRN PO CONSTIPATION; Start 09/06/19 at 10:00 Venlafaxine HCl (Effexor Xr) 150 mg DAILY PO Last administered on 09/07/19at 08:34; Start 09/07/19 at 09:00 Magnesium Oxide (Magnesium Oxide) 400 mg BID PO Last administered on 09/07/19at 08:34; Start 09/06/19 at 11:00 Magnesium Sulfate 50 ml @ 25 mls/hr 1X ONCE IV Last administered on 09/06/19at 16:28; Start 09/06/19 at 16:30; Stop 09/06/19 at 18:29; Status DC Active Scripts Active Effexor Xr (Venlafaxine Hcl) 150 Mg Cap.er.24h 1 Cap PO DAILY 30 Days Carvedilol (Carvedilol) 6.25 Mg Tablet 6.25 Mg PO BIDWMEALS Pantoprazole Sodium (Pantoprazole Sodium) 40 Mg Tablet.dr 40 Mg PO DAILYAC Feosol (Ferrous Sulfate) 325 Mg Tablet 325 Mg PO BIDWMEALS Reported Carvedilol (Carvedilol) 6.25 Mg Tablet 6.25 Mg PO 1X Coreg (Carvedilol) 6.25 Mg Tablet 6.25 Mg PO BIDWMEALS Imbruvica (Ibrutinib) 140 Mg Tablet 140 Mg PO DAILY Allopurinol 100 Mg Tablet 100 Mg PO DAILY Myrbetriq (Mirabegron) 25 Mg Tab.er.24h 25 Mg PO DAILY Detrol La (Tolterodine Tartrate) 4 Mg Cap.er.24h 4 Mg PO DAILY Lisinopril 40 Mg Tablet 40 Mg PO DAILY Hydralazine Hcl 25 Mg Tablet 25 Mg PO TID Gabapentin (Gabapentin) 100 Mg Capsule 100 Mg PO TID Magnesium Oxide 400 Mg Tablet 1 Tab PO BID Cozaar (Losartan Potassium) 100 Mg Tablet 100 Mg PO DAILY Centrum Silver Women Tablet (Multivits-Min/Iron/FA/Lutein) 1 Each Tablet 1 Each PO Atorvastatin Calcium 10 Mg Tablet 1 Tab PO DAILY Vitals/I & O Vital Sign - Last 24 Hours 09/06/19 09/06/19 09/06/19 09/06/19 11:00 15:00 16:28 19:00 Temp 97.5 97.5 98.0 97.5 97.5 98.0 Pulse 60 60 60 56 Resp 20 20 18 B/P (MAP) 167/71 (103) 144/71 (95) 144/71 165/71 (102) Pulse Ox 94 93 91 O2 Delivery Room Air Room Air Room Air 09/06/19 09/06/19 09/06/19 09/07/19 20:00 21:11 23:00 03:00 Temp 98.2 98.4 98.2 98.4 Pulse 56 58 70 Resp 18 18 B/P (MAP) 165/71 135/85 (102) 126/60 (82) Pulse Ox 91 91 O2 Delivery Room Air Room Air Room Air 09/07/19 09/07/19 09/07/19 07:59 08:33 08:33 Temp 98.4 98.4 Pulse 67 67 67 Resp 18 B/P (MAP) 173/73 (106) 173/73 173/73 Pulse Ox 92 O2 Delivery Room Air Intake and Output 09/06/19 09/06/19 09/07/19 15:00 23:00 07:00 Output Total 0 ml Balance 0 ml CINDI SOUSA MD Sep 07, 2019 10:01
[2019-09-07] MEDS ORDERED: POTASSIUM CHLORIDE 20 MEQ TABLET.ER. PO ONE (10:30)
[2019-09-07 10:40] VITALS: BP 162/47
[2019-09-07 15:00] VITALS: BP 131/64
[2019-09-07 16:49] LABS: CALCIUM 9.2 mg/dL (8.5-10.1); GFR 52.8; POTASSIUM 4.2 mmol/L (3.5-5.1)
[2019-09-07 19:00] VITALS: BP 157/62
[2019-09-07 23:00] VITALS: BP 141/66
[2019-09-08 02:50] VITALS: BP 162/61
[2019-09-08 04:51] LABS: CREATININE 0.8 mg/dL (0.6-1.0); GFR 68.3; POTASSIUM 3.8 mmol/L (3.5-5.1)
[2019-09-08 07:00] VITALS: BP 159/75
[2019-09-08] MEDS: GABAPENTIN 100 MG CAPSULE. PO SCH (08:43)
[2019-09-08] MEDS: VENLAFAXINE XR 37.5 MG CAP.ER.24H. PO SCH (08:43)
[2019-09-08] MEDS: MAGNESIUM OXIDE 400 MG TABLET PO SCH (08:43)
[2019-09-08] MEDS: LOSARTAN POTASSIUM 50 MG TABLET. PO SCH (08:43)
[2019-09-08] MEDS: ATORVASTATIN CALCIUM 10 MG TABLET. PO SCH (08:43)
[2019-09-08] MEDS: PANTOPRAZOLE 40 MG TABLET.DR. PO SCH (08:44)
[2019-09-08] MEDS: ALLOPURINOL 100 MG TABLET. PO SCH (08:44)
[2019-09-08] MEDS: CARVEDILOL 6.25 MG TABLET. PO SCH (08:44)
--- NOTE | 2019-09-08 10:06 | PDOC ---
PROGRESS NOTES Subjective Subjective feels better and wants to go home,. concurs with home health and home PT. lab reviewed. Objective Objective Vital Signs Date Time Temp Pulse Resp B/P (MAP) Pulse Ox O2 Delivery O2 Flow Rate FiO2 09/08/19 08:44 54 159/75 09/08/19 08:00 Room Air 09/08/19 07:00 98.4 17 92 98.4 Intake and Output 09/08/19 07:00 Intake Total 240 ml Output Total 0 ml Balance 240 ml Intake Oral 240 ml Output Urine Total 0 ml # Voids 1 Physical Exam Abdomen: Soft Heart: Regular rate, Normal S1, Normal S2 General: Alert HEENT: Atraumatic Lungs: Clear to auscultation Neuro: Normal gait Psych/Mental Status: Mental status NL Skin: No rashes Assessment Assessment Problems1. 2. Debility. 3. Hypertensive urgency. 4. hypokalemia.resolved 5. Hypertension. 6. Hypertensive urgency. 7. Hyperlipidemia. 8. Peripheral arterial disease. 9. History of right above-knee amputation. 10. Non-Hodgkin's lymphoma of the stomach. Medical Problems: (1) Hypernatremia Status: Acute (2) Hypertensive urgency Status: Acute (3) Weakness Status: Acute Plan Plan of Care dismiss today with home health Comment Review of Relevant I have reviewed the following items rudy (where applicable) has been applied. Labs Laboratory Tests Test 09/06/19 15:15 09/07/19 03:40 09/07/19 16:20 09/08/19 02:55 Potassium Level 4.3 mmol/L (3.5-5.1) 3.3 mmol/L (3.5-5.1) 4.2 mmol/L (3.5-5.1) 3.8 mmol/L (3.5-5.1) Magnesium Level 1.7 mg/dL (1.8-2.4) 2.3 mg/dL (1.8-2.4) 2.0 mg/dL (1.8-2.4) White Blood Count 9.4 x10^3/uL (4.0-11.0) Red Blood Count 4.74 x10^6/uL (3.50-5.40) Hemoglobin 14.5 g/dL (12.0-15.5) Hematocrit 44.2 % (36.0-47.0) Mean Corpuscular Volume 93 fL (79-100) Mean Corpuscular Hemoglobin 31 pg (25-35) Mean Corpuscular Hemoglobin Concent 33 g/dL (31-37) Red Cell Distribution Width 14.1 % (11.5-14.5) Platelet Count 222 x10^3/uL (140-400) Neutrophils (%) (Auto) 69 % (31-73) Lymphocytes (%) (Auto) 20 % (24-48) Monocytes (%) (Auto) 10 % (0-9) Eosinophils (%) (Auto) 0 % (0-3) Basophils (%) (Auto) 1 % (0-3) Neutrophils # (Auto) 6.5 x10^3/uL (1.8-7.7) Lymphocytes # (Auto) 1.9 x10^3/uL (1.0-4.8) Monocytes # (Auto) 0.9 x10^3/uL (0.0-1.1) Eosinophils # (Auto) 0.0 x10^3/uL (0.0-0.7) Basophils # (Auto) 0.1 x10^3/uL (0.0-0.2) Sodium Level 141 mmol/L (136-145) 141 mmol/L (136-145) 143 mmol/L (136-145) Chloride Level 105 mmol/L (98-107) 105 mmol/L (98-107) 107 mmol/L (98-107) Carbon Dioxide Level 29 mmol/L (21-32) 29 mmol/L (21-32) 29 mmol/L (21-32) Anion Gap 7 (6-14) 7 (6-14) 7 (6-14) Blood Urea Nitrogen 13 mg/dL (7-20) 14 mg/dL (7-20) 16 mg/dL (7-20) Creatinine 0.8 mg/dL (0.6-1.0) 1.0 mg/dL (0.6-1.0) 0.8 mg/dL (0.6-1.0) Estimated GFR (Cockcroft-Gault) 68.3 52.8 68.3 Glucose Level 99 mg/dL (70-99) 116 mg/dL (70-99) 96 mg/dL (70-99) Calcium Level 9.1 mg/dL (8.5-10.1) 9.2 mg/dL (8.5-10.1) 9.0 mg/dL (8.5-10.1) Thyroid Stimulating Hormone (TSH) 1.993 uIU/mL (0.358-3.74) Laboratory Tests Test 09/07/19 16:20 09/08/19 02:55 Sodium Level 141 mmol/L (136-145) 143 mmol/L (136-145) Potassium Level 4.2 mmol/L (3.5-5.1) 3.8 mmol/L (3.5-5.1) Chloride Level 105 mmol/L (98-107) 107 mmol/L (98-107) Carbon Dioxide Level 29 mmol/L (21-32) 29 mmol/L (21-32) Anion Gap 7 (6-14) 7 (6-14) Blood Urea Nitrogen 14 mg/dL (7-20) 16 mg/dL (7-20) Creatinine 1.0 mg/dL (0.6-1.0) 0.8 mg/dL (0.6-1.0) Estimated GFR (Cockcroft-Gault) 52.8 68.3 Glucose Level 116 mg/dL (70-99) 96 mg/dL (70-99) Calcium Level 9.2 mg/dL (8.5-10.1) 9.0 mg/dL (8.5-10.1) Magnesium Level 2.0 mg/dL (1.8-2.4) Microbiology 09/05/19 Blood Culture - Preliminary, Resulted NO GROWTH AFTER 2 DAYS Medications Current Medications Acetaminophen (Tylenol) 1,000 mg 1X ONCE PO Last administered on 09/05/19at 15:45; Start 09/05/19 at 15:45; Stop 09/05/19 at 15:46; Status DC Ceftriaxone Sodium (Rocephin) 1 gm 1X ONCE IVP Last administered on 09/05/19at 16:48; Start 09/05/19 at 16:30; Stop 09/05/19 at 16:31; Status DC Hydralazine HCl (Apresoline Inj) 10 mg 1X ONCE IVP Last administered on 09/05/19at 19:44; Start 09/05/19 at 16:45; Stop 09/05/19 at 16:46; Status DC Ondansetron HCl (Zofran) 4 mg PRN Q8HRS PRN IV NAUSEA/VOMITING; Start 09/05/19 at 16:45; Stop 09/06/19 at 16:44; Status DC Acetaminophen (Tylenol) 650 mg PRN Q4HRS PRN PO FEVER Last administered on 09/05/19at 21:04; Start 09/05/19 at 16:45; Stop 09/06/19 at 16:44; Status DC Dextrose/Sodium Chloride 1,000 ml @ 100 mls/hr 1X ONCE IV Last administered on 09/06/19at 01:21; Start 09/05/19 at 16:45; Stop 09/06/19 at 02:44; Status DC Allopurinol (Zyloprim) 100 mg DAILY PO Last administered on 09/08/19 08:44; Start 09/06/19 at 09:00 Atorvastatin Calcium (Lipitor) 10 mg DAILY PO Last administered on 09/08/19 08:43; Start 09/06/19 at 09:00 Carvedilol (Coreg) 6.25 mg BIDWMEALS PO Last administered on 09/08/19 08:44; Start 09/06/19 at 08:00 Gabapentin (Neurontin) 100 mg TID PO Last administered on 09/08/19 08:43; Start 09/06/19 at 09:00 Pantoprazole Sodium (Protonix) 40 mg DAILYAC PO Last administered on 09/08/19at 08:44; Start 09/06/19 at 07:30 Non-Formulary Medication (Ibrutinib (Imbruvica)) 140 mg DAILY PO ; Start 09/06/19 at 09:00; Stop 09/07/19 at 15:29; Status DC Losartan Potassium (Cozaar) 100 mg DAILY PO Last administered on 09/08/19 08:43; Start 09/06/19 at 09:00 Non-Formulary Medication (Mirabegron (Myrbetriq)) 25 mg DAILY PO ; Start 09/06/19 at 09:00; Stop 09/07/19 at 15:30; Status DC Venlafaxine HCl (Effexor) 50 mg TID PO Last administered on 09/06/19at 09:18; Start 09/06/19 at 09:00; Stop 09/06/19 at 10:05; Status DC Carvedilol (Coreg) 6.25 mg 1X ONCE PO Last administered on 09/05/19at 23:04; Start 09/05/19 at 23:00; Stop 09/05/19 at 23:01; Status DC Potassium Chloride (Klor-Con) 40 meq 1X ONCE PO Last administered on 09/06/19at 05:57; Start 09/06/19 at 06:00; Stop 09/06/19 at 06:01; Status DC Potassium Chloride (Klor-Con) 40 meq 1X ONCE PO Last administered on 09/06/19at 10:44; Start 09/06/19 at 11:00; Stop 09/06/19 at 11:01; Status DC Hydralazine HCl (Apresoline Inj) 10 mg PRN Q6HRS PRN IVP ELEVATED BP, SEE COMMENTS Last administered on 09/06/19at 21:11; Start 09/06/19 at 10:00 Acetaminophen (Tylenol) 650 mg PRN Q6HRS PRN PO MILD PAIN / TEMP; Start 09/06/19 at 10:00 Magnesium Hydroxide (Milk Of Magnesia) 2,400 mg PRN DAILY PRN PO CONSTIPATION; Start 09/06/19 at 10:00 Venlafaxine HCl (Effexor Xr) 150 mg DAILY PO Last administered on 09/08/19at 08:43; Start 09/07/19 at 09:00 Magnesium Oxide (Magnesium Oxide) 400 mg BID PO Last administered on 09/08/19at 08:43; Start 09/06/19 at 11:00 Magnesium Sulfate 50 ml @ 25 mls/hr 1X ONCE IV Last administered on 09/06/19at 16:28; Start 09/06/19 at 16:30; Stop 09/06/19 at 18:29; Status DC Potassium Chloride (Klor-Con) 40 meq 1X ONCE PO Last administered on 09/07/19at 11:56; Start 09/07/19 at 10:30; Stop 09/07/19 at 10:31; Status DC Active Scripts Active Effexor Xr (Venlafaxine Hcl) 150 Mg Cap.er.24h 1 Cap PO DAILY 30 Days Carvedilol (Carvedilol) 6.25 Mg Tablet 6.25 Mg PO BIDWMEALS Pantoprazole Sodium (Pantoprazole Sodium) 40 Mg Tablet.dr 40 Mg PO DAILYAC Feosol (Ferrous Sulfate) 325 Mg Tablet 325 Mg PO BIDWMEALS Reported Carvedilol (Carvedilol) 6.25 Mg Tablet 6.25 Mg PO 1X Coreg (Carvedilol) 6.25 Mg Tablet 6.25 Mg PO BIDWMEALS Imbruvica (Ibrutinib) 140 Mg Tablet 140 Mg PO DAILY Allopurinol 100 Mg Tablet 100 Mg PO DAILY Myrbetriq (Mirabegron) 25 Mg Tab.er.24h 25 Mg PO DAILY Detrol La (Tolterodine Tartrate) 4 Mg Cap.er.24h 4 Mg PO DAILY Lisinopril 40 Mg Tablet 40 Mg PO DAILY Hydralazine Hcl 25 Mg Tablet 25 Mg PO TID Gabapentin (Gabapentin) 100 Mg Capsule 100 Mg PO TID Magnesium Oxide 400 Mg Tablet 1 Tab PO BID Cozaar (Losartan Potassium) 100 Mg Tablet 100 Mg PO DAILY Centrum Silver Women Tablet (Multivits-Min/Iron/FA/Lutein) 1 Each Tablet 1 Each PO Atorvastatin Calcium 10 Mg Tablet 1 Tab PO DAILY Vitals/I & O Vital Sign - Last 24 Hours 09/07/19 09/07/19 09/07/19 09/07/19 10:40 15:00 17:18 19:00 Temp 97.8 97.5 97.7 97.8 97.5 97.7 Pulse 57 60 57 63 Resp 18 16 18 B/P (MAP) 162/47 (85) 131/64 (86) 162/47 157/62 (93) Pulse Ox 92 94 91 O2 Delivery Room Air Room Air Room Air 09/07/19 09/07/19 09/08/19 09/08/19 20:00 23:00 02:50 07:00 Temp 98.2 98.5 98.4 98.2 98.5 98.4 Pulse 58 58 54 Resp 18 18 17 B/P (MAP) 141/66 (91) 162/61 (94) 159/75 (103) Pulse Ox 94 91 92 O2 Delivery Room Air Room Air Room Air Room Air 09/08/19 09/08/19 09/08/19 08:00 08:43 08:44 Pulse 54 54 B/P (MAP) 159/75 159/75 O2 Delivery Room Air Intake and Output 09/07/19 09/07/19 09/08/19 15:00 23:00 07:00 Intake Total 240 ml Output Total 0 ml Balance 240 ml 0 ml CINDI SOUSA MD Sep 08, 2019 10:06
--- NOTE | 2019-09-08 10:15 | SNU/HH DC ---
DISCHARGE WITH HOME HEALTH DISCHARGE INFORMATION: Discharge Date: Sep 08, 2019 Final Diagnosis: Problems Medical Problems: (1) Hypernatremia Status: Acute (2) Hypertensive urgency Status: Acute (3) Weakness Status: Acute Condition on Discharge: Stable CODE STATUS: Code Status: Full HOME HEALTH: Face to Face: I certify this patient is under my care and that I, or a nurse practitioner or physician's dyer assistant working with me, had a face to face encounter that meets the physician face to face encounter requirements with this patient on [09/08/19]. RN For Eval/Treatment: Yes Physical Therapy For: Evalulation/Treatment Occupational Therapy For: Evaluation/Treatment Pt Meets Homebound Status: Other: (generalized weakness and needs assistance wi th transfers) POST DISCHARGE ORDERS: Activity Instructions for Disc: Activity as tolerated Weight Bearing Status after Di: As tolerated DIET AFTER DISCHARGE: Regular Wound/Incision Care: Change dressing CHECKS AFTER DISCHARGE: Checks after discharge: Check blood press - daily, Check blood sugar, ac/hs, Check your Temp as needed FOLLOW-UP: PCP to follow Home Health: dr. sousa Follow up with: dr. sousa next week TREATMENT/EQUIPMENT ORDERS: Adaptive Equipment Issued: None CERTIFICATION STATEMENT: Certification Statement: Certification Statement: Based on the above finding, I certify that this patient is confined to the home and needs intermittent nursing home care, physical therapy and/or speech therapy, or continues to need occupational therapy.~ This patient is under my care, and I have initiated the establishment of the plan of care.~ This patient will be followed by myself or a community physician who will periodically review the plan of care. Home Meds Active Scripts Venlafaxine Hcl (EFFEXOR XR) 150 Mg Cap.er.24h, 1 CAP PO DAILY for depression for 30 Days, #30 CAP 1 Refill Prov:CINDI SOUSA MD 01/19/19 Carvedilol (CARVEDILOL ) 6.25 Mg Tablet, 6.25 MG PO BIDWMEALS for hypertension, #60 TAB Prov:CINDI SOUSA MD 01/19/19 Pantoprazole Sodium (PANTOPRAZOLE SODIUM ) 40 Mg Tablet.dr, 40 MG PO DAILYAC, #30 Prov:CINDI SOUSA MD 07/15/16 Reported Medications Carvedilol (COREG ) 6.25 Mg Tablet, 6.25 MG PO BIDWMEALS for CARDIAC, TAB 09/05/19 Allopurinol (ALLOPURINOL) 100 Mg Tablet, 100 MG PO DAILY for GOUT, TAB 09/05/19 Mirabegron (MYRBETRIQ) 25 Mg Tab.er.24h, 25 MG PO DAILY for OAB, TAB.SR 09/05/19 Gabapentin (GABAPENTIN ) 100 Mg Capsule, 100 MG PO TID for NEUROGENIC PAIN 01/29/19 Magnesium Oxide (MAGNESIUM OXIDE) 400 Mg Tablet, 1 TAB PO BID for supplement 04/08/18 Losartan Potassium (COZAAR) 100 Mg Tablet, 100 MG PO DAILY, TAB 07/30/17 Atorvastatin Calcium (ATORVASTATIN CALCIUM) 10 Mg Tablet, 1 TAB PO DAILY for HLD 02/14/17 Discontinued Reported Medications Carvedilol (CARVEDILOL ) 6.25 Mg Tablet, 6.25 MG PO 1X for CARDIAC, TAB 09/05/19 Ibrutinib (Imbruvica) 140 Mg Tablet, 140 MG PO DAILY for CANCER, TAB 09/05/19 Tolterodine Tartrate (DETROL LA) 4 Mg Cap.er.24h, 4 MG PO DAILY for urinary frequency 01/29/19 Lisinopril (LISINOPRIL) 40 Mg Tablet, 40 MG PO DAILY for FOR HYPERTENSION 01/29/19 Hydralazine Hcl (HYDRALAZINE HCL) 25 Mg Tablet, 25 MG PO TID for HTN 01/29/19 Multivits-Min/Iron/FA/Lutein (Centrum Silver Women Tablet) 1 Each Tablet, 1 EACH PO 02/14/17 Discontinued Scripts Ferrous Sulfate (FEOSOL) 325 Mg Tablet, 325 MG PO BIDWMEALS, #60 Prov:CINDI SOUSA MD 07/15/16 CINDI SOUSA MD Sep 08, 2019 10:15
--- NOTE | 2019-09-08 10:19 | PDOC ---
Provider Note Provider Note discharge summary dictated # [id number] CINDI SOUSA MD Sep 08, 2019 10:19
[2019-09-08 11:00] VITALS: BP 115/65
--- NOTE | 2019-09-08 11:06 | NUR ---
SW following for discharge planning. Chart reviewed, discussed with RN. Pt ready to discharge home with home health today. SONIA met with pt, pt reported she has had home health before but could not remember the name, pt wanted the same agency. SONIA contacted pt's daughter, Camryn to confirm agency - [facility] was the agency pt was previously with. SONIA contacted [facility], and sent referral (ph:[phone], fax: [phone]). RN notified. SONIA will continue to follow. Addendum: 09/08/19 at 1228 by EARL SCOTT Pt has been accepted by [email or web address]. A nurse from [facility] will visit pt's home tomorrow (09/09/19). RN notified. No further SW needs.
--- NOTE | 2019-09-08 11:49 | DS ---
DATE OF DISCHARGE: 09/08/2019 FINAL DIAGNOSES: 1. Debility. 2. Hypertensive urgency. 3. Severe hypokalemia. 4. Hypertension. 5. Hypertensive urgency. 6. Hyperlipidemia. 7. Peripheral arterial disease. 8. History of right above-knee amputation. 9. Non-Hodgkin's lymphoma of the stomach. 10. Hypomagnesemia. HOSPITAL COURSE: The patient is an 83-year-old white female with history of hypertension, hyperlipidemia, peripheral arterial disease, right above-knee amputation who has non-Hodgkin's lymphoma of the stomach and who is followed by Dr. Resendez and was admitted to [facility] through Emergency Room on 09/05/2019 due to generalized weakness and noncompliance with her blood pressure medications and altered mental status. Blood pressure was noted to be quite high in the Emergency Room, and it appears that she had hypertensive encephalopathy. She was admitted to the hospital and started on IV fluids and also had hypokalemia, potassium 2.6 after admission, received potassium chloride and potassium normalized. She was admitted for further evaluation of her hypertensive urgency. She apparently stopped it and was noncompliant with her blood pressure medications at home and they were resumed. The blood pressure was better and improved. Her potassium also normalized. It was 3.8 today. She does not take any diuretics. There has been no vomiting or diarrhea. She also had hypomagnesemia, which improved to 2.0 after IV magnesium. She received physical and occupational therapy. Physical therapist recommended her to go home and she will have home health, also with a registered nurse and physical and occupational therapy at home. She will be dismissed to home and was told to make an appointment to see Dr. Palencia the next week and she will be dismissed on atorvastatin 10 mg every day, carvedilol 6.25 mg b.i.d., Effexor XR 150 mg every day, gabapentin, I believe the dose is 300 mg t.i.d., but she was getting 100 mg t.i.d. here. Losartan 100 mg every day, magnesium oxide is 400 mg b.i.d., multiple vitamin every day, Myrbetriq 25 mg every day, Protonix 40 mg every day. She will follow up with Dr. Resendez concerning her non-Hodgkin's lymphoma and the medication called Imbruvica which is temporarily stopped and she can discuss with him whether to resume it or not. She will make an appointment to see Dr. Palencia in the office next week. I told to drink adequate amounts of fluids and to take her blood pressure medications and other medications. She will be dismissed to home with home health and home physical and occupational therapy and a registered nurse. CINDI PALENCIA MD DR: JEWEL/chuy JOB#: [id number] / [id number]
--- NOTE | 2019-09-08 14:55 | NUR ---
pt discharged home with family and services. IV removed, cath intact. meds and follow up reviewed w/ daughter, Saida. verbalized understanding. pt stable upon dc
== END 2019-09-08 14:43 | disposition home health service (06) | DRG 78 ==
LOC: ER 13:58 → 5 SOUTH 16:45
PROVIDERS: ADMIT Internal Medicine; ATTEND Internal Medicine
DX: I67.4 Hypertensive encephalopathy (principal); E87.0 Hyperosmolality and hypernatremia; C85.90 Non-Hodgkin lymphoma, unspecified, unspecified site; I16.0 Hypertensive urgency; E87.6 Hypokalemia; I73.9 Peripheral vascular disease, unspecified; M19.90 Unspecified osteoarthritis, unspecified site; E78.00 Pure hypercholesterolemia, unspecified; E83.42 Hypomagnesemia; E78.5 Hyperlipidemia, unspecified; I10 Essential (primary) hypertension; R62.7 Adult failure to thrive; Z96.643 Presence of artificial hip joint, bilateral; Z68.25 Body mass index [BMI] 25.0-25.9, adult; Z79.899 Other long term (current) drug therapy; Z87.11 Personal history of peptic ulcer disease; Z89.611 Acquired absence of right leg above knee; Z91.14 Patient's other noncompliance with medication regimen; Z88.0 Allergy status to penicillin; Z88.8 Allergy status to other drugs, medicaments and biological substances
CPT/HCPCS: 36415; 70450; 71045; 80048; 80053; 81001; 82962; 83605; 83735; 84132; 84145; 84443; 84484; 85025; 86140; 87040; 87086; 87186; 93005; 96374; J0360; J0696; J3475; P9612; 97535; 99285-25; G0378

== ENCOUNTER 2020-06-15 18:50 | Inpatient (IN) | payer MEDICARE, OTHER ==
[~2020-06-15] VITALS: Ht 165.1 cm; Wt 66.8 kg
[~2020-06-15 18:50] MED LIST changes: +ALLO100T PO; -ASPI-612 PO; +ASPI-886 PO; +CARV6.25 PO; +IBRU140T PO; +MIRA25TA PO; -VALS1TAB27 PO; +VALS1TAB28 PO
[2020-06-15] MEDS ORDERED: IV NORMAL SALINE 500ML BAG 500 ML IV ONE (19:00)
--- NOTE | 2020-06-15 19:17 | PHYS DOC ---
Past Medical History Past Medical History: Cancer, High Cholesterol, Hypertension Additional Past Medical Histor: ABDOMINAL CA Past Surgical History: Other Additional Past Surgical Histo: back surgery,BILAT HIP REPLACEMENT, RIGHT AKA Smoking Status: Former Smoker Alcohol Use: None Drug Use: None General Adult EDM: Chief Complaint: ALTERED MENTAL STATUS HPI: HPI: Patient is a 84 year old female who presents with complaints of altered mental status. Patient arrived via EMS and the history was taken from the paramedics. The patient was able to follow directions but was felt to be an unreliable historian. No family is available for history at this time. Patient's last known well was yesterday morning and today the chief complaint was that of confusion and a temperature of 100.3. History is limited secondary to patient's mental status Review of Systems: Review of Systems: Review of systems is limited secondary to patient's altered mental status Heart Score: Risk Factors: Risk Factors: DM, Current or recent (<one month) smoker, HTN, HLP, family history of CAD, obesity. Risk Scores: Score 0 - 3: 2.5% MACE over next 6 weeks - Discharge Home Score 4 - 6: 20.3% MACE over next 6 weeks - Admit for Clinical Observation Score 7 - 10: 72.7% MACE over next 6 weeks - Early Invasive Strategies Current Medications: Current Medications Medications (Trade) Dose Ordered Sig/Milan Start Time Stop Time Status Last Admin Dose Admin Sodium Chloride 500 ml @ 500 mls/hr 1X ONCE 06/15/20 19:00 06/15/20 19:59 Allergies: Allergies: Allergies Coded Allergies Type Severity Reaction Last Updated Verified spironolactone Allergy Severe FLUID POURED OUT OF ALL ORIFICES 02/14/17 Yes Penicillins Allergy Intermediate 04/13/18 Yes amlodipine Allergy Intermediate 02/14/17 Yes iodine Allergy Intermediate Rash 02/14/17 Yes olanzapine Allergy Intermediate 02/14/17 Yes rofecoxib Allergy Intermediate 02/14/17 Yes Physical Exam: PE: Constitutional: Well developed, well nourished, no acute distress, non-toxic appearance. [] HENT: Normocephalic, atraumatic, bilateral external ears normal, oropharynx moist, no oral exudates, nose normal. [] Eyes: PERRLA, EOMI, conjunctiva normal, no discharge. [] Neck: Normal range of motion, no tenderness, supple, no stridor. [] Cardiovascular:Heart rate regular rhythm, no murmur [] Lungs & Thorax: Bilateral breath sounds clear to auscultation [] Abdomen: Bowel sounds normal, soft, no tenderness, no masses, no pulsatile masses. [] Rectal: Good rectal tone, no melena hematochezia, stool matter was identified, some stage I skin breakdown around the sacrum is identified. : External genitalia with erythema and mild edema of the labia, b/l (consistent with a Yeast infection) Skin: Warm, dry. [] Back: No tenderness, no CVA tenderness. [] Extremities: No tenderness, pitting edema of the left lower extremity with a AKA of the right lower extremity, nonpalpable pulses distally. [] Neurologic: Alert and oriented X 1, normal motor function, normal sensory function, no focal deficits noted. [] EKG: EKG: Heart rate 68 bpm, normal sinus rhythm with PACs, left axis, otherwise normal ECG [] Radiology/Procedures: Radiology/Procedures: [] Course & Med Decision Making: Course & Med Decision Making Critical care time was 35 minutes which includes time at bedside, spent in discussion of patient's care with specialist and/or family members, with interpretation of laboratory and/or radiological studies and is exclusive of procedures. Critical care time was 35 minutes exclusive of procedures. Pertinent Labs and Imaging studies reviewed. Critical care was charged secondary to impending collapse of the cardiovascular and neurological system as well as hematological collapse requiring transfusion (See chart for details) 2118-the patient was seen and reevaluated on multiple occasions throughout her hospitalization here in the emergency department. I discussed the case with Dr. Palencia who agreed to admit the patient. Old pertinent laboratory, history, x- ray and CT data was discussed with the accepting physician in detail. [] Dragon Disclaimer: Dragon Disclaimer: This electronic medical record was generated, in whole or in part, using a voice recognition dictation system. Date and Time of Assessment Date: Jun 15, 2020 Time: 19:10 Respirations Respiratory Effort: Normal, Non-Labored Respiratory Pattern: Normal Cardiovascular Pulse Rhythm: Regular Lung Sounds Breath Sounds: Clear Capillary Refil Capillary Refill: Rt Hand < 3 seconds Peripheral Pulse Pulse Location: Monitor Pulse Strength: Weak (1+) Pulse Assessment Method: Palpation Integumentary Skin: Warm, Dry, No Rashes Skin Moisture: Dry Skin Turgor: Normal Skin Color: warm Fingernail Color: WNL Departure Departure Referrals: CINDI PALENCIA MD (PCP) Justicifation of Admission Dx: Justifications for Admission: Justification of Admission Dx: Yes Comminuty Aquired Pneumonia: AMN Sepsis: Altered Mental Status MILA RIZZO MD Jun 15, 2020 19:17
[2020-06-15 19:32] LABS: BASO % 0 % (0-3); EOS % 0 % (0-3); LYMPH # 1.5 x10^3/uL (1.0-4.8); LYMPH % 9 % (24-48); MEAN CORPUSCULAR HEMOGLOBIN 27 pg (25-35); MEAN CORPUSCULAR HGB CONC 32 g/dL (31-37); MEAN CORPUSCULAR VOLUME 86 fL (79-100); MONO # 1.2 x10^3/uL (0.0-1.1); MONO % 7 % (0-9); NEUT # 13.7 x10^3/uL (1.8-7.7); NEUT % 84 % (31-73); PLATELET COUNT 298 x10^3/uL (140-400); RED BLOOD COUNT 2.36 x10^6/uL (3.50-5.40); RED CELL DISTRIBUTION WIDTH 18.7 % (11.5-14.5); WHITE BLOOD COUNT 16.4 x10^3/uL (4.0-11.0)
[2020-06-15 19:37] LABS: HEMATOCRIT 20.3 % (36.0-47.0); HEMOGLOBIN 6.4 g/dL (12.0-15.5)
[2020-06-15 19:38] LABS: CREATININE 0.8 mg/dL (0.6-1.0); GFR 68.2; POTASSIUM 3.9 mmol/L (3.5-5.1)
[2020-06-15 19:44] LABS: ALBUMIN 2.1 g/dL (3.4-5.0); ALBUMIN/GLOBULIN RATIO 0.7 (1.0-1.7); TOTAL BILIRUBIN 0.3 mg/dL (0.2-1.0); TOTAL PROTEIN 5.2 g/dL (6.4-8.2)
--- NOTE | 2020-06-15 19:49 | RAD ---
Single view chest dated 06/15/2020. Comparison made to 09/05/2019. CLINICAL INDICATION: Fever and altered mental status. FINDINGS: single upright portable exam performed. Heart and mediastinal contours are stable. There is a nodular density projected over the eighth posterior left rib that appears more prominent from prior study. Lungs are otherwise clear. No pleural effusion. No pneumothorax. Moderate to severe degenerative change of the bilateral shoulder joint. IMPRESSION: 1. Nodular density at the left lung base is more prominent from prior exam. This could be inflammatory or neoplastic. Correlate clinically. If indicated, CT could better evaluate. 2. Otherwise no acute findings. Electronically signed by: Nguyễn Dickson MD (06/15/2020 7:46 PM) [facility]
[2020-06-15 19:53] LABS: % BANDS 7 % (0-9); % LYMPHS 9 % (24-48); % MONOS 4 % (0-10); % SEGS 80 % (35-66); PLT ESTIMATE ADEQUATE (ADEQUATE)
[2020-06-15 19:55] LABS: ANISOCYTOSIS SLIGHT; POLYCHROMASIA SLIGHT; TOXIC GRANULATION SLIGHT
[2020-06-15] MEDS ORDERED: ASPIRIN CHEWABLE 81 MG TABLET. PO ONE (20:00)
[2020-06-15 20:12] LABS: BILIRUBIN,URINE NEGATIVE (NEG); CLARITY,URINE CLOUDY; COLOR,URINE YELLOW; NITRITE,URINE NEGATIVE (NEG); PROTEIN,URINE NEGATIVE (NEG-TRACE)
[2020-06-15 20:20] LABS: BACTERIA,URINE MODERATE /HPF (0-FEW); SQUAMOUS EPITHELIAL CELL,UR FEW /LPF
[2020-06-15 20:21] LABS: HYALINE CASTS, URINE FEW /HPF
[2020-06-15 20:22] LABS: RBC,URINE RARE /HPF (0-2); WBC,URINE RARE /HPF (0-4)
--- NOTE | 2020-06-15 20:47 | RAD ---
CT head without contrast dated 06/15/2020. Comparison is made to 09/05/2019. CLINICAL INDICATION: Confusion. TECHNIQUE: Contiguous axial imaging the head was performed from skull base to vertex. No contrast administered. One or more of the following individualized dose reduction techniques were utilized for this examination: 1. Automated exposure control 2. Adjustment of the mA and/or kV according to patient size 3. Use of iterative reconstruction technique. FINDINGS: Ventricles and sulci are mildly prominent for age. No midline shift or mass effect. Mild patchy low density in the deep/subcortical periventricular white matter. No hemorrhage or extra axial collection. Posterior fossa and brainstem unremarkable. Visualized paranasal sinuses and mastoid air cells are clear. No apparent calvarial abnormality. IMPRESSION: 1. No evidence of acute intracranial hemorrhage or mass. 2. Mild chronic small vessel ischemic changes and atrophy. Electronically signed by: Nguyễn Dickson MD (06/15/2020 8:44 PM) [facility]
[2020-06-15 20:58] LABS: PROTHROMBIN TIME PATIENT 13.5 SEC (11.7-14.0)
[2020-06-15] MEDS ORDERED: cefTRIAXone IV Push 1 GM VIAL. IVP ONE (21:30)
[2020-06-15] MEDS ORDERED: AZITHRMYCN 500MG IVPB FOR OMNI 250 ML IV ONE (21:30)
[2020-06-15] MEDS ORDERED: IV NORMAL SALINE 1000ML BAG 1,000 ML IV SCH (21:30)
[2020-06-16] VITALS (12 sets, daily range): BP systolic 103–170; BP diastolic 53–80
--- NOTE | 2020-06-16 00:30 | NUR ---
Admit from ED via [place] to [facility] room 667. Alert. Confused. Transferred from [facility] to bed with 2 person lift. Orientated to room and call light. Reviewed POC to include blood transfusion, Lab draws, Tele monitoring and not to get out of bed with out assist. Verbalized understanding. Resting in bed. Call light at hand. Bed alarm on.
--- NOTE | 2020-06-16 03:14 | NUR ---
Spoke to daughter , Malina Martinez, on the phone for consent to transfuse blood as patient has history of dementia and currently has altered mental status. Malina gave consent to infuse blood. Also asked Malina for a list of patient's home medication. Malina was not able to give me a list at the moment. Malina reports patient uses [facility] on [address].
[2020-06-16 06:41] LABS: HEMATOCRIT 22.4 % (36.0-47.0); HEMOGLOBIN 7.2 g/dL (12.0-15.5)
--- NOTE | 2020-06-16 10:33 | PDOC ---
Provider Note Provider Note history and physical dictated # [id number] Justicifation of Admission Dx: Justifications for Admission: Justification of Admission Dx: Yes Comminuty Aquired Pneumonia: AMN Sepsis: Altered Mental Status CINDI SOUSA MD Jun 16, 2020 10:33
--- NOTE | 2020-06-16 10:55 | NUR ---
Orders transcribed by Dr. Palencia for pt to be med surg status. potline monitor removed by this RN.
[2020-06-16] MEDS: PANTOPRAZOLE 40 MG TABLET.DR. PO SCH (11:07)
--- NOTE | 2020-06-16 12:33 | NUR ---
This RN verified home medications with pt's son, Ed by telephone and reviewed medications in computer.
--- NOTE | 2020-06-16 13:00 | HP ---
ADMIT DATE: 06/15/2020 LOCATION: Room 667. HISTORY OF PRESENT ILLNESS: The patient is an 84-year-old white female with a history of hypertension, hyperlipidemia, peripheral arterial disease, right above-knee amputation, non-Hodgkin's lymphoma of the stomach who was admitted to [facility] through the Emergency Room on 06/15/2020 with an altered mental status. She was noted to be confused at home. In the Emergency Room, she had a temperature of 100.5 in the Emergency Room last night. I spoke with the Emergency Room physician. She was noted to have a white count of 16.4, hemoglobin 6.4. She received 1 unit of transfusion after admission, with a hemoglobin of 7.2 today. Has noted no black or bloody stools since admission. The patient's previous hemoglobin was 14.5, but prior to that in January 2019, it was 9.1. The patient received IV Rocephin and Zithromax and IV fluids in the Emergency Room. Urinalysis showed no pyuria. She had a chest x-ray done which showed a nodular density in the left lung base more prominent from prior examination and could be inflammatory or neoplastic. A CAT scan of the chest was recommended. She also had a CAT scan of the head which showed no acute abnormality. She was subsequently admitted to the hospital for further evaluation and treatment. ALLERGIES: INCLUDE PENICILLIN, AMLODIPINE, IODINE, OLANZAPINE, ROFECOXIB AND SPIRONOLACTONE. MEDICATIONS PRIOR TO ADMISSION: Questionable. According to her last admission, it is unclear if she is still taking these medicines. She was on: 1. Atorvastatin 10 mg every day. 2. Carvedilol 6.25 mg b.i.d. 3. Effexor XR 150 mg every day. 4. Gabapentin 100 mg t.i.d. 5. Losartan 100 mg every day. 6. Magnesium oxide 400 mg b.i.d. 7. Multiple vitamin once a day. 8. Myrbetriq 25 mg every day. 9. Protonix 40 mg every day. PAST MEDICAL HISTORY: Significant for hospitalization at [facility] in August 2019 with a hypertensive emergency with severe hypokalemia. She has a history of hypertension, hyperlipidemia, peripheral arterial disease, right above-knee amputation, non-Hodgkin's lymphoma of the stomach. She also has a history of small abdominal aortic aneurysm, osteoarthritis, overactive bladder, peptic ulcer disease, lumbar spinal stenosis, bilateral total hip arthroplasty, right above-knee amputation, cryosurgery of the cervix, right femoral to peroneal artery bypass in 2016, right above-knee amputation in 2017, angioplasty of the stomach treated with endoclip in June 2016 for an upper GI bleed. She also had a right carotid endarterectomy in 2015, carpal tunnel release, tonsillectomy, upper GI bleed due to gastric ulcer in January 2019, left superficial femoral artery angioplasty in 1996. SOCIAL HISTORY: She does not drink alcohol nor does she smoke cigarettes. She is . FAMILY HISTORY: Unobtainable. REVIEW OF SYSTEMS: Unobtainable as she is confused. PHYSICAL EXAMINATION: VITAL SIGNS: Temperature is 97.1 degrees, apical pulse 66, respiratory rate 18, blood pressure 107/55, oxygen saturation 98%. HEENT: Eyes: Gaze is conjugate. Conjunctivae pale. Mouth, she is edentulous. NECK: No cervical lymphadenopathy or thyroid enlargement. HEART: Reveals an S1, S2. There is no S3 or murmur. LUNGS: Clear with decreased breath sounds. ABDOMEN: Soft, nontender. EXTREMITIES: Lower extremities, she has got a right above-knee amputation. The stump site looks good. Left lower extremity, the left foot is warm. NEUROLOGIC: She is confused. No facial weakness. LABORATORY DATA: White count is 16.4, hemoglobin 6.4, platelet count 298,000, 80 polys and 7 bands. Her hemoglobin was 7.2 after 1 unit of packed red blood cells. INR 1.1, PTT of 26. Sodium 133, potassium 3.9, chloride 99, total CO2 was 28 with a BUN of 16, creatinine 0.8, blood sugar is 132. Lactic acid level 2.0. Albumin was 2.1 and troponin level of 0.235 decreased to 0.177. Urinalysis showed rare white blood cells. We will see an EKG in here. Chest x-ray as mentioned showed a nodular density in the left lung base which was more prominent compared to prior examination. Inflammation or neoplastic etiologies are possible. She had a CAT scan of the head done which showed no acute abnormality. ASSESSMENT: 1. Sepsis. 2. Metabolic encephalopathy secondary to sepsis. 3. Leukocytosis. 4. Anemia. 5. Severe protein-calorie malnutrition. 6. Right above-knee amputation. 7. Peripheral arterial disease. 8. Small abdominal aortic aneurysm. 9. Hypertension. 10. History of non-Hodgkin's lymphoma of the stomach. 11. Hyperlipidemia. PLAN: At this time is to consult Dr. Cristino Glez for Infectious Disease and Dr. Johnson for Oncology. Check her stool for occult blood x 3. Repeat the CBC and BMP tomorrow. Physical therapy has been ordered. She ate pretty well for breakfast according to the nurses and I will discontinue the IV fluids. We will continue her Protonix 40 mg every day. We can order a CAT scan of the chest. Unfortunately, I am having problems with this computer. It is not allowing me to make any further orders and it is just circling and I cannot order, so we will get a CBC and BMP tomorrow and wait for the blood culture results. Continue IV Rocephin and Zithromax. She will receive physical and occupational therapy while she is here also. She is on a soft solid diet. She had a urinalysis done and there are only rare white cells. CINDI SOUSA MD DR: JEWEL/chuy JOB#: [id number] / [id number]
--- NOTE | 2020-06-16 14:15 | CONS ---
DATE OF CONSULTATION: REQUESTING PHYSICIAN: Nguyễn Palencia MD. REASON FOR CONSULTATION: Pneumonia. HISTORY OF PRESENT ILLNESS: This is an 84-year-old female with history of hypertension and hyperlipidemia, who presented with change in mental status. The patient's baseline mental status is unknown, but the patient was brought in by EMS with a change in mental status. The patient's temperature was 99.5. Her white count was 16,000, hemoglobin 6.4, lactic acid 2, urinalysis unremarkable and the COVID-19 is pending. Chest x-ray showed some nodular density and CT of the head was unremarkable for any acute changes. The patient has been put on Rocephin and one dose of azithromycin has been given. On interviewing the patient, the patient continues to talk about either COVID is conspiracy theory or people are coming in the room and after 5 minutes, they go away, they do not stay around, etc. The patient is also fixated to her denture that she thinks that they lost it. Apparently, nurse has talked to the son, it may have been at home. It is not clear yet. No nausea, vomiting, diarrhea or fever noted. The patient denies any chest pain, shortness of breath, abdominal pain, urinary symptoms or bowel symptoms. PAST MEDICAL HISTORY: Positive for history of dementia, history of aneurysm and surgery done in the leg, bypass, coronary artery bypass grafting done, hypertension, hyperlipidemia, gastroesophageal reflux disease, joint replacement. SOCIAL HISTORY: Negative for smoking, alcohol or illicit drug use. ALLERGIES: ALLERGIC TO PENICILLIN, UNCLEAR WHAT HAPPENED. CURRENT MEDICATIONS: Reviewed. REVIEW OF SYSTEMS: As per HPI, all other systems reviewed are negative. PHYSICAL EXAMINATION: GENERAL: Alert, oriented female, right now with a poor memory, not in any distress. VITAL SIGNS: Stable, afebrile. HEENT: NAD. NECK: Supple, no JVP, no lymphadenopathy. LUNGS: Clear. HEART: S1, S2 regular. ABDOMEN: Benign. EXTREMITIES: No edema, cyanosis. SKIN: Unremarkable. NEUROLOGIC: The patient is alert, awake, able to communicate, follows command, but memory is poor. LABORATORY DATA: White count is 16.4. BUN and creatinine are normal. Urinalysis and chest x-ray, all that I mentioned earlier. IMPRESSION: 1. Encephalopathy, unclear whether how much is new and how much is old. Clearly, the patient has memory problem. 2. Leukocytosis. 3. Nodular density in the lung. 4. Hypertension. 5. Coronary artery disease. 6. Diabetes. RECOMMENDATIONS: Continue Rocephin, supportive care and maybe this is her baseline. We will follow. Thank you very much, Dr. Palencia, for giving me the opportunity to participate in this patient's care. WALT CHAVIS MD DR: ELDER/chuy JOB#: [id number] / [id number]
--- NOTE | 2020-06-16 14:37 | EKG ---
[facility] [address] [place] [address] Test Date: 2020-06-15 Test Time: 19:03:06 Pat Name: ZACH GALVAN Department: Room: Gender: F Merchandise Coordinator: : 1935 Requested By: MILA RIZZO Order Number: [id number] Reading MD: Measurements Intervals Leroy Rate: 68 P: [place]: QRS: 0 QRSD: 72 T: 20 QT: 404 QTc: 430 Interpretive Statements IRREGULAR RHYTHM, NO P-WAVE FOUND LEFTWARD AXIS OTHERWISE NORMAL ECG RI6.01 No previous ECG available for comparison
--- NOTE | 2020-06-16 17:32 | NUR ---
SW following. Spoke with RN and reviewed chart. Pt on room air and IV Rocephin. PT evaluation says SNU. SONIA attempted to call the dtr to see about referral options. INDIRA Rees to follow this patient for discharge planning.
[2020-06-16] MEDS: ACETAMINOPHEN 325 MG TABLET. PO PRN (19:51)
[2020-06-16] MEDS ORDERED: cefTRIAXone IV Push 1 GM VIAL. IVP SCH (21:30)
[2020-06-16] MEDS: AZITHROMYCIN 250 MG TABLET. PO SCH (22:22)
[2020-06-17 03:25] VITALS: BP 128/68
[2020-06-17 03:59] LABS: BASO % 0 % (0-3); EOS % 1 % (0-3); HEMATOCRIT 24.1 % (36.0-47.0); HEMOGLOBIN 7.7 g/dL (12.0-15.5); LYMPH % 16 % (24-48); MEAN CORPUSCULAR HEMOGLOBIN 27 pg (25-35); MEAN CORPUSCULAR HGB CONC 32 g/dL (31-37); MEAN CORPUSCULAR VOLUME 84 fL (79-100); MONO # 0.6 x10^3/uL (0.0-1.1); MONO % 9 % (0-9); NEUT # 4.6 x10^3/uL (1.8-7.7); NEUT % 74 % (31-73); PLATELET COUNT 239 x10^3/uL (140-400); RED BLOOD COUNT 2.85 x10^6/uL (3.50-5.40); RED CELL DISTRIBUTION WIDTH 19.6 % (11.5-14.5); WHITE BLOOD COUNT 6.2 x10^3/uL (4.0-11.0)
[2020-06-17 04:14] LABS: CALCIUM 8.1 mg/dL (8.5-10.1); CREATININE 0.7 mg/dL (0.6-1.0); GFR 79.5; MAGNESIUM 1.8 mg/dL (1.8-2.4); POTASSIUM 3.6 mmol/L (3.5-5.1)
[2020-06-17 07:15] VITALS: BP 164/74
[2020-06-17] MEDS: MULTIVITAMIN with MINERAL TABLET. PO SCH (09:18)
[2020-06-17] MEDS: PANTOPRAZOLE 40 MG TABLET.DR. PO SCH (09:19)
[2020-06-17] MEDS: AZITHROMYCIN 250 MG TABLET. PO SCH (09:19)
[2020-06-17] MEDS: ACETAMINOPHEN 325 MG TABLET. PO PRN (09:30)
--- NOTE | 2020-06-17 11:21 | PDOC ---
Infectious Disease Note Subjective Subjective pt is feeling good, has no complaints ROS ROS no n/v/d/sob Vital Sign Vital Signs Vital Signs Date Time Temp Pulse Resp B/P (MAP) Pulse Ox O2 Delivery O2 Flow Rate FiO2 06/17/20 07:15 98.7 71 16 164/74 (104) 98 Room Air 98.7 Physical Exam PHYSICAL EXAM GENERAL: Alert, oriented female, right now with a poor memory, not in any distress. VITAL SIGNS: Stable, afebrile. HEENT: NAD. NECK: Supple, no JVP, no lymphadenopathy. LUNGS: Clear. HEART: S1, S2 regular. ABDOMEN: Benign. EXTREMITIES: No edema, cyanosis. SKIN: Unremarkable. NEUROLOGIC: The patient is alert, awake, able to communicate, follows command, but memory is poor. Labs Lab Laboratory Tests Test 06/17/20 03:40 White Blood Count 6.2 x10^3/uL (4.0-11.0) Red Blood Count 2.85 x10^6/uL (3.50-5.40) Hemoglobin 7.7 g/dL (12.0-15.5) Hematocrit 24.1 % (36.0-47.0) Mean Corpuscular Volume 84 fL (79-100) Mean Corpuscular Hemoglobin 27 pg (25-35) Mean Corpuscular Hemoglobin Concent 32 g/dL (31-37) Red Cell Distribution Width 19.6 % (11.5-14.5) Platelet Count 239 x10^3/uL (140-400) Neutrophils (%) (Auto) 74 % (31-73) Lymphocytes (%) (Auto) 16 % (24-48) Monocytes (%) (Auto) 9 % (0-9) Eosinophils (%) (Auto) 1 % (0-3) Basophils (%) (Auto) 0 % (0-3) Neutrophils # (Auto) 4.6 x10^3/uL (1.8-7.7) Lymphocytes # (Auto) 1.0 x10^3/uL (1.0-4.8) Monocytes # (Auto) 0.6 x10^3/uL (0.0-1.1) Eosinophils # (Auto) 0.0 x10^3/uL (0.0-0.7) Basophils # (Auto) 0.0 x10^3/uL (0.0-0.2) Sodium Level 141 mmol/L (136-145) Potassium Level 3.6 mmol/L (3.5-5.1) Chloride Level 106 mmol/L (98-107) Carbon Dioxide Level 31 mmol/L (21-32) Anion Gap 4 (6-14) Blood Urea Nitrogen 8 mg/dL (7-20) Creatinine 0.7 mg/dL (0.6-1.0) Estimated GFR (Cockcroft-Gault) 79.5 Glucose Level 110 mg/dL (70-99) Calcium Level 8.1 mg/dL (8.5-10.1) Magnesium Level 1.8 mg/dL (1.8-2.4) Micro bc neg urine e coli Objective Assessment IMPRESSION: 1. Encephalopathy, unclear whether how much is new and how much is old. Clearly, the patient has memory problem. 2. Leukocytosis. 3. Nodular density in the lung. 4. Hypertension. 5. Coronary artery disease. 6. Diabetes. Plan Plan of Care urine was neg for infection , culture is contamination mooseephine can be changed to po WALT Bob MD Jun 17, 2020 11:21
[2020-06-17 11:44] VITALS: BP 150/91
--- NOTE | 2020-06-17 11:44 | PDOC ---
PROGRESS NOTES Date of Service DATE: 06/17/20 TIME: 11:41 Subjective Subjective afebrile. denies cough. lab reviewed. wbc normal. urine culture e. coli is a contaminant as she has no pyuria . discussed with dr saji mackey. bp is high Objective Objective Vital Signs Date Time Temp Pulse Resp B/P (MAP) Pulse Ox O2 Delivery O2 Flow Rate FiO2 06/17/20 07:15 98.7 71 16 164/74 (104) 98 Room Air 98.7 Intake and Output 06/17/20 07:00 Intake Total 1650 ml Balance 1650 ml Intake Oral 850 ml IV Total 800 ml # Voids 3 Physical Exam Abdomen: Soft Heart: Regular rate, Normal S1, Normal S2 Extremities: No edema, Other (right AKA) General: Alert HEENT: Atraumatic Lungs: Clear to auscultation Neuro: Normal speech Psych/Mental Status: Mood NL Skin: No rashes Assessment Assessment Problems1. Sepsis.resolved 2. Metabolic encephalopathy secondary to sepsis. 3. Leukocytosis.resolved 4. Anemia. 5. Severe protein-calorie malnutrition. 6. Right above-knee amputation. 7. Peripheral arterial disease. 8. Small abdominal aortic aneurysm. 9. Hypertension. 10. History of non-Hodgkin's lymphoma of the stomach. 11. Hyperlipidemia. Medical Problems: (1) Anemia Status: Acute (2) CAD (coronary artery disease) Status: Acute Plan Plan of Care continue iv rocephin and zithromax await ct chest and abdomen and pelvis report resume losartan and carvedilol resume gabapentin resume effexor Comment Review of Relevant I have reviewed the following items rudy (where applicable) has been applied. Labs Laboratory Tests Test 06/15/20 19:17 06/15/20 19:30 06/15/20 19:59 06/16/20 06:05 White Blood Count 16.4 x10^3/uL (4.0-11.0) Red Blood Count 2.36 x10^6/uL (3.50-5.40) Hemoglobin 6.4 g/dL (12.0-15.5) 7.2 g/dL (12.0-15.5) Hematocrit 20.3 % (36.0-47.0) 22.4 % (36.0-47.0) Mean Corpuscular Volume 86 fL (79-100) Mean Corpuscular Hemoglobin 27 pg (25-35) Mean Corpuscular Hemoglobin Concent 32 g/dL (31-37) Red Cell Distribution Width 18.7 % (11.5-14.5) Platelet Count 298 x10^3/uL (140-400) Neutrophils (%) (Auto) 84 % (31-73) Lymphocytes (%) (Auto) 9 % (24-48) Monocytes (%) (Auto) 7 % (0-9) Eosinophils (%) (Auto) 0 % (0-3) Basophils (%) (Auto) 0 % (0-3) Neutrophils # (Auto) 13.7 x10^3/uL (1.8-7.7) Lymphocytes # (Auto) 1.5 x10^3/uL (1.0-4.8) Monocytes # (Auto) 1.2 x10^3/uL (0.0-1.1) Eosinophils # (Auto) 0.0 x10^3/uL (0.0-0.7) Basophils # (Auto) 0.0 x10^3/uL (0.0-0.2) Segmented Neutrophils % 80 % (35-66) Band Neutrophils % 7 % (0-9) Lymphocytes % 9 % (24-48) Monocytes % 4 % (0-10) Toxic Granulation Slight Platelet Estimate Adequate (ADEQUATE) Polychromasia Slight Anisocytosis Slight Prothrombin Time 13.5 SEC (11.7-14.0) Prothromb Time International Ratio 1.1 (0.8-1.1) Activated Partial Thromboplast Time 26 SEC (24-38) Sodium Level 133 mmol/L (136-145) Potassium Level 3.9 mmol/L (3.5-5.1) Chloride Level 99 mmol/L (98-107) Carbon Dioxide Level 28 mmol/L (21-32) Anion Gap 6 (6-14) Blood Urea Nitrogen 16 mg/dL (7-20) Creatinine 0.8 mg/dL (0.6-1.0) Estimated GFR (Cockcroft-Gault) 68.2 BUN/Creatinine Ratio 20 (6-20) Glucose Level 132 mg/dL (70-99) Lactic Acid Level 2.0 mmol/L (0.4-2.0) Calcium Level 8.0 mg/dL (8.5-10.1) Total Bilirubin 0.3 mg/dL (0.2-1.0) Aspartate Amino Transf (AST/SGOT) 36 U/L (15-37) Alanine Aminotransferase (ALT/SGPT) 47 U/L (14-59) Alkaline Phosphatase 78 U/L (46-116) Troponin I Quantitative 0.235 ng/mL (0.000-0.055) 0.177 ng/mL (0.000-0.055) Total Protein 5.2 g/dL (6.4-8.2) Albumin 2.1 g/dL (3.4-5.0) Albumin/Globulin Ratio 0.7 (1.0-1.7) Coronavirus (PCR) Not detected (Not Detected) Urine Collection Type U cath Urine Color Yellow Urine Clarity Cloudy Urine pH 5.0 (<5.0-8.0) Urine Specific [place] 1.020 (1.000-1.030) Urine Protein Negative mg/dL (NEG-TRACE) Urine Glucose (UA) Negative mg/dL (NEG) Urine Ketones (Stick) Negative mg/dL (NEG) Urine Blood Negative (NEG) Urine Nitrite Negative (NEG) Urine Bilirubin Negative (NEG) Urine Urobilinogen Dipstick 1.0 mg/dL (0.2 mg/dL) Urine Leukocyte Esterase Trace (NEG) Urine RBC Rare /HPF (0-2) Urine WBC Rare /HPF (0-4) Urine Squamous Epithelial Cells Few /LPF Urine Bacteria Moderate /HPF (0-FEW) Urine Hyaline Casts Few /HPF Urine Mucus Mod /LPF Test 06/17/20 03:40 White Blood Count 6.2 x10^3/uL (4.0-11.0) Red Blood Count 2.85 x10^6/uL (3.50-5.40) Hemoglobin 7.7 g/dL (12.0-15.5) Hematocrit 24.1 % (36.0-47.0) Mean Corpuscular Volume 84 fL (79-100) Mean Corpuscular Hemoglobin 27 pg (25-35) Mean Corpuscular Hemoglobin Concent 32 g/dL (31-37) Red Cell Distribution Width 19.6 % (11.5-14.5) Platelet Count 239 x10^3/uL (140-400) Neutrophils (%) (Auto) 74 % (31-73) Lymphocytes (%) (Auto) 16 % (24-48) Monocytes (%) (Auto) 9 % (0-9) Eosinophils (%) (Auto) 1 % (0-3) Basophils (%) (Auto) 0 % (0-3) Neutrophils # (Auto) 4.6 x10^3/uL (1.8-7.7) Lymphocytes # (Auto) 1.0 x10^3/uL (1.0-4.8) Monocytes # (Auto) 0.6 x10^3/uL (0.0-1.1) Eosinophils # (Auto) 0.0 x10^3/uL (0.0-0.7) Basophils # (Auto) 0.0 x10^3/uL (0.0-0.2) Sodium Level 141 mmol/L (136-145) Potassium Level 3.6 mmol/L (3.5-5.1) Chloride Level 106 mmol/L (98-107) Carbon Dioxide Level 31 mmol/L (21-32) Anion Gap 4 (6-14) Blood Urea Nitrogen 8 mg/dL (7-20) Creatinine 0.7 mg/dL (0.6-1.0) Estimated GFR (Cockcroft-Gault) 79.5 Glucose Level 110 mg/dL (70-99) Calcium Level 8.1 mg/dL (8.5-10.1) Magnesium Level 1.8 mg/dL (1.8-2.4) Laboratory Tests Test 06/17/20 03:40 White Blood Count 6.2 x10^3/uL (4.0-11.0) Red Blood Count 2.85 x10^6/uL (3.50-5.40) Hemoglobin 7.7 g/dL (12.0-15.5) Hematocrit 24.1 % (36.0-47.0) Mean Corpuscular Volume 84 fL (79-100) Mean Corpuscular Hemoglobin 27 pg (25-35) Mean Corpuscular Hemoglobin Concent 32 g/dL (31-37) Red Cell Distribution Width 19.6 % (11.5-14.5) Platelet Count 239 x10^3/uL (140-400) Neutrophils (%) (Auto) 74 % (31-73) Lymphocytes (%) (Auto) 16 % (24-48) Monocytes (%) (Auto) 9 % (0-9) Eosinophils (%) (Auto) 1 % (0-3) Basophils (%) (Auto) 0 % (0-3) Neutrophils # (Auto) 4.6 x10^3/uL (1.8-7.7) Lymphocytes # (Auto) 1.0 x10^3/uL (1.0-4.8) Monocytes # (Auto) 0.6 x10^3/uL (0.0-1.1) Eosinophils # (Auto) 0.0 x10^3/uL (0.0-0.7) Basophils # (Auto) 0.0 x10^3/uL (0.0-0.2) Sodium Level 141 mmol/L (136-145) Potassium Level 3.6 mmol/L (3.5-5.1) Chloride Level 106 mmol/L (98-107) Carbon Dioxide Level 31 mmol/L (21-32) Anion Gap 4 (6-14) Blood Urea Nitrogen 8 mg/dL (7-20) Creatinine 0.7 mg/dL (0.6-1.0) Estimated GFR (Cockcroft-Gault) 79.5 Glucose Level 110 mg/dL (70-99) Calcium Level 8.1 mg/dL (8.5-10.1) Magnesium Level 1.8 mg/dL (1.8-2.4) Microbiology 06/15/20 Urine Culture - Preliminary, Resulted 06/15/20 Blood Culture - Preliminary, Resulted NO GROWTH AFTER 1 DAY Medications Current Medications Sodium Chloride 500 ml @ 500 mls/hr 1X ONCE IV Last administered on 06/15/20at 20:06; Start 06/15/20 at 19:00; Stop 06/15/20 at 20:03; Status DC Aspirin (Aspirin Chewable) 162 mg 1X ONCE PO Last administered on 06/15/20at 20:07; Start 06/15/20 at 20:00; Stop 06/15/20 at 20:06; Status DC Ceftriaxone Sodium (Rocephin) 1 gm 1X ONCE IVP Last administered on 06/15/20at 21:39; Start 06/15/20 at 21:30; Stop 06/15/20 at 21:31; Status DC Azithromycin 250 ml @ 250 mls/hr 1X ONCE IV Last administered on 06/15/20 21:36; Start 06/15/20 at 21:30; Stop 06/15/20 at 22:29; Status DC Sodium Chloride 1,000 ml @ 100 mls/hr Q10H IV Last administered on 06/15/20 21:33; Start 06/15/20 at 21:30; Stop 06/16/20 at 10:35; Status DC Pantoprazole Sodium (Protonix) 40 mg DAILYAC PO Last administered on 06/17/20 09:19; Start 06/16/20 at 11:00 Ceftriaxone Sodium (Rocephin) 1 gm Q24H IVP Last administered on 06/16/20 22:23; Start 06/16/20 at 21:30 Azithromycin (Zithromax) 250 mg DAILY PO Last administered on 06/17/20 09:19; Start 06/16/20 at 21:30 Acetaminophen (Tylenol) 650 mg PRN Q6HRS PRN PO MILD PAIN / TEMP > 100.3'F Last administered on 06/17/20at 09:30; Start 06/16/20 at 10:30 Multivitamins (Thera M Plus) 1 tab DAILY PO Last administered on 06/17/20 09:18; Start 06/17/20 at 09:00 Active Scripts Active Effexor Xr (Venlafaxine Hcl) 150 Mg Cap.er.24h 1 Cap PO DAILY 30 Days Carvedilol (Carvedilol) 6.25 Mg Tablet 6.25 Mg PO BIDWMEALS Reported Coreg (Carvedilol) 6.25 Mg Tablet 6.25 Mg PO BIDWMEALS Myrbetriq (Mirabegron) 25 Mg Tab.er.24h 25 Mg PO DAILY Gabapentin (Gabapentin) 100 Mg Capsule 100 Mg PO TID Cozaar (Losartan Potassium) 100 Mg Tablet 100 Mg PO DAILY Atorvastatin Calcium 10 Mg Tablet 1 Tab PO DAILY Vitals/I & O Vital Sign - Last 24 Hours 06/16/20 06/16/20 06/16/20 06/16/20 15:00 19:00 20:00 22:44 Temp 98.3 98.5 98.0 98.3 98.5 98.0 Pulse 65 78 60 Resp 18 18 18 B/P (MAP) 103/57 (72) 170/70 (103) 160/70 (100) Pulse Ox 97 97 100 O2 Delivery Room Air Room Air Room Air Room Air 06/17/20 06/17/20 03:25 07:15 Temp 97.6 98.7 97.6 98.7 Pulse 61 71 Resp 18 16 B/P (MAP) 128/68 (88) 164/74 (104) Pulse Ox 100 98 O2 Delivery Room Air Room Air Intake and Output 06/16/20 06/16/20 06/17/20 15:00 23:00 07:00 Intake Total 1130 ml 520 ml 0 ml Balance 1130 ml 520 ml 0 ml Justicifation of Admission Dx: Justifications for Admission: Justification of Admission Dx: Yes Comminuty Aquired Pneumonia: AMN Sepsis: Altered Mental Status CINDI SOUSA MD Jun 17, 2020 11:44
[2020-06-17] MEDS: VENLAFAXINE XR 37.5 MG CAP.ER.24H. PO SCH (13:42)
[2020-06-17] MEDS: LOSARTAN POTASSIUM 50 MG TABLET. PO SCH (13:43)
[2020-06-17] MEDS: GABAPENTIN 100 MG CAPSULE. PO SCH ×2 (13:43→20:41)
--- NOTE | 2020-06-17 14:54 | NUR ---
SS following up with discharge planning. SS reviewed pt chart and discussed with pt RN. Pt is from home with spouse and is currently on room air. Pt switching to PO antibiotics. PT/OT recommending senior care unit. COVID19 negative. Pt transferred to room 412. SS will continue to follow for discharge planning.
[2020-06-17 15:00] VITALS: BP 144/63
--- NOTE | 2020-06-17 15:37 | PDOC2 ---
CONSULT Date of Consult Date of Consult DATE: 06/17/20 TIME: 15:35 Reason for Consult Reason for Consult: History of non-Hodgkin's lymphoma Referring Physician Referring Physician: Dr. Palencia Identification/Chief Complaint Chief Complaint Altered mental status Problems: (1) Marginal zone lymphoma Source Source: Caregiver, Chart review, Patient History of Present Illness Reason for Visit: Patient is an 84-year-old female with history of marginal zone lymphoma who has been admitted after presenting with encephalopathy. She reports that she lives with her . During her initial evaluation in the ER, she was found to have leukocytosis and severe anemia. She was admitted for further evaluation and management. COVID-19 testing was obtained and was negative. She was treated empirically with ceftriaxone. She continues to be disoriented during her hospital stay and is unable to contribute to history. A review of her medical record shows that she was last seen in the hospital by Dr. Resendez in consultation in January 2019. She was admitted to [facility] at the time with upper GI bleed and significant anemia from blood loss. She received an EGD on 01/14/2019 which showed a gastric ulcer. 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 Staging scans in January 2019 revealed mild increase in size of the spleen with a new small density at the splenic hilum, inseparable from the tip of the pancreatic tail. PET/CT was obtained on 01/23/2019 and show ed hypermetabolic gastric mural thickening compatible with a history of gastric lymphoma. Mildly enlarged spleen compatible with lymphomatous involvement was noted. Upper abdominal hypermetabolic foci compatible with noel involvement were noted. She subsequently followed up outpatient with Dr. Resendez. These records were obtained at my recommendation and are summarized as follows: She started rituximab on 02/26/2019. She received 4 weekly doses and PET/CT after 4 treatments of rituximab showed resolution of abnormal gastric uptake, resolution of hypermetabolic upper abdominal adenopathy and decrease in splenic size and activity. Maintenance rituximab was recommended by Dr. Resendez and she started it on 04/16/2019. PET/CT was obtained on 08/07/2019 and showed increase in the size of the splenic hilar enlarged lymph node measuring 3.2 x 2.3 cm with SUV of 18.8. This previously measured 1.9 cm. Due to concern for progression of disease, Dr. Resendez had recommended ibrutinib for disease control. She started ibrutinib on 08/18/2019 and this was held 3 weeks later due to her hospitalization due to hypertension and hypokalemia. Ibrutinib dose was decreased to [address] Resendez at the time. It appears she was subsequently lost to follow-up since then. Contact information available for her daughter was not accurate. I contacted her who informed me that he had dementia and was not sure of Lashae's medical history. He was also not able to provide me with updated contact information for daughter Malina who accompanies the patient to her medical appointments. He was given by contact information to notify me of his daughters phone number. It is unclear at this time if the patient has continued to take ibrutinib and when her last dose of rituximab was. Social History ALCOHOL: none Drugs: None Current Problem List Problem List Problems Medical Problems: (1) Anemia Status: Acute (2) CAD (coronary artery disease) Status: Acute Current Medications Current Medications Current Medications Sodium Chloride 500 ml @ 500 mls/hr 1X ONCE IV Last administered on 06/15/20at 20:06; Start 06/15/20 at 19:00; Stop 06/15/20 at 20:03; Status DC Aspirin (Aspirin Chewable) 162 mg 1X ONCE PO Last administered on 06/15/20 20:07; Start 06/15/20 at 20:00; Stop 06/15/20 at 20:06; Status DC Ceftriaxone Sodium (Rocephin) 1 gm 1X ONCE IVP Last administered on 06/15/20 21:39; Start 06/15/20 at 21:30; Stop 06/15/20 at 21:31; Status DC Azithromycin 250 ml @ 250 mls/hr 1X ONCE IV Last administered on 06/15/20at 21:36; Start 06/15/20 at 21:30; Stop 06/15/20 at 22:29; Status DC Sodium Chloride 1,000 ml @ 100 mls/hr Q10H IV Last administered on 06/15/20at 21:33; Start 06/15/20 at 21:30; Stop 06/16/20 at 10:35; Status DC Pantoprazole Sodium (Protonix) 40 mg DAILYAC PO Last administered on 06/17/20at 09:19; Start 06/16/20 at 11:00 Ceftriaxone Sodium (Rocephin) 1 gm Q24H IVP Last administered on 06/16/20 22:23; Start 06/16/20 at 21:30 Azithromycin (Zithromax) 250 mg DAILY PO Last administered on 06/17/20 09:19; Start 06/16/20 at 21:30 Acetaminophen (Tylenol) 650 mg PRN Q6HRS PRN PO MILD PAIN / TEMP > 100.3'F Last administered on 06/17/20at 09:30; Start 06/16/20 at 10:30 Multivitamins (Thera M Plus) 1 tab DAILY PO Last administered on 06/17/20 09:18; Start 06/17/20 at 09:00 Losartan Potassium (Cozaar) 100 mg DAILY PO Last administered on 06/17/20at 13:43; Start 06/17/20 at 12:00 Carvedilol (Coreg) 6.25 mg BIDWMEALS PO ; Start 06/17/20 at 17:00 Atorvastatin Calcium (Lipitor) 10 mg QHS PO ; Start 06/17/20 at 21:00 Venlafaxine HCl (Effexor Xr) 150 mg DAILY PO Last administered on 06/17/20 13:42; Start 06/17/20 at 12:00 Gabapentin (Neurontin) 100 mg TID PO Last administered on 06/17/20at 13:43; Start 06/17/20 at 14:00 Active Scripts Active Effexor Xr (Venlafaxine Hcl) 150 Mg Cap.er.24h 1 Cap PO DAILY 30 Days Carvedilol (Carvedilol) 6.25 Mg Tablet 6.25 Mg PO BIDWMEALS Reported Coreg (Carvedilol) 6.25 Mg Tablet 6.25 Mg PO BIDWMEALS Myrbetriq (Mirabegron) 25 Mg Tab.er.24h 25 Mg PO DAILY Gabapentin (Gabapentin) 100 Mg Capsule 100 Mg PO TID Cozaar (Losartan Potassium) 100 Mg Tablet 100 Mg PO DAILY Atorvastatin Calcium 10 Mg Tablet 1 Tab PO DAILY Allergies Allergies: Coded Allergies: spironolactone (Verified Allergy, Severe, FLUID POURED OUT OF ALL ORIFICES, 02/14/17) Penicillins (Verified Allergy, Intermediate, 04/13/18) Tolerates cephalasporins amlodipine (Verified Allergy, Intermediate, 02/14/17) muscle cramps iodine (Verified Allergy, Intermediate, Rash, 02/14/17) swelling olanzapine (Verified Allergy, Intermediate, 02/14/17) rofecoxib (Verified Allergy, Intermediate, 02/14/17) ROS Review of System Unable to obtain review of systems due to the patient's inability to cooperate Physical Exam General: Alert, Cooperative HEENT: Atraumatic Lungs: Clear to auscultation Heart: Regular rate, Normal S1 Abdomen: Normal bowel sounds, Soft Extremities: No clubbing Skin: No rashes Neuro: Other (Not oriented. No grossly evident focal neurologic deficits) Psych/Mental Status: Mood NL MUSCULOSKELETAL: No deformity, No swelling Vitals VITALS Vital Signs Date Time Temp Pulse Resp B/P (MAP) Pulse Ox O2 Delivery O2 Flow Rate FiO2 06/17/20 15:00 98.4 63 18 144/63 (90) 96 Room Air 98.4 Labs Labs Laboratory Tests Test 06/15/20 19:17 06/15/20 19:30 06/15/20 19:59 06/16/20 06:05 White Blood Count 16.4 x10^3/uL (4.0-11.0) Red Blood Count 2.36 x10^6/uL (3.50-5.40) Hemoglobin 6.4 g/dL (12.0-15.5) 7.2 g/dL (12.0-15.5) Hematocrit 20.3 % (36.0-47.0) 22.4 % (36.0-47.0) Mean Corpuscular Volume 86 fL (79-100) Mean Corpuscular Hemoglobin 27 pg (25-35) Mean Corpuscular Hemoglobin Concent 32 g/dL (31-37) Red Cell Distribution Width 18.7 % (11.5-14.5) Platelet Count 298 x10^3/uL (140-400) Neutrophils (%) (Auto) 84 % (31-73) Lymphocytes (%) (Auto) 9 % (24-48) Monocytes (%) (Auto) 7 % (0-9) Eosinophils (%) (Auto) 0 % (0-3) Basophils (%) (Auto) 0 % (0-3) Neutrophils # (Auto) 13.7 x10^3/uL (1.8-7.7) Lymphocytes # (Auto) 1.5 x10^3/uL (1.0-4.8) Monocytes # (Auto) 1.2 x10^3/uL (0.0-1.1) Eosinophils # (Auto) 0.0 x10^3/uL (0.0-0.7) Basophils # (Auto) 0.0 x10^3/uL (0.0-0.2) Segmented Neutrophils % 80 % (35-66) Band Neutrophils % 7 % (0-9) Lymphocytes % 9 % (24-48) Monocytes % 4 % (0-10) Toxic Granulation Slight Platelet Estimate Adequate (ADEQUATE) Polychromasia Slight Anisocytosis Slight Prothrombin Time 13.5 SEC (11.7-14.0) Prothromb Time International Ratio 1.1 (0.8-1.1) Activated Partial Thromboplast Time 26 SEC (24-38) Sodium Level 133 mmol/L (136-145) Potassium Level 3.9 mmol/L (3.5-5.1) Chloride Level 99 mmol/L (98-107) Carbon Dioxide Level 28 mmol/L (21-32) Anion Gap 6 (6-14) Blood Urea Nitrogen 16 mg/dL (7-20) Creatinine 0.8 mg/dL (0.6-1.0) Estimated GFR (Cockcroft-Gault) 68.2 BUN/Creatinine Ratio 20 (6-20) Glucose Level 132 mg/dL (70-99) Lactic Acid Level 2.0 mmol/L (0.4-2.0) Calcium Level 8.0 mg/dL (8.5-10.1) Total Bilirubin 0.3 mg/dL (0.2-1.0) Aspartate Amino Transf (AST/SGOT) 36 U/L (15-37) Alanine Aminotransferase (ALT/SGPT) 47 U/L (14-59) Alkaline Phosphatase 78 U/L (46-116) Troponin I Quantitative 0.235 ng/mL (0.000-0.055) 0.177 ng/mL (0.000-0.055) Total Protein 5.2 g/dL (6.4-8.2) Albumin 2.1 g/dL (3.4-5.0) Albumin/Globulin Ratio 0.7 (1.0-1.7) Coronavirus (PCR) Not detected (Not Detected) Urine Collection Type U cath Urine Color Yellow Urine Clarity Cloudy Urine pH 5.0 (<5.0-8.0) Urine Specific [place] 1.020 (1.000-1.030) Urine Protein Negative mg/dL (NEG-TRACE) Urine Glucose (UA) Negative mg/dL (NEG) Urine Ketones (Stick) Negative mg/dL (NEG) Urine Blood Negative (NEG) Urine Nitrite Negative (NEG) Urine Bilirubin Negative (NEG) Urine Urobilinogen Dipstick 1.0 mg/dL (0.2 mg/dL) Urine Leukocyte Esterase Trace (NEG) Urine RBC Rare /HPF (0-2) Urine WBC Rare /HPF (0-4) Urine Squamous Epithelial Cells Few /LPF Urine Bacteria Moderate /HPF (0-FEW) Urine Hyaline Casts Few /HPF Urine Mucus Mod /LPF Test 06/17/20 03:40 White Blood Count 6.2 x10^3/uL (4.0-11.0) Red Blood Count 2.85 x10^6/uL (3.50-5.40) Hemoglobin 7.7 g/dL (12.0-15.5) Hematocrit 24.1 % (36.0-47.0) Mean Corpuscular Volume 84 fL (79-100) Mean Corpuscular Hemoglobin 27 pg (25-35) Mean Corpuscular Hemoglobin Concent 32 g/dL (31-37) Red Cell Distribution Width 19.6 % (11.5-14.5) Platelet Count 239 x10^3/uL (140-400) Neutrophils (%) (Auto) 74 % (31-73) Lymphocytes (%) (Auto) 16 % (24-48) Monocytes (%) (Auto) 9 % (0-9) Eosinophils (%) (Auto) 1 % (0-3) Basophils (%) (Auto) 0 % (0-3) Neutrophils # (Auto) 4.6 x10^3/uL (1.8-7.7) Lymphocytes # (Auto) 1.0 x10^3/uL (1.0-4.8) Monocytes # (Auto) 0.6 x10^3/uL (0.0-1.1) Eosinophils # (Auto) 0.0 x10^3/uL (0.0-0.7) Basophils # (Auto) 0.0 x10^3/uL (0.0-0.2) Sodium Level 141 mmol/L (136-145) Potassium Level 3.6 mmol/L (3.5-5.1) Chloride Level 106 mmol/L (98-107) Carbon Dioxide Level 31 mmol/L (21-32) Anion Gap 4 (6-14) Blood Urea Nitrogen 8 mg/dL (7-20) Creatinine 0.7 mg/dL (0.6-1.0) Estimated GFR (Cockcroft-Gault) 79.5 Glucose Level 110 mg/dL (70-99) Calcium Level 8.1 mg/dL (8.5-10.1) Magnesium Level 1.8 mg/dL (1.8-2.4) Laboratory Tests Test 06/17/20 03:40 White Blood Count 6.2 x10^3/uL (4.0-11.0) Red Blood Count 2.85 x10^6/uL (3.50-5.40) Hemoglobin 7.7 g/dL (12.0-15.5) Hematocrit 24.1 % (36.0-47.0) Mean Corpuscular Volume 84 fL (79-100) Mean Corpuscular Hemoglobin 27 pg (25-35) Mean Corpuscular Hemoglobin Concent 32 g/dL (31-37) Red Cell Distribution Width 19.6 % (11.5-14.5) Platelet Count 239 x10^3/uL (140-400) Neutrophils (%) (Auto) 74 % (31-73) Lymphocytes (%) (Auto) 16 % (24-48) Monocytes (%) (Auto) 9 % (0-9) Eosinophils (%) (Auto) 1 % (0-3) Basophils (%) (Auto) 0 % (0-3) Neutrophils # (Auto) 4.6 x10^3/uL (1.8-7.7) Lymphocytes # (Auto) 1.0 x10^3/uL (1.0-4.8) Monocytes # (Auto) 0.6 x10^3/uL (0.0-1.1) Eosinophils # (Auto) 0.0 x10^3/uL (0.0-0.7) Basophils # (Auto) 0.0 x10^3/uL (0.0-0.2) Sodium Level 141 mmol/L (136-145) Potassium Level 3.6 mmol/L (3.5-5.1) Chloride Level 106 mmol/L (98-107) Carbon Dioxide Level 31 mmol/L (21-32) Anion Gap 4 (6-14) Blood Urea Nitrogen 8 mg/dL (7-20) Creatinine 0.7 mg/dL (0.6-1.0) Estimated GFR (Cockcroft-Gault) 79.5 Glucose Level 110 mg/dL (70-99) Calcium Level 8.1 mg/dL (8.5-10.1) Magnesium Level 1.8 mg/dL (1.8-2.4) Images Images Reviewed radiology Assessment/Plan Assessment/Plan Assessment: History of gastric marginal zone lymphoma/MALT lymphoma Acute normocytic anemia Encephalopathy, suspect metabolic versus other Recommendations: -Requested medical records Dr. Resendez's office and summarized them in my history of present illness -Agree with CT of the chest abdomen pelvis for further evaluation of lymphoma -Check LDH and uric acid -Recommend checking ferritin, serum iron, TIBC, percent saturation and B12 level -Would recommend MRI brain for further evaluation of encephalopathy -Given unclear duration since last treatment and anemia as well as increased risk of bleeding from ibrutinib, would be concerned for recurrence of GI bleed. -Consider GI evaluation based on the findings of CT of the chest abdomen and pelvis -Will continue to engage with family to obtain further history regarding her recent visits with Dr. Resendez -May consider goals of care discussion based on clinical course and findings of the above investigations Thank you for the consult Tom Reina MD Medical Oncology/Hematology Ph: [phone] KEELEY REINA MD Jun 17, 2020 15:37
[2020-06-17] MEDS: CARVEDILOL 6.25 MG TABLET. PO SCH (17:18)
--- NOTE | 2020-06-17 18:48 | RAD ---
CT scan of the chest, abdomen and pelvis without contrast dated 06/17/2020 CLINICAL HISTORY: History of non-Hodgkin's lymphoma of the stomach. Nodular density seen in the left lung base on a recent chest radiograph. TECHNIQUE: Unenhanced, contiguous, 5 mm axial sections were obtained through the chest, abdomen and pelvis. One or more of the following individualized dose reduction techniques were utilized for this study: 1. Automated exposure control. 2. Adjustment of the mA and/or kV according to patient size. 3. Use of iterative reconstruction technique. FINDINGS: Comparison is made to the patient's PET/CT scan dated 08/07/2019. Additional comparison is made to the patient's CT scan of the chest, abdomen and pelvis dated 01/14/2019. Additional comparison is made to the patient's chest radiograph dated 06/15/2020. Atherosclerotic calcification of the thoracic aorta and its branches is noted. The thoracic aorta is tortuous but tapers normally. The heart is mildly enlarged. No hilar, mediastinal or axillary lymphadenopathy is seen. A masslike opacity is seen involving the lingula which measures 2.3 cm greatest diameter. This corresponds to the nodular density seen on the patient's chest radiograph. It has increased in size since the patient's recent PET/CT scan where it measured 1.8 cm in size. Dependent subsegmental atelectasis is seen involving both lungs, left greater than right. No additional pulmonary mass is seen. No pneumothorax or pleural effusion is noted. The liver, right adrenal gland and left kidney are within normal limits. A 2.2 cm rounded low-attenuation lesion is seen involving the left adrenal gland consistent with an adrenal adenoma. This is unchanged. A rounded low-attenuation mass is seen involving the inferior aspect of the right kidney which may represent a cyst. It is unchanged. No further imaging workup is recommended. A masslike area is seen within the left upper quadrant of the abdomen which is difficult to differentiate from the adjacent spleen, stomach and tail of pancreas. This has a necrotic air-containing center with a small fluid level noted. This measures 7.8 x 7.1 x 5.9 cm in craniocaudal, transverse and AP dimensions. It has increased in size since the patient's PET/CT scan where it measured 5.5 x 3.6 x 2.8 cm in size. Atherosclerotic calcification of the abdominal aorta and its branches is noted. The abdominal aorta is ectatic. The gallstones are seen within the gallbladder. There is no evidence of bowel obstruction. A small fat-containing umbilical hernia is seen which measures 3.7 cm in greatest diameter. Images through the pelvis demonstrate the urinary bladder distended with urine. The patient is post bilateral BETSY. No free fluid is seen. Scattered diverticula are seen involving the sigmoid colon. No inflammatory changes are seen adjacent fat. Very mild S-shaped curvature of the thoracolumbar spine is seen. Degenerative changes are seen involving the thoracic and lumbar spine along with both shoulders. The patient is post laminectomy and posterolateral fusion using pedicle screws and stabilizing rods extending from L3 to S1. IMPRESSION: 1. 2.3 cm masslike opacity is seen involving the lingula of the left upper lobe which has increased in size since the patient's PET/CT scan. It corresponds to the abnormal opacity seen on the patient's chest radiograph. 2. Poorly defined mass is seen within the left upper quadrant abdomen which is difficult to separate from the spleen, stomach and pancreatic tail. This measures 7.8 cm in greatest diameter. It has an air containing center with a fluid level noted. This would be consistent with the patient's history of lymphoma. A superimposed abscess is not excluded. This mass has increased in size since the patient's PET/CT scan. Electronically signed by: Joey Mckenzie MD (06/17/2020 6:45 PM) [id number]
[2020-06-17 19:00] VITALS: BP 156/66
[2020-06-17] MEDS: CEFDINIR 300 MG CAPSULE PO SCH (20:41)
[2020-06-17] MEDS ORDERED: ATORVASTATIN CALCIUM 10 MG TABLET. PO SCH (21:00)
[2020-06-17 23:00] VITALS: BP 117/57
[2020-06-18 03:00] VITALS: BP 132/65
[2020-06-18 07:00] VITALS: BP 152/77
[2020-06-18] MEDS: PANTOPRAZOLE 40 MG TABLET.DR. PO SCH (08:41)
[2020-06-18] MEDS: GABAPENTIN 100 MG CAPSULE. PO SCH ×2 (08:41→13:10)
[2020-06-18] MEDS: CEFDINIR 300 MG CAPSULE PO SCH (08:41)
[2020-06-18] MEDS: AZITHROMYCIN 250 MG TABLET. PO SCH (08:41)
[2020-06-18] MEDS: CARVEDILOL 6.25 MG TABLET. PO SCH (08:41)
[2020-06-18] MEDS: MULTIVITAMIN with MINERAL TABLET. PO SCH (08:41)
[2020-06-18] MEDS: LOSARTAN POTASSIUM 50 MG TABLET. PO SCH (08:42)
[2020-06-18] MEDS: VENLAFAXINE XR 37.5 MG CAP.ER.24H. PO SCH (08:42)
--- NOTE | 2020-06-18 09:08 | PDOC ---
Infectious Disease Note Subjective Subjective pt is feeling good, has no complaints ROS ROS no n/v/d/ Vital Sign Vital Signs Vital Signs Date Time Temp Pulse Resp B/P (MAP) Pulse Ox O2 Delivery O2 Flow Rate FiO2 06/18/20 08:42 69 152/77 06/18/20 07:49 Room Air 06/18/20 07:00 97.9 18 95 97.9 Physical Exam PHYSICAL EXAM GENERAL: Alert, oriented female, right now with a poor memory, not in any distress. VITAL SIGNS: Stable, afebrile. HEENT: NAD. NECK: Supple, no JVP, no lymphadenopathy. LUNGS: Clear. HEART: S1, S2 regular. ABDOMEN: Benign. EXTREMITIES: No edema, cyanosis. SKIN: Unremarkable. NEUROLOGIC: The patient is alert, awake, able to communicate, follows command, but memory is poor. Labs Micro bc neg urine e coli Objective Assessment IMPRESSION: 1. Encephalopathy, unclear whether how much is new and how much is old. Clearly, the patient has memory problem. 2. Leukocytosis. 3. Nodular density in the lung. 4. Hypertension. 5. Coronary artery disease. 6. Diabetes. Plan Plan of Care urine was neg for infection , culture is contamination CT noted ok to d/c from ID stand point WALT CHAVIS MD Jun 18, 2020 09:08
--- NOTE | 2020-06-18 10:14 | PDOC ---
PROGRESS NOTES Date of Service DATE: 06/18/20 TIME: 10:[address] scan results noted with increased left lung and LUQ abdominal mass. confusion. seen by dr Reina who recommends MRI brain. she wants to go home. discussed consults with pulmonary and GI and MRI brain which was ordered. bp is better. Objective Objective Vital Signs Date Time Temp Pulse Resp B/P (MAP) Pulse Ox O2 Delivery O2 Flow Rate FiO2 06/18/20 08:42 69 152/77 06/18/20 07:49 Room Air 06/18/20 07:00 97.9 18 95 97.9 Intake and Output 06/18/20 07:00 Intake Total 830 ml Balance 830 ml Intake Oral 830 ml # Voids 5 Physical Exam Abdomen: Soft Heart: Regular rate, Normal S1, Normal S2 Extremities: No edema, Other (right AKA) General: Alert HEENT: Atraumatic Lungs: Clear to auscultation Neuro: Normal speech Psych/Mental Status: Other (confused) Skin: No rashes Assessment Assessment Problems1. Sepsis.resolved 2. Metabolic encephalopathy secondary to sepsis. 3. Leukocytosis.resolved 4. Anemia. 5. Severe protein-calorie malnutrition. 6. Right above-knee amputation. 7. Peripheral arterial disease. 8. Small abdominal aortic aneurysm. 9. Hypertension. 10. History of non-Hodgkin's lymphoma of the stomach. MALT 11. Hyperlipidemia. may have underlying dementia mass CHELSEY lung increased in size mass LUQ abdomen increased in size debility Medical Problems: (1) Anemia Status: Acute (2) CAD (coronary artery disease) Status: Acute Plan Plan of Care consult dr. laureano consult dr. Sanderson MRI brain continue zithromax and cefdinir PT recommends SNF [employer] to speak with family regarding SNF labs tomorrow increase carvedilol to home dose 12.5 mg bid Comment Review of Relevant I have reviewed the following items rudy (where applicable) has been applied. Labs Laboratory Tests Test 06/17/20 03:40 White Blood Count 6.2 x10^3/uL (4.0-11.0) Red Blood Count 2.85 x10^6/uL (3.50-5.40) Hemoglobin 7.7 g/dL (12.0-15.5) Hematocrit 24.1 % (36.0-47.0) Mean Corpuscular Volume 84 fL (79-100) Mean Corpuscular Hemoglobin 27 pg (25-35) Mean Corpuscular Hemoglobin Concent 32 g/dL (31-37) Red Cell Distribution Width 19.6 % (11.5-14.5) Platelet Count 239 x10^3/uL (140-400) Neutrophils (%) (Auto) 74 % (31-73) Lymphocytes (%) (Auto) 16 % (24-48) Monocytes (%) (Auto) 9 % (0-9) Eosinophils (%) (Auto) 1 % (0-3) Basophils (%) (Auto) 0 % (0-3) Neutrophils # (Auto) 4.6 x10^3/uL (1.8-7.7) Lymphocytes # (Auto) 1.0 x10^3/uL (1.0-4.8) Monocytes # (Auto) 0.6 x10^3/uL (0.0-1.1) Eosinophils # (Auto) 0.0 x10^3/uL (0.0-0.7) Basophils # (Auto) 0.0 x10^3/uL (0.0-0.2) Sodium Level 141 mmol/L (136-145) Potassium Level 3.6 mmol/L (3.5-5.1) Chloride Level 106 mmol/L (98-107) Carbon Dioxide Level 31 mmol/L (21-32) Anion Gap 4 (6-14) Blood Urea Nitrogen 8 mg/dL (7-20) Creatinine 0.7 mg/dL (0.6-1.0) Estimated GFR (Cockcroft-Gault) 79.5 Glucose Level 110 mg/dL (70-99) Calcium Level 8.1 mg/dL (8.5-10.1) Magnesium Level 1.8 mg/dL (1.8-2.4) Microbiology 06/15/20 Urine Culture - Final, Complete 06/15/20 Antimicrobic Susceptibility - Final, Complete 06/15/20 Blood Culture - Preliminary, Resulted NO GROWTH AFTER 2 DAYS Medications Current Medications Sodium Chloride 500 ml @ 500 mls/hr 1X ONCE IV Last administered on 06/15/20at 20:06; Start 06/15/20 at 19:00; Stop 06/15/20 at 20:03; Status DC Aspirin (Aspirin Chewable) 162 mg 1X ONCE PO Last administered on 06/15/20 20:07; Start 06/15/20 at 20:00; Stop 06/15/20 at 20:06; Status DC Ceftriaxone Sodium (Rocephin) 1 gm 1X ONCE IVP Last administered on 06/15/20 21:39; Start 06/15/20 at 21:30; Stop 06/15/20 at 21:31; Status DC Azithromycin 250 ml @ 250 mls/hr 1X ONCE IV Last administered on 06/15/20 21:36; Start 06/15/20 at 21:30; Stop 06/15/20 at 22:29; Status DC Sodium Chloride 1,000 ml @ 100 mls/hr Q10H IV Last administered on 06/15/20 21:33; Start 06/15/20 at 21:30; Stop 06/16/20 at 10:35; Status DC Pantoprazole Sodium (Protonix) 40 mg DAILYAC PO Last administered on 06/18/20 08:41; Start 06/16/20 at 11:00 Ceftriaxone Sodium (Rocephin) 1 gm Q24H IVP Last administered on 06/16/20 22:23 ; Start 06/16/20 at 21:30; Stop 06/17/20 at 17:00; Status DC Azithromycin (Zithromax) 250 mg DAILY PO Last administered on 06/18/20 08:41; Start 06/16/20 at 21:30 Acetaminophen (Tylenol) 650 mg PRN Q6HRS PRN PO MILD PAIN / TEMP > 100.3'F Last administered on 06/17/20at 09:30; Start 06/16/20 at 10:30 Multivitamins (Thera M Plus) 1 tab DAILY PO Last administered on 06/18/20 08:41; Start 06/17/20 at 09:00 Losartan Potassium (Cozaar) 100 mg DAILY PO Last administered on 06/18/20 08:42; Start 06/17/20 at 12:00 Carvedilol (Coreg) 6.25 mg BIDWMEALS PO Last administered on 06/18/20 08:41; Start 06/17/20 at 17:00 Atorvastatin Calcium (Lipitor) 10 mg QHS PO Last administered on 06/17/20 20:41; Start 06/17/20 at 21:00 Venlafaxine HCl (Effexor Xr) 150 mg DAILY PO Last administered on 06/18/20at 08:42; Start 06/17/20 at 12:00 Gabapentin (Neurontin) 100 mg TID PO Last administered on 06/18/20at 08:41; Start 06/17/20 at 14:00 Cefdinir (Omnicef) 300 mg BID PO Last administered on 06/18/20at 08:41; Start 06/17/20 at 21:00 Active Scripts Active Effexor Xr (Venlafaxine Hcl) 150 Mg Cap.er.24h 1 Cap PO DAILY 30 Days Carvedilol (Carvedilol) 6.25 Mg Tablet 6.25 Mg PO BIDWMEALS Reported Coreg (Carvedilol) 6.25 Mg Tablet 6.25 Mg PO BIDWMEALS Myrbetriq (Mirabegron) 25 Mg Tab.er.24h 25 Mg PO DAILY Gabapentin (Gabapentin) 100 Mg Capsule 100 Mg PO TID Cozaar (Losartan Potassium) 100 Mg Tablet 100 Mg PO DAILY Atorvastatin Calcium 10 Mg Tablet 1 Tab PO DAILY Vitals/I & O Vital Sign - Last 24 Hours 06/17/20 06/17/20 06/17/20 06/17/20 11:44 13:43 15:00 17:18 Temp 98.7 98.4 98.7 98.4 Pulse 70 70 63 63 Resp 20 18 B/P (MAP) 150/91 (110) 150/91 144/63 (90) 144/63 Pulse Ox 95 96 O2 Delivery Room Air Room Air 06/17/20 06/17/20 06/17/20 06/18/20 19:00 20:10 23:00 03:00 Temp 98.5 98.3 98.5 98.5 98.3 98.5 Pulse 64 70 69 Resp 18 18 18 B/P (MAP) 156/66 (96) 117/57 (77) 132/65 (87) Pulse Ox 94 95 95 O2 Delivery Room Air Room Air Room Air Room Air 06/18/20 06/18/20 06/18/20 06/18/20 07:00 07:49 08:41 08:42 Temp 97.9 97.9 Pulse 69 69 69 Resp 18 B/P (MAP) 152/77 (102) 152/77 152/77 Pulse Ox 95 O2 Delivery Room Air Room Air Intake and Output 06/17/20 06/17/20 06/18/20 15:00 23:00 07:00 Intake Total 350 ml 240 ml 240 ml Balance 350 ml 240 ml 240 ml Justicifation of Admission Dx: Justifications for Admission: Justification of Admission Dx: Yes Comminuty Aquired Pneumonia: AMN Sepsis: Altered Mental Status CINDI SOUSA MD Jun 18, 2020 10:14
[2020-06-18] MEDS ORDERED: CARVEDILOL 6.25 MG TABLET. PO ONE (10:15)
[2020-06-18 11:00] VITALS: BP 150/68
--- NOTE | 2020-06-18 11:34 | CONS ---
DATE OF CONSULTATION: PULMONARY CONSULTATION ATTENDING PHYSICIAN: Nguyễn Palencia MD REASON FOR CONSULTATION: Lymphoma, lung mass. HISTORY OF PRESENT ILLNESS: The patient is an 84-year-old female with history of hypertension, hyperlipidemia, peripheral vascular disease, right above-knee amputation and non-Hodgkin's lymphoma of the stomach. She was admitted to the hospital on 06/15/2020 with altered mental status. She probably has some baseline dementia. She did have a fever of 100.5 in the Emergency Room. The patient has been treated with IV antibiotics. She underwent CT of the chest, abdomen and pelvis. I reviewed the CT chest findings and the actual images along with CT abdomen report. The patient has a 2.3 cm mass-like opacity involving the lingula of the left upper lobe, which has increased in size since her previous PET scan. The patient also has a poorly defined mass in the left upper quadrant of the abdomen, which is difficult to separate from the spleen, stomach and pancreatic tail. This measures about 7.8 cm in size and more suggestive of lymphoma. I am unable to obtain much history from the patient. She is hard of hearing and has probably underlying dementia. I have discussed with nurses and also reviewed imaging studies. PAST MEDICAL HISTORY: Significant for history of hypertension, history of hyperlipidemia, history of peripheral vascular disease, non-Hodgkin's lymphoma of the stomach, which has been treated with immune therapy, history of small abdominal aortic aneurysm, history of osteoarthritis, overactive bladder, peptic ulcer disease, lumbar spinal stenosis. PAST SURGICAL HISTORY: Right above-knee amputation, arthroplasty, bilateral total hip surgery. Right above-knee amputation in 2018 and many other surgeries as listed in Dr. Palencia's note. SOCIAL HISTORY: No history of tobacco or alcohol use. FAMILY HISTORY: Unobtainable from the patient. ALLERGIES: All reviewed as listed in the MRAD. MEDICATIONS: Reviewed as listed in the MRAD including oral antibiotic. PHYSICAL EXAMINATION: GENERAL: She is in no obvious respiratory distress. VITAL SIGNS: Stable. Pulse ox 95% on room air. NECK: Supple. LUNGS: Clear. CARDIOVASCULAR: With a regular rate. ABDOMEN: Soft. EXTREMITIES: With right above-knee amputation. LABORATORY DATA: Reviewed. Hemoglobin was 6.4, now 7.7. White cell count 6.2 and platelets are 239. Chemistries with a normal BUN and creatinine. Albumin is 2.1. IMPRESSION: 1. The patient with non-Hodgkin's lymphoma of the stomach. The recent CT chest and abdomen findings are suggestive of progressive lymphoma. She has a mass-like opacity in the left upper lobe, which has increased in size and she also has a large mass in the left upper quadrant 7.8 cm in size as well. At this point, from a pulmonary standpoint, she is not a candidate for any invasive treatment. This is all lymphoma and I would recommend consideration of hospice. 2. Metabolic encephalopathy secondary to sepsis. 3. Leukocytosis. 4. Severe protein-calorie malnutrition. 5. Right above-knee amputation. 6. UTI (E-Coli)/ sepsis RECOMMENDATIONS: 1. The patient with non-Hodgkin's lymphoma with progression. She was started on Ibrutinib on 08/18/2019 and I would recommend to follow up with Oncology recommendation. 2. From a pulmonary standpoint, I do not see a need for any further testing. I would recommend due to her advanced age and progression of the disease, consideration of hospice. 3. Follow Oncology recommendation. 4. Treatment of antibiotics per Infectious Disease. She is currently on oral. Her urine culture has grown E. coli, which was the source of her sepsis. Her white cell count is now normalized. 5. Monitor hemoglobin closely. 6. d/w Dr Palencia RAGINI PHAM MD DR: TRAVIS/chuy JOB#: [id number] / [id number] SHALA
--- NOTE | 2020-06-18 12:46 | PDOC2 ---
GI CONSULT Date of Service: DATE: 06/18/20 TIME: 12:26 Reason For Consult: anemia, abdominal mass HPI: HPI: 84 y/o female admitted 06/15/20 w/ AMS and fever. COVID testing was negative. ?has UTI. Noted w/ anemia requiring transfusion. H/o gastric MALT lymphoma s/p chemo. CXR noted more prominent nodular density at left lung base and follow-up CT A/P CHELSEY lingula and poor defined mass within LUQ (difficult to separate from spleen, stomach, pancreatic tail) w/ air containing center and fluid level c/w h/o lymphoma - both increased in size since last PET scan. Plans for brain MRI. Oncology and pulmonology following. No GI concerns per nurse. The patient denies reflux, dysphagia, n/v, abd pain, diarrhea, constipation, and bleeding. Says she eats well. Wants to know if the cancer is better. Doesn't know if she takes pantoprazole at home. Past EGDs w/ Dr. Sanderson in 2016 and 2019 (when lymphoma diagnosed). H/o aJson, DU, Dieulafoy lesion vs AVM). Had colonoscopy at some point, h/o diverticulosis. Past and present imaging notes cholelithiasis. PMH: PMH: HTN, PAD, HLD, DM, OA, AAA, spinal stenosis, MALT lymphoma, Dieulafoy's vs AVM, PUD, diverticulosis, cholelithiasis bilateral hip replacement, laminectomy, cervical surgery, left superficial femoral artery angioplasty, CTR, tonsillectomy, RLE bypass, right ankle debridement, right AKA and evacuation of hematoma FH: Family History: No pertinent hx Social History: ALCOHOL: none Drugs: None ROS: GEN: Denies fevers, chills, sweats HEENT: Denies blurred vision, sore throat CV: Denies chest pain RESP: Denies shortness of air, cough GI: Per HPI : Denies hematuria, dysuria ENDO: Denies weight changes NEURO: Denies confusion, dizziness MSK: Denies weakness, joint pain/swelling SKIN: Denies jaundice, pruritus Vitals: Vitals: Vital Signs Date Time Temp Pulse Resp B/P (MAP) Pulse Ox O2 Delivery O2 Flow Rate FiO2 06/18/20 11:00 98.2 70 18 150/68 (95) 95 Room Air 98.2 Labs: Labs: Please see EMR. URINE CULTURE Final Final 100,000 CFU/ML FINAL ID= [ESCHERICHIA COLI] BLOOD CULTURE Preliminary NO GROWTH AFTER 2 DAYS Allergies: Coded Allergies: spironolactone (Verified Allergy, Severe, FLUID POURED OUT OF ALL ORIFICES, 02/14/17) Penicillins (Verified Allergy, Intermediate, 04/13/18) Tolerates cephalasporins amlodipine (Verified Allergy, Intermediate, 02/14/17) muscle cramps iodine (Verified Allergy, Intermediate, Rash, 02/14/17) swelling olanzapine (Verified Allergy, Intermediate, 02/14/17) rofecoxib (Verified Allergy, Intermediate, 02/14/17) Medications: Current Medications Medications (Trade) Dose Ordered Sig/[place] Route PRN Reason Start Time Stop Time Status Last Admin Dose Admin Carvedilol (Coreg) 6.25 mg BIDWMEALS PO 06/17/20 17:00 06/18/20 09:58 DC 06/18/20 08:41 Atorvastatin Calcium (Lipitor) 10 mg QHS PO 06/17/20 21:00 06/17/20 20:41 Gabapentin (Neurontin) 100 mg TID PO 06/17/20 14:00 06/18/20 08:41 Cefdinir (Omnicef) 300 mg BID PO 06/17/20 21:00 06/18/20 08:41 Carvedilol (Coreg) 6.25 mg 1X ONCE PO 06/18/20 10:15 06/18/20 10:16 DC 06/18/20 10:59 Imaging: Imaging: CT Head 06/15 IMPRESSION: 1. No evidence of acute intracranial hemorrhage or mass. 2. Mild chronic small vessel ischemic changes and atrophy. CXR 06/15 IMPRESSION: 1. Nodular density at the left lung base is more prominent from prior exam. This could be inflammatory or neoplastic. Correlate clinically. If indicated, CT could better evaluate. 2. Otherwise no acute findings. CT A/P 06/17 IMPRESSION: 1. 2.3 cm masslike opacity is seen involving the lingula of the left upper lobe which has increased in size since the patient's PET/CT scan. It corresponds to the abnormal opacity seen on the patient's chest radiograph. 2. Poorly defined mass is seen within the left upper quadrant abdomen which is difficult to separate from the spleen, stomach and pancreatic tail. This measures 7.8 cm in greatest diameter. It has an air containing center with a fluid level noted. This would be consistent with the patient's history of lymphoma. A superimposed abscess is not excluded. This mass has increased in size since the patient's PET/CT scan. PE: GEN: NAD, eating lunch HEENT: Atraumatic, PERRL LUNGS: CTAB HEART: RRR ABD: NABS, S/ND/NT EXTREMITY: R AKA SKIN: No rashes, no jaundice NEURO/PSYCH: forgetful A/P: A/P: Encephalopathy H/o gastric MALT lymphoma - concern for progression on imaging w/ CHELSEY and LUQ masses Microcytic anemia - s/p transfusion, no obvious bleeding, iron profile ordered H/o Jason, DU, Dieulafoy lesion vs AVM CRC screen - done in past Diverticulosis Cholelithiasis COVID-19 negative -- Will return to see later w/ Dr. Sanderson. JG VASQUEZ Jun 18, 2020 12:46
--- NOTE | 2020-06-18 14:49 | NUR ---
SS following up with discharge planning. SS reviewed pt chart and discussed with pt RN and operations planner. Pt declining snf unit. SS contacted pt's daughter, Malina, , and discussed. Pt's family declining snf unit and requested home healthcare with no preference of company. SS contacted Dr. Palencia and notified. Dr. Palencia reported that hospice was recommended and stated that he would contact pt's daughter today and discuss hospice vs home healthcare options. Pt's daughter aware of hospice recommendation and provided with education on hospice. Pt's daughter reported that pt has four hours of private duty services with [facility] [employer]. SS will continue to follow for discharge planning.
[2020-06-18 15:00] VITALS: BP 142/62
[2020-06-18] MEDS ORDERED: OLME20TA17 PO (15:19)
[2020-06-18] MEDS ORDERED: AZIT250T6 PO (15:19)
[2020-06-18] MEDS ORDERED: CEFD300C PO (15:19)
[2020-06-18] MEDS ORDERED: PANT40TA77 PO (15:19)
[2020-06-18] MEDS ORDERED: CARV12.511 PO (15:19)
--- NOTE | 2020-06-18 15:21 | DISCH ---
DISCHARGE INSTRUCTIONS Condition on Discharge Condition on Discharge: Stable Activity After Discharge Activity Instructions for Disc: Activity as tolerated Exercise Instruction after Dis: Progress as tolerated Driving Instructions after Dis: Do not drive Weight Bearing Status after Di: As tolerated Diet after Discharge Diet after Discharge: Regular Additional Diet Restrictions: avoid concentrated sweets Wound Incision Care Wound/Incision Care: Change dressing Wound Care Equipment: Dressings, Sutures/israel Checks after Discharge Checks after discharge: Check blood press - daily, Check blood sugar, ac/hs, Check your Temp as needed Contacting the DR. after DC Call your doctor for: If your condition worsens Follow-Up Follow up with: dr. sousa next week Follow Up With: dr. Figueroa in 2 weeks Treatment/Equipment after DC Adaptive Equipment Issued: None CINDI SOUSA MD Jun 18, 2020 15:21
--- NOTE | 2020-06-18 15:25 | NUR ---
SS following up with discharge planning. Dr. Palencia discussed with pt's daughter. SS discussed with Dr. Palencia. Pt discharging to home with self care. Pt to follow up with Dr. Palencia in 1 week and hematology in 2 weeks. SS contacted pt's daughter and verified that they are declining home healthcare. Pt's daughter verified. Pt's RN notified.
--- NOTE | 2020-06-18 15:28 | PDOC ---
Provider Note Provider Note discharge summary dictated # [id number] Justicifation of Admission Dx: Justifications for Admission: Justification of Admission Dx: Yes Comminuty Aquired Pneumonia: AMN Sepsis: Altered Mental Status CINDI SOUSA MD Jun 18, 2020 15:28
--- NOTE | 2020-06-18 15:49 | RAD ---
BRAIN W/O CONTRAST Date: 06/18/2020 9:53 AM Indication: Reason: confusion, encephalopathy, hx of NHL / Spl. Instructions: / History: Comparison: CT head 06/15/2020. Technique: Multiplanar multisequence MRI of the brain was performed without intravenous contrast using the standard protocol. Findings: No acute infarct. No acute or chronic hemorrhage. The ventricles are normal in size and configuration without hydrocephalus. Mild scattered FLAIR hyperintensities in the subcortical and periventricular deep white matter, a nonspecific finding, most commonly seen with chronic small vessel ischemic disease. Mild generalized cerebral volume loss. The scalp and calvarium are normal. The pituitary and sella are normal. No Chiari malformation. Mild incompletely characterized degenerative spondylosis of the visualized upper cervical spine. The visualized orbits and globes are normal. The visualized paranasal sinuses are clear. The mastoid air cells are clear. Normal flow voids within the vertebral, basilar, and internal carotid arteries indicating patency. IMPRESSION: 1. No acute infarct, hemorrhage, mass, or hydrocephalus. 2. Mild chronic small vessel ischemic disease and mild generalized cerebral volume loss Electronically signed by: Gomez Nath MD (06/18/2020 3:46 PM) [id number]
--- NOTE | 2020-06-18 16:18 | DS ---
DATE OF DISCHARGE: 06/18/2020 CONSULTANTS: Include Dr. Kellogg; Dr. Jhon Redding, Dr. Cristino Glez and Dr. Sanderson. FINAL DIAGNOSES: 1. Suspected pneumonia with sepsis. 2. Leukocytosis. 3. Metabolic encephalopathy secondary to sepsis. 4. 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 5. Anemia. 6. Severe protein-calorie malnutrition. 7. History of a right above-knee amputation. 8. Peripheral arterial disease. 9. History of a small abdominal aortic aneurysm. 10. Hypertension. 11. History of non-Hodgkin's lymphoma of the stomach. 12. Hyperlipidemia. HOSPITAL COURSE: The patient is an 84-year-old white female with history of hypertension, hyperlipidemia, peripheral arterial disease, right above-knee amputation who has non-Hodgkin's lymphoma of the stomach also called MALT who was admitted to [facility] through the Emergency Room on 06/15/2020 with an altered mental status. She was noted to be confused at home. In Emergency Room, temperature was 100.5 degrees. She had a leukocytosis with a white count of 16.4, hemoglobin was low at 6.4. She received 1 unit of transfusion of packed red blood cells and hemoglobin improved to 7.2. She denied any black or bloody stools. Previous hemoglobin was 14.5 in 01/2019 and was 9.1 prior to that. She received IV Zithromax and IV Rocephin and Zithromax and IV fluids in the Emergency Room. Urinalysis showed no pyuria, but the urine culture grew E. coli, which was a contaminant. She was seen by Dr. Cristino Glez for Infectious Disease. Blood culture was negative. Urine culture grew E. coli, which was a contaminant. She had no pyuria. He switched her to oral cefdinir and Zithromax. Her white count normalized. Hemoglobin was stable. I believe this 7.7 last time it was checked. The patient had a CAT scan of the chest, abdomen and pelvis and the mass that she had in the left lung as well as the left upper quadrant of her abdomen, these 2 masses have actually increased in size is felt to be due to progression of her non-Hodgkin's lymphoma, which were masses that were there in 07/2019 when she had her last PET scan and they were growing in size. She was seen in consultation by Dr. Jhon Redding, the Db[employer] Developer/Oncologist. He noted that she was supposed to be on oral medication prescribed by Dr. Resendez, her previous oncologist who has since left the area and she did not follow up with him but had not taken that medications for some time. For her anemia and the abdominal mass, she was seen by Dr. Sanderson for GI and was seen by Dr. Kellogg for Pulmonary who recommended hospice noting progression of non-Hodgkin's lymphoma with a mass in the left lung and mass in the left upper abdomen. The patient did not want to go to a prison facility, which was recommended by the physical therapist and the family just wanted her to go home where she has an attendant taking care of her 4 hours a day. She does not have a DPOA and I discussed with her daughter, Malina Delcid the possibility of hospice and she agreed with hospice. However, she felt other family members would possibly not given. We discussed that she was 84 years old and is progressed and she has got a metabolic encephalopathy, most likely tumor will continue to progress and her continued physical decline and poor functional status that she will have to discuss with the family, she said. The family wanted her to go home. The patient wanted to go home. An MRI of the brain was recommended by Dr. Jhon Redding and was ordered but not done. Her home blood pressure medication was resumed. She will be dismissed to home today and follow up with Dr. Palencia in the office next week and follow up with Dr. Jhon Redding in 2 weeks and the family will have to decide whether or not they want to proceed with chemotherapy or not and to consider hospice. She will be dismissed on cefdinir 300 mg b.i.d. for 4 more days and Zithromax 250 mg p.o. daily for 2 days. Otherwise, her home medications will be continued including atorvastatin 10 mg daily, carvedilol 12.5 mg b.i.d., and Effexor XR 150 mg every day, gabapentin 100 mg t.i.d. She is on olmesartan 20 mg daily, multiple vitamin once a day, Myrbetriq 25 mg every day and Protonix 40 mg every day. Again, she will follow up with Dr. Palencia in the office next week. CINDI PALENCIA MD DR: Marlon JOB#: [id number] / [id number]
--- NOTE | 2020-06-18 16:45 | PDOC ---
PROGRESS NOTES Date of Service DATE: 06/18/20 TIME: 16:39 Subjective Subjective No overnight events. Lashae remains confused today. Objective Objective Vital Signs Date Time Temp Pulse Resp B/P (MAP) Pulse Ox O2 Delivery O2 Flow Rate FiO2 06/18/20 15:00 97.7 78 18 142/62 (88) 96 Room Air 97.7 Intake and Output 06/18/20 07:00 Intake Total 830 ml Balance 830 ml Intake Oral 830 ml # Voids 5 Physical Exam Abdomen: Normal bowel sounds, Soft Heart: Regular rate General: Alert, Other (disoriented) HEENT: Atraumatic Lungs: Clear to auscultation MUSCULOSKELETAL: No swelling Neck: Supple Neuro: Normal speech, Normal tone Skin: No rashes Assessment Assessment Assessment/Plan Assessment: Gastric marginal zone lymphoma/MALT lymphoma, now progressing Acute normocytic anemia Encephalopathy, suspect metabolic versus other Plan Plan of Care Recommendations: -Reviewed results of CT scans showing progressive lymphoma -I spoke with the patient's daughter Malina by phone today. Per daughter, Lashae stooped taking Ibrutinib in late 2019 and has not been to Dr Resendez's office in several months -Discussed with daughter that given the patient's advanced age and relapsed lymphoma, potentials risks from treatment outweight any benefits. I recommended consideration of hospice and Malina was agreeable to this -Discharge per Dr Palencia -Can arrange follow-up in oncology clinic to discuss further with family, if desired -Given plans to transition to hospice, I think it is reasonable to cancel MRI brain Thank you for the consult Tom Reina MD Medical Oncology/Hematology Ph: [phone] Comment Review of Relevant I have reviewed the following items rudy (where applicable) has been applied. Labs Laboratory Tests Test 06/17/20 03:40 White Blood Count 6.2 x10^3/uL (4.0-11.0) Red Blood Count 2.85 x10^6/uL (3.50-5.40) Hemoglobin 7.7 g/dL (12.0-15.5) Hematocrit 24.1 % (36.0-47.0) Mean Corpuscular Volume 84 fL (79-100) Mean Corpuscular Hemoglobin 27 pg (25-35) Mean Corpuscular Hemoglobin Concent 32 g/dL (31-37) Red Cell Distribution Width 19.6 % (11.5-14.5) Platelet Count 239 x10^3/uL (140-400) Neutrophils (%) (Auto) 74 % (31-73) Lymphocytes (%) (Auto) 16 % (24-48) Monocytes (%) (Auto) 9 % (0-9) Eosinophils (%) (Auto) 1 % (0-3) Basophils (%) (Auto) 0 % (0-3) Neutrophils # (Auto) 4.6 x10^3/uL (1.8-7.7) Lymphocytes # (Auto) 1.0 x10^3/uL (1.0-4.8) Monocytes # (Auto) 0.6 x10^3/uL (0.0-1.1) Eosinophils # (Auto) 0.0 x10^3/uL (0.0-0.7) Basophils # (Auto) 0.0 x10^3/uL (0.0-0.2) Sodium Level 141 mmol/L (136-145) Potassium Level 3.6 mmol/L (3.5-5.1) Chloride Level 106 mmol/L (98-107) Carbon Dioxide Level 31 mmol/L (21-32) Anion Gap 4 (6-14) Blood Urea Nitrogen 8 mg/dL (7-20) Creatinine 0.7 mg/dL (0.6-1.0) Estimated GFR (Cockcroft-Gault) 79.5 Glucose Level 110 mg/dL (70-99) Calcium Level 8.1 mg/dL (8.5-10.1) Magnesium Level 1.8 mg/dL (1.8-2.4) Microbiology 06/15/20 Urine Culture - Final, Complete 06/15/20 Antimicrobic Susceptibility - Final, Complete 06/15/20 Blood Culture - Preliminary, Resulted NO GROWTH AFTER 2 DAYS Medications Current Medications Sodium Chloride 500 ml @ 500 mls/hr 1X ONCE IV Last administered on 06/15/20at 20:06; Start 06/15/20 at 19:00; Stop 06/15/20 at 20:03; Status DC Aspirin (Aspirin Chewable) 162 mg 1X ONCE PO Last administered on 06/15/20at 20:07; Start 06/15/20 at 20:00; Stop 06/15/20 at 20:06; Status DC Ceftriaxone Sodium (Rocephin) 1 gm 1X ONCE IVP Last administered on 06/15/20 21:39; Start 06/15/20 at 21:30; Stop 06/15/20 at 21:31; Status DC Azithromycin 250 ml @ 250 mls/hr 1X ONCE IV Last administered on 06/15/20 21:36; Start 06/15/20 at 21:30; Stop 06/15/20 at 22:29; Status DC Sodium Chloride 1,000 ml @ 100 mls/hr Q10H IV Last administered on 06/15/20 21:33; Start 06/15/20 at 21:30; Stop 06/16/20 at 10:35; Status DC Pantoprazole Sodium (Protonix) 40 mg DAILYAC PO Last administered on 06/18/20 08:41; Start 06/16/20 at 11:00 Ceftriaxone Sodium (Rocephin) 1 gm Q24H IVP Last administered on 06/16/20 22:23; Start 06/16/20 at 21:30; Stop 06/17/20 at 17:00; Status DC Azithromycin (Zithromax) 250 mg DAILY PO Last administered on 06/18/20 08:41; Start 06/16/20 at 21:30 Acetaminophen (Tylenol) 650 mg PRN Q6HRS PRN PO MILD PAIN / TEMP > 100.3'F Last administered on 06/17/20 09:30; Start 06/16/20 at 10:30 Multivitamins (Thera M Plus) 1 tab DAILY PO Last administered on 06/18/20 08:41; Start 06/17/20 at 09:00 Losartan Potassium (Cozaar) 100 mg DAILY PO Last administered on 06/18/20 08:42; Start 06/17/20 at 12:00 Carvedilol (Coreg) 6.25 mg BIDWMEALS PO Last administered on 06/18/20 08:41; Start 06/17/20 at 17:00; Stop 06/18/20 at 09:58; Status DC Atorvastatin Calcium (Lipitor) 10 mg QHS PO Last administered on 06/17/20 20:41; Start 06/17/20 at 21:00 Venlafaxine HCl (Effexor Xr) 150 mg DAILY PO Last administered on 8/7/20at 08:42; Start 06/17/20 at 12:00 Gabapentin (Neurontin) 100 mg TID PO Last administered on 06/18/20at 13:10; Start 06/17/20 at 14:00 Cefdinir (Omnicef) 300 mg BID PO Last administered on 06/18/20at 08:41; Start 06/17/20 at 21:00 Carvedilol (Coreg) 12.5 mg BIDWMEALS PO ; Start 06/18/20 at 17:00 Carvedilol (Coreg) 6.25 mg 1X ONCE PO Last administered on 06/18/20at 10:59; Start 06/18/20 at 10:15; Stop 06/18/20 at 10:16; Status DC Active Scripts Active Benicar (Olmesartan Medoxomil) 20 Mg Tablet 20 Mg PO DAILY Pantoprazole Sodium (Pantoprazole Sodium) 40 Mg Tablet.dr 40 Mg PO DAILYAC Carvedilol (Carvedilol) 12.5 Mg Tablet 12.5 Mg PO BIDWMEALS Azithromycin Tablet (Azithromycin) 250 Mg Tablet 250 Mg PO DAILY Cefdinir 300 Mg Capsule 300 Mg PO BID Effexor Xr (Venlafaxine Hcl) 150 Mg Cap.er.24h 1 Cap PO DAILY 30 Days Reported Myrbetriq (Mirabegron) 25 Mg Tab.er.24h 25 Mg PO DAILY Gabapentin (Gabapentin) 100 Mg Capsule 100 Mg PO TID Atorvastatin Calcium 10 Mg Tablet 1 Tab PO DAILY Vitals/I & O Vital Sign - Last 24 Hours 06/17/20 06/17/20 06/17/20 06/17/20 17:18 19:00 20:10 23:00 Temp 98.5 98.3 98.5 98.3 Pulse 63 64 70 Resp 18 18 B/P (MAP) 144/63 156/66 (96) 117/57 (77) Pulse Ox 94 95 O2 Delivery Room Air Room Air Room Air 06/18/20 06/18/20 06/18/20 06/18/20 03:00 07:00 07:49 08:41 Temp 98.5 97.9 98.5 97.9 Pulse 69 69 69 Resp 18 18 B/P (MAP) 132/65 (87) 152/77 (102) 152/77 Pulse Ox 95 95 O2 Delivery Room Air Room Air Room Air 06/18/20 06/18/20 06/18/20 06/18/20 08:42 10:59 11:00 15:00 Temp 98.2 97.7 98.2 97.7 Pulse 69 69 70 78 Resp 18 18 B/P (MAP) 152/77 152/77 150/68 (95) 142/62 (88) Pulse Ox 95 96 O2 Delivery Room Air Room Air Intake and Output 06/17/20 06/17/20 06/18/20 15:00 23:00 07:00 Intake Total 350 ml 240 ml 240 ml Balance 350 ml 240 ml 240 ml Justicifation of Admission Dx: Justifications for Admission: Justification of Admission Dx: Yes Comminuty Aquired Pneumonia: AMN Sepsis: Altered Mental Status KEELEY REINA MD Jun 18, 2020 16:45
[2020-06-18] MEDS ORDERED: CARVEDILOL 12.5 MG TABLET. PO SCH (17:00)
--- NOTE | 2020-06-18 17:20 | NUR ---
Discharge Note: ZACH GALVAN Discharge instructions and discharge home medications reviewed with Family Member and a copy given. All questions have been answered and understanding verbalized. spoke to Malina daughter. The following instructions and handouts were given: follow up appointments, medications/prescriptions, diet, activity, etc. Discontinued lines and drains: IV in right AC and left AC removed, catheter tips intact. Patient discharged to home with self care with and daughter, wheelchair used for mobility to discharge vehicle.
[2020-08-06] MEDS ORDERED: ACET325T9 PO (09:56)
[2020-08-06] MEDS ORDERED: TRAM50TA PO (09:56)
== END 2020-06-18 17:20 | disposition home or self-care (01) | DRG 871 ==
LOC: ER 18:50 → 6 SOUTH 21:14 → 4 NORTH 06-17 14:28
PROVIDERS: ADMIT Internal Medicine; ATTEND Internal Medicine
PROC: 30233N1 Transfusion of Nonautologous Red Blood Cells into Peripheral Vein, Percutaneous Approach (ICD-10-PCS; principal; 2020-06-16)
DX: A41.9 Sepsis, unspecified organism (principal); E43 Unspecified severe protein-calorie malnutrition; G93.41 Metabolic encephalopathy; J18.9 Pneumonia, unspecified organism; C85.90 Non-Hodgkin lymphoma, unspecified, unspecified site; C88.4 Extranodal marginal zone B-cell lymphoma of mucosa-associated lymphoid tissue [MALT-lymphoma]; N39.0 Urinary tract infection, site not specified; B96.20 Unspecified Escherichia coli [E. coli] as the cause of diseases classified elsewhere; D50.0 Iron deficiency anemia secondary to blood loss (chronic); E11.51 Type 2 diabetes mellitus with diabetic peripheral angiopathy without gangrene; E78.00 Pure hypercholesterolemia, unspecified; E78.5 Hyperlipidemia, unspecified; F03.90 Unspecified dementia, unspecified severity, without behavioral disturbance, psychotic disturbance, mood disturbance, and anxiety; H91.90 Unspecified hearing loss, unspecified ear; I10 Essential (primary) hypertension; I25.10 Atherosclerotic heart disease of native coronary artery without angina pectoris; I71.4 Abdominal aortic aneurysm, without rupture; J98.4 Other disorders of lung; K57.90 Diverticulosis of intestine, part unspecified, without perforation or abscess without bleeding; K80.20 Calculus of gallbladder without cholecystitis without obstruction; M48.00 Spinal stenosis, site unspecified; N32.81 Overactive bladder; R65.20 Severe sepsis without septic shock; Z20.828 Contact with and (suspected) exposure to other viral communicable diseases; Z79.899 Other long term (current) drug therapy; Z86.79 Personal history of other diseases of the circulatory system; Z87.891 Personal history of nicotine dependence; Z89.611 Acquired absence of right leg above knee; Z92.21 Personal history of antineoplastic chemotherapy; Z95.1 Presence of aortocoronary bypass graft; Z96.643 Presence of artificial hip joint, bilateral; K21.9 Gastro-esophageal reflux disease without esophagitis; M19.90 Unspecified osteoarthritis, unspecified site; Z88.0 Allergy status to penicillin; Z88.8 Allergy status to other drugs, medicaments and biological substances; Z68.24 Body mass index [BMI] 24.0-24.9, adult
CPT/HCPCS: 36415; 70450; 70551; 71045; 71250; 74176; 80048; 80053; 81001; 83605; 83735; 84484; 85007; 85014; 85018; 85025; 85610; 85730; 86850; 86900; 86901; 86920; 87040; 87077; 87086; 87186; 93005; 96361; 96365; 96366; 96375; 99291; J0456; J0696; J7030; J7040; P9016; 97530-GP; G0378; U0003-CS

== ENCOUNTER 2020-06-22 13:23 | Emergency (ER) | payer MEDICARE, OTHER ==
[~2020-06-22] VITALS: Ht 167.6 cm; Wt 68.1 kg
[~2020-06-22 13:23] MED LIST changes: +AZIT250T6 PO; +CARV12.511 PO; +CEFD300C PO; +OLME20TA17 PO
[2020-06-22 15:04] LABS: BASO % 0 % (0-3); EOS % 0 % (0-3); HEMATOCRIT 21.2 % (36.0-47.0); LYMPH # 1.4 x10^3/uL (1.0-4.8); LYMPH % 12 % (24-48); MEAN CORPUSCULAR HEMOGLOBIN 28 pg (25-35); MEAN CORPUSCULAR HGB CONC 32 g/dL (31-37); MEAN CORPUSCULAR VOLUME 87 fL (79-100); MONO # 0.7 x10^3/uL (0.0-1.1); MONO % 6 % (0-9); NEUT # 9.6 x10^3/uL (1.8-7.7); NEUT % 82 % (31-73); PLATELET COUNT 271 x10^3/uL (140-400); RED BLOOD COUNT 2.43 x10^6/uL (3.50-5.40); RED CELL DISTRIBUTION WIDTH 21.8 % (11.5-14.5); WHITE BLOOD COUNT 11.8 x10^3/uL (4.0-11.0)
[2020-06-22 15:15] LABS: CALCIUM 7.8 mg/dL (8.5-10.1); CREATININE 0.7 mg/dL (0.6-1.0); GFR 79.5; POTASSIUM 4.2 mmol/L (3.5-5.1)
[2020-06-22 15:16] LABS: HEMOGLOBIN 6.8 g/dL (12.0-15.5)
--- NOTE | 2020-06-22 15:18 | NUR ---
SS received notification that pt's family is wanting hospice. SS contacted pt's daughter and Dr. Palencia and discussed. Pt's daughter and Dr. Palencia requesting hospice with [facility], ; fax [phone]. SS phoned and faxed referral to [facility]. Packet on chart.
[2020-06-22 15:21] LABS: ALBUMIN/GLOBULIN RATIO 0.7 (1.0-1.7); MAGNESIUM 1.9 mg/dL (1.8-2.4); TOTAL BILIRUBIN 0.4 mg/dL (0.2-1.0)
[2020-06-22 15:59] LABS: PLT ESTIMATE ADEQUATE (ADEQUATE)
[2020-06-22] MEDS ORDERED: CALCIUM GLUCONATE 1,000 MG/10 ML VIAL. IVP ONE (16:00)
[2020-06-22 16:02] LABS: ANISOCYTOSIS MOD; POIKILOCYTOSIS MOD; POLYCHROMASIA SLIGHT; SPHEROCYTES OCC; TEAR DROP CELLS OCC
[2020-06-22 16:03] LABS: OVALOCYTES FEW
[2020-06-22 16:23] LABS: BILIRUBIN,URINE NEGATIVE (NEG); CLARITY,URINE CLEAR; COLOR,URINE YELLOW; NITRITE,URINE NEGATIVE (NEG); PH,URINE 5.5 (<5.0-8.0); PROTEIN,URINE NEGATIVE (NEG-TRACE)
[2020-06-22 16:33] LABS: BACTERIA,URINE 0 /HPF (0-FEW); HYALINE CASTS, URINE MANY /HPF; RBC,URINE 0 /HPF (0-2)
[2020-06-22 16:57] VITALS: BP 137/63
--- NOTE | 2020-06-22 17:51 | PHYS DOC ---
Past Medical History Past Medical History: Cancer, High Cholesterol, Hypertension Additional Past Medical Histor: ABDOMINAL CA Past Surgical History: Other Additional Past Surgical Histo: back surgery,BILAT HIP REPLACEMENT, RIGHT AKA Smoking Status: Former Smoker Alcohol Use: None Drug Use: None General Adult EDM: Chief Complaint: ALTERED MENTAL STATUS HPI: HPI: Patient is a 84 year old female who was brought here from home due to altered mental status. Her family states that patient was not able to arouse with verbal command, worried that she might be anemic. Patient has history of non- Hodgkin's lymphoma in her stomach, she has been anemic. Patient was admitted here about 5 days ago due to altered mental status, she was given blood transfu cyndy while she was in the hospital. At that time patient family did not want her to be in hospice care or [facility]. There was no report of injury, no cough or fever, no abdominal pain. Her family would like for us to help them out with hospice placement for patient this time Upon arrival to the ER, patient was awake alert, she denies any abdominal pain, no nausea vomiting. Patient denies any chest pain or any headache, no fever. Patient says she did feel weak. Review of Systems: Review of Systems: Constitutional: Denies fever or chills. [] Eyes: Denies change in visual acuity. [] HENT: Denies nasal congestion or sore throat. [] Respiratory: Denies cough or shortness of breath. [] Cardiovascular: Denies chest pain or edema. [] GI: Denies abdominal pain, nausea, vomiting, bloody stools or diarrhea. [] : Denies dysuria. [] Musculoskeletal: Denies back pain or joint pain. [] Integument: Denies rash. [] Neurologic: Denies headache, focal weakness or sensory changes. [] Endocrine: Denies polyuria or polydipsia. [] Lymphatic: Denies swollen glands. [] Psychiatric: Denies depression or anxiety. [] Heart Score: Risk Factors: Risk Factors: DM, Current or recent (<one month) smoker, HTN, HLP, family history of CAD, obesity. Risk Scores: Score 0 - 3: 2.5% MACE over next 6 weeks - Discharge Home Score 4 - 6: 20.3% MACE over next 6 weeks - Admit for Clinical Observation Score 7 - 10: 72.7% MACE over next 6 weeks - Early Invasive Strategies Current Medications: Current Medications Medications (Trade) Dose Ordered Sig/Milan Start Time Stop Time Status Last Admin Dose Admin Calcium Gluconate (Calcium Gluconate) 1,000 mg 1X ONCE 06/22/20 16:00 06/22/20 16:18 DC 06/22/20 16:21 1,000 MG Allergies: Allergies: Allergies Coded Allergies Type Severity Reaction Last Updated Verified spironolactone Allergy Severe FLUID POURED OUT OF ALL ORIFICES 02/14/17 Yes Penicillins Allergy Intermediate 04/13/18 Yes amlodipine Allergy Intermediate 02/14/17 Yes iodine Allergy Intermediate Rash 02/14/17 Yes olanzapine Allergy Intermediate 02/14/17 Yes rofecoxib Allergy Intermediate 02/14/17 Yes Physical Exam: PE: Constitutional: Well developed, well nourished, no acute distress, non-toxic appearance. [] HENT: Normocephalic, atraumatic, bilateral external ears normal, oropharynx moist, no oral exudates, nose normal. [] Eyes: PERRLA, EOMI, pale conjunctive a no discharge. Neck: Normal range of motion, no tenderness, supple, no stridor. [] Cardiovascular:Heart rate regular rhythm, no murmur [] Lungs & Thorax: Bilateral breath sounds clear to auscultation [] Abdomen: Bowel sounds normal, soft, no tenderness, no masses, no pulsatile masses. [] Skin: Warm, dry, no erythema, no rash. [] Back: No tenderness, no CVA tenderness. [] Extremities: No tenderness, no cyanosis, no clubbing, ROM intact, no edema. Right BKA. Neurologic: Patient is awake alert, normal speech. Psychologic: Affect normal, judgement normal, mood normal. [] Current Patient Data: Labs: Laboratory Tests Test 06/22/20 13:40 06/22/20 16:15 White Blood Count 11.8 x10^3/uL (4.0-11.0) H Red Blood Count 2.43 x10^6/uL (3.50-5.40) L Hemoglobin 6.8 g/dL (12.0-15.5) *L Hematocrit 21.2 % (36.0-47.0) L Mean Corpuscular Volume 87 fL (79-100) Mean Corpuscular Hemoglobin 28 pg (25-35) Mean Corpuscular Hemoglobin Concent 32 g/dL (31-37) Red Cell Distribution Width 21.8 % (11.5-14.5) H Platelet Count 271 x10^3/uL (140-400) Neutrophils (%) (Auto) 82 % (31-73) H Lymphocytes (%) (Auto) 12 % (24-48) L Monocytes (%) (Auto) 6 % (0-9) Eosinophils (%) (Auto) 0 % (0-3) Basophils (%) (Auto) 0 % (0-3) Neutrophils # (Auto) 9.6 x10^3/uL (1.8-7.7) H Lymphocytes # (Auto) 1.4 x10^3/uL (1.0-4.8) Monocytes # (Auto) 0.7 x10^3/uL (0.0-1.1) Eosinophils # (Auto) 0.0 x10^3/uL (0.0-0.7) Basophils # (Auto) 0.0 x10^3/uL (0.0-0.2) Platelet Estimate Adequate (ADEQUATE) Large Platelets Present Polychromasia Slight Poikilocytosis Mod Basophilic Stippling Present Anisocytosis Mod Spherocytes Occ Tear Drop Cells Occ Ovalocytes Few Sodium Level 138 mmol/L (136-145) Potassium Level 4.2 mmol/L (3.5-5.1) Chloride Level 103 mmol/L (98-107) Carbon Dioxide Level 30 mmol/L (21-32) Anion Gap 5 (6-14) L Blood Urea Nitrogen 16 mg/dL (7-20) Creatinine 0.7 mg/dL (0.6-1.0) Estimated GFR (Cockcroft-Gault) 79.5 BUN/Creatinine Ratio 23 (6-20) H Glucose Level 128 mg/dL (70-99) H Calcium Level 7.8 mg/dL (8.5-10.1) L Magnesium Level 1.9 mg/dL (1.8-2.4) Total Bilirubin 0.4 mg/dL (0.2-1.0) Aspartate Amino Transferase (AST) 29 U/L (15-37) Alanine Aminotransferase (ALT) 34 U/L (14-59) Alkaline Phosphatase 76 U/L (46-116) Total Protein 5.0 g/dL (6.4-8.2) L Albumin 2.0 g/dL (3.4-5.0) L Albumin/Globulin Ratio 0.7 (1.0-1.7) L Urine Collection Type U cath Urine Color Yellow Urine Clarity Clear Urine pH 5.5 (<5.0-8.0) Urine Specific Hurley 1.020 (1.000-1.030) Urine Protein Negative mg/dL (NEG-TRACE) Urine Glucose (UA) Negative mg/dL (NEG) Urine Ketones (Stick) Negative mg/dL (NEG) Urine Blood Negative (NEG) Urine Nitrite Negative (NEG) Urine Bilirubin Negative (NEG) Urine Urobilinogen Dipstick 1.0 mg/dL (0.2 mg/dL) Urine Leukocyte Esterase Negative (NEG) Urine RBC 0 /HPF (0-2) Urine WBC 1-4 /HPF (0-4) Urine Bacteria 0 /HPF (0-FEW) Urine Hyaline Casts Many /HPF Urine Mucus Marked /LPF Laboratory Tests 06/22/20 13:40 Laboratory Tests 06/22/20 13:40 Vital Signs: Vital Signs Date Time Temp Pulse Resp B/P (MAP) Pulse Ox O2 Delivery O2 Flow Rate FiO2 06/22/20 16:57 64 99 06/22/20 13:44 97.6 22 104/63 (77) Room Air 97.6 EKG: EKG: [] Radiology/Procedures: Radiology/Procedures: [] Course & Med Decision Making: Course & Med Decision Making Pertinent Labs and Imaging studies reviewed. (See chart for details) Patient is a 84-year-old female who was brought here from home due to altered mental status, in the ER, patient has been awake alert, talking at her baseline. Patient was found to be anemic, her hemoglobin is 6.8 which is her baseline as well. Patient has history of non-Hodgkin lymphoma in her stomach. Her family expressed a desire to put her in hospice care and DNR. Discussed with Dr. Palencia, patient family physician, who recommended to discharge patient home, have social work set patient up for hospice care. Social work had been able to set up for [facility] hospice to come to her house for interview tomorrow. Discussed with patient's daughter, Malina Echevarria who will come up to take patient home. Misha Disclaimer: Misha Disclaimer: This electronic medical record was generated, in whole or in part, using a voice recognition dictation system. Departure Departure Impression: Primary Impression: Generalized weakness Additional Impression: Anemia Disposition: 01 HOME, SELF-CARE Condition: STABLE Referrals: CINDI PALENCIA MD (PCP) FOLLOW UP WITH [facility] Patient Instructions: Anemia, FAQs, Weakness Justicifation of Admission Dx: Justifications for Admission: Justification of Admission Dx: N/A Comminuty Aquired Pneumonia: AMN Sepsis: Altered Mental Status JUAN CARMICHAEL DO Jun 22, 2020 17:51
== END 2020-06-22 18:35 | disposition home or self-care (01) ==
LOC: ER 13:23
DX: R53.1 Weakness (principal); D64.9 Anemia, unspecified; R41.82 Altered mental status, unspecified; I10 Essential (primary) hypertension; Z87.891 Personal history of nicotine dependence; Z88.0 Allergy status to penicillin; Z88.8 Allergy status to other drugs, medicaments and biological substances
CPT/HCPCS: 36415; 80053; 81001; 83735; 85025; 96374; 99285; J0610

== ENCOUNTER 2020-07-19 16:14 | Emergency (ER) | payer MEDICARE, OTHER ==
[~2020-07-19] VITALS: Ht 167.6 cm; Wt 68.0 kg
[2020-07-19 16:30] VITALS: BP 140/90
--- NOTE | 2020-07-19 17:17 | PHYS DOC ---
Past Medical History Past Medical History: Cancer, High Cholesterol, Hypertension Additional Past Medical Histor: ABDOMINAL CA Past Surgical History: Other Additional Past Surgical Histo: back surgery,BILAT HIP REPLACEMENT, RIGHT AKA Smoking Status: Former Smoker Alcohol Use: None Drug Use: None General Adult EDM: Chief Complaint: ALTERED MENTAL STATUS HPI: HPI: Patient is a 84 year old female patient presenting to the ED from home via EMS for altered mental status. Patient is yelling and randomly screaming. This appears to be baseline. She is not able to give us any information. Review of Systems: Review of Systems: Constitutional: OLEGARIO due to mentation Eyes: OLEGARIO due to mentation HENT: OLEGARIO due to mentation Respiratory: OLEGARIO due to mentation Cardiovascular: OLEGARIO due to mentation GI: OLEGARIO due to mentation : OLEGARIO due to mentation Musculoskeletal: OLEGARIO due to mentation Integument: OLEGARIO due to mentation Neurologic: AMS Heart Score: Risk Factors: Risk Factors: DM, Current or recent (<one month) smoker, HTN, HLP, family history of CAD, obesity. Risk Scores: Score 0 - 3: 2.5% MACE over next 6 weeks - Discharge Home Score 4 - 6: 20.3% MACE over next 6 weeks - Admit for Clinical Observation Score 7 - 10: 72.7% MACE over next 6 weeks - Early Invasive Strategies Current Medications: Current Medications Medications (Trade) Dose Ordered Sig/Mil[place] Start Time Stop Time Status Last Admin Dose Admin Lorazepam (Ativan Inj) 1 mg 1X ONCE 07/19/20 16:45 07/19/20 16:49 DC 07/19/20 16:59 1 MG Allergies: Allergies: Allergies Coded Allergies Type Severity Reaction Last Updated Verified spironolactone Allergy Severe FLUID POURED OUT OF ALL ORIFICES 02/14/17 Yes Penicillins Allergy Intermediate 04/13/18 Yes amlodipine Allergy Intermediate 02/14/17 Yes iodine Allergy Intermediate Rash 02/14/17 Yes olanzapine Allergy Intermediate 02/14/17 Yes rofecoxib Allergy Intermediate 02/14/17 Yes Physical Exam: PE: Constitutional: Well developed, well nourished, no acute distress, non-toxic appearance. [] HENT: Normocephalic, atraumatic, bilateral external ears normal, oropharynx moist, no oral exudates, nose normal. [] Eyes: PERRLA, EOMI, conjunctiva normal, no discharge. [] Neck: Normal range of motion, no tenderness, supple, no stridor. [] Cardiovascular:Heart rate regular rhythm, no murmur [] Lungs & Thorax: Bilateral breath sounds clear to auscultation [] Abdomen: Bowel sounds normal, soft, no tenderness, no masses, no pulsatile masses. [] Skin: Warm, dry, no erythema, no rash. [] Back: No tenderness, no CVA tenderness. [] Extremities: Right BKA. No tenderness, no cyanosis, no clubbing, ROM intact, no edema. [] Neurologic: Alert, normal motor function, normal sensory function, no focal deficits noted. [] Current Patient Data: Labs: Laboratory Tests Test 07/19/20 16:23 Glucose (Fingerstick) 216 mg/dL (70-99) H Vital Signs: Vital Signs Date Time Temp Pulse Resp B/P (MAP) Pulse Ox O2 Delivery O2 Flow Rate FiO2 07/19/20 16:30 99.0 94 18 140/90 (107) 92 Room Air 99.0 EKG: EKG: [] Radiology/Procedures: Radiology/Procedures: [] Course & Med Decision Making: Course & Med Decision Making Pertinent Labs and Imaging studies reviewed. (See chart for details) This is a 84-year-old female patient who presents to the ED today from home to be evaluated for altered mental status change. Patient came by EMS. Nursing staff called patient's daughter who is the D POA, she states she was sleeping and patient's who also has dementia was supposed to call hospice nurse but ended up calling 911 to bring patient to the hospital. The daughter requested we send patient back because she is already on hospice and has no reason to be in the hospital. Patient was discharged back to home. Dragon Disclaimer: [employer] Prom[employer] Disclaimer: This electronic medical record was generated, in whole or in part, using a voice recognition dictation system. Departure Departure Impression: Primary Impression: AMS (altered mental status) Qualified Codes: R41.82 - Altered mental status, unspecified Disposition: 01 HOME, SELF-CARE Condition: STABLE Referrals: CINDI SOUSA MD (PCP) follow up in one week Patient Instructions: Altered Mental Status Justicifation of Admission Dx: Justifications for Admission: Justification of Admission Dx: N/A Comminuty Aquired Pneumonia: AMN Sepsis: Altered Mental Status MUTUNGA,BETTY FAMILY WORKER Jul 19, 2020 17:17
== END 2020-07-19 18:36 | disposition home or self-care (01) ==
LOC: ER 16:14
DX: R41.82 Altered mental status, unspecified (principal); E78.00 Pure hypercholesterolemia, unspecified; I10 Essential (primary) hypertension; Z87.891 Personal history of nicotine dependence; Z88.0 Allergy status to penicillin; Z88.8 Allergy status to other drugs, medicaments and biological substances
CPT/HCPCS: 82962; 96374; 99284; J2060; P9612